=== PATIENT | male | born 1945 | race Caucasian/White ===

== ENCOUNTER 2018-12-17 15:23 | Inpatient (IN) | payer MEDICARE, BC ==
[~2018-12-17] VITALS: Ht 175.3 cm; Wt 74.9 kg
[2018-12-17] VITALS (14 sets, daily range): BP systolic 61–117; BP diastolic 35–72
--- NOTE | 2018-12-17 08:00 | NUR ---
NURSE NOTES: admit fr er pt orally intubated -lethargic with bp 75/60 dr sandoval was notify with made dopamine drip stared at 10mcg/kg /miin and vent ac 24 [id number] fio2 70 0/0 p5
--- NOTE | 2018-12-17 15:30 | NUR ---
ED Nurse Note: brought by RA [facility] from [facility] due to low sat for last 45 mins (84% in RA). pt on 15L via NR and maintained >94%. patient is unresposive to questions however is awake, patient came into ED tilted towards the left side of the bed. after being hooked up to the monitor, patient's current o2 sat is 82%, MD aware
[2018-12-17] MEDS ORDERED: ELIQUIS5 MG PO (15:37)
[2018-12-17] MEDS ORDERED: ATORVASTATIN CA20 MG ORAL (15:37)
[2018-12-17] MEDS ORDERED: CARVEDILOL3.125 MG ORAL (15:37)
[2018-12-17] MEDS ORDERED: SENNA8.6 M2 PO (15:37)
[2018-12-17] MEDS ORDERED: POLYETHYLENE GL17 GM ORAL (15:37)
[2018-12-17] MEDS ORDERED: VASOTEC10 MG ORAL (15:37)
[2018-12-17] MEDS ORDERED: FOLIC ACID1 MG ORAL (15:37)
[2018-12-17] MEDS ORDERED: DEXAMETHASONE4 M1 PO (15:37)
[2018-12-17] MEDS ORDERED: BISACODYL5 MG ORAL (15:37)
[2018-12-17] MEDS ORDERED: DOCUSATE SODIU100 MG ORAL (15:37)
[2018-12-17] MEDS ORDERED: Cefepime HCl 2 GM in NS 110 ML IV SCH (15:45)
[2018-12-17] MEDS ORDERED: Ipratropium 0.02% Inh Soln 2.5ml UD HHN ONE (15:45)
[2018-12-17] MEDS ORDERED: Vancomycin 1 GM in NS 275 ML IV ONE (15:45)
[2018-12-17] MEDS ORDERED: Cefepime 2gm ONE (15:51)
[2018-12-17] MEDS ORDERED: Acetaminophen 650 MG SUPP RECTAL ONE (16:00)
[2018-12-17] MEDS: Albuterol ud Inhalation HHN SCH ×3 (16:00→17:33)
--- NOTE | 2018-12-17 16:00 | Emergency Room Report ---
History of Present Illness General Chief Complaint: Dyspnea/Respdistress Source: Family Member, EMS Present Illness HPI Patient with recent hospitalization at [facility]. He has a history of lung cancer. He's had a alf facility. Apparently oxygen saturations were low and the patient was weak with dyspnea. According to the ambulance report his initial oxygen saturation was 86%. An EKG was done which showed a heart rate of 137 without any acute changes. He was improved on oxygen. The head kiln operator report also states he has a history of hypertension and prior stroke. The only medication listed is OxyContin. The patient has a POLST which says DO NOT RESUSCITATE but is not been signed by the physician. The patient is unable to give history. There are no old records the patient. 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 Hx Cerebrovascular Accident: Yes Review of Systems All Other Systems: limited Physical Exam Vital Signs Date Time Temp Pulse Resp B/P (MAP) Pulse Ox O2 Delivery O2 Flow Rate FiO2 12/17/18 15:25 103.6 137 33 114/91 94 Non-Rebreather 15.0 Sp02 EP Interpretation: reviewed, abnormal - As interpreted by me General Appearance: severe distress Eyes: bilateral eye normal inspection, bilateral eye PERRL ENT: moist mucus membranes Neck: supple Respiratory: decreased breath sounds, accessory muscle use, crackles, rales, wheezing, expiration Cardiovascular #1: tachycardia Cardiovascular #2: 2+ radial (L) Gastrointestinal: soft, decreased bowel sounds Genitourinary: no CVA tenderness Musculoskeletal: no calf tenderness, other - Atrophy bilaterally Neurologic: other - Lethargic and decreased responsiveness with weakness in all 4 extremities Psychiatric: other - In respiratory distress with increased mentation Skin: cyanosis, other - Hot Procedures Critical Care Time Critical Care Time Total Critical Care Time: 90 min bedside evaluation and treatment excludes procedures (EKG, intubation). Reason for critical care: sepsis, respiratory failure, NSTEMI Possible complications: hypotension, hypertension, PA, shock, arrhythmias, metabolic acidosis, end organ damage, respiratory failure. Interventions: sepsis resuscitation, antibiotics, BIPAP, intubation Course: Patient with fever and resp distress. Initially treatment with BIPAP. Failed. Discussed with as DNR. Requested intubation. Improved with this. Fluid responsive to sepsis with antibiotics begun. NSTEMI and aspirin given. Discussed with critical care MD. Multiple evaluations with dramatic improvement. Adjustment of vent based on ABG. Consultations: nursing staff, EMS, family, critical care MD, RT Performed by: Dr. Ram Tolerated well condition = Critical Intubation Intubation : Consent: Emergent Time of Intubation: 16:20 Intubation Method: orotracheal Tube Size (cm): 7.5 Medications: Other - none Breath Sounds after Intubation: equal Intubation Complications: no complications Post Intubation Xray: Yes Attempts: One Patient Tolerated: Well Complications: None Medical Decision Making Diagnostic Impression: Primary Impression: Severe sepsis Additional Impressions: Respiratory failure Qualified Codes: J96.01 - Acute respiratory failure with hypoxia; J96.02 - Acute respiratory failure with hypercapnia NSTEMI (non-ST elevated myocardial infarction) ER Course Patient presents with dyspnea fever tachycardia and tachypnea with hypoxia. The patient appears septic at this time. Due to DO NOT RESUSCITATE he is quite ill and aggressive treatment will be instituted with IV fluid hydration and BiPAP. Because of the advanced directives the patient most likely should not be intubated at this time however this will be confirmed by talking with the patient's physician and/or family member. Initial EKG with rate of [address] depressions. The machine reads STEMI however this is believed to be strain and rate related. Chest x-ray with right upper lobe mass and bilateral lower lobe infiltrates. On BiPAP the patient's respiration is better. However he is slightly less responsive. Attempting the end CO2 monitor on the patient. Fluids and antibiotics are started also Tylenol given. The patient appears gravely ill and may not survive. Lab called with positive troponin. Aspirin administered. White count is low. There is renal insufficiency. Urinalysis essentially normal. Discussed with who requests intubation. Intubated and O2 sat better and color. Blood gas with respiratory acidosis. Ventilator is adjusted. BP OK, still mottled, but pinking up, HR better, temp coming down. More alert. Sedation begun. Second NS bolus started. Before transfer repeat EKG without ischemic changes and improved. No longer mottled. BP 98 systolic and warmer and improved mentation. Discussed with and critical care MD. Admit ICU Dr. Enamorado. Laboratory Tests Test 12/17/18 15:40 12/17/18 16:31 12/17/18 17:02 12/17/18 17:30 White Blood Count 3.5 K/UL (4.8-10.8) L Red Blood Count 5.18 M/UL (4.70-6.10) Hemoglobin 16.5 G/DL (14.2-18.0) Hematocrit 49.7 % (42.0-52.0) Mean Corpuscular Volume 96 FL (80-99) Mean Corpuscular Hemoglobin 31.8 PG (27.0-31.0) H Mean Corpuscular Hemoglobin Concent 33.2 G/DL (32.0-36.0) Red Cell Distribution Width 11.6 % (11.6-14.8) Platelet Count 305 K/UL (150-450) Mean Platelet Volume 7.7 FL (6.5-10.1) Neutrophils (%) (Auto) % (45.0-75.0) Lymphocytes (%) (Auto) % (20.0-45.0) Monocytes (%) (Auto) % (1.0-10.0) Eosinophils (%) (Auto) % (0.0-3.0) Basophils (%) (Auto) % (0.0-2.0) Differential Total Cells Counted 100 Neutrophils % (Manual) 59 % (45-75) Lymphocytes % (Manual) 9 % (20-45) L Monocytes % (Manual) 3 % (1-10) Eosinophils % (Manual) 0 % (0-3) Basophils % (Manual) 1 % (0-2) Band Neutrophils 28 % (0-8) H Platelet Estimate Adequate Platelet Morphology Normal Anisocytosis 1+ Prothrombin Time 14.0 SEC (9.30-11.50) H Prothrombin Time INR 1.3 (0.9-1.1) H PTT 36 SEC (23-33) H Sodium Level 144 MMOL/L (136-145) Potassium Level 4.7 MMOL/L (3.5-5.1) Chloride Level 105 MMOL/L (98-107) Carbon Dioxide Level 25 MMOL/L (21-32) Anion Gap 14 mmol/L (5-15) Blood Urea Nitrogen 90 mg/dL (7-18) H Creatinine 2.1 MG/DL (0.55-1.30) H Estimate Glomerular Filtration Rate mL/min (>60) Glucose Level 125 MG/DL (74-106) H Lactic Acid Level 4.50 mmol/L (0.4-2.0) H 2.60 mmol/L (0.66-2.22) H Calcium Level 10.1 MG/DL (8.5-10.1) Total Bilirubin 1.0 MG/DL (0.2-1.0) Aspartate Amino Transferase (AST) 27 U/L (15-37) Alanine Aminotransferase (ALT) 31 U/L (12-78) Alkaline Phosphatase 111 U/L (46-116) Total Creatine Kinase 48 U/L (26-308) Troponin I 0.142 ng/mL (0.000-0.056) Pro-B-Type Natriuretic Peptide 99193 pg/mL (0-125) H Total Protein 8.4 G/DL (6.4-8.2) H Albumin 2.3 G/DL (3.4-5.0) L Globulin 6.1 g/dL Albumin/Globulin Ratio 0.4 (1.0-2.7) L Arterial Blood pH 7.280 (7.350-7.450) Arterial Blood Partial Pressure CO2 43.3 mmHg (35.0-45.0) Arterial Blood Partial Pressure O2 49.9 mmHg (75.0-100.0) Arterial Blood HCO3 20.0 mmol/L (22.0-26.0) L Arterial Blood Oxygen Saturation 78.6 % (95-100) *L Arterial Blood Base Excess -6.4 (-2-2) L Damion Test Positive Urine Color Yellow Urine Appearance Slightly cloudy Urine pH 5 (4.5-8.0) Urine Specific [place] 1.020 (1.005-1.035) Urine Protein 3+ (NEGATIVE) H Urine Glucose (UA) Negative (NEGATIVE) Urine Ketones 1+ (NEGATIVE) H Urine Blood 2+ (NEGATIVE) H Urine Nitrite Negative (NEGATIVE) Urine Bilirubin Negative (NEGATIVE) Urine Urobilinogen 1 MG/DL (0.0-1.0) H Urine Leukocyte Esterase 1+ (NEGATIVE) H Urine RBC 5-10 /HPF (0 - 0) H Urine WBC 2-4 /HPF (0 - 0) Urine Squamous Epithelial Cells None /LPF (NONE/OCC) Urine Amorphous Sediment Few /LPF (NONE) H Urine Bacteria Moderate /HPF (NONE) H Test 12/17/18 18:40 12/17/18 19:15 12/17/18 21:45 Arterial Blood pH 7.289 (7.350-7.450) 7.295 (7.350-7.450) Arterial Blood Partial Pressure CO2 36.5 mmHg (35.0-45.0) 39.0 mmHg (35.0-45.0) Arterial Blood Partial Pressure O2 99.3 mmHg (75.0-100.0) 71.0 mmHg (75.0-100.0) L Arterial Blood HCO3 17.1 mmol/L (22.0-26.0) *L 18.5 mmol/L (22.0-26.0) L Arterial Blood Oxygen Saturation 96.1 % (95-100) 91.4 % (95-100) L Arterial Blood Base Excess -8.7 (-2-2) L -7.4 (-2-2) L Damion Test Positive Positive Lactic Acid Level 2.40 mmol/L (0.4-2.0) H Troponin I 0.141 ng/mL (0.000-0.056) Thyroid Stimulating Hormone (TSH) Pending Cortisol Pending Microbiology Date/Time Source Procedure Growth Status 12/17/18 17:30 Nasal Nares Influenza Types A,B Antigen (JAYCOB) - Final Complete EKG Diagnostic Results Rate: tachycardiac ST Segments: no acute changes - NSSTTW changes Rhythm Strip Diag. Results EP Interpretation: yes Rhythm: other - Sinus tachycardia, PVC ST elevation but not full STEMI Chest X-Ray Diagnostic Results Chest X-Ray Diagnostic Results #1: Chest X-Ray Ordered: Yes # of Views/Limited/Complete: 1 View Indication: Other EP Interpretation: Yes Interpretation: no effusion, no pneumothorax, other - bilat infiltrates and CA RUL Impression: Other Electronically Signed by: Electronically signed by Real Ram MD Chest X-Ray Diagnostic Results #2: Chest X-Ray Ordered: Yes # of Views/Limited/Complete: 1 View Indication: Other EP Interpretation: Yes Interpretation: no effusion, no pneumothorax, other - ET OK, bilat infiltrates, RUL mass Impression: Other Electronically Signed by: Electronically signed by Real Ram MD Last Vital Signs Date Time Temp Pulse Resp B/P (MAP) Pulse Ox O2 Delivery O2 Flow Rate FiO2 12/18/18 04:02 100 12/18/18 04:00 Mechanical Ventilator 12/18/18 04:00 70 12/18/18 02:54 33 12/17/18 22:45 99/41 (60) 100 12/17/18 20:00 98.8 12/17/18 15:38 15.0 Status: improved Disposition: ADMITTED INPATIENT Condition: Critical Real Ram MD Dec 17, 2018 16:00
[2018-12-17 16:08] LABS: HEMATOCRIT 49.7 % (42.0-52.0); HEMOGLOBIN 16.5 G/DL (14.2-18.0); MEAN CORPUSCULAR VOLUME 96 FL (80-99); PLATELET COUNT 305 K/UL (150-450); RED BLOOD COUNT 5.18 M/UL (4.70-6.10); RED CELL DISTRIBUTION WIDTH 11.6 % (11.6-14.8); WHITE BLOOD COUNT 3.5 K/UL (4.8-10.8)
[2018-12-17 16:09] LABS: INR 1.3 (0.9-1.1)
--- NOTE | 2018-12-17 16:11 | Diagnostic Imaging Report ---
Indication: Cough Comparison: None A single view chest radiograph was obtained. Findings: There is a sharply circumscribed rounded fairly large opacity projected over the right upper lobe. This could be fissural fluid, a pleural-based mass or parenchymal mass. The heart is enlarged. There is ill-defined consolidation involving both lower lobes suspicious for pneumonia. Please correlate clinically. Sternotomy is noted. Bones are osteopenic. IMPRESSION: Suspected basilar pneumonia. Large rounded opacity in the right upper lobe possibly a pleural-based mass or fissural pseudotumor. Comparison with previous studies are recommended if available. Follow-up PA lateral chest x-ray recommended as initial evaluation.
[2018-12-17 16:15] LABS: ANION GAP 14 mmol/L (5-15); BLOOD UREA NITROGEN 90 mg/dL (7-18); CALCIUM 10.1 MG/DL (8.5-10.1); CARBON DIOXIDE 25 MMOL/L (21-32); CHLORIDE 105 MMOL/L (98-107); CREATININE 2.1 MG/DL (0.55-1.30); POTASSIUM 4.7 MMOL/L (3.5-5.1); SODIUM 144 MMOL/L (136-145)
--- NOTE | 2018-12-17 16:20 | NUR ---
ED Nurse Note: intubation time at 1620
[2018-12-17 16:26] LABS: ALANINE AMINOTRANSFERASE 31 U/L (12-78); ALBUMIN 2.3 G/DL (3.4-5.0); ALBUMIN/GLOBULIN RATIO 0.4 (1.0-2.7); ALKALINE PHOSPHATASE 111 U/L (46-116); ASPARTATE AMINO TRANSFERASE 27 U/L (15-37); CREATINE KINASE 48 U/L (26-308)
--- NOTE | 2018-12-17 16:30 | NUR ---
pt was brought into ER with complaint of resperatory distress, pt was placed on non-rebreather 100%, then as placed on bipap 15/5 100%, pt is dnr but agreed to intubate pt, pt intubated by DR Ram with 7.5 endotrachial tube 21 @ lip line vent settings of ac 16 450 70% +5 alarms are on x audible, vent plugged in red outlet. will continue to monitor the pt
[2018-12-17] MEDS ORDERED: Midazolam 2mg/2ml Inj IV ONE (16:45)
[2018-12-17] MEDS ORDERED: Midazolam for drip 50 MG in NS 90 ML IV ONE (16:45)
--- NOTE | 2018-12-17 17:12 | NUR ---
ED Nurse Note: patient started on Versed at 2 ml/hr
--- NOTE | 2018-12-17 17:27 | NUR ---
Note mitul in EDM - 12/17/18 at 1749 by GOYO ED Nurse Note: patient remains agitated, titrated to 3mg/h
--- NOTE | 2018-12-17 17:27 | NUR ---
ED Nurse Note: patient remains agitated, titrated versed to 2mg/h
[2018-12-17 17:28] LABS: APPEARANCE,URINE SLIGHTLY CLOUDY; BILIRUBIN, URINE NEGATIVE (NEGATIVE); GLUCOSE, URINE (UA) NEGATIVE (NEGATIVE); KETONES,URINE 1+ (NEGATIVE); LEUKOCYTE ESTERASE ,URINE 1+ (NEGATIVE); NITRITE,URINE NEGATIVE (NEGATIVE); PH,URINE 5 (4.5-8.0); PROTEIN,URINE 3+ (NEGATIVE); UROBILINOGEN,URINE 1 MG/DL (0.0-1.0)
[2018-12-17 17:40] LABS: COLOR,URINE YELLOW
--- NOTE | 2018-12-17 17:43 | NUR ---
ED Nurse Note: patient still remains agitated, RASS score of +2, titrated to 3mg/h
--- NOTE | 2018-12-17 18:50 | Consultation ---
Consult Note Assessment/Plan [facility] DICT # [id number] Solomon Quan MD Dec 17, 2018 18:50
--- NOTE | 2018-12-17 19:08 | NUR ---
ED Nurse Note: Patient transferred to ICU, Patient tolerated transfer well. report given to Charge Nurse by WESLEY Espinoza
--- NOTE | 2018-12-17 19:09 | Infectious Diseases Prog Note ---
Assessment/Plan Problems: (1) Acute aspiration pneumonia Assessment & Plan: will start vancomycin and zosyn empirically, send sputum culture , aspiration precaution (2) Sepsis Assessment & Plan: due to the above, will start wide spectrum antibiotics pending blood culture (3) CONSTANCE (acute kidney injury) Assessment & Plan: continue hydration with renally dosed antibiotics , continue pressure support (4) Acute respiratory failure Assessment & Plan: due to the above , intubated on mechanical ventilation, pulmonary is following (5) Lung cancer metastatic to brain Assessment & Plan: S/P radiation and chemo therapy at [place] , with poor prognosis Subjective Allergies: Coded Allergies: No Known Allergies (Unverified , 12/17/18) Objective Vital Signs Last 24 Hour Vital Signs Date Time Temp Pulse Resp B/P (MAP) Pulse Ox O2 Delivery O2 Flow Rate FiO2 12/17/18 19:00 25 Mechanical Ventilator 12/17/18 18:32 23 Mechanical Ventilator 12/17/18 18:18 23 Mechanical Ventilator 12/17/18 18:00 22 Mechanical Ventilator 12/17/18 17:56 104 26 89 Mechanical Ventilator 12/17/18 17:45 101.1 95 27 85/50 100 Mechanical Ventilator 12/17/18 17:44 28 Mechanical Ventilator 12/17/18 17:35 106 26 89 Mechanical Ventilator 70 12/17/18 17:27 21 Mechanical Ventilator 12/17/18 17:12 33 Mechanical Ventilator 12/17/18 16:47 112 26 70 12/17/18 16:06 103.6 112 33 112/67 98 Bi-pap 12/17/18 16:02 121 31 96 Full Face 100 12/17/18 16:02 121 31 Bi-pap 100 12/17/18 15:38 137 33 Non-Rebreather 15.0 12/17/18 15:25 103.6 137 33 114/91 94 Non-Rebreather 15.0 Height (Feet): 5 Height (Inches): 9.00 Weight (Pounds): 130 Microbiology Date/Time Source Procedure Growth Status 12/17/18 17:30 Nasal Nares Influenza Types A,B Antigen (JAYCOB) - Final Complete Laboratory Tests Test 12/17/18 15:40 12/17/18 16:31 12/17/18 17:02 12/17/18 17:30 White Blood Count 3.5 K/UL (4.8-10.8) L Red Blood Count 5.18 M/UL (4.70-6.10) Hemoglobin 16.5 G/DL (14.2-18.0) Hematocrit 49.7 % (42.0-52.0) Mean Corpuscular Volume 96 FL (80-99) Mean Corpuscular Hemoglobin 31.8 PG (27.0-31.0) H Mean Corpuscular Hemoglobin Concent 33.2 G/DL (32.0-36.0) Red Cell Distribution Width 11.6 % (11.6-14.8) Platelet Count 305 K/UL (150-450) Mean Platelet Volume 7.7 FL (6.5-10.1) Neutrophils (%) (Auto) % (45.0-75.0) Lymphocytes (%) (Auto) % (20.0-45.0) Monocytes (%) (Auto) % (1.0-10.0) Eosinophils (%) (Auto) % (0.0-3.0) Basophils (%) (Auto) % (0.0-2.0) Differential Total Cells Counted 100 Neutrophils % (Manual) 59 % (45-75) Lymphocytes % (Manual) 9 % (20-45) L Monocytes % (Manual) 3 % (1-10) Eosinophils % (Manual) 0 % (0-3) Basophils % (Manual) 1 % (0-2) Band Neutrophils 28 % (0-8) H Platelet Estimate Adequate Platelet Morphology Normal Anisocytosis 1+ Prothrombin Time 14.0 SEC (9.30-11.50) H Prothromb Time International Ratio 1.3 (0.9-1.1) H Activated Partial Thromboplast Time 36 SEC (23-33) H Sodium Level 144 MMOL/L (136-145) Potassium Level 4.7 MMOL/L (3.5-5.1) Chloride Level 105 MMOL/L (98-107) Carbon Dioxide Level 25 MMOL/L (21-32) Anion Gap 14 mmol/L (5-15) Blood Urea Nitrogen 90 mg/dL (7-18) H Creatinine 2.1 MG/DL (0.55-1.30) H Estimat Glomerular Filtration Rate mL/min (>60) Glucose Level 125 MG/DL (74-106) H Lactic Acid Level 4.50 mmol/L (0.4-2.0) H 2.60 mmol/L (0.66-2.22) H Calcium Level 10.1 MG/DL (8.5-10.1) Total Bilirubin 1.0 MG/DL (0.2-1.0) Aspartate Amino Transf (AST/SGOT) 27 U/L (15-37) Alanine Aminotransferase (ALT/SGPT) 31 U/L (12-78) Alkaline Phosphatase 111 U/L (46-116) Total Creatine Kinase 48 U/L (26-308) Troponin I 0.142 ng/mL (0.000-0.056) Pro-B-Type Natriuretic Peptide 05187 pg/mL (0-125) H Total Protein 8.4 G/DL (6.4-8.2) H Albumin 2.3 G/DL (3.4-5.0) L Globulin 6.1 g/dL Albumin/Globulin Ratio 0.4 (1.0-2.7) L Arterial Blood pH 7.280 (7.350-7.450) Arterial Blood Partial Pressure CO2 43.3 mmHg (35.0-45.0) Arterial Blood Partial Pressure O2 49.9 mmHg (75.0-100.0) Arterial Blood HCO3 20.0 mmol/L (22.0-26.0) L Arterial Blood Oxygen Saturation 78.6 % (95-100) *L Arterial Blood Base Excess -6.4 (-2-2) L Damion Test Positive Urine Color Yellow Urine Appearance Slightly cloudy Urine pH 5 (4.5-8.0) Urine Specific [place] 1.020 (1.005-1.035) Urine Protein 3+ (NEGATIVE) H Urine Glucose (UA) Negative (NEGATIVE) Urine Ketones 1+ (NEGATIVE) H Urine Blood 2+ (NEGATIVE) H Urine Nitrite Negative (NEGATIVE) Urine Bilirubin Negative (NEGATIVE) Urine Urobilinogen 1 MG/DL (0.0-1.0) H Urine Leukocyte Esterase 1+ (NEGATIVE) H Urine RBC 5-10 /HPF (0 - 0) H Urine WBC 2-4 /HPF (0 - 0) Urine Squamous Epithelial Cells None /LPF (NONE/OCC) Urine Amorphous Sediment Few /LPF (NONE) H Urine Bacteria Moderate /HPF (NONE) H Current Medications Medications (Trade) Dose Ordered Sig/Earlene Route PRN Reason Start Time Stop Time Status Last Admin Dose Admin Apixaban (Eliquis) 5 mg BID ORAL 12/18/18 09:00 01/17/19 08:59 UNV Cefepime HCl 2 gm/ Sodium Chloride 110 ml @ 220 mls/hr Q8H IV 12/17/18 15:45 12/18/18 15:44 12/17/18 15:53 Dexamethasone Sodium Phosphate (Decadron 4mg/ml vial) 4 mg BID IVP 12/18/18 09:00 01/17/19 08:59 UNV Dextrose/Sodium Chloride 1,000 ml @ 75 mls/hr [id number] IV 12/17/18 18:45 01/16/19 18:44 UNV Norepinephrine Bitartrate 4 mg/ Dextrose 250 ml @ 0 mls/hr Q24H IV 12/17/18 18:45 01/16/19 18:44 UNV Piperacillin Sod/ Tazobactam Sod 3.375 gm/Dextrose 110 ml @ 27.5 mls/hr EVERY 8 HOURS IVPB 12/17/18 22:00 12/22/18 21:59 UNV Sodium Chloride 1,000 ml @ 300 mls/hr Q3H20M IV 12/17/18 15:45 01/16/19 15:44 12/17/18 17:29 Vancomycin HCl (Vanco rx to dose) 1 ea DAILY PRN MISC Per rx protocol 12/17/18 18:15 01/16/19 18:14 Tammy Rob M.D. Dec 17, 2018 19:09
--- NOTE | 2018-12-17 19:43 | Cardiology Progress Note ---
Assessment/Plan Assessment/Plan The patient is seen and examined, full consult note will be dictated shortly. Objective Last 24 Hour Vital Signs Date Time Temp Pulse Resp B/P (MAP) Pulse Ox O2 Delivery O2 Flow Rate FiO2 12/17/18 19:00 25 Mechanical Ventilator 12/17/18 18:32 23 Mechanical Ventilator 12/17/18 18:18 23 Mechanical Ventilator 12/17/18 18:00 22 Mechanical Ventilator 12/17/18 17:56 104 26 89 Mechanical Ventilator 12/17/18 17:45 101.1 95 27 85/50 100 Mechanical Ventilator 12/17/18 17:44 28 Mechanical Ventilator 12/17/18 17:35 106 26 89 Mechanical Ventilator 70 12/17/18 17:27 21 Mechanical Ventilator 12/17/18 17:12 33 Mechanical Ventilator 12/17/18 16:47 112 26 70 12/17/18 16:06 103.6 112 33 112/67 98 Bi-pap 12/17/18 16:02 121 31 96 Full Face 100 12/17/18 16:02 121 31 Bi-pap 100 12/17/18 15:38 137 33 Non-Rebreather 15.0 12/17/18 15:25 103.6 137 33 114/91 94 Non-Rebreather 15.0 Laboratory Tests Test 12/17/18 15:40 12/17/18 16:31 12/17/18 17:02 12/17/18 17:30 White Blood Count 3.5 K/UL (4.8-10.8) L Red Blood Count 5.18 M/UL (4.70-6.10) Hemoglobin 16.5 G/DL (14.2-18.0) Hematocrit 49.7 % (42.0-52.0) Mean Corpuscular Volume 96 FL (80-99) Mean Corpuscular Hemoglobin 31.8 PG (27.0-31.0) H Mean Corpuscular Hemoglobin Concent 33.2 G/DL (32.0-36.0) Red Cell Distribution Width 11.6 % (11.6-14.8) Platelet Count 305 K/UL (150-450) Mean Platelet Volume 7.7 FL (6.5-10.1) Neutrophils (%) (Auto) % (45.0-75.0) Lymphocytes (%) (Auto) % (20.0-45.0) Monocytes (%) (Auto) % (1.0-10.0) Eosinophils (%) (Auto) % (0.0-3.0) Basophils (%) (Auto) % (0.0-2.0) Differential Total Cells Counted 100 Neutrophils % (Manual) 59 % (45-75) Lymphocytes % (Manual) 9 % (20-45) L Monocytes % (Manual) 3 % (1-10) Eosinophils % (Manual) 0 % (0-3) Basophils % (Manual) 1 % (0-2) Band Neutrophils 28 % (0-8) H Platelet Estimate Adequate Platelet Morphology Normal Anisocytosis 1+ Prothrombin Time 14.0 SEC (9.30-11.50) H Prothromb Time International Ratio 1.3 (0.9-1.1) H Activated Partial Thromboplast Time 36 SEC (23-33) H Sodium Level 144 MMOL/L (136-145) Potassium Level 4.7 MMOL/L (3.5-5.1) Chloride Level 105 MMOL/L (98-107) Carbon Dioxide Level 25 MMOL/L (21-32) Anion Gap 14 mmol/L (5-15) Blood Urea Nitrogen 90 mg/dL (7-18) H Creatinine 2.1 MG/DL (0.55-1.30) H Estimat Glomerular Filtration Rate mL/min (>60) Glucose Level 125 MG/DL (74-106) H Lactic Acid Level 4.50 mmol/L (0.4-2.0) H 2.60 mmol/L (0.66-2.22) H Calcium Level 10.1 MG/DL (8.5-10.1) Total Bilirubin 1.0 MG/DL (0.2-1.0) Aspartate Amino Transf (AST/SGOT) 27 U/L (15-37) Alanine Aminotransferase (ALT/SGPT) 31 U/L (12-78) Alkaline Phosphatase 111 U/L (46-116) Total Creatine Kinase 48 U/L (26-308) Troponin I 0.142 ng/mL (0.000-0.056) Pro-B-Type Natriuretic Peptide 06634 pg/mL (0-125) H Total Protein 8.4 G/DL (6.4-8.2) H Albumin 2.3 G/DL (3.4-5.0) L Globulin 6.1 g/dL Albumin/Globulin Ratio 0.4 (1.0-2.7) L Arterial Blood pH 7.280 (7.350-7.450) Arterial Blood Partial Pressure CO2 43.3 mmHg (35.0-45.0) Arterial Blood Partial Pressure O2 49.9 mmHg (75.0-100.0) Arterial Blood HCO3 20.0 mmol/L (22.0-26.0) L Arterial Blood Oxygen Saturation 78.6 % (95-100) *L Arterial Blood Base Excess -6.4 (-2-2) L Damion Test Positive Urine Color Yellow Urine Appearance Slightly cloudy Urine pH 5 (4.5-8.0) Urine Specific [place] 1.020 (1.005-1.035) Urine Protein 3+ (NEGATIVE) H Urine Glucose (UA) Negative (NEGATIVE) Urine Ketones 1+ (NEGATIVE) H Urine Blood 2+ (NEGATIVE) H Urine Nitrite Negative (NEGATIVE) Urine Bilirubin Negative (NEGATIVE) Urine Urobilinogen 1 MG/DL (0.0-1.0) H Urine Leukocyte Esterase 1+ (NEGATIVE) H Urine RBC 5-10 /HPF (0 - 0) H Urine WBC 2-4 /HPF (0 - 0) Urine Squamous Epithelial Cells None /LPF (NONE/OCC) Urine Amorphous Sediment Few /LPF (NONE) H Urine Bacteria Moderate /HPF (NONE) H Test 12/17/18 18:40 Arterial Blood pH Pending Arterial Blood Partial Pressure CO2 Pending Arterial Blood Partial Pressure O2 Pending Arterial Blood HCO3 Pending Arterial Blood Oxygen Saturation Pending Arterial Blood Base Excess Pending Damion Test Pending Microbiology Date/Time Source Procedure Growth Status 12/17/18 17:30 Nasal Nares Influenza Types A,B Antigen (JAYCOB) - Final Complete Fred Holman MD Dec 17, 2018 19:43
--- NOTE | 2018-12-17 20:30 | Consultation ---
DATE OF CONSULTATION: 12/17/2018 INFECTIOUS DISEASE CONSULTATION CONSULTING PHYSICIAN: Tammy Rob M.D. REFERRING PHYSICIAN: Bruno Enamorado M.D. REASON FOR CONSULTATION: Aspiration pneumonia with sepsis in an immunocompromised patient. Recommendation for antibiotics treatment. 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 The patient was found to be coughing for almost a week and became lethargic, as per his . He was recently hospitalized at [facility] after [place]. The patient has been receiving radiation therapy to his metastatic lesion in the brain with no significant improvement. At the rehab, he was coughing and became short of breath. Oxygen saturation was low and also his blood pressure, so he was brought into [place] for evaluation. The patient was saturating 94% on non-rebreathable mask with blood pressure of 114/91, pulse of 137, and fever of 103.6. He received IV antibiotics in the emergency room and shortly after that he got intubated and started on mechanical ventilation for progressive respiratory failure. The patient's blood pressure was found to be low, received boluses with no significant improvement. So, he will be transferred to the intensive care unit for pressors and resuscitation with blood pressure support, so Infectious Disease consultation was requested for antibiotics treatment and further management. As of note, the patient is intubated on mechanical ventilation and cannot provide any history. History was mainly obtained from his at the bedside. REVIEW OF SYSTEMS: Unable to obtain. The patient is intubated on mechanical ventilation and cannot provide any history. 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 SOCIAL HISTORY: The patient had remote history of smoking, but no recent drugs, tobacco, or alcohol. FAMILY HISTORY: Unable to obtain. PAST SURGICAL HISTORY: Not on record. ALLERGIES: He has no known drug allergies. MEDICATIONS: He received cefepime, vancomycin, and levofloxacin in the emergency room. For rest of his medications, please refer to [facility]. LABORATORY AND DIAGNOSTIC DATA: Labs showed white count of 3.5, hemoglobin 16.5, and platelet count 305,000. BUN 90, creatinine 2.1. Microbiology - influenza A and B both negative. Radiology - chest x-ray showed suspected basilar pneumonia, large rounded opacity in the right upper lobe, possibly pleural based mass or fissural pseudotumor. PHYSICAL EXAMINATION: VITAL SIGNS: Temperature 101.1, pulse 95, respirations 27, and blood pressure 85/50. Pulse oximetry 100% on mechanical ventilation. GENERAL: An elderly male cachectic, ill looking, intubated on mechanical ventilation, not in acute distress. HEENT: Normocephalic and atraumatic. Pupils are not reactive to light. Unable to assess oral mucosa well. No lips ulceration or lesion. NECK: Supple. No lymphadenopathy. Trachea midline. CARDIOVASCULAR: Regular rate and rhythm. No murmur or gallop. LUNGS: Diminished breathing sounds at the bases with crackles. Poor air entry. ABDOMEN: Soft, nontender, and nondistended. Normal bowel sounds. No hepatosplenomegaly or ascites. EXTREMITIES: No edema or cyanosis. ASSESSMENT AND RECOMMENDATION: 1. Acute aspiration pneumonia suspect due to alteration in his mental status. We will start the patient on vancomycin renally dosed as per pharmacy and Zosyn empiric coverage and send sputum culture, with aspiration precaution. Keep head of bed more than 30-degree all the time. Monitor chest x-ray. Aggressive suctioning. 2. Sepsis with hypotension due to the above. We will start wide-spectrum antibiotics pending blood culture. Continue IV fluid for blood pressure support. Recommend pressor if needed. The patient also should be on steroid since he has been on it for his brain metastases to prevent adrenal insufficiency or adrenal crisis. 3. Acute renal failure. Continue hydration with renally dosed antibiotics. Continue pressure support to maintain systolic blood pressure more than 100. Renal evaluation if needed. 4. Acute respiratory failure due to the above. The patient is intubated on mechanical ventilation. Pulmonary team is following. Monitor ABG and chest x-ray. 5. Lung cancer, metastasized to the brain and spine, status post radiation and chemo at [facility]. The patient has poor prognosis at this point. Code status to be discussed with the by the Primary in the morning. Thank you for the consult. ID will continue to follow. Please feel free to call with any question. Tammy Rob M.D. DR: SAJAN JOB#: [id number] CC: STEF
[2018-12-17] MEDS ORDERED: DOPamine 400mg/250ml 250 ML IV ONE (20:51)
[2018-12-17] MEDS: DOPamine 400mg/250ml 250 ML IV SCH (20:55)
--- NOTE | 2018-12-17 21:45 | Consultation ---
DATE OF CONSULTATION: 12/17/2018 PULMONARY AND CRITICAL CARE CONSULTATION CONSULTING PHYSICIAN: Solomon Quan M.D. REFERRING PHYSICIAN: Bruno Enamorado M.D. REASON FOR CONSULTATION: Ventilator-dependent respiratory failure, sepsis, and shock. I was asked emergently by Dr. Enamorado to see the patient. He was evaluated by me in the [place] [facility] prior to transfer to the critical care unit. HISTORY OF PRESENT ILLNESS: The patient is a very unfortunate 73-year-old male, extensive former smoker with a history of lung cancer with metastases to the brain and spine, CAD, CABG, systolic heart failure, hypertension, and hyperlipidemia, discharged from [facility] on 12/08/2018 to the rehabilitation center of [place] where he has been undergoing radiation therapy under the care of Dr. Annamaria Wilson. The patient was noted for the past few days to be less responsive, coughing, congestion, and having respiratory distress. Today at the rehabilitation facility, his respiratory rate was in the 30s. He is saturating to the 80s on the room air. He got a nebulized treatment without any improvement in his expiratory wheezing and thus was sent to [place] for further evaluation and management. Upon arrival to the ER, the patient's temperature was 103.6. He previously had a DNR order in state, but his upon discussion with the emergency room physician opted for intubation. Subsequently, the patient was endotracheally intubated. In addition to the large right upper lobe mass, he has bilateral pulmonary infiltrates. He had a white count of 3.5. His ABG post-intubation was 7.28/43/49/20/78. Lactic acid of 4.5, creatinine of 2.1. Of note, his last creatinine at [facility] was 0.6 on 12/08/2018. The patient also has elevated BNP and evidence of a urinary tract infection. Rapid flu done in the ER was negative. Chest x-ray shows bilateral infiltrates as I stated. At the time of my evaluation, he is sedated on a ventilator, in no distress. He received cefepime, Zosyn, and vancomycin in the emergency department as well as Versed prior to intubation. His MAP is 85 at this time. No history is obtainable from the patient. The last CT chest, abdomen, and pelvis on 10/31/2018 showed increase in the size of his right upper lobe mass, small paratracheal nodes, which were stable and on 11/17/2019, he had an MRI of brain showing marked increase in multiple metastases. His last echocardiogram on 03/23/2018 showed severely depressed LV systolic function with an EF of 24% and wall motion abnormalities. He does not have a formal diagnosis of COPD, but has seen many times. PAST MEDICAL HISTORY: 1. Lung adenocarcinoma with brain metastases. 2. Likely COPD. 3. CAD, status post CABG. 4. Hypertension. 5. Hyperlipidemia. 6. Prior CVA. ALLERGIES: No known drug allergies. MEDICATIONS: Prior to admission, medications reviewed. Current medications, reviewed. SOCIAL HISTORY: Former smoker. No alcohol or drug use. He is and has supportive . Currently, at the [facility]. FAMILY HISTORY: Noncontributory. REVIEW OF SYSTEMS: Unobtainable. PHYSICAL EXAMINATION: VITAL SIGNS: Temperature 103.6, pulse 104, blood pressure 85/50, respiratory 26, saturating 70% on the ventilator. GENERAL: He is obtunded and intubated. HEENT: Normocephalic and atraumatic. ET tube is noted. NECK: Supple without lymphadenopathy. CHEST: Coarse bibasilar sounds. HEART: Regular rate and rhythm. ABDOMEN: Soft, nontender, and nondistended. EXTREMITIES: No cyanosis, clubbing, or edema. ANCILLARY DATA: White count 3.5, hemoglobin 16.5, and platelet count 305,000. ABG 7.28/43/49/20/78. Sodium 144, potassium 4.7, chloride 105, bicarbonate 25, gap 14, BUN 90, creatinine 2.1, glucose 125, lactic acid 4.6, and calcium 10.1. Total bilirubin 1, AST 27, and ALT 31. Troponin 0.142. ProBNP 27103. Total protein 8.4, albumin 2.3, and globulin 6.1. Urinalysis, moderate bacteria, 2+ blood, 1+ ketone, and 1+ leukocyte esterase. Rapid influenza negative. Chest x-ray, right upper lobe mass and bibasilar infiltrates. Review of data from [facility] on 03/23/2018. Echocardiogram, severely depressed LV systolic function, EF of 24%; moderate diastolic dysfunction, wall motion score 2.358; kinesis of the apical anterior to lateral septal wall; mildly depressed RV systolic function; and mild to moderate MR. On 11/17/2018, PET/CT, marked increase in size of bilateral brain metastases. On 10/31/2018, CT chest of abdomen, and pelvis, increase in large right upper lobe mass with avid uptake and solitary right paratracheal node. Last creatinine was 0.6. ASSESSMENT: The patient is a very unfortunate 73-year-old male, former smoker with a history of lower lung adenocarcinoma with known brain metastases, currently getting radiation therapy, presenting with respiratory failure in the setting of pneumonia, CONSTANCE, and troponinemia. Despite DNR status, he was intubated per his 's wishes and is currently on the ventilator. I have discussed the case with his and she is okay with him getting a central line and pressors if needed, but would not want cardiopulmonary resuscitation in the event of an arrest. Despite his severe systolic and diastolic dysfunction, clinically he is dry as well as evidence of multisystem organ failure. I believe he requires IV fluids at this time. PROBLEM LIST: 1. Ventilator-dependent respiratory failure. 2. Healthcare-associated pneumonia with bilateral infiltrates. 3. Non-small cell lung cancer/adenocarcinoma: Right upper lobe mass with brain and cervical spine metastases, currently getting radiation therapy. 4. Acute kidney injury. 5. Lactic acidosis. 6. Shock, likely septic. 7. Congestive heart failure with systolic and diastolic dysfunction without evidence of decompensation. 8. CAD, status post CABG. 9. Hypertension. 10. Hyperlipidemia. 11. CVA. 12. DNAR. TREATMENT PLAN: 1. Continue ventilatory support, settings reviewed with Dr. Ram, ER physician. I agree with increase of tidal volume to 600 and rate to 24. 2. Titrate down FiO2 and PEEP as able. 3. Lktjn-hau-yhadn and p.r.n. bronchodilators. 4. Start Zosyn and vancomycin. 5. Follow up cultures. 6. Monitor volumes and renal function. 7. Cautious IV fluid hydration, we will start D5 half NS at 75 mL an hour. 8. Trend lactic acid. 9. Trend troponins. 10. Follow up echocardiogram. 11. I have asked the ER attending to place a central line and possibly start pressors if needed. 12. Continue Decadron 4 mg b.i.d. that the patient was on. 13. DVT prophylaxis. Continue home Eliquis via NG tube. 14. DNAR. CRITICAL CARE TIME: 60 minutes critical care time spent in the care of this patient. Solomon Quan M.D. DR: SOFIYA JOB#: [id number] CC:
--- NOTE | 2018-12-17 21:45 | Consultation ---
DATE OF CONSULTATION: 12/17/2018 CARDIOLOGY CONSULTATION: CONSULTING PHYSICIAN: Fred Holman M.D. REFERRING PHYSICIAN: Bruno Enamorado M.D. REASON FOR CONSULTATION: Management of shortness of breath and tachycardia in a patient with respiratory failure. HISTORY OF PRESENT ILLNESS: The patient is a very unfortunate 73-year-old gentleman with past medical history significant for right lung cancer with metastases to brain and spine, history of congestive heart failure, history of coronary artery disease, status post coronary artery bypass graft surgery, history of hypertension, history of cerebrovascular accident, a resident of a long term facility, DNR who was brought in to this facility after the patient was found to be weak and having dyspnea with associated documented low oxygen saturation. Apparently, the DNR status was over rolled by the patient's and the patient got intubated and transferred to the intensive care unit for acute respiratory failure due to underlying COPD as well as lung cancer. At the time of arrival to the hospital, blood pressure was 114/91 mmHg and heart rate was 137. A 12-lead electrocardiogram was significant for sinus tachycardia. Single PVC, but no acute ST and T-wave abnormalities. The patient was febrile and temperature 103.6 degrees Fahrenheit. Unfortunately, the patient cannot provide any history as he is intubated. PAST MEDICAL HISTORY: 1. Congestive heart failure. 2. Coronary artery disease, status post coronary artery bypass graft surgery. Number of grafts not known. 3. History of hypertension. 4. Metastatic lung cancer with presence of a right lung mass metastasis to brain and spine. 5. History of CVA. 6. History of recent hospitalization to [facility]. REVIEW OF SYSTEMS: Twelve system review could not be done as the patient is intubated. ALLERGIES: No known drug allergies. PAST SURGICAL HISTORY: None. SOCIAL HISTORY: History of tobacco use. Currently, there is no history of tobacco, alcohol, or illicit drug use. MEDICATIONS: List of medications in the nursing facility includes apixaban 5 mg p.o. twice daily, atorvastatin 20 mg p.o. at bedtime, Dulcolax 10 mg p.o. daily, carvedilol 3.125 mg q.12 hours, dexamethasone 4 mg twice daily, Colace 100 mg twice daily, Vasotec 10 mg p.o. daily, folic acid 1 mg p.o. daily, MiraLAX 17 g at bedtime p.r.n. constipation, and senna 8.6 mg at bedtime. PHYSICAL EXAMINATION: VITAL SIGNS: Blood pressure was 114/91, pulse of 137, respirations 33, and O2 saturation 94% on non-rebreather mask at the time of arrival to the ER, now is intubated. Temperature was 103.6 degrees Fahrenheit at the time of arrival to the hospital. GENERAL: The patient is a very cachectic 73-year-old gentleman, who is intubated. HEENT: Atraumatic and normocephalic. Anicteric. Pupils are equal, round, and reactive to light and accommodation. Conjunctival pallor. NECK: JVP cannot be assessed due to positive inspiratory pressure of the ventilator. No carotid bruit. Carotid upstroke is 2+ bilaterally. CARDIOVASCULAR: Normal S1, S2. Regular rate and rhythm. I do not hear murmurs, gallops, or rubs. LUNGS: Diminished breath sounds in both lungs. ABDOMEN: Soft, nontender, and nondistended. No hepatosplenomegaly. Positive bowel sounds. EXTREMITIES: No evidence of edema, clubbing, or cyanosis. There is onychomycosis. LABORATORY FINDINGS: WBC 3.5, hemoglobin 16.5, hematocrit 49.7, and platelet count is 305 with 28% bandemia. ABG showed pH of 7.28, pCO2 of 42.3, pO2 of 49.9, HCO2 of 20, and O2 saturation 78.6 prior to intubation with considerable improvement of the ABG following intubation as follows pH of 7.28, pCO2 of 36.5, pO2 of 99.3 HCO2 of 17.1, and O2 saturation 96.1%. Chemistry shows sodium of 144, potassium is 4.7, chloride is 105, bicarbonate 25, BUN of 90, creatinine 2.1, and glucose is 125. Troponin I was 0.142. ProBNP was 95074. Albumin is 2.3. INR is 1.3. Chest x-ray shows suspected basilar pneumonia, large rounded opacity in the right upper lobe, probably pleural-based mass or fissural pseudotumor. ASSESSMENT AND PLAN: The patient is a very unfortunate 73-year-old gentleman, seen in Cardiology consultation in the intensive care unit of [facility]. 1. Sinus tachycardia, most likely secondary to hypoxemia. The patient showed hypoxic hypercarbic respiratory failure due to possible acute exacerbation of COPD. Currently intubated. Heart rate has diminished to 85 beats per minute. The treatment of sinus tachycardia is the treatment of the underlying disorder. ABG has improved in oxygenation. Pulmonary consultation in place. Then. 2. History of coronary artery disease, status post coronary artery bypass graft surgery. A 12-lead electrocardiogram does not show any ischemic changes despite the fact that the first troponin I level was elevated. The patient is not a candidate for ischemic workup given metastatic lung cancer conservative management. I do not believe that the patient would benefit from anticoagulation therapy, which may put the patient in increased risk of bleeding. 3. 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 4. History of CVA. 5. History of COPD. Total amount of time spent in evaluation of this patient in the intensive care unit of [facility] including review of the old records from [facility] discussing the plan of care with the nursing staff and primary care physician was over 50 minutes. I would like to thank, Dr. Enamorado, for the courtesy of this consultation. Fred Holman M.D. DR: CATHERINE JOB#: [id number] CC:
--- NOTE | 2018-12-17 22:00 | NUR ---
NURSE NOTES: NGT INSERTED ORALLY AND VERIFIED WITH DENZEL GREENFIELD RNREPOSItion
[2018-12-17] MEDS: Piperacillin/Tazobactam 3.375 GM in D5W 110 ML IVPB SCH (22:37)
[2018-12-17] MEDS: D5 1/2NS 1,000 ML IV SCH (22:42)
[2018-12-18] VITALS (33 sets, daily range): BP systolic 90–152; BP diastolic 50–83
--- NOTE | 2018-12-18 | NUR ---
NURSE NOTES: REPOSITION AND SUCTION ACUTE DISTRESS NOTED
--- NOTE | 2018-12-18 02:00 | NUR ---
NURSE NOTES: REPOSITION AND SUCTION AM CARE DONE ORAL CARE DONE
--- NOTE | 2018-12-18 04:00 | NUR ---
NURSE NOTES: PT OBTUNDED ON DOPAMINE DRIP AT 5MCG/KG /MIN BP121/55
[2018-12-18 05:09] LABS: HEMATOCRIT 37.6 % (42.0-52.0); HEMOGLOBIN 12.1 G/DL (14.2-18.0); MEAN CORPUSCULAR VOLUME 100 FL (80-99); PLATELET COUNT 190 K/UL (150-450); RED BLOOD COUNT 3.78 M/UL (4.70-6.10); RED CELL DISTRIBUTION WIDTH 12.4 % (11.6-14.8); WHITE BLOOD COUNT 4.1 K/UL (4.8-10.8)
[2018-12-18 05:49] LABS: ANION GAP 12 mmol/L (5-15); BLOOD UREA NITROGEN 67 mg/dL (7-18); CALCIUM 8.2 MG/DL (8.5-10.1); CARBON DIOXIDE 22 MMOL/L (21-32); CHLORIDE 112 MMOL/L (98-107); CREATININE 1.5 MG/DL (0.55-1.30); POTASSIUM 4.1 MMOL/L (3.5-5.1); SODIUM 146 MMOL/L (136-145)
[2018-12-18] MEDS: Piperacillin/Tazobactam 3.375 GM in D5W 110 ML IVPB SCH ×3 (06:06→21:33)
--- NOTE | 2018-12-18 06:49 | NUR ---
RESPIRATORY NOTE: Patient received mechanically ventilated on PB 840 with current ordered vent settings. Patient is orally intubated with ETT size 7.5 at 21cm at the lip line secured with an anchor fast. Patient presents with bilateral coarse breath sounds. Thick white secretions suctioned without incident. There is an ambu bag available the bedside and the vent is connected to a red outlet. Vent alarms are functional and audible. Will continue to monitor.
--- NOTE | 2018-12-18 07:30 | NUR ---
HAND-OFF: Report given to falguni tovar.
[2018-12-18] MEDS: Ipratropium 0.02% Inh Soln 2.5ml UD HHN SCH (07:34)
--- NOTE | 2018-12-18 08:00 | NUR ---
NURSE NOTES: Received patient obtunded, reacts to deep pain on fingernails. Patient playground monitor showing SR. ETT 7.5/21 cm selam. AC 18, VT 600 FiO2 70% and Peep of 5. Lung sounds diminished bilaterally. Patient is NPO at this time. OGT intact. No bowel movement. Soft, non-tender, round abdomen. Hypoactive bowel sounds on all 4 quadrants. Skin intact, toe fungus. L ac 20 R forearm 20. D5 1/2 NS at 75 cc/hr. Dopamine at 5 mcg/kg/min. Bilateral restraints on, active range of motion present, unable to take off restraints patient reaches to remove devices. Turned and repositioned. Bed on lowest position, bed alarm on for safety, hob elevated, will continue plan of care.
[2018-12-18] MEDS ORDERED: Lidocaine 1% Plain 30 ml INJ PRN (08:30)
[2018-12-18] MEDS ORDERED: Heparin 2000 units/Ns 1000ml INJ PRN (08:30)
[2018-12-18] MEDS ORDERED: Eliquis 2.5mg tablet ORAL SCH (09:00)
[2018-12-18] MEDS: D5 1/2NS 1,000 ML IV SCH (09:20)
--- NOTE | 2018-12-18 10:00 | NUR ---
NURSE NOTES: patient turned and repositioned. No new orders at this time. VSS. no distress noted.
[2018-12-18] MEDS: Dexamethasone 4mg/ml vial IVP SCH ×2 (10:19→18:22)
--- NOTE | 2018-12-18 12:00 | NUR ---
NURSE NOTES: Patient turned and repositioned. L upper arm PICC line double lumen inserted, placement confirmed. IV dopamine and fluids moved to PICC line.
--- NOTE | 2018-12-18 12:15 | Diagnostic Imaging Report ---
Indication: Postintubation Comparison: 12/17/2018 one hour earlier A single view chest radiograph was obtained. Findings: Endotracheal tube is in good position several centimeters above the maru. Patchy mixed interstitial alveolar densities noted throughout the lungs unchanged. Large mass projected over the right upper lobe. Cardiac silhouette is stable. IMPRESSION: Endotracheal tube in good position
--- NOTE | 2018-12-18 12:23 | Diagnostic Imaging Report ---
Indication: terminal operator venous access Findings: After the indications, procedure, risks, complications, and alternatives of the procedure were explained, written informed consent was obtained. The left upper extremity was prepped with alcohol. All elements of maximal sterile barrier technique were followed including usage of a cap, mask, sterile gown, sterile gloves, hand hygiene and a large sterile sheet. Sonographic evaluation of the upper extremity was performed demonstrating a patent and compressible basilic vein. Access was obtained under real-time ultrasound guidance (with utilization of sterile gel and sterile probe cover) and digital image was saved and archived. An .018 wire was introduced. Needle exchanged for a 5 Kisw[place]ili peel-away sheath. Measurements were obtained. A 5 K[place]ili dual-lumen Power PICC line catheter was cut to 35 cm and introduced over the wire. Peel-away sheath and wire were removed.Catheter was secured to the skin using 2-0 Prolene suture. Both ports aspirate and flush easily. Post procedure chest x-ray demonstrates good position of the PICC line catheter within the left innominate vein/SVC junction. Impression: Successful placement of an upper extremity PICC line catheter
--- NOTE | 2018-12-18 14:00 | NUR ---
NURSE NOTES: Patient turned and repositioned. No new orders at this time. Switched from dopamine to levophed VIA L upper arm PICC line / MD order. Will continue plan of care.
[2018-12-18] MEDS ORDERED: Ipratropium 0.02% Inh Soln 2.5ml UD HHN PRN (14:15)
--- NOTE | 2018-12-18 14:15 | Pulmonolgy Critical Care Note ---
Critical Care - Asmt/Plan Problems: (1) Gram positive sepsis (2) Severe sepsis (3) Acute respiratory failure (4) NSTEMI (non-ST elevated myocardial infarction) (5) CONSTANCE (acute kidney injury) (6) Acute aspiration pneumonia (7) Lung cancer metastatic to brain Respiratory: monitor respiratory rate, adjust FIO2 - titrate down to keep SaO2 > 92, continue PEEP 5, CXR, ABG, other Cardiac: continue pressors - switch DA to NE, titrate to keep MAP > 60, continue to monitor HR/BP, other - F/u TTE, F/U repeat trop Renal: keep IV fluid, check electrolytes, other - repeat lactic acid Infectious Disease: check cultures, continue antibiotics - Vanco/Zosyn per ID Gastrointestinal: other - Would start enteral feeds Endocrine: other - check TFT's, F/U cortisol Hematologic: monitor H/H, other - continue Eliquis via NGT - F/U CT brain Neurologic: other - Fent gtt RASS -2 + PRN Versed, F/U CT brain Prophylaxis: Protonix, other - Eliquis Disposition: keep in ICU Time Spent (Minutes): 50 Notes 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, 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, ID Discussed with: nurses, consultants, other - DNAR Critical Care - Objective Last 24 Hour Vital Signs Date Time Temp Pulse Resp B/P (MAP) Pulse Ox O2 Delivery O2 Flow Rate FiO2 12/18/18 13:00 98.8 114 25 102/62 (75) 100 12/18/18 12:56 119 31 70 12/18/18 12:00 70 12/18/18 12:00 120 22 114/68 (83) 100 12/18/18 12:00 70 12/18/18 12:00 102 12/18/18 12:00 Mechanical Ventilator 12/18/18 11:04 115 29 70 12/18/18 11:00 115 28 110/50 (70) 98 12/18/18 10:30 114 28 112/51 (71) 98 12/18/18 10:00 115 28 106/57 (73) 95 12/18/18 09:00 116 32 115/63 (80) 99 12/18/18 08:43 120 32 70 12/18/18 08:30 119 32 106/65 (79) 98 12/18/18 08:00 Mechanical Ventilator 12/18/18 08:00 98.9 124 30 94/81 (85) 100 12/18/18 08:00 70 12/18/18 08:00 102 12/18/18 07:30 129 33 95/64 (74) 96 12/18/18 06:45 122 34 70 12/18/18 05:25 128 32 70 12/18/18 04:02 100 12/18/18 04:00 Mechanical Ventilator 12/18/18 04:00 70 12/18/18 02:54 111 33 70 12/18/18 01:16 116 35 70 12/18/18 00:00 Mechanical Ventilator 12/17/18 23:19 Mechanical Ventilator 12/17/18 23:16 111 34 70 12/17/18 22:45 114 33 99/41 (60) 100 12/17/18 22:30 123 34 103/58 (73) 100 12/17/18 22:15 131 30 117/43 (67) 98 12/17/18 22:00 131 30 72/54 (60) 98 12/17/18 21:45 128 26 98/64 (75) 94 12/17/18 21:30 129 25 107/60 (76) 94 12/17/18 21:15 126 25 90/72 (78) 94 12/17/18 21:00 99 29 82/50 (61) 94 12/17/18 20:58 96 28 70 12/17/18 20:55 75/40 12/17/18 20:45 94 27 90/63 (72) 94 12/17/18 20:30 93 26 61/46 (51) 93 12/17/18 20:30 118/60 12/17/18 20:15 93 25 68/35 (46) 94 12/17/18 20:00 100 12/17/18 20:00 Mechanical Ventilator 12/17/18 20:00 95 12/17/18 20:00 98.8 94 25 75/44 (54) 97 12/17/18 19:48 96 28 70 12/17/18 19:08 99.8 99 23 95/54 100 Mechanical Ventilator 12/17/18 19:00 25 Mechanical Ventilator 12/17/18 18:32 23 Mechanical Ventilator 12/17/18 18:18 23 Mechanical Ventilator 12/17/18 18:00 22 Mechanical Ventilator 12/17/18 17:56 104 26 89 Mechanical Ventilator 12/17/18 17:45 101.1 95 27 85/50 100 Mechanical Ventilator 12/17/18 17:44 28 Mechanical Ventilator 12/17/18 17:35 106 26 89 Mechanical Ventilator 70 12/17/18 17:27 21 Mechanical Ventilator 12/17/18 17:12 33 Mechanical Ventilator 12/17/18 16:47 112 26 70 12/17/18 16:24 101.2 12/17/18 16:06 103.6 112 33 112/67 98 Bi-pap 12/17/18 16:02 121 31 96 Full Face 100 12/17/18 16:02 121 31 Bi-pap 100 12/17/18 15:38 137 33 Non-Rebreather 15.0 12/17/18 15:25 103.6 137 33 114/91 94 Non-Rebreather 15.0 Status: obtunded Condition: critical HEENT: atraumatic, normocephalic Lungs: rhonchi Heart: HR/BP unstable Abdomen: soft, non-tender, active bowel sounds Extremities: edema Micro: Microbiology Date/Time Source Procedure Growth Status 12/17/18 15:40 Blood Blood Culture - Preliminary Resulted 12/17/18 15:25 Blood Blood Culture - Preliminary Resulted 12/17/18 17:30 Nasal Nares Influenza Types A,B Antigen (JAYCOB) - Final Complete 12/17/18 17:02 Urine,Clean Catch Urine Culture - Preliminary NO GROWTH Resulted Blood Sugars: BS controlled Critical Care - Subjective ROS Limited/Unobtainable: Yes ICU Day: 2 Intubation Day: 2 Interval Events: DA 4 mcg, S/P PICC Obtunded, no sig secretions G+C in blood Condition: critical IV Access: PICC EKG Rhythm: Sinus Rhythm FI02: 70 Vent Support Breath Rate: 24 Vent Support Mode: AC Vent Tidal Volume: 600 Sputum Amount: Small PEEP: 5.0 PIP: 24 Secretions: small Fluids: D51/2NS@75 Drips: DA 4 I&O: Intake and Output 12/17/18 12/18/18 19:00 07:00 Intake Total 0 ml 945.118 ml Output Total 1490 ml Balance 0 ml -544.882 ml Intake Oral 0 ml 0 ml IV Total 945.118 ml Output Urine Total 1490 ml Subjective: HAWA CXR: ETT, b infil ET-Tube: 7.5 ET Position: 21 Labs: Laboratory Tests Test 12/17/18 15:40 12/17/18 16:31 12/17/18 17:02 12/17/18 17:30 White Blood Count 3.5 K/UL (4.8-10.8) L Red Blood Count 5.18 M/UL (4.70-6.10) Hemoglobin 16.5 G/DL (14.2-18.0) Hematocrit 49.7 % (42.0-52.0) Mean Corpuscular Volume 96 FL (80-99) Mean Corpuscular Hemoglobin 31.8 PG (27.0-31.0) H Mean Corpuscular Hemoglobin Concent 33.2 G/DL (32.0-36.0) Red Cell Distribution Width 11.6 % (11.6-14.8) Platelet Count 305 K/UL (150-450) Mean Platelet Volume 7.7 FL (6.5-10.1) Neutrophils (%) (Auto) % (45.0-75.0) Lymphocytes (%) (Auto) % (20.0-45.0) Monocytes (%) (Auto) % (1.0-10.0) Eosinophils (%) (Auto) % (0.0-3.0) Basophils (%) (Auto) % (0.0-2.0) Differential Total Cells Counted 100 Neutrophils % (Manual) 59 % (45-75) Lymphocytes % (Manual) 9 % (20-45) L Monocytes % (Manual) 3 % (1-10) Eosinophils % (Manual) 0 % (0-3) Basophils % (Manual) 1 % (0-2) Band Neutrophils 28 % (0-8) H Platelet Estimate Adequate Platelet Morphology Normal Anisocytosis 1+ Prothrombin Time 14.0 SEC (9.30-11.50) H Prothromb Time International Ratio 1.3 (0.9-1.1) H Activated Partial Thromboplast Time 36 SEC (23-33) H Sodium Level 144 MMOL/L (136-145) Potassium Level 4.7 MMOL/L (3.5-5.1) Chloride Level 105 MMOL/L (98-107) Carbon Dioxide Level 25 MMOL/L (21-32) Anion Gap 14 mmol/L (5-15) Blood Urea Nitrogen 90 mg/dL (7-18) H Creatinine 2.1 MG/DL (0.55-1.30) H Estimat Glomerular Filtration Rate mL/min (>60) Glucose Level 125 MG/DL (74-106) H Lactic Acid Level 4.50 mmol/L (0.4-2.0) H 2.60 mmol/L (0.66-2.22) H Calcium Level 10.1 MG/DL (8.5-10.1) Total Bilirubin 1.0 MG/DL (0.2-1.0) Aspartate Amino Transf (AST/SGOT) 27 U/L (15-37) Alanine Aminotransferase (ALT/SGPT) 31 U/L (12-78) Alkaline Phosphatase 111 U/L (46-116) Total Creatine Kinase 48 U/L (26-308) Troponin I 0.142 ng/mL (0.000-0.056) Pro-B-Type Natriuretic Peptide 31356 pg/mL (0-125) H Total Protein 8.4 G/DL (6.4-8.2) H Albumin 2.3 G/DL (3.4-5.0) L Globulin 6.1 g/dL Albumin/Globulin Ratio 0.4 (1.0-2.7) L Arterial Blood pH 7.280 (7.350-7.450) Arterial Blood Partial Pressure CO2 43.3 mmHg (35.0-45.0) Arterial Blood Partial Pressure O2 49.9 mmHg (75.0-100.0) Arterial Blood HCO3 20.0 mmol/L (22.0-26.0) L Arterial Blood Oxygen Saturation 78.6 % (95-100) *L Arterial Blood Base Excess -6.4 (-2-2) L Damion Test Positive Urine Color Yellow Urine Appearance Slightly cloudy Urine pH 5 (4.5-8.0) Urine Specific [place] 1.020 (1.005-1.035) Urine Protein 3+ (NEGATIVE) H Urine Glucose (UA) Negative (NEGATIVE) Urine Ketones 1+ (NEGATIVE) H Urine Blood 2+ (NEGATIVE) H Urine Nitrite Negative (NEGATIVE) Urine Bilirubin Negative (NEGATIVE) Urine Urobilinogen 1 MG/DL (0.0-1.0) H Urine Leukocyte Esterase 1+ (NEGATIVE) H Urine RBC 5-10 /HPF (0 - 0) H Urine WBC 2-4 /HPF (0 - 0) Urine Squamous Epithelial Cells None /LPF (NONE/OCC) Urine Amorphous Sediment Few /LPF (NONE) H Urine Bacteria Moderate /HPF (NONE) H Test 12/17/18 18:40 12/17/18 19:15 12/17/18 21:45 12/18/18 03:40 Arterial Blood pH 7.289 (7.350-7.450) 7.295 (7.350-7.450) Arterial Blood Partial Pressure CO2 36.5 mmHg (35.0-45.0) 39.0 mmHg (35.0-45.0) Arterial Blood Partial Pressure O2 99.3 mmHg (75.0-100.0) 71.0 mmHg (75.0-100.0) L Arterial Blood HCO3 17.1 mmol/L (22.0-26.0) *L 18.5 mmol/L (22.0-26.0) L Arterial Blood Oxygen Saturation 96.1 % (95-100) 91.4 % (95-100) L Arterial Blood Base Excess -8.7 (-2-2) L -7.4 (-2-2) L Damion Test Positive Positive Lactic Acid Level 2.40 mmol/L (0.4-2.0) H Troponin I 0.141 ng/mL (0.000-0.056) Thyroid Stimulating Hormone (TSH) 0.047 uiU/mL (0.358-3.740) Cortisol Pending White Blood Count 4.1 K/UL (4.8-10.8) L Red Blood Count 3.78 M/UL (4.70-6.10) L Hemoglobin 12.1 G/DL (14.2-18.0) L Hematocrit 37.6 % (42.0-52.0) L Mean Corpuscular Volume 100 FL (80-99) H Mean Corpuscular Hemoglobin 32.0 PG (27.0-31.0) H Mean Corpuscular Hemoglobin Concent 32.1 G/DL (32.0-36.0) Red Cell Distribution Width 12.4 % (11.6-14.8) Platelet Count 190 K/UL (150-450) Mean Platelet Volume 8.3 FL (6.5-10.1) Neutrophils (%) (Auto) % (45.0-75.0) Lymphocytes (%) (Auto) % (20.0-45.0) Monocytes (%) (Auto) % (1.0-10.0) Eosinophils (%) (Auto) % (0.0-3.0) Basophils (%) (Auto) % (0.0-2.0) Differential Total Cells Counted 100 Neutrophils % (Manual) 49 % (45-75) Lymphocytes % (Manual) 6 % (20-45) L Monocytes % (Manual) 3 % (1-10) Eosinophils % (Manual) 0 % (0-3) Basophils % (Manual) 0 % (0-2) Metamyelocytes % 1 % (0-0) H Band Neutrophils 41 % (0-8) H Toxic Granulation 1+ Platelet Estimate Adequate Platelet Morphology Normal Red Blood Cell Morphology Normal Sodium Level 146 MMOL/L (136-145) H Potassium Level 4.1 MMOL/L (3.5-5.1) Chloride Level 112 MMOL/L (98-107) H Carbon Dioxide Level 22 MMOL/L (21-32) Anion Gap 12 mmol/L (5-15) Blood Urea Nitrogen 67 mg/dL (7-18) H Creatinine 1.5 MG/DL (0.55-1.30) H Estimat Glomerular Filtration Rate mL/min (>60) Glucose Level 172 MG/DL (74-106) H Calcium Level 8.2 MG/DL (8.5-10.1) Solomon Monsivais MD Dec 18, 2018 14:14
--- NOTE | 2018-12-18 14:46 | NUR ---
CASE MANAGEMENT: REVIEW 73/M BIBA FROM [facility] CC: DYSPNEA . RESP DISTRESS SI: RESP FAILURE T 103.6 HR 137 RR 33 BP 114/91 SAT 89% MECH VENT FIO2 70 WBC 3.5 TROPONIN I 0.141 IS: NS BOLUS X1 LEVOFLOXACIN IV X1 VANCO IV X1 CEFEPIME IV X1 ATROVENT HHN X1 ALBUTEROL HHN X1 INTERQUAL CRITERIA MET: PATIENT ADMITTED TO ICU 12/17/2018 DCP: PATIENT IS FROM [facility]
--- NOTE | 2018-12-18 14:52 | Infectious Diseases Prog Note ---
Assessment/Plan Problems: (1) Acute aspiration pneumonia Assessment & Plan: continue vancomycin and zosyn empirically, pending sputum culture , aspiration precaution, keep HOB > 30 degree (2) Sepsis Assessment & Plan: with shock , due to the above, with gram positive cocci , continue wide spectrum antibiotics pending blood culture , continue pressor and steroids as need for septic shock (3) CONSTANCE (acute kidney injury) Assessment & Plan: due to the above , continue hydration with renally dosed antibiotics , continue pressure support (4) Acute respiratory failure Assessment & Plan: due to the above , intubated on mechanical ventilation, pulmonary is following , monitor ABG, and CXR (5) Lung cancer metastatic to brain Assessment & Plan: S/P radiation and chemo therapy at [facility] , now with poor prognosis, recommend palliative care . Subjective ROS Limited/Unobtainable: Yes Allergies: Coded Allergies: No Known Allergies (Unverified , 12/17/18) Subjective he was intubated on mechanical ventilation in ICU, not sedated, un responsive to verbal commands, still on pressor , afebrile Objective Vital Signs Last 24 Hour Vital Signs Date Time Temp Pulse Resp B/P (MAP) Pulse Ox O2 Delivery O2 Flow Rate FiO2 12/18/18 14:35 93/58 12/18/18 14:00 118 22 105/66 (79) 100 12/18/18 13:00 98.8 114 25 102/62 (75) 100 12/18/18 12:56 119 31 70 12/18/18 12:00 70 12/18/18 12:00 120 22 114/68 (83) 100 12/18/18 12:00 70 12/18/18 12:00 102 12/18/18 12:00 Mechanical Ventilator 12/18/18 11:04 115 29 70 12/18/18 11:00 115 28 110/50 (70) 98 12/18/18 10:30 114 28 112/51 (71) 98 12/18/18 10:00 115 28 106/57 (73) 95 12/18/18 09:00 116 32 115/63 (80) 99 12/18/18 08:43 120 32 70 12/18/18 08:30 119 32 106/65 (79) 98 12/18/18 08:00 Mechanical Ventilator 12/18/18 08:00 98.9 124 30 94/81 (85) 100 1/17/19 08:00 70 12/18/18 08:00 102 12/18/18 07:30 129 33 95/64 (74) 96 12/18/18 06:45 122 34 70 12/18/18 05:25 128 32 70 12/18/18 04:02 100 12/18/18 04:00 Mechanical Ventilator 12/18/18 04:00 70 12/18/18 02:54 111 33 70 12/18/18 01:16 116 35 70 12/18/18 00:00 Mechanical Ventilator 12/17/18 23:19 Mechanical Ventilator 12/17/18 23:16 111 34 70 12/17/18 22:45 114 33 99/41 (60) 100 12/17/18 22:30 123 34 103/58 (73) 100 12/17/18 22:15 131 30 117/43 (67) 98 12/17/18 22:00 131 30 72/54 (60) 98 12/17/18 21:45 128 26 98/64 (75) 94 12/17/18 21:30 129 25 107/60 (76) 94 12/17/18 21:15 126 25 90/72 (78) 94 12/17/18 21:00 99 29 82/50 (61) 94 12/17/18 20:58 96 28 70 12/17/18 20:55 75/40 12/17/18 20:45 94 27 90/63 (72) 94 12/17/18 20:30 93 26 61/46 (51) 93 12/17/18 20:30 118/60 12/17/18 20:15 93 25 68/35 (46) 94 12/17/18 20:00 100 12/17/18 20:00 Mechanical Ventilator 12/17/18 20:00 95 12/17/18 20:00 98.8 94 25 75/44 (54) 97 12/17/18 19:48 96 28 70 12/17/18 19:08 99.8 99 23 95/54 100 Mechanical Ventilator 12/17/18 19:00 25 Mechanical Ventilator 12/17/18 18:32 23 Mechanical Ventilator 12/17/18 18:18 23 Mechanical Ventilator 12/17/18 18:00 22 Mechanical Ventilator 12/17/18 17:56 104 26 89 Mechanical Ventilator 12/17/18 17:45 101.1 95 27 85/50 100 Mechanical Ventilator 12/17/18 17:44 28 Mechanical Ventilator 12/17/18 17:35 106 26 89 Mechanical Ventilator 70 12/17/18 17:27 21 Mechanical Ventilator 12/17/18 17:12 33 Mechanical Ventilator 12/17/18 16:47 112 26 70 12/17/18 16:24 101.2 12/17/18 16:06 103.6 112 33 112/67 98 Bi-pap 12/17/18 16:02 121 31 96 Full Face 100 12/17/18 16:02 121 31 Bi-pap 100 12/17/18 15:38 137 33 Non-Rebreather 15.0 12/17/18 15:25 103.6 137 33 114/91 94 Non-Rebreather 15.0 Height (Feet): 5 Height (Inches): 9.00 Weight (Pounds): 121 General Appearance: no acute distress, cachetic, other - intubated on mecahnical ventilation HEENT: normocephalic, atraumatic, anicteric, mucous membranes moist Respiratory/Chest: chest wall non-tender, lungs clear, normal breath sounds, no respiratory distress, no accessory muscle use Cardiovascular: normal peripheral pulses, normal rate, regular rhythm, no gallop/murmur, no JVD Abdomen: normal bowel sounds, soft, non tender, no organomegaly, non distended , no mass, no scars Extremities: no cyanosis, no clubbing, other - onychomycosis Skin: no rash, no lesions, no ulcers Neurologic/Psychiatric: unresponsiveness Lymphatic: no neck adenopathy, no groin adenopathy Musculoskeletal: no effusion, atrophy Microbiology Date/Time Source Procedure Growth Status 12/17/18 15:40 Blood Blood Culture - Preliminary Resulted 12/17/18 15:25 Blood Blood Culture - Preliminary Resulted 12/17/18 17:30 Nasal Nares Influenza Types A,B Antigen (JAYCOB) - Final Complete 12/17/18 17:02 Urine,Clean Catch Urine Culture - Preliminary NO GROWTH Resulted Laboratory Tests Test 12/17/18 15:40 12/17/18 16:31 12/17/18 17:02 12/17/18 17:30 White Blood Count 3.5 K/UL (4.8-10.8) L Red Blood Count 5.18 M/UL (4.70-6.10) Hemoglobin 16.5 G/DL (14.2-18.0) Hematocrit 49.7 % (42.0-52.0) Mean Corpuscular Volume 96 FL (80-99) Mean Corpuscular Hemoglobin 31.8 PG (27.0-31.0) H Mean Corpuscular Hemoglobin Concent 33.2 G/DL (32.0-36.0) Red Cell Distribution Width 11.6 % (11.6-14.8) Platelet Count 305 K/UL (150-450) Mean Platelet Volume 7.7 FL (6.5-10.1) Neutrophils (%) (Auto) % (45.0-75.0) Lymphocytes (%) (Auto) % (20.0-45.0) Monocytes (%) (Auto) % (1.0-10.0) Eosinophils (%) (Auto) % (0.0-3.0) Basophils (%) (Auto) % (0.0-2.0) Differential Total Cells Counted 100 Neutrophils % (Manual) 59 % (45-75) Lymphocytes % (Manual) 9 % (20-45) L Monocytes % (Manual) 3 % (1-10) Eosinophils % (Manual) 0 % (0-3) Basophils % (Manual) 1 % (0-2) Band Neutrophils 28 % (0-8) H Platelet Estimate Adequate Platelet Morphology Normal Anisocytosis 1+ Prothrombin Time 14.0 SEC (9.30-11.50) H Prothromb Time International Ratio 1.3 (0.9-1.1) H Activated Partial Thromboplast Time 36 SEC (23-33) H Sodium Level 144 MMOL/L (136-145) Potassium Level 4.7 MMOL/L (3.5-5.1) Chloride Level 105 MMOL/L (98-107) Carbon Dioxide Level 25 MMOL/L (21-32) Anion Gap 14 mmol/L (5-15) Blood Urea Nitrogen 90 mg/dL (7-18) H Creatinine 2.1 MG/DL (0.55-1.30) H Estimat Glomerular Filtration Rate mL/min (>60) Glucose Level 125 MG/DL (74-106) H Lactic Acid Level 4.50 mmol/L (0.4-2.0) H 2.60 mmol/L (0.66-2.22) H Calcium Level 10.1 MG/DL (8.5-10.1) Total Bilirubin 1.0 MG/DL (0.2-1.0) Aspartate Amino Transf (AST/SGOT) 27 U/L (15-37) Alanine Aminotransferase (ALT/SGPT) 31 U/L (12-78) Alkaline Phosphatase 111 U/L (46-116) Total Creatine Kinase 48 U/L (26-308) Troponin I 0.142 ng/mL (0.000-0.056) Pro-B-Type Natriuretic Peptide 02376 pg/mL (0-125) H Total Protein 8.4 G/DL (6.4-8.2) H Albumin 2.3 G/DL (3.4-5.0) L Globulin 6.1 g/dL Albumin/Globulin Ratio 0.4 (1.0-2.7) L Arterial Blood pH 7.280 (7.350-7.450) Arterial Blood Partial Pressure CO2 43.3 mmHg (35.0-45.0) Arterial Blood Partial Pressure O2 49.9 mmHg (75.0-100.0) Arterial Blood HCO3 20.0 mmol/L (22.0-26.0) L Arterial Blood Oxygen Saturation 78.6 % (95-100) *L Arterial Blood Base Excess -6.4 (-2-2) L Damion Test Positive Urine Color Yellow Urine Appearance Slightly cloudy Urine pH 5 (4.5-8.0) Urine Specific [place] 1.020 (1.005-1.035) Urine Protein 3+ (NEGATIVE) H Urine Glucose (UA) Negative (NEGATIVE) Urine Ketones 1+ (NEGATIVE) H Urine Blood 2+ (NEGATIVE) H Urine Nitrite Negative (NEGATIVE) Urine Bilirubin Negative (NEGATIVE) Urine Urobilinogen 1 MG/DL (0.0-1.0) H Urine Leukocyte Esterase 1+ (NEGATIVE) H Urine RBC 5-10 /HPF (0 - 0) H Urine WBC 2-4 /HPF (0 - 0) Urine Squamous Epithelial Cells None /LPF (NONE/OCC) Urine Amorphous Sediment Few /LPF (NONE) H Urine Bacteria Moderate /HPF (NONE) H Test 12/17/18 18:40 12/17/18 19:15 12/17/18 21:45 12/18/18 03:40 Arterial Blood pH 7.289 (7.350-7.450) 7.295 (7.350-7.450) Arterial Blood Partial Pressure CO2 36.5 mmHg (35.0-45.0) 39.0 mmHg (35.0-45.0) Arterial Blood Partial Pressure O2 99.3 mmHg (75.0-100.0) 71.0 mmHg (75.0-100.0) L Arterial Blood HCO3 17.1 mmol/L (22.0-26.0) *L 18.5 mmol/L (22.0-26.0) L Arterial Blood Oxygen Saturation 96.1 % (95-100) 91.4 % (95-100) L Arterial Blood Base Excess -8.7 (-2-2) L -7.4 (-2-2) L Damion Test Positive Positive Lactic Acid Level 2.40 mmol/L (0.4-2.0) H Troponin I 0.141 ng/mL (0.000-0.056) Thyroid Stimulating Hormone (TSH) 0.047 uiU/mL (0.358-3.740) Cortisol Pending White Blood Count 4.1 K/UL (4.8-10.8) L Red Blood Count 3.78 M/UL (4.70-6.10) L Hemoglobin 12.1 G/DL (14.2-18.0) L Hematocrit 37.6 % (42.0-52.0) L Mean Corpuscular Volume 100 FL (80-99) H Mean Corpuscular Hemoglobin 32.0 PG (27.0-31.0) H Mean Corpuscular Hemoglobin Concent 32.1 G/DL (32.0-36.0) Red Cell Distribution Width 12.4 % (11.6-14.8) Platelet Count 190 K/UL (150-450) Mean Platelet Volume 8.3 FL (6.5-10.1) Neutrophils (%) (Auto) % (45.0-75.0) Lymphocytes (%) (Auto) % (20.0-45.0) Monocytes (%) (Auto) % (1.0-10.0) Eosinophils (%) (Auto) % (0.0-3.0) Basophils (%) (Auto) % (0.0-2.0) Differential Total Cells Counted 100 Neutrophils % (Manual) 49 % (45-75) Lymphocytes % (Manual) 6 % (20-45) L Monocytes % (Manual) 3 % (1-10) Eosinophils % (Manual) 0 % (0-3) Basophils % (Manual) 0 % (0-2) Metamyelocytes % 1 % (0-0) H Band Neutrophils 41 % (0-8) H Toxic Granulation 1+ Platelet Estimate Adequate Platelet Morphology Normal Red Blood Cell Morphology Normal Sodium Level 146 MMOL/L (136-145) H Potassium Level 4.1 MMOL/L (3.5-5.1) Chloride Level 112 MMOL/L (98-107) H Carbon Dioxide Level 22 MMOL/L (21-32) Anion Gap 12 mmol/L (5-15) Blood Urea Nitrogen 67 mg/dL (7-18) H Creatinine 1.5 MG/DL (0.55-1.30) H Estimat Glomerular Filtration Rate mL/min (>60) Glucose Level 172 MG/DL (74-106) H Calcium Level 8.2 MG/DL (8.5-10.1) L Current Medications Medications (Trade) Dose Ordered Sig/Earlene Route PRN Reason Start Time Stop Time Status Last Admin Dose Admin Apixaban (Eliquis) 5 mg BID ORAL 12/18/18 09:00 01/17/19 08:59 12/18/18 10:19 Chlorhexidine Gluconate (Windy-Hex 2%) 1 applic DAILY@2000 TOPIC 12/18/18 20:00 01/17/19 19:59 Dexamethasone Sodium Phosphate (Decadron 4mg/ml vial) 4 mg BID IVP 12/18/18 09:00 01/17/19 08:59 12/18/18 10:19 Dextrose/Sodium Chloride 1,000 ml @ 75 mls/hr [id number] IV 12/17/18 20:00 01/16/19 19:59 12/18/18 09:20 Dopamine HCl/ Dextrose 250 ml @ 0 mls/hr Q24H IV 12/17/18 20:55 01/16/19 20:54 12/17/18 20:55 Heparin Sodium/ Sodium Chloride (Heparin 2000 units/Ns 1000ml premix) 2,000 unit ONCE PRN INJ PICC Line Placement 12/18/18 08:30 12/18/18 23:59 Ipratropium [place] (Atrovent) 500 mcg Q4H PRN HHN Shortness of Breath 12/18/18 14:15 12/23/18 14:14 Ipratropium [place] (Atrovent) 500 mcg Q6HRT HHN 12/18/18 19:00 12/23/18 18:59 Lidocaine HCl (Xylocaine 1% 30ml) 30 ml ONCE PRN INJ PICC Line Placement 12/18/18 08:30 12/18/18 23:59 Norepinephrine Bitartrate 4 mg/ Dextrose 250 ml @ 0 mls/hr Q24H IV 12/17/18 20:30 12/18/18 14:59 Norepinephrine Bitartrate 4 mg/ Dextrose 250 ml @ 0 mls/hr Q24H IV 12/18/18 15:00 01/17/19 14:59 12/18/18 14:35 Pantoprazole (Protonix) 40 mg EVERY 12 HOURS IVP 12/18/18 21:00 01/17/19 20:59 Piperacillin Sod/ Tazobactam Sod 3.375 gm/Dextrose 110 ml @ 27.5 mls/hr EVERY 8 HOURS IVPB 12/17/18 22:00 12/22/18 21:59 12/18/18 14:00 Vancomycin HCl (Vanco rx to dose) 1 ea DAILY PRN MISC Per rx protocol 12/17/18 18:15 01/16/19 18:14 Vancomycin/Sodium Chloride 250 ml @ 166.667 mls/hr Q24H IVPB 12/18/18 18:00 12/23/18 17:59 Tammy Rob M.D. Dec 18, 2018 14:52
--- NOTE | 2018-12-18 15:01 | History & Physical ---
History and Physical History & Physicial seen and examined. Full Dictation is completed Bruno Enamorado MD Dec 18, 2018 15:01
--- NOTE | 2018-12-18 15:05 | General Progress Note ---
Assessment/Plan Assessment/Plan S, O: limited eval. Patient Intubated. Vent setting reviewed. Stoddard inserted. Peripheral line in place x 2. PHYSICAL EXAMINATION: HEAD AND NECK: Positive for intubation, limited source of evaluation. Vent settings were reviewed. Atraumatic and normocephalic. CHEST: Diffuse bronchial breathing sounds. Positive for diffuse crackles.HEART: S1 and S2. Tachyarrhythmia. ABDOMEN: Soft. No organomegaly.MUSCULOSKELETAL: Atrophied musculature, limited evaluation. The patient is not following compounds, sedated. Imaging: CT of the Head reviewed, non diagnostic ASSESSMENT AND PLAN: 1. Vent-dependent respiratory failure. 2. Sepsis: Gr + 3. Healthcare-associated pneumonia. 3. Non-ST myocardial infarction. Abnormal Trop 4. Metastatic lung CA. 5. GI and DVT prophylaxes. PLAN OF CARE: Discussed the care with current empirical antibiotic DC ATC Subjective Allergies: Coded Allergies: No Known Allergies (Unverified , 12/17/18) Objective Last 24 Hour Vital Signs Date Time Temp Pulse Resp B/P (MAP) Pulse Ox O2 Delivery O2 Flow Rate FiO2 12/18/18 14:35 93/58 12/18/18 14:00 118 22 105/66 (79) 100 12/18/18 13:00 98.8 114 25 102/62 (75) 100 12/18/18 12:56 119 31 70 12/18/18 12:00 70 12/18/18 12:00 120 22 114/68 (83) 100 12/18/18 12:00 70 12/18/18 12:00 102 12/18/18 12:00 Mechanical Ventilator 12/18/18 11:04 115 29 70 12/18/18 11:00 115 28 110/50 (70) 98 12/18/18 10:30 114 28 112/51 (71) 98 12/18/18 10:00 115 28 106/57 (73) 95 12/18/18 09:00 116 32 115/63 (80) 99 12/18/18 08:43 120 32 70 12/18/18 08:30 119 32 106/65 (79) 98 12/18/18 08:00 Mechanical Ventilator 12/18/18 08:00 98.9 124 30 94/81 (85) 100 12/18/18 08:00 70 12/18/18 08:00 102 12/18/18 07:30 129 33 95/64 (74) 96 12/18/18 06:45 122 34 70 12/18/18 05:25 128 32 70 12/18/18 04:02 100 12/18/18 04:00 Mechanical Ventilator 12/18/18 04:00 70 12/18/18 02:54 111 33 70 12/18/18 01:16 116 35 70 12/18/18 00:00 Mechanical Ventilator 12/17/18 23:19 Mechanical Ventilator 12/17/18 23:16 111 34 70 12/17/18 22:45 114 33 99/41 (60) 100 12/17/18 22:30 123 34 103/58 (73) 100 12/17/18 22:15 131 30 117/43 (67) 98 12/17/18 22:00 131 30 72/54 (60) 98 12/17/18 21:45 128 26 98/64 (75) 94 12/17/18 21:30 129 25 107/60 (76) 94 12/17/18 21:15 126 25 90/72 (78) 94 12/17/18 21:00 99 29 82/50 (61) 94 12/17/18 20:58 96 28 70 12/17/18 20:55 75/40 12/17/18 20:45 94 27 90/63 (72) 94 12/17/18 20:30 93 26 61/46 (51) 93 12/17/18 20:30 118/60 12/17/18 20:15 93 25 68/35 (46) 94 12/17/18 20:00 100 12/17/18 20:00 Mechanical Ventilator 12/17/18 20:00 95 12/17/18 20:00 98.8 94 25 75/44 (54) 97 12/17/18 19:48 96 28 70 12/17/18 19:08 99.8 99 23 95/54 100 Mechanical Ventilator 12/17/18 19:00 25 Mechanical Ventilator 12/17/18 18:32 23 Mechanical Ventilator 12/17/18 18:18 23 Mechanical Ventilator 12/17/18 18:00 22 Mechanical Ventilator 12/17/18 17:56 104 26 89 Mechanical Ventilator 12/17/18 17:45 101.1 95 27 85/50 100 Mechanical Ventilator 12/17/18 17:44 28 Mechanical Ventilator 12/17/18 17:35 106 26 89 Mechanical Ventilator 70 12/17/18 17:27 21 Mechanical Ventilator 12/17/18 17:12 33 Mechanical Ventilator 12/17/18 16:47 112 26 70 12/17/18 16:24 101.2 12/17/18 16:06 103.6 112 33 112/67 98 Bi-pap 12/17/18 16:02 121 31 96 Full Face 100 12/17/18 16:02 121 31 Bi-pap 100 12/17/18 15:38 137 33 Non-Rebreather 15.0 12/17/18 15:25 103.6 137 33 114/91 94 Non-Rebreather 15.0 Intake and Output 12/17/18 12/18/18 19:00 07:00 Intake Total 0 ml 945.118 ml Output Total 1490 ml Balance 0 ml -544.882 ml Intake Oral 0 ml 0 ml IV Total 945.118 ml Output Urine Total 1490 ml Laboratory Tests 12/17/18 15:40: White Blood Count 3.5L, Red Blood Count 5.18, Hemoglobin 16.5, Hematocrit 49.7, Mean Corpuscular Volume 96, Mean Corpuscular Hemoglobin 31.8H, Mean Corpuscular Hemoglobin Concent 33.2, Red Cell Distribution Width 11.6, Platelet Count 305, Mean Platelet Volume 7.7, Neutrophils (%) (Auto) , Lymphocytes (%) (Auto) , Monocytes (%) (Auto) , Eosinophils (%) (Auto) , Basophils (%) (Auto) , Differential Total Cells Counted 100, Neutrophils % (Manual) 59, Lymphocytes % ( Manual) 9L, Monocytes % (Manual) 3, Eosinophils % (Manual) 0, Basophils % ( Manual) 1, Band Neutrophils 28H, Platelet Estimate Adequate, Platelet Morphology Normal, Anisocytosis 1+, Prothrombin Time 14.0H, Prothromb Time International Ratio 1.3H, Activated Partial Thromboplast Time 36H, Sodium Level 144, Potassium Level 4.7, Chloride Level 105, Carbon Dioxide Level 25, Anion Gap 14, Blood Urea Nitrogen 90H, Creatinine 2.1H, Estimat Glomerular Filtration Rate , Glucose Level 125H, Lactic Acid Level 4.50H, Calcium Level 10.1, Total Bilirubin 1.0, Aspartate Amino Transf (AST/SGOT) 27, Alanine Aminotransferase ( ALT/SGPT) 31, Alkaline Phosphatase 111, Total Creatine Kinase 48, Troponin I 0.142H, Pro-B-Type Natriuretic Peptide 04820D, Total Protein 8.4H, Albumin 2.3L , Globulin 6.1, Albumin/Globulin Ratio 0.4L 12/17/18 16:31: Arterial Blood pH 7.280L, Arterial Blood Partial Pressure CO2 43.3, Arterial Blood Partial Pressure O2 49.9*L, Arterial Blood HCO3 20.0L, Arterial Blood Oxygen Saturation 78.6*L, Arterial Blood Base Excess -6.4L, Damion Test Positive 12/17/18 17:02: Urine Color Yellow, Urine Appearance Slightly cloudy, Urine pH 5, Urine Specific [place] 1.020, Urine Protein 3+H, Urine Glucose (UA) Negative, Urine Ketones 1+H, Urine Blood 2+H, Urine Nitrite Negative, Urine Bilirubin Negative, Urine Urobilinogen 1H, Urine Leukocyte Esterase 1+H, Urine RBC 5-10H, Urine WBC 2-4, Urine Squamous Epithelial Cells None, Urine Amorphous Sediment FewH, Urine Bacteria ModerateH 12/17/18 17:30: Lactic Acid Level 2.60H 12/17/18 18:40: Arterial Blood pH 7.289L, Arterial Blood Partial Pressure CO2 36.5, Arterial Blood Partial Pressure O2 99.3, Arterial Blood HCO3 17.1*L, Arterial Blood Oxygen Saturation 96.1, Arterial Blood Base Excess -8.7L, Damion Test Positive 12/17/18 19:15: Lactic Acid Level 2.40H, Troponin I 0.141H, Thyroid Stimulating Hormone (TSH) 0.047L, Cortisol [Pending] 12/17/18 21:45: Arterial Blood pH 7.295L, Arterial Blood Partial Pressure CO2 39.0, Arterial Blood Partial Pressure O2 71.0L, Arterial Blood HCO3 18.5L, Arterial Blood Oxygen Saturation 91.4L, Arterial Blood Base Excess -7.4L, Damion Test Positive 12/18/18 03:40: White Blood Count 4.1L, Red Blood Count 3.78L, Hemoglobin 12.1L, Hematocrit 37.6L, Mean Corpuscular Volume 100H, Mean Corpuscular Hemoglobin 32.0H, Mean Corpuscular Hemoglobin Concent 32.1, Red Cell Distribution Width 12.4, Platelet Count 190, Mean Platelet Volume 8.3, Neutrophils (%) (Auto) , Lymphocytes (%) ( Auto) , Monocytes (%) (Auto) , Eosinophils (%) (Auto) , Basophils (%) (Auto) , Differential Total Cells Counted 100, Neutrophils % (Manual) 49, Lymphocytes % ( Manual) 6L, Monocytes % (Manual) 3, Eosinophils % (Manual) 0, Basophils % ( Manual) 0, Metamyelocytes % 1H, Band Neutrophils 41H, Toxic Granulation 1+, Platelet Estimate Adequate, Platelet Morphology Normal, Red Blood Cell Morphology Normal, Sodium Level 146H, Potassium Level 4.1, Chloride Level 112H, Carbon Dioxide Level 22, Anion Gap 12, Blood Urea Nitrogen 67H, Creatinine 1.5H , Estimat Glomerular Filtration Rate , Glucose Level 172H, Calcium Level 8.2L Height (Feet): 5 Height (Inches): 9.00 Weight (Pounds): 121 Bruno Enamorado MD Dec 18, 2018 15:05
--- NOTE | 2018-12-18 16:00 | NUR ---
NURSE NOTES: Patient turned and repositioned. No new orders at this time. Will continue plan of care.
--- NOTE | 2018-12-18 18:00 | NUR ---
NURSE NOTES: VSS. No new orders. Turned and repositioned. at bedside brought in POA paperwork. Will continue plan of care.
[2018-12-18] MEDS: Vancomycin 750mg/NS 250ml IVPB SCH (18:22)
--- NOTE | 2018-12-18 19:01 | NUR ---
HAND-OFF: Report given to Frandy RN using SBAR. VSS. No distress noted.
--- NOTE | 2018-12-18 20:00 | NUR ---
NURSE NOTES: pt orally intubated -vent with o2 sat 96-100 o/o non verbal on sander soft wrist restraints nan complaints reposition and suction
[2018-12-18] MEDS: Dyna-Hex 2% Top Sol 2oz TOPIC SCH (20:03)
[2018-12-18] MEDS: DOPamine 400mg/250ml 250 ML IV SCH (20:55)
[2018-12-18] MEDS: Pantoprazole Inj IVP SCH (21:01)
--- NOTE | 2018-12-18 22:00 | NUR ---
NURSE NOTES: vs stable on levo drip at 12mcg/min with bp 96/50-100/60 urinary output good
--- NOTE | 2018-12-18 23:45 | History and Physical Report ---
DATE OF ADMISSION: 12/17/2018 SOURCE OF INFORMATION: EMR HISTORY OF PRESENT ILLNESS: The patient is a 73-year-old male with history of metastatic cancer. At the time of evaluation, the patient has been intubated. Source of information is based on the ER evaluation. The patient had been recently hospitalized in [facility] with history of metastatic lung cancer. He is a resident of senior living facility. He had been transferred secondary to worsening of the shortness of breath and desaturation. ALLERGIES: NKDA. PAST MEDICAL HISTORY: Metastatic lung cancer with metastasis to the brain and spine, history of CVA, history of heart failure, and CABG. REVIEW OF SYSTEMS: Unobtainable. SOCIAL HISTORY: The patient is . is the source of the information (next of kin). MEDICATIONS: Current hospital medications including, but not limited to the following, Eliquis 5 mg p.o. b.i.d., dopamine drip, Zosyn, and vancomycin. PHYSICAL EXAMINATION: VITAL SIGNS: Blood pressure 110/90, temperature 103, and pulse rate 137. HEAD AND NECK: Positive for intubation, limited source of evaluation. Vent settings were reviewed. Atraumatic and normocephalic. CHEST: Diffuse bronchial breathing sounds. Positive for diffuse crackles. HEART: S1 and S2. Tachyarrhythmia. ABDOMEN: Soft. No organomegaly. MUSCULOSKELETAL: Atrophied musculature, limited evaluation. The patient is not following compounds, sedated. LABORATORY DATA: Labs dated 12/17/2018, WBC 3.5, hemoglobin 16.5, platelets 305. Sodium 146, potassium 4.1, BUN 67, creatinine 2.1, Glucose 125. Albumin 2.3. Troponin 0.14. INR 1.3. ASSESSMENT AND PLAN: 1. Vent-dependent respiratory failure. 2. Healthcare-associated pneumonia. 3. Non-ST myocardial infarction. 4. Metastatic lung CA. 5. GI and DVT prophylaxes. PLAN OF CARE: 1. Will stop anticoagulation. 2. We will continue with the current empiric antibiotic regimen. 3. Grave prognosis. 4. Infectious Disease, Pulmonary, and Cardiology are consulted. Bruno Enamorado M.D. DR: Lois JOB#: [id number] CC: STEF
--- NOTE | 2018-12-18 23:53 | Cardiology Progress Note ---
Assessment/Plan Assessment/Plan 1. Sinus tachycardia, most likely secondary to hypoxemia/lung CA. The patient showed hypoxic hypercarbic respiratory failure due to possible acute exacerbation of COPD. 2. History of coronary artery disease, status post coronary artery bypass graft surgery. 12-lead electrocardiogram does not show any ischemic changes despite the fact that the first troponin I level was elevated. The patient is not a candidate for ischemic workup given metastatic lung cancer conservative management. I do not believe that the patient would benefit from anticoagulation therapy, which may put the patient in increased risk of bleeding. 3. 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 4. History of CVA. 5. History of COPD. Subjective Subjective Sinus rhythm at rate of 86. Intubated, on FiO2 of 70%. Objective Last 24 Hour Vital Signs Date Time Temp Pulse Resp B/P (MAP) Pulse Ox O2 Delivery O2 Flow Rate FiO2 12/18/18 23:39 86 28 70 12/18/18 23:15 96 28 123/62 (82) 99 12/18/18 23:00 96 28 123/62 (82) 99 12/18/18 22:45 96 28 123/62 (82) 99 12/18/18 22:30 97 30 110/55 (73) 12/18/18 22:15 97 30 110/55 (73) 12/18/18 22:00 97 30 110/55 (73) 12/18/18 21:45 102 33 124/60 (81) 99 12/18/18 21:35 106 35 109/81 (90) 98 12/18/18 21:34 95/60 12/18/18 21:30 106 33 152/66 (94) 99 12/18/18 21:25 105 33 70 12/18/18 21:15 107 31 115/83 (94) 99 12/18/18 21:00 107 31 114/64 (81) 99 12/18/18 20:55 92/52 12/18/18 20:45 109 30 92/52 (65) 99 12/18/18 20:30 111 32 115/60 (78) 100 12/18/18 20:15 111 32 115/60 (78) 100 12/18/18 20:00 70 12/18/18 20:00 99.0 111 31 119/53 (75) 99 12/18/18 20:00 111 12/18/18 20:00 Mechanical Ventilator 12/18/18 19:45 113 31 112/65 (81) 100 12/18/18 19:30 113 30 102/74 (83) 100 12/18/18 19:15 113 32 118/57 (77) 99 12/18/18 19:06 111 33 70 12/18/18 19:00 99.0 112 22 105/60 (75) 98 12/18/18 18:00 115 20 96/58 (71) 98 12/18/18 17:00 110 20 98/58 (71) 100 12/18/18 16:36 116 33 70 12/18/18 16:00 112 22 90/54 (66) 100 12/18/18 16:00 Mechanical Ventilator 12/18/18 16:00 110 12/18/18 16:00 70 12/18/18 15:00 110 22 108/68 (81) 100 12/18/18 14:35 93/58 12/18/18 14:32 107 36 70 12/18/18 14:00 118 22 105/66 (79) 100 12/18/18 13:00 98.8 114 25 102/62 (75) 100 12/18/18 12:56 119 31 70 12/18/18 12:00 70 12/18/18 12:00 120 22 114/68 (83) 100 12/18/18 12:00 70 12/18/18 12:00 102 12/18/18 12:00 Mechanical Ventilator 12/18/18 11:04 115 29 70 12/18/18 11:00 115 28 110/50 (70) 98 12/18/18 10:30 114 28 112/51 (71) 98 12/18/18 10:00 115 28 106/57 (73) 95 12/18/18 09:00 116 32 115/63 (80) 99 12/18/18 08:43 120 32 70 12/18/18 08:30 119 32 106/65 (79) 98 12/18/18 08:00 Mechanical Ventilator 12/18/18 08:00 98.9 124 30 94/81 (85) 100 12/18/18 08:00 70 12/18/18 08:00 102 12/18/18 07:30 129 33 95/64 (74) 96 12/18/18 06:45 122 34 70 1/17/19 05:25 128 32 70 12/18/18 04:02 100 12/18/18 04:00 Mechanical Ventilator 12/18/18 04:00 70 12/18/18 02:54 111 33 70 12/18/18 01:16 116 35 70 12/18/18 00:00 Mechanical Ventilator Intake and Output 12/17/18 12/18/18 19:00 07:00 Intake Total 0 ml 945.118 ml Output Total 1490 ml Balance 0 ml -544.882 ml Intake Oral 0 ml 0 ml IV Total 945.118 ml Output Urine Total 1490 ml 2D Echo: Global LV HK with LVEF 25%, Mild LAE, RVSP 14 mmHg, Grade I LVDD. Laboratory Tests Test 12/18/18 03:40 12/18/18 14:48 12/18/18 15:20 12/18/18 18:50 White Blood Count 4.1 K/UL (4.8-10.8) L Red Blood Count 3.78 M/UL (4.70-6.10) L Hemoglobin 12.1 G/DL (14.2-18.0) L Hematocrit 37.6 % (42.0-52.0) L Mean Corpuscular Volume 100 FL (80-99) H Mean Corpuscular Hemoglobin 32.0 PG (27.0-31.0) H Mean Corpuscular Hemoglobin Concent 32.1 G/DL (32.0-36.0) Red Cell Distribution Width 12.4 % (11.6-14.8) Platelet Count 190 K/UL (150-450) Mean Platelet Volume 8.3 FL (6.5-10.1) Neutrophils (%) (Auto) % (45.0-75.0) Lymphocytes (%) (Auto) % (20.0-45.0) Monocytes (%) (Auto) % (1.0-10.0) Eosinophils (%) (Auto) % (0.0-3.0) Basophils (%) (Auto) % (0.0-2.0) Differential Total Cells Counted 100 Neutrophils % (Manual) 49 % (45-75) Lymphocytes % (Manual) 6 % (20-45) L Monocytes % (Manual) 3 % (1-10) Eosinophils % (Manual) 0 % (0-3) Basophils % (Manual) 0 % (0-2) Metamyelocytes % 1 % (0-0) H Band Neutrophils 41 % (0-8) H Toxic Granulation 1+ Platelet Estimate Adequate Platelet Morphology Normal Red Blood Cell Morphology Normal Sodium Level 146 MMOL/L (136-145) H Potassium Level 4.1 MMOL/L (3.5-5.1) Chloride Level 112 MMOL/L (98-107) H Carbon Dioxide Level 22 MMOL/L (21-32) Anion Gap 12 mmol/L (5-15) Blood Urea Nitrogen 67 mg/dL (7-18) H Creatinine 1.5 MG/DL (0.55-1.30) H Estimat Glomerular Filtration Rate mL/min (>60) Glucose Level 172 MG/DL (74-106) H Calcium Level 8.2 MG/DL (8.5-10.1) L Arterial Blood pH 7.280 (7.350-7.450) Arterial Blood Partial Pressure CO2 46.7 mmHg (35.0-45.0) H Arterial Blood Partial Pressure O2 95.4 mmHg (75.0-100.0) Arterial Blood HCO3 21.5 mmol/L (22.0-26.0) L Arterial Blood Oxygen Saturation 95.6 % (95-100) Arterial Blood Base Excess -5.3 (-2-2) L Damion Test Positive Lactic Acid Level 2.70 mmol/L (0.4-2.0) H 3.30 mmol/L (0.66-2.22) H Troponin I 0.087 ng/mL (0.000-0.056) Free Thyroxine 0.93 NG/DL (0.76-1.46) Triiodothyonine (T3) Pending Free Triiodothyronine < 0.5 pg/mL (2.3-4.2) L Triiodothyronine (T3) Uptake Pending Microbiology Date/Time Source Procedure Growth Status 12/17/18 15:40 Blood Blood Culture - Preliminary Resulted 12/17/18 15:25 Blood Blood Culture - Preliminary Resulted 12/17/18 17:30 Nasal Nares Influenza Types A,B Antigen (JAYCOB) - Final Complete 12/17/18 17:02 Urine,Clean Catch Urine Culture - Preliminary NO GROWTH Resulted Objective HEENT: Atraumatic and normocephalic. Anicteric. Pupils are equal, round, and reactive to light and accommodation. Conjunctival pallor. NECK: JVP cannot be assessed due to positive inspiratory pressure of the ventilator. No carotid bruit. Carotid upstroke is 2+ bilaterally. CARDIOVASCULAR: Normal S1, S2. Regular rate and rhythm. I do not hear murmurs, gallops, or rubs. LUNGS: Diminished breath sounds in both lungs. ABDOMEN: Soft, nontender, and nondistended. No hepatosplenomegaly. Positive bowel sounds. EXTREMITIES: No evidence of edema, clubbing, or cyanosis. There is onychomycosis. Fred Holman MD Dec 18, 2018 23:53
[2018-12-19] VITALS (57 sets, daily range): BP systolic 78–159; BP diastolic 40–91
--- NOTE | 2018-12-19 | NUR ---
NURSE NOTES: reposition and suction no acute distress noted
[2018-12-19] MEDS: D5 1/2NS 1,000 ML IV SCH ×3 (02:28→21:44)
--- NOTE | 2018-12-19 04:00 | NUR ---
NURSE NOTES: am care and back care done
[2018-12-19] MEDS: Piperacillin/Tazobactam 3.375 GM in D5W 110 ML IVPB SCH ×3 (05:54→21:43)
--- NOTE | 2018-12-19 06:00 | NUR ---
NURSE NOTES: levo drip titrate to 4 mcg/min pt tolerated well
--- NOTE | 2018-12-19 07:15 | NUR ---
NURSE NOTES: Received patient obtunded, reacts to deep pain on fingernails. Patient gambling monitor showing SR. ETT 7.5/21 cm selam. AC 24, VT 600 FiO2 70% and Peep of 5. Lung sounds diminished bilaterally. Patient is NPO at this time. OGT intact. No bowel movement. Soft, non-tender, round abdomen. Hypoactive bowel sounds on all 4 quadrants. Skin intact, toe fungus. L ac 20 R forearm 20 and L upper arm PICC line. D5 1/2 NS at 75 cc/hr. Levophed at 4 mcg/min. Bilateral restraints on, active range of motion present, unable to take off restraints patient reaches to remove devices. Turned and repositioned. Bed on lowest position, bed alarm on for safety, hob elevated, will continue plan of care.
--- NOTE | 2018-12-19 07:20 | NUR ---
HAND-OFF: Report given to anirn using sbar .
[2018-12-19] MEDS: Ipratropium 0.02% Inh Soln 2.5ml UD HHN SCH ×4 (07:33→19:09)
[2018-12-19 07:34] LABS: HEMOGLOBIN 11.6 G/DL (14.2-18.0); MEAN CORPUSCULAR VOLUME 98 FL (80-99); PLATELET COUNT 172 K/UL (150-450); RED BLOOD COUNT 3.68 M/UL (4.70-6.10)
--- NOTE | 2018-12-19 07:34 | NUR ---
RESPIRATORY NOTE: Received pt on current vent settings. Endotracheal tube is patent and secured via anchor fast. Suctioned pt prn. Vent alarms are on and audible. Vent is plugged into red outlet. Will monitor pt progress.
[2018-12-19 07:47] LABS: ANION GAP 13 mmol/L (5-15); BLOOD UREA NITROGEN 52 mg/dL (7-18); CALCIUM 8.5 MG/DL (8.5-10.1); CARBON DIOXIDE 21 MMOL/L (21-32); CHLORIDE 111 MMOL/L (98-107); CREATININE 1.5 MG/DL (0.55-1.30); POTASSIUM 3.9 MMOL/L (3.5-5.1); SODIUM 144 MMOL/L (136-145)
--- NOTE | 2018-12-19 09:03 | Pulmonolgy Critical Care Note ---
Critical Care - Asmt/Plan Problems: (1) Gram positive sepsis Assessment & Plan: S aureus (2) Severe sepsis (3) Acute respiratory failure (4) NSTEMI (non-ST elevated myocardial infarction) (5) CONSTANCE (acute kidney injury) (6) Acute aspiration pneumonia (7) Lung cancer metastatic to brain (8) CHF (congestive heart failure) Respiratory: adjust tidal volume - as needed, monitor respiratory rate, adjust FIO2 - Titrate down to keep SaO2 > 92%, continue PEEP 5, ABG, weaning trial - once O2 needs down and off hemodynamically stable Cardiac: continue pressors - titrate NE for MAP > 60 , continue to monitor HR/ BP Renal: keep IV fluid, check electrolytes Infectious Disease: check cultures, continue antibiotics - per ID Gastrointestinal: start feedings Endocrine: monitor blood sugar Hematologic: monitor H/H Neurologic: keep patient comfortable Prophylaxis: Protonix, other - Eliquis Disposition: keep in ICU Time Spent (Minutes): 40 Notes Reviewed: dobie man, cardio, ID Discussed with: nurses, consultants, other - DNAR Critical Care - Objective Last 24 Hour Vital Signs Date Time Temp Pulse Resp B/P (MAP) Pulse Ox O2 Delivery O2 Flow Rate FiO2 12/19/18 08:30 98.5 81 20 127/73 (91) 100 12/19/18 08:00 80 12/19/18 08:00 70 12/19/18 08:00 80 20 110/60 (77) 100 12/19/18 08:00 Mechanical Ventilator 12/19/18 07:34 88 26 70 12/19/18 07:30 84 22 116/62 (80) 100 12/19/18 07:00 80 24 105/55 (72) 100 12/19/18 06:30 82 24 103/57 (72) 100 12/19/18 06:15 84 25 96/47 (63) 100 12/19/18 06:00 84 25 113/64 (80) 100 12/19/18 05:45 87 24 105/72 (83) 100 12/19/18 05:30 91 24 134/69 (90) 12/19/18 05:15 88 26 139/69 (92) 100 12/19/18 05:01 84 24 70 12/19/18 05:00 89 28 136/90 (105) 100 12/19/18 04:45 84 24 120/62 (81) 100 12/19/18 04:30 84 24 120/62 (81) 100 12/19/18 04:15 81 25 107/58 (74) 100 12/19/18 04:00 Mechanical Ventilator 12/19/18 04:00 85 12/19/18 04:00 98.4 83 24 119/61 (80) 100 12/19/18 04:00 70 12/19/18 03:45 82 24 112/59 (76) 100 12/19/18 03:41 84 25 70 12/19/18 03:30 90 28 97/65 (76) 99 12/19/18 03:15 93 28 121/65 (83) 99 12/19/18 03:00 101 34 147/79 (101) 100 12/19/18 02:45 97 28 110/59 (76) 100 12/19/18 02:30 92 26 159/65 (96) 100 12/19/18 02:30 92 26 159/65 (96) 100 12/19/18 02:15 83 26 118/66 (83) 100 12/19/18 02:15 83 26 118/66 (83) 100 12/19/18 02:00 89 27 126/55 (78) 99 12/19/18 02:00 89 27 126/55 (78) 99 12/19/18 02:00 89 27 126/55 (78) 99 12/19/18 01:45 95 26 146/73 (97) 100 12/19/18 01:45 95 26 146/73 (97) 100 12/19/18 01:30 93 27 138/75 (96) 100 12/19/18 01:30 93 27 138/75 (96) 100 12/19/18 01:16 91 28 70 12/19/18 01:15 90 27 127/68 (87) 100 12/19/18 01:15 90 27 127/68 (87) 100 12/19/18 01:00 85 26 126/61 (82) 100 12/19/18 01:00 85 26 126/61 (82) 100 12/19/18 00:45 87 27 130/62 (84) 100 12/19/18 00:45 87 27 130/62 (84) 100 12/19/18 00:30 86 25 111/69 (83) 100 12/19/18 00:30 86 25 111/69 (83) 100 12/19/18 00:15 92 27 131/77 (95) 100 12/19/18 00:15 92 27 131/77 (95) 100 12/19/18 00:08 Mechanical Ventilator 12/19/18 00:00 70 12/19/18 00:00 96 12/19/18 00:00 94 29 133/66 (88) 100 12/19/18 00:00 94 29 133/66 (88) 100 12/19/18 00:00 96 28 123/62 (82) 99 12/18/18 23:39 86 28 70 12/18/18 23:15 96 28 123/62 (82) 99 12/18/18 23:00 96 28 123/62 (82) 99 12/18/18 22:45 96 28 123/62 (82) 99 12/18/18 22:30 97 30 110/55 (73) 12/18/18 22:15 97 30 110/55 (73) 12/18/18 22:00 97 30 110/55 (73) 12/18/18 21:45 102 33 124/60 (81) 99 12/18/18 21:35 106 35 109/81 (90) 98 12/18/18 21:34 95/60 12/18/18 21:30 106 33 152/66 (94) 99 12/18/18 21:25 105 33 70 12/18/18 21:15 107 31 115/83 (94) 99 12/18/18 21:00 107 31 114/64 (81) 99 12/18/18 20:55 92/52 12/18/18 20:45 109 30 92/52 (65) 99 12/18/18 20:30 111 32 115/60 (78) 100 12/18/18 20:15 111 32 115/60 (78) 100 12/18/18 20:00 70 12/18/18 20:00 99.0 111 31 119/53 (75) 99 12/18/18 20:00 111 12/18/18 20:00 Mechanical Ventilator 12/18/18 19:45 113 31 112/65 (81) 100 12/18/18 19:30 113 30 102/74 (83) 100 12/18/18 19:15 113 32 118/57 (77) 99 12/18/18 19:06 111 33 70 12/18/18 19:00 99.0 112 22 105/60 (75) 98 12/18/18 18:00 115 20 96/58 (71) 98 12/18/18 17:00 110 20 98/58 (71) 100 12/18/18 16:36 116 33 70 12/18/18 16:00 112 22 90/54 (66) 100 12/18/18 16:00 Mechanical Ventilator 12/18/18 16:00 110 12/18/18 16:00 70 12/18/18 15:00 110 22 108/68 (81) 100 12/18/18 14:35 93/58 12/18/18 14:32 107 36 70 12/18/18 14:00 118 22 105/66 (79) 100 12/18/18 13:00 98.8 114 25 102/62 (75) 100 12/18/18 12:56 119 31 70 12/18/18 12:00 70 12/18/18 12:00 120 22 114/68 (83) 100 12/18/18 12:00 70 12/18/18 12:00 102 12/18/18 12:00 Mechanical Ventilator 12/18/18 11:04 115 29 70 12/18/18 11:00 115 28 110/50 (70) 98 12/18/18 10:30 114 28 112/51 (71) 98 12/18/18 10:00 115 28 106/57 (73) 95 Status: sedated Condition: critical HEENT: other - intubted, OGT Lungs: clear Heart: HR/BP unstable Abdomen: soft, non-tender, active bowel sounds Extremities: no C/C/E Micro: Microbiology Date/Time Source Procedure Growth Status 12/17/18 15:40 Blood Blood Culture - Preliminary Staphylococcus Aureus Resulted 12/17/18 15:25 Blood Blood Culture - Preliminary Staphylococcus Aureus Resulted 12/17/18 17:30 Nasal Nares Influenza Types A,B Antigen (JAYCOB) - Final Complete 12/17/18 17:02 Urine,Clean Catch Urine Culture - Preliminary NO GROWTH AFTER 24 HOURS Resulted Blood Sugars: BS controlled Critical Care - Subjective ROS Limited/Unobtainable: Yes ICU Day: 3 Intubation Day: 3 Interval Events: NE 2 Sedated WCt better S/P PICC Condition: stable IV Access: PICC EKG Rhythm: Sinus Rhythm FI02: 70 Vent Support Breath Rate: 24 Vent Support Mode: AC Vent Tidal Volume: 600 Sputum Amount: Small PEEP: 5.0 PIP: 23 Fluids: D51/2NS@75 Drips: NE2 I&O: Intake and Output 12/18/18 12/19/18 19:00 07:00 Intake Total 1027.625 ml 988.033 ml Output Total 830 ml 570 ml Balance 197.625 ml 418.033 ml Intake Oral 0 ml 0 ml IV Total 1027.625 ml 988.033 ml Output Urine Total 830 ml 570 ml Subjective: HAWA ET-Tube: 7.5 ET Position: 21 Labs: Laboratory Tests Test 12/18/18 14:48 12/18/18 15:20 12/18/18 18:50 12/19/18 05:55 Arterial Blood pH 7.280 (7.350-7.450) Arterial Blood Partial Pressure CO2 46.7 mmHg (35.0-45.0) H Arterial Blood Partial Pressure O2 95.4 mmHg (75.0-100.0) Arterial Blood HCO3 21.5 mmol/L (22.0-26.0) L Arterial Blood Oxygen Saturation 95.6 % (95-100) Arterial Blood Base Excess -5.3 (-2-2) L Damion Test Positive Lactic Acid Level 2.70 mmol/L (0.4-2.0) H 3.30 mmol/L (0.66-2.22) H Troponin I 0.087 ng/mL (0.000-0.056) Free Thyroxine 0.93 NG/DL (0.76-1.46) Triiodothyonine (T3) 47 ng/dL (71-180) L Free Triiodothyronine < 0.5 pg/mL (2.3-4.2) L Triiodothyronine (T3) Uptake 35 % (24-39) White Blood Count 10.0 K/UL (4.8-10.8) # Red Blood Count 3.68 M/UL (4.70-6.10) L Hemoglobin 11.6 G/DL (14.2-18.0) L Hematocrit 36.0 % (42.0-52.0) L Mean Corpuscular Volume 98 FL (80-99) Mean Corpuscular Hemoglobin 31.5 PG (27.0-31.0) H Mean Corpuscular Hemoglobin Concent 32.3 G/DL (32.0-36.0) Red Cell Distribution Width 12.0 % (11.6-14.8) Platelet Count 172 K/UL (150-450) Mean Platelet Volume 8.6 FL (6.5-10.1) Neutrophils (%) (Auto) % (45.0-75.0) Lymphocytes (%) (Auto) % (20.0-45.0) Monocytes (%) (Auto) % (1.0-10.0) Eosinophils (%) (Auto) % (0.0-3.0) Basophils (%) (Auto) % (0.0-2.0) Neutrophils % (Manual) Pending Lymphocytes % (Manual) Pending Platelet Estimate Pending Platelet Morphology Pending Sodium Level 144 MMOL/L (136-145) Potassium Level 3.9 MMOL/L (3.5-5.1) Chloride Level 111 MMOL/L (98-107) H Carbon Dioxide Level 21 MMOL/L (21-32) Anion Gap 13 mmol/L (5-15) Blood Urea Nitrogen 52 mg/dL (7-18) H Creatinine 1.5 MG/DL (0.55-1.30) H Estimat Glomerular Filtration Rate mL/min (>60) Glucose Level 150 MG/DL (74-106) H Calcium Level 8.5 MG/DL (8.5-10.1) Solomon Quan MD Dec 19, 2018 09:03
--- NOTE | 2018-12-19 09:04 | NUR ---
RD ASSESSMENT & RECOMMENDATIONS SEE CARE ACTIVITY FOR COMPLETE ASSESSMENT DAILY ESTIMATED NEEDS: Needs based on Cancer, underweight, critical care 56.8kg 25-30 kcals/kg 8700-0978 total kcals 1.2-2 g protein/kg 68-114 g total protein 25-30 mL/kg 2694-8339 total fluid mLs NUTRITION DIAGNOSIS: Swallowing difficulty r/t respiratory status as evidenced by pt orally intubated, w/ OGT, NPO. ENTERAL NUTRITION RECOMMENDATIONS: Vital AF 1.2 @55ml /hr x24 hrs to provide 1320ml, 1584 kcal, 99g prot, 1071ml free H2O - Rec to start Vital AF 1.2 @25ml /hr for 6 hrs, advance as tolerated 10ml every 4-6 hrs to goal - Flush per MD/ HOB over 30 degrees ADDITIONAL RECOMMENDATIONS: 1) Monitor lytes daily on TF/ replete as needed 2) SSI as needed for glycemic control 3) Weekly weights on calibrated bed scale 4) Feed w/ hemodynamic stability; otherwise trophic feeds for gut integrity
[2018-12-19] MEDS: Dexamethasone 4mg/ml vial IVP SCH ×2 (09:41→18:08)
[2018-12-19] MEDS: Pantoprazole Inj IVP SCH ×2 (09:41→20:43)
--- NOTE | 2018-12-19 10:00 | NUR ---
NURSE NOTES: Patient turned and repositioned. Tooken down to CT. Stable. Tolerated well. No new orders. ABG results sent to dr. ricardo. No new orders. will continue plan of care.
--- NOTE | 2018-12-19 10:53 | Diagnostic Imaging Report ---
Indication: 73-year-old male with history of metastatic cancer. Altered mental status Technique: Contiguous 5 mm thick transaxial imaging of the head obtained in a Siemens Sensation [address] scanner. Soft tissue and bone windows generated. Automatic Exposure Control was utilized. Total Dose length Product (DLP): 4754.[address] Dose Index Volume (CTDIvol): 70.38,70.38,70.38 mGy Comparison: none Findings: Study is nondiagnostic due to motion which is considerable. There are patchy areas of low attenuation within portions of both parietal lobes, right occipital lobe and the left cerebellum. The nature of the areas of low attenuation is not elucidated adequately on this study. Edema or mass not excludable although findings could be due to encephalomalacia from prior infarcts. Generalized atrophy is also noted. IMPRESSION: Nondiagnostic exam The CT scanner at [facility] is accredited by the [employer] and the scans are performed using dose optimization techniques as appropriate to a performed exam including Automatic Exposure control.
--- NOTE | 2018-12-19 11:50 | NUR ---
Social Work This Sw met with patient, currently in the ICU who is intubated. Spouse currently requesting DNR/DNI (POLST completed and on front of chart). This Sw left a message with spouse, Grisel La ([phone]); awaiting call back at this time. Patient is from [facility].
--- NOTE | 2018-12-19 12:00 | NUR ---
NURSE NOTES: Patient turned and repositioned. No new orders at this time. Levophed completely titrated off. Patient tolerating well, MAP >60. Will continue plan of care.
--- NOTE | 2018-12-19 14:00 | NUR ---
NURSE NOTES: VSS, no distress noted, turned and repositioned. Will continue plan of care.
--- NOTE | 2018-12-19 14:21 | NUR ---
CASE MANAGEMENT: REVIEW SI: ACUTE RESP FAILURE . SEPSIS . LUNG CA METASTATIC TO BRAIN T 98.6 HR 85 RR 30 BP 110/64 SAT 98% MECH VENT FIO2 50 H/H 11.6/36.0 BUN 52 CR 1.5 IS: PROTONIX IV Q12HR VANCO IV Q24HR LEVOPHED IV Q24HR DECADRON IV BID ZOSYN IV Q8HR DOPAMINE IV Q24HR D5 1/2 NS IVF @75ML/HR ICU STATUS DCP: [facility]
--- NOTE | 2018-12-19 16:00 | NUR ---
NURSE NOTES: Patient turned and repositioned. No new orders at this time. Will continue plan of care.
--- NOTE | 2018-12-19 16:07 | Infectious Diseases Prog Note ---
Assessment/Plan Problems: (1) Acute aspiration pneumonia Assessment & Plan: continue vancomycin and zosyn empirically, pending sputum culture , aspiration precaution, keep HOB > 30 degree (2) Sepsis Assessment & Plan: with shock , due to the above, with staph aureus , continue vancomycin pending final blood culture, will order trans thoracic echo to rule out valve vegetations , and repeat blood culture to confirm clearance , continue pressor and taper steroids as need for septic shock (3) CONSTANCE (acute kidney injury) Assessment & Plan: due to the above , continue hydration with renally dosed antibiotics , continue pressure support, renal follow up (4) Acute respiratory failure Assessment & Plan: due to the above , intubated on mechanical ventilation, pulmonary is following , monitor ABG, and CXR (5) Lung cancer metastatic to brain Assessment & Plan: S/P radiation and chemo therapy at [facility] , now with poor prognosis, recommend palliative care . Subjective ROS Limited/Unobtainable: Yes Allergies: Coded Allergies: No Known Allergies (Unverified , 12/17/18) Subjective he was intubated on mechanical ventilation in ICU, not sedated, responsive to verbal commands, not on pressor , afebrile Objective Vital Signs Last 24 Hour Vital Signs Date Time Temp Pulse Resp B/P (MAP) Pulse Ox O2 Delivery O2 Flow Rate FiO2 12/19/18 15:19 86 25 70 12/19/18 15:00 84 28 115/65 (82) 100 12/19/18 14:00 80 28 112/63 (79) 100 12/19/18 13:17 95 28 98 Mechanical Ventilator 40 12/19/18 13:09 87 26 70 12/19/18 13:09 93 30 98 Mechanical Ventilator 40 12/19/18 13:00 82 30 110/65 (80) 100 12/19/18 12:00 Mechanical Ventilator 12/19/18 12:00 100 12/19/18 12:00 98.6 80 24 115/70 (85) 100 12/19/18 12:00 50 12/19/18 11:00 85 30 110/64 (79) 100 12/19/18 10:44 85 24 70 12/19/18 10:30 88 28 115/66 (82) 100 12/19/18 10:00 82 30 118/65 (82) 100 12/19/18 09:32 88 24 70 12/19/18 09:30 79 20 116/62 (80) 100 12/19/18 09:00 82 20 115/64 (81) 100 12/19/18 08:30 98.5 81 20 127/73 (91) 100 12/19/18 08:00 80 12/19/18 08:00 70 12/19/18 08:00 80 20 110/60 (77) 100 12/19/18 08:00 Mechanical Ventilator 12/19/18 07:41 99 26 98 Mechanical Ventilator 12/19/18 07:34 98 26 98 Mechanical Ventilator 70 12/19/18 07:34 88 26 70 12/19/18 07:30 84 22 116/62 (80) 100 12/19/18 07:00 80 24 105/55 (72) 100 12/19/18 06:30 82 24 103/57 (72) 100 12/19/18 06:15 84 25 96/47 (63) 100 12/19/18 06:00 84 25 113/64 (80) 100 12/19/18 05:45 87 24 105/72 (83) 100 12/19/18 05:30 91 24 134/69 (90) 12/19/18 05:15 88 26 139/69 (92) 100 12/19/18 05:01 84 24 70 12/19/18 05:00 89 28 136/90 (105) 100 12/19/18 04:45 84 24 120/62 (81) 100 12/19/18 04:30 84 24 120/62 (81) 100 12/19/18 04:15 81 25 107/58 (74) 100 12/19/18 04:00 Mechanical Ventilator 12/19/18 04:00 85 12/19/18 04:00 98.4 83 24 119/61 (80) 100 12/19/18 04:00 70 12/19/18 03:45 82 24 112/59 (76) 100 12/19/18 03:41 84 25 70 12/19/18 03:30 90 28 97/65 (76) 99 12/19/18 03:15 93 28 121/65 (83) 99 12/19/18 03:00 101 34 147/79 (101) 100 12/19/18 02:45 97 28 110/59 (76) 100 12/19/18 02:30 92 26 159/65 (96) 100 12/19/18 02:30 92 26 159/65 (96) 100 12/19/18 02:15 83 26 118/66 (83) 100 12/19/18 02:15 83 26 118/66 (83) 100 12/19/18 02:00 89 27 126/55 (78) 99 12/19/18 02:00 89 27 126/55 (78) 99 12/19/18 02:00 89 27 126/55 (78) 99 12/19/18 01:45 95 26 146/73 (97) 100 12/19/18 01:45 95 26 146/73 (97) 100 12/19/18 01:30 93 27 138/75 (96) 100 12/19/18 01:30 93 27 138/75 (96) 100 12/19/18 01:16 91 28 70 12/19/18 01:15 90 27 127/68 (87) 100 12/19/18 01:15 90 27 127/68 (87) 100 12/19/18 01:00 85 26 126/61 (82) 100 12/19/18 01:00 85 26 126/61 (82) 100 12/19/18 00:45 87 27 130/62 (84) 100 12/19/18 00:45 87 27 130/62 (84) 100 12/19/18 00:30 86 25 111/69 (83) 100 12/19/18 00:30 86 25 111/69 (83) 100 12/19/18 00:15 92 27 131/77 (95) 100 12/19/18 00:15 92 27 131/77 (95) 100 12/19/18 00:08 Mechanical Ventilator 12/19/18 00:00 70 12/19/18 00:00 96 12/19/18 00:00 94 29 133/66 (88) 100 12/19/18 00:00 94 29 133/66 (88) 100 12/19/18 00:00 96 28 123/62 (82) 99 12/18/18 23:39 86 28 70 12/18/18 23:15 96 28 123/62 (82) 99 12/18/18 23:00 96 28 123/62 (82) 99 12/18/18 22:45 96 28 123/62 (82) 99 12/18/18 22:30 97 30 110/55 (73) 12/18/18 22:15 97 30 110/55 (73) 12/18/18 22:00 97 30 110/55 (73) 12/18/18 21:45 102 33 124/60 (81) 99 12/18/18 21:35 106 35 109/81 (90) 98 12/18/18 21:34 95/60 12/18/18 21:30 106 33 152/66 (94) 99 12/18/18 21:25 105 33 70 12/18/18 21:15 107 31 115/83 (94) 99 12/18/18 21:00 107 31 114/64 (81) 99 12/18/18 20:55 92/52 12/18/18 20:45 109 30 92/52 (65) 99 12/18/18 20:30 111 32 115/60 (78) 100 12/18/18 20:15 111 32 115/60 (78) 100 12/18/18 20:00 70 12/18/18 20:00 99.0 111 31 119/53 (75) 99 12/18/18 20:00 111 12/18/18 20:00 Mechanical Ventilator 12/18/18 19:45 113 31 112/65 (81) 100 12/18/18 19:30 113 30 102/74 (83) 100 12/18/18 19:15 113 32 118/57 (77) 99 12/18/18 19:06 111 33 70 12/18/18 19:00 99.0 112 22 105/60 (75) 98 12/18/18 18:00 115 20 96/58 (71) 98 12/18/18 17:00 110 20 98/58 (71) 100 12/18/18 16:36 116 33 70 Height (Feet): 5 Height (Inches): 9.00 Weight (Pounds): 125 General Appearance: no acute distress, cachetic HEENT: normocephalic, atraumatic, anicteric, mucous membranes moist, PERRL, supple, no JVD, other - intubated Respiratory/Chest: no respiratory distress, no accessory muscle use, decreased breath sounds, crackles/rales Cardiovascular: normal peripheral pulses, normal rate, regular rhythm, no gallop/murmur, no JVD Abdomen: normal bowel sounds, soft, non tender, no organomegaly, non distended , no mass, no scars Extremities: no cyanosis, no clubbing Skin: no rash, no lesions Neurologic/Psychiatric: alert, responsive Lymphatic: no neck adenopathy, no groin adenopathy Musculoskeletal: no effusion, atrophy Microbiology Date/Time Source Procedure Growth Status 12/17/18 15:40 Blood Blood Culture - Preliminary Staphylococcus Aureus Resulted 12/17/18 15:25 Blood Blood Culture - Preliminary Staphylococcus Aureus Resulted 12/17/18 17:30 Nasal Nares Influenza Types A,B Antigen (JAYCOB) - Final Complete 12/17/18 17:02 Urine,Clean Catch Urine Culture - Preliminary NO GROWTH AFTER 24 HOURS Resulted Laboratory Tests Test 12/18/18 18:50 12/19/18 05:55 12/19/18 09:32 Lactic Acid Level 3.30 mmol/L (0.66-2.22) H White Blood Count 10.0 K/UL (4.8-10.8) # Red Blood Count 3.68 M/UL (4.70-6.10) L Hemoglobin 11.6 G/DL (14.2-18.0) L Hematocrit 36.0 % (42.0-52.0) L Mean Corpuscular Volume 98 FL (80-99) Mean Corpuscular Hemoglobin 31.5 PG (27.0-31.0) H Mean Corpuscular Hemoglobin Concent 32.3 G/DL (32.0-36.0) Red Cell Distribution Width 12.0 % (11.6-14.8) Platelet Count 172 K/UL (150-450) Mean Platelet Volume 8.6 FL (6.5-10.1) Neutrophils (%) (Auto) % (45.0-75.0) Lymphocytes (%) (Auto) % (20.0-45.0) Monocytes (%) (Auto) % (1.0-10.0) Eosinophils (%) (Auto) % (0.0-3.0) Basophils (%) (Auto) % (0.0-2.0) Differential Total Cells Counted 100 Neutrophils % (Manual) 96 % (45-75) H Lymphocytes % (Manual) 2 % (20-45) L Monocytes % (Manual) 2 % (1-10) Eosinophils % (Manual) 0 % (0-3) Basophils % (Manual) 0 % (0-2) Band Neutrophils 0 % (0-8) Platelet Estimate Adequate Platelet Morphology Normal Red Blood Cell Morphology Normal Sodium Level 144 MMOL/L (136-145) Potassium Level 3.9 MMOL/L (3.5-5.1) Chloride Level 111 MMOL/L (98-107) H Carbon Dioxide Level 21 MMOL/L (21-32) Anion Gap 13 mmol/L (5-15) Blood Urea Nitrogen 52 mg/dL (7-18) H Creatinine 1.5 MG/DL (0.55-1.30) H Estimat Glomerular Filtration Rate mL/min (>60) Glucose Level 150 MG/DL (74-106) H Calcium Level 8.5 MG/DL (8.5-10.1) Arterial Blood pH 7.392 (7.350-7.450) Arterial Blood Partial Pressure CO2 36.4 mmHg (35.0-45.0) Arterial Blood Partial Pressure O2 70.1 mmHg (75.0-100.0) L Arterial Blood HCO3 21.6 mmol/L (22.0-26.0) L Arterial Blood Oxygen Saturation 93.6 % (95-100) L Arterial Blood Base Excess -2.8 (-2-2) L Damion Test Positive Current Medications Medications (Trade) Dose Ordered Sig/Earlene Route PRN Reason Start Time Stop Time Status Last Admin Dose Admin Chlorhexidine Gluconate (Windy-Hex 2%) 1 applic DAILY@2000 TOPIC 12/18/18 20:00 01/17/19 19:59 12/18/18 20:03 Dexamethasone Sodium Phosphate (Decadron 4mg/ml vial) 4 mg BID IVP 12/18/18 09:00 01/17/19 08:59 12/19/18 09:41 Dextrose/Sodium Chloride 1,000 ml @ 75 mls/hr [id number] IV 12/17/18 20:00 01/16/19 19:59 12/19/18 02:28 Dopamine HCl/ Dextrose 250 ml @ 0 mls/hr Q24H IV 12/17/18 20:55 01/16/19 20:54 12/17/18 20:55 Ipratropium [place] (Atrovent) 500 mcg Q4H PRN HHN Shortness of Breath 12/18/18 14:15 12/23/18 14:14 Ipratropium [place] (Atrovent) 500 mcg Q6HRT HHN 12/18/18 19:00 12/23/18 18:59 12/19/18 13:09 Norepinephrine Bitartrate 4 mg/ Dextrose 250 ml @ 0 mls/hr Q24H IV 12/18/18 15:00 01/17/19 14:59 12/18/18 21:34 Pantoprazole (Protonix) 40 mg EVERY 12 HOURS IVP 12/18/18 21:00 01/17/19 20:59 12/19/18 09:41 Piperacillin Sod/ Tazobactam Sod 3.375 gm/Dextrose 110 ml @ 27.5 mls/hr EVERY 8 HOURS IVPB 12/17/18 22:00 12/22/18 21:59 12/19/18 14:13 Vancomycin HCl (Vanco rx to dose) 1 ea DAILY PRN MISC Per rx protocol 12/17/18 18:15 01/16/19 18:14 Vancomycin/Sodium Chloride 250 ml @ 166.667 mls/hr Q24H IVPB 12/18/18 18:00 12/23/18 17:59 12/18/18 18:22 Tammy Rob M.D. Dec 19, 2018 16:07
--- NOTE | 2018-12-19 17:05 | General Progress Note ---
Assessment/Plan Assessment/Plan S, O: limited eval. Patient Intubated. Vent setting reviewed. Stoddard inserted. Peripheral line in place x 2. PHYSICAL EXAMINATION: HEAD AND NECK: Positive for intubation, limited source of evaluation. Vent settings were reviewed. Atraumatic and normocephalic. CHEST: Diffuse bronchial breathing sounds. Positive for diffuse crackles.HEART: S1 and S2. Tachyarrhythmia. ABDOMEN: Soft. No organomegaly.MUSCULOSKELETAL: Atrophied musculature, limited evaluation. The patient is not following compounds, sedated. Imaging: CT of the Head reviewed, non diagnostic ASSESSMENT AND PLAN: 1. Vent-dependent respiratory failure. 2. Sepsis: Gr + 3. Healthcare-associated pneumonia. 3. Non-ST myocardial infarction. Abnormal Trop 4. Metastatic lung CA. 5. GI and DVT prophylaxes. PLAN OF CARE: 1. We will continue with the current empiric antibiotic regimen. 3. Grave prognosis. 4. Infectious Disease, Pulmonary, and Cardiology NOtes are reviwed Discussed the care with yesterday Vent management per Pulmonary service Subjective Allergies: Coded Allergies: No Known Allergies (Unverified , 12/17/18) Objective Last 24 Hour Vital Signs Date Time Temp Pulse Resp B/P (MAP) Pulse Ox O2 Delivery O2 Flow Rate FiO2 12/19/18 16:56 97 29 70 12/19/18 15:19 86 25 70 12/19/18 15:00 84 28 115/65 (82) 100 12/19/18 14:00 80 28 112/63 (79) 100 12/19/18 13:17 95 28 98 Mechanical Ventilator 40 12/19/18 13:09 87 26 70 12/19/18 13:09 93 30 98 Mechanical Ventilator 40 12/19/18 13:00 82 30 110/65 (80) 100 12/19/18 12:00 Mechanical Ventilator 12/19/18 12:00 100 12/19/18 12:00 98.6 80 24 115/70 (85) 100 12/19/18 12:00 50 12/19/18 11:00 85 30 110/64 (79) 100 12/19/18 10:44 85 24 70 12/19/18 10:30 88 28 115/66 (82) 100 12/19/18 10:00 82 30 118/65 (82) 100 12/19/18 09:32 88 24 70 12/19/18 09:30 79 20 116/62 (80) 100 12/19/18 09:00 82 20 115/64 (81) 100 12/19/18 08:30 98.5 81 20 127/73 (91) 100 12/19/18 08:00 80 12/19/18 08:00 70 12/19/18 08:00 80 20 110/60 (77) 100 12/19/18 08:00 Mechanical Ventilator 12/19/18 07:41 99 26 98 Mechanical Ventilator 12/19/18 07:34 98 26 98 Mechanical Ventilator 70 12/19/18 07:34 88 26 70 12/19/18 07:30 84 22 116/62 (80) 100 12/19/18 07:00 80 24 105/55 (72) 100 12/19/18 06:30 82 24 103/57 (72) 100 12/19/18 06:15 84 25 96/47 (63) 100 12/19/18 06:00 84 25 113/64 (80) 100 12/19/18 05:45 87 24 105/72 (83) 100 12/19/18 05:30 91 24 134/69 (90) 12/19/18 05:15 88 26 139/69 (92) 100 12/19/18 05:01 84 24 70 12/19/18 05:00 89 28 136/90 (105) 100 12/19/18 04:45 84 24 120/62 (81) 100 12/19/18 04:30 84 24 120/62 (81) 100 12/19/18 04:15 81 25 107/58 (74) 100 12/19/18 04:00 Mechanical Ventilator 12/19/18 04:00 85 12/19/18 04:00 98.4 83 24 119/61 (80) 100 12/19/18 04:00 70 12/19/18 03:45 82 24 112/59 (76) 100 12/19/18 03:41 84 25 70 12/19/18 03:30 90 28 97/65 (76) 99 12/19/18 03:15 93 28 121/65 (83) 99 12/19/18 03:00 101 34 147/79 (101) 100 12/19/18 02:45 97 28 110/59 (76) 100 12/19/18 02:30 92 26 159/65 (96) 100 12/19/18 02:30 92 26 159/65 (96) 100 12/19/18 02:15 83 26 118/66 (83) 100 12/19/18 02:15 83 26 118/66 (83) 100 12/19/18 02:00 89 27 126/55 (78) 99 12/19/18 02:00 89 27 126/55 (78) 99 12/19/18 02:00 89 27 126/55 (78) 99 12/19/18 01:45 95 26 146/73 (97) 100 12/19/18 01:45 95 26 146/73 (97) 100 12/19/18 01:30 93 27 138/75 (96) 100 12/19/18 01:30 93 27 138/75 (96) 100 12/19/18 01:16 91 28 70 12/19/18 01:15 90 27 127/68 (87) 100 12/19/18 01:15 90 27 127/68 (87) 100 12/19/18 01:00 85 26 126/61 (82) 100 12/19/18 01:00 85 26 126/61 (82) 100 12/19/18 00:45 87 27 130/62 (84) 100 12/19/18 00:45 87 27 130/62 (84) 100 12/19/18 00:30 86 25 111/69 (83) 100 12/19/18 00:30 86 25 111/69 (83) 100 12/19/18 00:15 92 27 131/77 (95) 100 12/19/18 00:15 92 27 131/77 (95) 100 12/19/18 00:08 Mechanical Ventilator 12/19/18 00:00 70 12/19/18 00:00 96 12/19/18 00:00 94 29 133/66 (88) 100 12/19/18 00:00 94 29 133/66 (88) 100 12/19/18 00:00 96 28 123/62 (82) 99 12/18/18 23:39 86 28 70 12/18/18 23:15 96 28 123/62 (82) 99 12/18/18 23:00 96 28 123/62 (82) 99 12/18/18 22:45 96 28 123/62 (82) 99 12/18/18 22:30 97 30 110/55 (73) 12/18/18 22:15 97 30 110/55 (73) 12/18/18 22:00 97 30 110/55 (73) 12/18/18 21:45 102 33 124/60 (81) 99 12/18/18 21:35 106 35 109/81 (90) 98 12/18/18 21:34 95/60 12/18/18 21:30 106 33 152/66 (94) 99 12/18/18 21:25 105 33 70 12/18/18 21:15 107 31 115/83 (94) 99 12/18/18 21:00 107 31 114/64 (81) 99 12/18/18 20:55 92/52 12/18/18 20:45 109 30 92/52 (65) 99 12/18/18 20:30 111 32 115/60 (78) 100 12/18/18 20:15 111 32 115/60 (78) 100 12/18/18 20:00 70 12/18/18 20:00 99.0 111 31 119/53 (75) 99 12/18/18 20:00 111 12/18/18 20:00 Mechanical Ventilator 12/18/18 19:45 113 31 112/65 (81) 100 12/18/18 19:30 113 30 102/74 (83) 100 12/18/18 19:15 113 32 118/57 (77) 99 12/18/18 19:06 111 33 70 12/18/18 19:00 99.0 112 22 105/60 (75) 98 12/18/18 18:00 115 20 96/58 (71) 98 Intake and Output 12/18/18 12/19/18 18:59 06:59 Intake Total 854.458 ml 1274.700 ml Output Total 900 ml 550 ml Balance -45.542 ml 724.700 ml Intake Oral 0 ml 0 ml IV Total 854.458 ml 1274.700 ml Output Urine Total 900 ml 550 ml Laboratory Tests 12/18/18 18:50: Lactic Acid Level 3.30H 12/19/18 05:55: White Blood Count 10.0#, Red Blood Count 3.68L, Hemoglobin 11.6L, Hematocrit 36.0L, Mean Corpuscular Volume 98, Mean Corpuscular Hemoglobin 31.5H, Mean Corpuscular Hemoglobin Concent 32.3, Red Cell Distribution Width 12.0, Platelet Count 172, Mean Platelet Volume 8.6, Neutrophils (%) (Auto) , Lymphocytes (%) ( Auto) , Monocytes (%) (Auto) , Eosinophils (%) (Auto) , Basophils (%) (Auto) , Differential Total Cells Counted 100, Neutrophils % (Manual) 96H, Lymphocytes % (Manual) 2L, Monocytes % (Manual) 2, Eosinophils % (Manual) 0, Basophils % ( Manual) 0, Band Neutrophils 0, Platelet Estimate Adequate, Platelet Morphology Normal, Red Blood Cell Morphology Normal, Sodium Level 144, Potassium Level 3.9 , Chloride Level 111H, Carbon Dioxide Level 21, Anion Gap 13, Blood Urea Nitrogen 52H, Creatinine 1.5H, Estimat Glomerular Filtration Rate , Glucose Level 150H, Calcium Level 8.5 12/19/18 09:32: Arterial Blood pH 7.392, Arterial Blood Partial Pressure CO2 36.4, Arterial Blood Partial Pressure O2 70.1L, Arterial Blood HCO3 21.6L, Arterial Blood Oxygen Saturation 93.6L, Arterial Blood Base Excess -2.8L, Damion Test Positive Height (Feet): 5 Height (Inches): 9.00 Weight (Pounds): 125 Bruno Enamorado MD Dec 19, 2018 17:05
--- NOTE | 2018-12-19 18:00 | NUR ---
NURSE NOTES: Patient turned and repositioned. No new orders at this time. Will continue plan of care.
[2018-12-19] MEDS: Vancomycin 750mg/NS 250ml IVPB SCH (18:08)
--- NOTE | 2018-12-19 19:04 | NUR ---
HAND-OFF: Report given to Hero Whitley RN, using SBAR VSS No distress noted.
--- NOTE | 2018-12-19 19:10 | NUR ---
RESPIRATORY NOTE: Received pt on AC 24, 600VT, 50%, PEEP +5. Pt intubated w/ ETT 7.5 @ 21cm lipline, secured by anchorfast. Pt restless, responds to stimuli. Both hands on soft restraints to prevent pt from self-extubation. B/S sander. rhonchi, sxn small to moderate amounts of thick, pale-yellow secretions. Vent plugged into red outlet, ambubag at bedside. Pt in no apparent distress at this time. Will continue to monitor pt.
[2018-12-19] MEDS: Dyna-Hex 2% Top Sol 2oz TOPIC SCH (19:41)
--- NOTE | 2018-12-19 19:45 | NUR ---
NURSE NOTES: PATIENT RESPONSE TO SHAKING, TRIED TO OPEN EYES, ON ETT AC 24/TV 600/FIO2 50%/PEEP 5, O2 SATURATION 98% NOTED, OGT INTACT AND PATENT, NPO STATUS, ABDOMEN SOFT, FLAT, HYPOACTIVE BOWEL SOUND TO 4 QUADRANTS, F/C INTACT AND PATENT, YELLOW URINE OUTED, PICC LINE TO LEFT UPPER ARM, INTACT AND PATENT, ONGOING D5W 0.45% NS AT 75ML/HR, PERIPHERAL LINE TO RIGHT FORE ARM AND LEFT AC, INTACT AND PATENT STATUS, 2 POINT SOFT RESTRAINTS FOR SAFETY, MADE LOWER BED POSITION, WILL CONTINUE TO MONITOR.
--- NOTE | 2018-12-19 19:54 | NUR ---
NURSE NOTES: STARTED FENTANYL DRIP 10MCG/HR VIA PICC ORDERED, RASS -1 STATUS, WILL CONTINUE TO MONITOR.
[2018-12-19] MEDS: DOPamine 400mg/250ml 250 ML IV SCH (20:55)
--- NOTE | 2018-12-19 21:33 | NUR ---
NURSE NOTES: PATIENT SLIGHT SEDATED, RASS SCORE -2 STATUS, ONGOING FENTANYL 40MCG/HR VIA PICC LINE, WILL CONTINUE TO MONITOR.
--- NOTE | 2018-12-19 23:20 | NUR ---
NURSE NOTES: NO ACUTE DISTRESS NOTED AT THIS TIME.
--- NOTE | 2018-12-19 23:54 | Cardiology Progress Note ---
Assessment/Plan Assessment/Plan 1. Sinus tachycardia, most likely secondary to hypoxemia/lung CA. The patient showed hypoxic hypercarbic respiratory failure due to possible acute exacerbation of COPD. 2. History of coronary artery disease, status post coronary artery bypass graft surgery. 12-lead electrocardiogram does not show any ischemic changes despite the fact that the first troponin I level was elevated. The patient is not a candidate for ischemic workup given metastatic lung cancer conservative management. I do not believe that the patient would benefit from anticoagulation therapy, which may put the patient in increased risk of bleeding. 3. Acute respiratory failure 4. Non-sustained ventricular tachycardia, magnesium sulfate given, check Mg level and keep >2.5, keep K >4.0 5. 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 6. History of CVA. 7. History of COPD. Subjective Subjective Sinus rhythm at rate of 79. Intubated on FiO2 of 50%. Objective Last 24 Hour Vital Signs Date Time Temp Pulse Resp B/P (MAP) Pulse Ox O2 Delivery O2 Flow Rate FiO2 12/19/18 23:10 79 26 50 12/19/18 22:00 83 21 96/40 (58) 98 12/19/18 22:00 21 Mechanical Ventilator 50 12/19/18 21:30 88 24 120/67 (84) 99 12/19/18 21:05 91 25 50 12/19/18 21:00 28 Mechanical Ventilator 50 12/19/18 21:00 89 25 96/45 (62) 98 12/19/18 20:55 96/45 12/19/18 20:30 87 26 97/60 (72) 98 12/19/18 20:30 28 Mechanical Ventilator 50 12/19/18 20:15 90 28 100/59 (73) 98 12/19/18 20:15 28 Mechanical Ventilator 50 12/19/18 20:00 98.6 92 28 107/53 (71) 98 12/19/18 20:00 50 12/19/18 20:00 27 Mechanical Ventilator 50 12/19/18 20:00 Mechanical Ventilator 12/19/18 19:56 97 12/19/18 19:54 24 Mechanical Ventilator 50 12/19/18 19:19 86 27 98 Mechanical Ventilator 50 12/19/18 19:09 93 31 97 Mechanical Ventilator 50 12/19/18 19:08 93 31 50 12/19/18 19:00 93 27 102/62 (75) 97 12/19/18 18:00 90 25 120/77 (91) 100 12/19/18 17:00 98 26 122/81 (95) 100 12/19/18 16:56 97 29 70 12/19/18 16:00 98 12/19/18 16:00 98.0 86 25 132/91 (105) 96 12/19/18 16:00 Mechanical Ventilator 12/19/18 16:00 50 12/19/18 15:19 86 25 70 12/19/18 15:00 84 28 115/65 (82) 100 12/19/18 14:00 80 28 112/63 (79) 100 12/19/18 13:17 95 28 98 Mechanical Ventilator 40 12/19/18 13:09 87 26 70 12/19/18 13:09 93 30 98 Mechanical Ventilator 40 12/19/18 13:00 82 30 110/65 (80) 100 12/19/18 12:00 Mechanical Ventilator 12/19/18 12:00 100 12/19/18 12:00 98.6 80 24 115/70 (85) 100 12/19/18 12:00 50 12/19/18 11:00 85 30 110/64 (79) 100 12/19/18 10:44 85 24 70 12/19/18 10:30 88 28 115/66 (82) 100 12/19/18 10:00 82 30 118/65 (82) 100 12/19/18 09:32 88 24 70 12/19/18 09:30 79 20 116/62 (80) 100 12/19/18 09:00 82 20 115/64 (81) 100 12/19/18 08:30 98.5 81 20 127/73 (91) 100 12/19/18 08:00 80 12/19/18 08:00 70 12/19/18 08:00 80 20 110/60 (77) 100 12/19/18 08:00 Mechanical Ventilator 12/19/18 07:41 99 26 98 Mechanical Ventilator 12/19/18 07:34 98 26 98 Mechanical Ventilator 70 12/19/18 07:34 88 26 70 12/19/18 07:30 84 22 116/62 (80) 100 12/19/18 07:00 80 24 105/55 (72) 100 12/19/18 06:30 82 24 103/57 (72) 100 12/19/18 06:15 84 25 96/47 (63) 100 12/19/18 06:00 84 25 113/64 (80) 100 12/19/18 05:45 87 24 105/72 (83) 100 12/19/18 05:30 91 24 134/69 (90) 12/19/18 05:15 88 26 139/69 (92) 100 12/19/18 05:01 84 24 70 12/19/18 05:00 89 28 136/90 (105) 100 12/19/18 04:45 84 24 120/62 (81) 100 12/19/18 04:30 84 24 120/62 (81) 100 12/19/18 04:15 81 25 107/58 (74) 100 12/19/18 04:00 Mechanical Ventilator 12/19/18 04:00 85 12/19/18 04:00 98.4 83 24 119/61 (80) 100 12/19/18 04:00 70 12/19/18 03:45 82 24 112/59 (76) 100 12/19/18 03:41 84 25 70 12/19/18 03:30 90 28 97/65 (76) 99 12/19/18 03:15 93 28 121/65 (83) 99 12/19/18 03:00 101 34 147/79 (101) 100 12/19/18 02:45 97 28 110/59 (76) 100 12/19/18 02:30 92 26 159/65 (96) 100 12/19/18 02:30 92 26 159/65 (96) 100 12/19/18 02:15 83 26 118/66 (83) 100 12/19/18 02:15 83 26 118/66 (83) 100 12/19/18 02:00 89 27 126/55 (78) 99 12/19/18 02:00 89 27 126/55 (78) 99 12/19/18 02:00 89 27 126/55 (78) 99 12/19/18 01:45 95 26 146/73 (97) 100 12/19/18 01:45 95 26 146/73 (97) 100 12/19/18 01:30 93 27 138/75 (96) 100 12/19/18 01:30 93 27 138/75 (96) 100 1/18/19 01:16 91 28 70 12/19/18 01:15 90 27 127/68 (87) 100 12/19/18 01:15 90 27 127/68 (87) 100 12/19/18 01:00 85 26 126/61 (82) 100 12/19/18 01:00 85 26 126/61 (82) 100 12/19/18 00:45 87 27 130/62 (84) 100 12/19/18 00:45 87 27 130/62 (84) 100 12/19/18 00:30 86 25 111/69 (83) 100 12/19/18 00:30 86 25 111/69 (83) 100 12/19/18 00:15 92 27 131/77 (95) 100 12/19/18 00:15 92 27 131/77 (95) 100 12/19/18 00:08 Mechanical Ventilator 12/19/18 00:00 70 12/19/18 00:00 96 12/19/18 00:00 94 29 133/66 (88) 100 12/19/18 00:00 94 29 133/66 (88) 100 12/19/18 00:00 96 28 123/62 (82) 99 Intake and Output 12/18/18 12/19/18 19:00 07:00 Intake Total 1027.625 ml 1030.533 ml Output Total 830 ml 570 ml Balance 197.625 ml 460.533 ml Intake Oral 0 ml 0 ml IV Total 1027.625 ml 1030.533 ml Output Urine Total 830 ml 570 ml 2D Echo: Global LV HK with LVEF 25%, Mild LAE, RVSP 14 mmHg, Grade I LVDD. Laboratory Tests Test 12/19/18 05:55 12/19/18 09:32 White Blood Count 10.0 K/UL (4.8-10.8) # Red Blood Count 3.68 M/UL (4.70-6.10) L Hemoglobin 11.6 G/DL (14.2-18.0) L Hematocrit 36.0 % (42.0-52.0) L Mean Corpuscular Volume 98 FL (80-99) Mean Corpuscular Hemoglobin 31.5 PG (27.0-31.0) H Mean Corpuscular Hemoglobin Concent 32.3 G/DL (32.0-36.0) Red Cell Distribution Width 12.0 % (11.6-14.8) Platelet Count 172 K/UL (150-450) Mean Platelet Volume 8.6 FL (6.5-10.1) Neutrophils (%) (Auto) % (45.0-75.0) Lymphocytes (%) (Auto) % (20.0-45.0) Monocytes (%) (Auto) % (1.0-10.0) Eosinophils (%) (Auto) % (0.0-3.0) Basophils (%) (Auto) % (0.0-2.0) Differential Total Cells Counted 100 Neutrophils % (Manual) 96 % (45-75) H Lymphocytes % (Manual) 2 % (20-45) L Monocytes % (Manual) 2 % (1-10) Eosinophils % (Manual) 0 % (0-3) Basophils % (Manual) 0 % (0-2) Band Neutrophils 0 % (0-8) Platelet Estimate Adequate Platelet Morphology Normal Red Blood Cell Morphology Normal Sodium Level 144 MMOL/L (136-145) Potassium Level 3.9 MMOL/L (3.5-5.1) Chloride Level 111 MMOL/L (98-107) H Carbon Dioxide Level 21 MMOL/L (21-32) Anion Gap 13 mmol/L (5-15) Blood Urea Nitrogen 52 mg/dL (7-18) H Creatinine 1.5 MG/DL (0.55-1.30) H Estimat Glomerular Filtration Rate mL/min (>60) Glucose Level 150 MG/DL (74-106) H Calcium Level 8.5 MG/DL (8.5-10.1) Arterial Blood pH 7.392 (7.350-7.450) Arterial Blood Partial Pressure CO2 36.4 mmHg (35.0-45.0) Arterial Blood Partial Pressure O2 70.1 mmHg (75.0-100.0) L Arterial Blood HCO3 21.6 mmol/L (22.0-26.0) L Arterial Blood Oxygen Saturation 93.6 % (95-100) L Arterial Blood Base Excess -2.8 (-2-2) L Damion Test Positive Microbiology Date/Time Source Procedure Growth Status 12/17/18 15:40 Blood Blood Culture - Preliminary Staphylococcus Aureus Resulted 12/17/18 15:25 Blood Blood Culture - Preliminary Staphylococcus Aureus Resulted 12/17/18 17:30 Nasal Nares Influenza Types A,B Antigen (JAYCOB) - Final Complete 12/17/18 17:02 Urine,Clean Catch Urine Culture - Preliminary NO GROWTH AFTER 24 HOURS Resulted Objective HEENT: Atraumatic and normocephalic. Anicteric. Pupils are equal, round, and reactive to light and accommodation. Conjunctival pallor. NECK: JVP cannot be assessed due to positive inspiratory pressure of the ventilator. No carotid bruit. Carotid upstroke is 2+ bilaterally. CARDIOVASCULAR: Normal S1, S2. Regular rate and rhythm. I do not hear murmurs, gallops, or rubs. LUNGS: Diminished breath sounds in both lungs. ABDOMEN: Soft, nontender, and nondistended. No hepatosplenomegaly. Positive bowel sounds. EXTREMITIES: No evidence of edema, clubbing, or cyanosis. There is onychomycosis. Fred Holman MD Dec 19, 2018 23:54
[2018-12-20] VITALS (47 sets, daily range): BP systolic 77–153; BP diastolic 41–89
[2018-12-20] MEDS: Ipratropium 0.02% Inh Soln 2.5ml UD HHN SCH ×4 (01:19→19:03)
--- NOTE | 2018-12-20 02:00 | NUR ---
NURSE NOTES: REPOSITIONED, ORAL CARE WAS DONE.
--- NOTE | 2018-12-20 04:00 | NUR ---
NURSE NOTES: MORNING CARE WAS DONE, NO PAIN NOTED, WILL CONTINUE PLAN OF CARE.
[2018-12-20] MEDS: Piperacillin/Tazobactam 3.375 GM in D5W 110 ML IVPB SCH ×3 (06:00→21:36)
--- NOTE | 2018-12-20 06:13 | NUR ---
NURSE NOTES: ONGOING FENTANYL 30MCG/HR AND LEVOPHED 4MCG/MIN VIA PICC LINE, NO ACUTE DISTRESS NOTED AT THIS SHIFT.
[2018-12-20 07:16] LABS: HEMATOCRIT 35.2 % (42.0-52.0); HEMOGLOBIN 11.8 G/DL (14.2-18.0); MEAN CORPUSCULAR VOLUME 96 FL (80-99); PLATELET COUNT 163 K/UL (150-450); RED BLOOD COUNT 3.67 M/UL (4.70-6.10); RED CELL DISTRIBUTION WIDTH 11.9 % (11.6-14.8); WHITE BLOOD COUNT 15.5 K/UL (4.8-10.8)
--- NOTE | 2018-12-20 07:20 | NUR ---
HAND-OFF: Report given to RADHA/WESLEY.
--- NOTE | 2018-12-20 07:30 | NUR ---
RESPIRATORY NOTE: Received pt on current vent settings. Endotracheal tube is patent and secured via anchor fast. Suctioned pt prn. No resp distress noted. Vent alarms are on and audible. Vent is plugged into red outlet. Will monitor pt progress.
[2018-12-20 07:40] LABS: ANION GAP 8 mmol/L (5-15); BLOOD UREA NITROGEN 44 mg/dL (7-18); CALCIUM 8.7 MG/DL (8.5-10.1); CARBON DIOXIDE 25 MMOL/L (21-32); CHLORIDE 110 MMOL/L (98-107); POTASSIUM 3.5 MMOL/L (3.5-5.1); SODIUM 143 MMOL/L (136-145)
--- NOTE | 2018-12-20 07:40 | NUR ---
NURSE NOTES: RECEIVED REPORT FROM ANISA. PATIENT RESPONSE TO SHAKING, OPEN EYES. DROWSY AND SEDATED. PT 21CM AT LIP. ETT AC 24,TV 600,FIO2 50%,PEEP 5, O2 SATURATION 100%. NPO W/ OGT CLAMPED. ABDOMEN SOFT. HYPOACTIVE BOWEL SOUNDS. F/C DRAINING YELLOW URINE. PICC LINE MARLIN, INTACT AND PATENT. D51/2% NS AT 75ML/HR, RT FA AND LT AC 20G. BILATERAL SOFT RESTRAINTS ON. CONTRACT PRECAUTIONS IN PLACE. BED IN LOWEST POSITION. WILL CONTINUE TO MONITOR.
[2018-12-20 07:52] LABS: CREATININE 1.2 MG/DL (0.55-1.30)
--- NOTE | 2018-12-20 09:00 | NUR ---
NURSE NOTES: called md wilson for hr 150-200 sustained. awaiting call back
--- NOTE | 2018-12-20 09:11 | NUR ---
RN NOTES: called md farley regarding spike in hr 140-200 sustained, awaiting call back
[2018-12-20] MEDS: Dexamethasone 4mg/ml vial IVP SCH ×2 (09:34→18:17)
[2018-12-20] MEDS: Pantoprazole Inj IVP SCH ×2 (09:36→20:34)
--- NOTE | 2018-12-20 11:46 | NUR ---
NURSE NOTES: MD SALGUERO HERE TO EE PT. HR S.R. WAS INFORMED OF TACHYCARDIA EPISODE, FENTAYL 100 MCG, LEVOPHED 8MCG AND D5.45%NCL @ 75ML/HR. RECEIVED ORDER TO INPUT NS 500ML PRN TO KEEP MAP >60. Addendum: 12/20/18 at 1158 by Peace Bennett RN MD WAGNER
--- NOTE | 2018-12-20 11:58 | NUR ---
NURSE NOTES: SPOKE WITH MD LICONA ON PHONE, REGARDING TACHYCARDIA EPISODES. RECOMMENDATION TO TAPER OFF LEVOPHED. NO MORE CALLS
--- NOTE | 2018-12-20 12:15 | General Progress Note ---
Assessment/Plan Assessment/Plan S, O: limited eval. Patient Intubated. Vent setting reviewed. Stoddard inserted. Peripheral line in place PHYSICAL EXAMINATION: HEAD AND NECK: Positive for intubation, limited source of evaluation. Vent settings were reviewed. Atraumatic and normocephalic. CHEST: Diffuse bronchial breathing sounds. Positive for diffuse crackles.HEART: S1 and S2. Tachyarrhythmia. ABDOMEN: Soft. No organomegaly.MUSCULOSKELETAL: Atrophied musculature, limited evaluation. The patient is not following compounds, sedated. Imaging: CT of the Head reviewed, non diagnostic ASSESSMENT AND PLAN: 1. Vent-dependent respiratory failure. 2. Septic shock: Gr + 3. Healthcare-associated pneumonia. 3. Non-ST myocardial infarction. Abnormal Trop 4. Metastatic lung CA. 5. GI and DVT prophylaxes. PLAN OF CARE: 1. worsening leukocyosis 3. Grave prognosis. 4. Infectious Disease, Pulmonary, and Cardiology NOtes are reviwed 5. On pressor and NS Bolus as PRN Vent management per Pulmonary service will check Troponin today Subjective Allergies: Coded Allergies: No Known Allergies (Unverified , 12/17/18) Objective Last 24 Hour Vital Signs Date Time Temp Pulse Resp B/P (MAP) Pulse Ox O2 Delivery O2 Flow Rate FiO2 12/20/18 11:40 Endotracheal Tube 12/20/18 10:42 71 26 50 12/20/18 09:09 109 30 50 12/20/18 08:00 50 12/20/18 08:00 Mechanical Ventilator 12/20/18 07:39 84 26 100 Mechanical Ventilator 50 12/20/18 07:30 94 27 50 12/20/18 07:30 91 24 99 Mechanical Ventilator 50 12/20/18 07:00 76 24 107/77 (87) 98 12/20/18 07:00 23 Mechanical Ventilator 98.0 12/20/18 07:00 99/50 12/20/18 06:45 76 22 115/53 (73) 98 12/20/18 06:30 76 23 92/55 (67) 98 12/20/18 06:15 71 22 114/53 (73) 98 12/20/18 06:00 73 23 109/58 (75) 98 12/20/18 06:00 23 Mechanical Ventilator 98.0 12/20/18 06:00 114/53 12/20/18 05:45 73 22 105/67 (80) 98 12/20/18 05:30 76 22 114/43 (66) 98 12/20/18 05:25 78 27 50 12/20/18 05:15 68 23 103/54 (70) 99 12/20/18 05:00 23 Mechanical Ventilator 98.0 12/20/18 05:00 105/67 12/20/18 05:00 74 22 105/58 (74) 99 12/20/18 04:15 77 23 99/49 (66) 99 12/20/18 04:00 98.6 77 23 99/49 (66) 99 12/20/18 04:00 24 Mechanical Ventilator 50 12/20/18 04:00 92/50 12/20/18 04:00 73 12/20/18 04:00 50 12/20/18 04:00 Mechanical Ventilator 12/20/18 03:45 77 23 100/49 (66) 99 12/20/18 03:45 77 23 90/50 (63) 99 12/20/18 03:30 77 23 86/50 (62) 99 12/20/18 03:15 73 24 50 12/20/18 03:15 77 23 99/49 (66) 99 12/20/18 03:00 71 23 119/48 (71) 97 12/20/18 03:00 24 Mechanical Ventilator 50 12/20/18 03:00 84/40 12/20/18 03:00 71 23 119/48 (71) 97 12/20/18 03:00 71 23 119/48 (71) 97 12/20/18 02:48 70 20 95/50 (65) 99 12/20/18 02:45 74 21 99 12/20/18 02:30 73 22 82/49 (60) 99 12/20/18 02:30 73 22 82/49 (60) 99 12/20/18 02:15 74 21 108/78 (88) 99 12/20/18 02:15 74 21 108/78 (88) 99 12/20/18 02:00 22 Mechanical Ventilator 99.0 12/20/18 02:00 73 21 93/61 (72) 99 12/20/18 02:00 73 21 93/61 (72) 99 12/20/18 01:45 74 22 104/55 (71) 99 12/20/18 01:45 74 22 104/55 (71) 99 12/20/18 01:30 74 22 87/66 (73) 100 12/20/18 01:30 74 22 87/66 (73) 100 12/20/18 01:29 80 27 100 Mechanical Ventilator 50 12/20/18 01:19 71 30 50 12/20/18 01:19 71 30 99 Mechanical Ventilator 50 12/20/18 01:15 78 18 82/53 (63) 99 12/20/18 01:15 78 18 82/53 (63) 99 12/20/18 01:00 78 19 78/55 (63) 99 12/20/18 01:00 20 Mechanical Ventilator 99.0 12/20/18 01:00 78 19 78/55 (63) 99 12/20/18 00:45 79 20 93/62 (72) 99 12/20/18 00:45 79 20 93/62 (72) 99 12/20/18 00:30 79 19 91/59 (70) 98 12/20/18 00:30 79 19 91/59 (70) 98 12/20/18 00:15 83 19 80/62 (68) 98 12/20/18 00:15 83 19 80/62 (68) 98 12/20/18 00:00 Mechanical Ventilator 12/20/18 00:00 90 12/20/18 00:00 82 21 87/61 (70) 99 12/20/18 00:00 97 12/20/18 00:00 20 Mechanical Ventilator 98.0 12/20/18 00:00 82 21 87/61 (70) 99 12/20/18 00:00 50 12/19/18 23:45 85 24 133/51 (78) 98 12/19/18 23:30 83 24 116/74 (88) 99 12/19/18 23:15 82 22 90/53 (65) 99 12/19/18 23:10 79 26 50 12/19/18 23:00 88 36 121/77 (92) 98 12/19/18 22:49 90 23 103/72 (82) 98 12/19/18 22:45 83 21 78/51 (60) 98 12/19/18 22:30 81 22 85/58 (67) 98 12/19/18 22:00 83 21 96/40 (58) 98 12/19/18 22:00 21 Mechanical Ventilator 50 12/19/18 21:30 88 24 120/67 (84) 99 12/19/18 21:05 91 25 50 12/19/18 21:00 28 Mechanical Ventilator 50 12/19/18 21:00 89 25 96/45 (62) 98 1819 20:55 96/45 12/19/18 20:30 87 26 97/60 (72) 98 12/19/18 20:30 28 Mechanical Ventilator 50 12/19/18 20:15 90 28 100/59 (73) 98 12/19/18 20:15 28 Mechanical Ventilator 50 12/19/18 20:00 98.6 92 28 107/53 (71) 98 12/19/18 20:00 50 12/19/18 20:00 27 Mechanical Ventilator 50 12/19/18 20:00 Mechanical Ventilator 12/19/18 19:56 97 12/19/18 19:54 24 Mechanical Ventilator 50 12/19/18 19:19 86 27 98 Mechanical Ventilator 50 12/19/18 19:09 93 31 97 Mechanical Ventilator 50 12/19/18 19:08 93 31 50 12/19/18 19:00 93 27 102/62 (75) 97 12/19/18 18:00 90 25 120/77 (91) 100 12/19/18 17:00 98 26 122/81 (95) 100 12/19/18 16:56 97 29 70 12/19/18 16:00 98 12/19/18 16:00 98.0 86 25 132/91 (105) 96 12/19/18 16:00 Mechanical Ventilator 12/19/18 16:00 50 12/19/18 15:19 86 25 70 12/19/18 15:00 84 28 115/65 (82) 100 12/19/18 14:00 80 28 112/63 (79) 100 12/19/18 13:17 95 28 98 Mechanical Ventilator 40 12/19/18 13:09 87 26 70 12/19/18 13:09 93 30 98 Mechanical Ventilator 40 12/19/18 13:00 82 30 110/65 (80) 100 Intake and Output 12/19/18 12/20/18 19:00 07:00 Intake Total 202.5 ml 1651.5 ml Output Total 305 ml 575 ml Balance -102.5 ml 1076.5 ml Intake Oral 0 ml 0 ml IV Total 202.5 ml 1651.5 ml Output Urine Total 305 ml 575 ml Laboratory Tests 12/20/18 05:53: White Blood Count 15.5#H, Red Blood Count 3.67L, Hemoglobin 11.8L, Hematocrit 35.2L, Mean Corpuscular Volume 96, Mean Corpuscular Hemoglobin 32.2H, Mean Corpuscular Hemoglobin Concent 33.6, Red Cell Distribution Width 11.9, Platelet Count 163, Mean Platelet Volume 9.5, Neutrophils (%) (Auto) , Lymphocytes (%) ( Auto) , Monocytes (%) (Auto) , Eosinophils (%) (Auto) , Basophils (%) (Auto) , Neutrophils % (Manual) [Pending], Lymphocytes % (Manual) [Pending], Platelet Estimate [Pending], Platelet Morphology [Pending], Sodium Level 143, Potassium Level 3.5, Chloride Level 110H, Carbon Dioxide Level 25, Anion Gap 8, Blood Urea Nitrogen 44H, Creatinine 1.2, Estimat Glomerular Filtration Rate , Glucose Level 149H, Calcium Level 8.7 Height (Feet): 5 Height (Inches): 9.00 Weight (Pounds): 123 Bruno nEamorado MD Dec 20, 2018 12:15
--- NOTE | 2018-12-20 12:30 | NUR ---
NURSE NOTES: PT OFF LEVOPHED, 500ML NS BOLUS GIVEN
[2018-12-20] MEDS: D5 1/2NS 1,000 ML IV SCH (13:51)
--- NOTE | 2018-12-20 15:00 | NUR ---
NURSE NOTES: pt increased agitation and response, HR increase and biting on vent tubing fentanyl 80mcg/min increased for pt comfort. called R.T to adjust mouth guard position.
--- NOTE | 2018-12-20 15:24 | Infectious Diseases Prog Note ---
Assessment/Plan Problems: (1) Acute aspiration pneumonia Assessment & Plan: continue zosyn empirically, pending sputum culture , aspiration precaution, keep HOB > 30 degree (2) Sepsis Assessment & Plan: with shock , due to methicillin sensitive staph aureus , will switch vancomycin to oxacillin and treat him for minimum of four weeks . await trans thoracic echo to rule out valve vegetations , repeated blood culture is still positive , will repeat another set today to confirm . (3) CONSTANCE (acute kidney injury) Assessment & Plan: due to the above , continue hydration with renally dosed antibiotics , continue pressure support, renal follow up (4) Acute respiratory failure Assessment & Plan: due to the above , intubated on mechanical ventilation, pulmonary is following , monitor ABG, and CXR (5) Lung cancer metastatic to brain Assessment & Plan: S/P radiation and chemo therapy at [facility] , now with poor prognosis, recommend palliative care . (6) Leukocytosis Assessment & Plan: suspect due to steroids , recommend to taper, will repeat blood culture Subjective ROS Limited/Unobtainable: Yes Allergies: Coded Allergies: No Known Allergies (Unverified , 12/17/18) Subjective he was still intubated on mechanical ventilation in ICU, sedated, unresponsive to verbal commands, not on pressor , afebrile , no secretions Objective Vital Signs Last 24 Hour Vital Signs Date Time Temp Pulse Resp B/P (MAP) Pulse Ox O2 Delivery O2 Flow Rate FiO2 12/20/18 14:00 54 23 105/52 (69) 12/20/18 13:02 82 24 100 Mechanical Ventilator 40 12/20/18 13:00 66 24 100 12/20/18 12:53 62 26 100 Mechanical Ventilator 40 12/20/18 12:53 62 24 40 12/20/18 12:00 68 12/20/18 12:00 50 12/20/18 12:00 98.9 70 21 99/60 (73) 99 12/20/18 12:00 Mechanical Ventilator 12/20/18 11:40 Endotracheal Tube 12/20/18 11:00 73 22 96/54 (68) 98 12/20/18 10:42 71 26 50 12/20/18 10:00 100 19 97/44 (61) 96 12/20/18 09:09 109 30 50 12/20/18 09:00 161 27 153/89 (110) 97 12/20/18 08:00 50 12/20/18 08:00 Mechanical Ventilator 12/20/18 08:00 98.8 92 24 150/65 (93) 98 12/20/18 08:00 82 12/20/18 07:39 84 26 100 Mechanical Ventilator 50 12/20/18 07:30 94 27 50 12/20/18 07:30 91 24 99 Mechanical Ventilator 50 12/20/18 07:00 76 24 107/77 (87) 98 12/20/18 07:00 23 Mechanical Ventilator 98.0 12/20/18 07:00 99/50 12/20/18 06:45 76 22 115/53 (73) 98 12/20/18 06:30 76 23 92/55 (67) 98 12/20/18 06:15 71 22 114/53 (73) 98 12/20/18 06:00 73 23 109/58 (75) 98 12/20/18 06:00 23 Mechanical Ventilator 98.0 12/20/18 06:00 114/53 12/20/18 05:45 73 22 105/67 (80) 98 12/20/18 05:30 76 22 114/43 (66) 98 12/20/18 05:25 78 27 50 12/20/18 05:15 68 23 103/54 (70) 99 12/20/18 05:00 23 Mechanical Ventilator 98.0 12/20/18 05:00 105/67 12/20/18 05:00 74 22 105/58 (74) 99 12/20/18 04:15 77 23 99/49 (66) 99 12/20/18 04:00 98.6 77 23 99/49 (66) 99 12/20/18 04:00 24 Mechanical Ventilator 50 12/20/18 04:00 92/50 12/20/18 04:00 73 12/20/18 04:00 50 12/20/18 04:00 Mechanical Ventilator 12/20/18 03:45 77 23 100/49 (66) 99 12/20/18 03:45 77 23 90/50 (63) 99 12/20/18 03:30 77 23 86/50 (62) 99 12/20/18 03:15 73 24 50 12/20/18 03:15 77 23 99/49 (66) 99 12/20/18 03:00 71 23 119/48 (71) 97 12/20/18 03:00 24 Mechanical Ventilator 50 12/20/18 03:00 84/40 12/20/18 03:00 71 23 119/48 (71) 97 12/20/18 03:00 71 23 119/48 (71) 97 12/20/18 02:48 70 20 95/50 (65) 99 12/20/18 02:45 74 21 99 12/20/18 02:30 73 22 82/49 (60) 99 12/20/18 02:30 73 22 82/49 (60) 99 12/20/18 02:15 74 21 108/78 (88) 99 12/20/18 02:15 74 21 108/78 (88) 99 12/20/18 02:00 22 Mechanical Ventilator 99.0 12/20/18 02:00 73 21 93/61 (72) 99 12/20/18 02:00 73 21 93/61 (72) 99 12/20/18 01:45 74 22 104/55 (71) 99 12/20/18 01:45 74 22 104/55 (71) 99 12/20/18 01:30 74 22 87/66 (73) 100 12/20/18 01:30 74 22 87/66 (73) 100 12/20/18 01:29 80 27 100 Mechanical Ventilator 50 12/20/18 01:19 71 30 50 12/20/18 01:19 71 30 99 Mechanical Ventilator 50 12/20/18 01:15 78 18 82/53 (63) 99 12/20/18 01:15 78 18 82/53 (63) 99 12/20/18 01:00 78 19 78/55 (63) 99 12/20/18 01:00 20 Mechanical Ventilator 99.0 12/20/18 01:00 78 19 78/55 (63) 99 12/20/18 00:45 79 20 93/62 (72) 99 12/20/18 00:45 79 20 93/62 (72) 99 12/20/18 00:30 79 19 91/59 (70) 98 12/20/18 00:30 79 19 91/59 (70) 98 12/20/18 00:15 83 19 80/62 (68) 98 12/20/18 00:15 83 19 80/62 (68) 98 12/20/18 00:00 Mechanical Ventilator 12/20/18 00:00 90 12/20/18 00:00 82 21 87/61 (70) 99 12/20/18 00:00 97 12/20/18 00:00 20 Mechanical Ventilator 98.0 12/20/18 00:00 82 21 87/61 (70) 99 12/20/18 00:00 50 12/19/18 23:45 85 24 133/51 (78) 98 12/19/18 23:30 83 24 116/74 (88) 99 12/19/18 23:15 82 22 90/53 (65) 99 12/19/18 23:10 79 26 50 12/19/18 23:00 88 36 121/77 (92) 98 12/19/18 22:49 90 23 103/72 (82) 98 12/19/18 22:45 83 21 78/51 (60) 98 12/19/18 22:30 81 22 85/58 (67) 98 12/19/18 22:00 83 21 96/40 (58) 98 12/19/18 22:00 21 Mechanical Ventilator 50 12/19/18 21:30 88 24 120/67 (84) 99 12/19/18 21:05 91 25 50 12/19/18 21:00 28 Mechanical Ventilator 50 12/19/18 21:00 89 25 96/45 (62) 98 12/19/18 20:55 96/45 12/19/18 20:30 87 26 97/60 (72) 98 12/19/18 20:30 28 Mechanical Ventilator 50 12/19/18 20:15 90 28 100/59 (73) 98 12/19/18 20:15 28 Mechanical Ventilator 50 12/19/18 20:00 98.6 92 28 107/53 (71) 98 12/19/19 20:00 50 12/19/18 20:00 27 Mechanical Ventilator 50 12/19/18 20:00 Mechanical Ventilator 12/19/18 19:56 97 12/19/18 19:54 24 Mechanical Ventilator 50 12/19/18 19:19 86 27 98 Mechanical Ventilator 50 12/19/18 19:09 93 31 97 Mechanical Ventilator 50 12/19/18 19:08 93 31 50 12/19/18 19:00 93 27 102/62 (75) 97 12/19/18 18:00 90 25 120/77 (91) 100 12/19/18 17:00 98 26 122/81 (95) 100 12/19/18 16:56 97 29 70 12/19/18 16:00 98 12/19/18 16:00 98.0 86 25 132/91 (105) 96 12/19/18 16:00 Mechanical Ventilator 12/19/18 16:00 50 Height (Feet): 5 Height (Inches): 9.00 Weight (Pounds): 123 General Appearance: no acute distress, cachetic, other - intubated , on mechanical ventilation HEENT: normocephalic, atraumatic, anicteric, mucous membranes moist, PERRL Respiratory/Chest: no respiratory distress, no accessory muscle use, decreased breath sounds, crackles/rales Cardiovascular: normal peripheral pulses, normal rate, regular rhythm, no gallop/murmur, no JVD Abdomen: normal bowel sounds, soft, non tender, no organomegaly, non distended , no mass, no scars Extremities: no cyanosis, no clubbing Skin: no rash, no lesions, no ulcers Neurologic/Psychiatric: unresponsiveness Lymphatic: no neck adenopathy, no groin adenopathy Musculoskeletal: normal muscle bulk, no effusion Microbiology Date/Time Source Procedure Growth Status 12/19/18 14:10 Blood Blood Culture - Preliminary Resulted 12/17/18 15:40 Blood Blood Culture - Final Staphylococcus Aureus Complete 12/17/18 15:25 Blood Blood Culture - Final Staphylococcus Aureus Complete 12/17/18 18:00 Nasal Nares MRSA Culture - Final Staphylococcus Aureus - Mrsa Complete 12/17/18 17:30 Nasal Nares Influenza Types A,B Antigen (JAYCOB) - Final Complete 12/17/18 17:02 Urine,Clean Catch Urine Culture - Final NO GROWTH AFTER 48 HOURS Complete 12/17/18 18:00 Rectum VRE Culture - Final NO VANCOMYCIN RESISTANT ENTEROCOCCUS ... Complete 12/17/18 18:00 Rectum - Final NO CARBAPENEM-RESISTANT ENTEROBACTERI... Complete Laboratory Tests Test 12/20/18 05:53 White Blood Count 15.5 K/UL (4.8-10.8) #H Red Blood Count 3.67 M/UL (4.70-6.10) L Hemoglobin 11.8 G/DL (14.2-18.0) L Hematocrit 35.2 % (42.0-52.0) L Mean Corpuscular Volume 96 FL (80-99) Mean Corpuscular Hemoglobin 32.2 PG (27.0-31.0) H Mean Corpuscular Hemoglobin Concent 33.6 G/DL (32.0-36.0) Red Cell Distribution Width 11.9 % (11.6-14.8) Platelet Count 163 K/UL (150-450) Mean Platelet Volume 9.5 FL (6.5-10.1) Neutrophils (%) (Auto) % (45.0-75.0) Lymphocytes (%) (Auto) % (20.0-45.0) Monocytes (%) (Auto) % (1.0-10.0) Eosinophils (%) (Auto) % (0.0-3.0) Basophils (%) (Auto) % (0.0-2.0) Differential Total Cells Counted 100 Neutrophils % (Manual) 77 % (45-75) H Lymphocytes % (Manual) 5 % (20-45) L Monocytes % (Manual) 1 % (1-10) Eosinophils % (Manual) 0 % (0-3) Basophils % (Manual) 0 % (0-2) Band Neutrophils 17 % (0-8) H Platelet Estimate Adequate Platelet Morphology Normal Red Blood Cell Morphology Normal Sodium Level 143 MMOL/L (136-145) Potassium Level 3.5 MMOL/L (3.5-5.1) Chloride Level 110 MMOL/L (98-107) H Carbon Dioxide Level 25 MMOL/L (21-32) Anion Gap 8 mmol/L (5-15) Blood Urea Nitrogen 44 mg/dL (7-18) H Creatinine 1.2 MG/DL (0.55-1.30) Estimat Glomerular Filtration Rate mL/min (>60) Glucose Level 149 MG/DL (74-106) H Calcium Level 8.7 MG/DL (8.5-10.1) Troponin I 0.045 ng/mL (0.000-0.056) Current Medications Medications (Trade) Dose Ordered Sig/Earlene Route PRN Reason Start Time Stop Time Status Last Admin Dose Admin Chlorhexidine Gluconate (Windy-Hex 2%) 1 applic DAILY@1999 TOPIC 12/18/18 20:00 01/17/19 19:59 12/19/18 19:41 Dexamethasone Sodium Phosphate (Decadron 4mg/ml vial) 4 mg BID IVP 12/18/18 09:00 01/17/19 08:59 12/20/18 09:34 Dextrose/Sodium Chloride 1,000 ml @ 75 mls/hr [id number] IV 12/17/18 20:00 01/16/19 19:59 12/20/18 13:51 Dopamine HCl/ Dextrose 250 ml @ 0 mls/hr Q24H IV 12/17/18 20:55 01/16/19 20:54 12/17/18 20:55 Fentanyl Citrate 1000 mcg/Sodium Chloride 100 ml @ 0 mls/hr Q24H IV 12/19/18 20:00 12/26/18 19:59 12/20/18 11:40 Ipratropium Nunda (Atrovent) 500 mcg Q4H PRN HHN Shortness of Breath 12/18/18 14:15 12/23/18 14:14 Ipratropium Nunda (Atrovent) 500 mcg Q6HRT HHN 12/18/18 19:00 12/23/18 18:59 12/20/18 12:53 Norepinephrine Bitartrate 4 mg/ Dextrose 250 ml @ 0 mls/hr Q24H IV 12/18/18 15:00 01/17/19 14:59 12/18/18 21:34 Oxacillin Sodium 2 gm/Sodium Chloride 110 ml @ 220 mls/hr EVERY 6 HOURS IVPB 12/20/18 15:15 12/27/18 15:14 UNV Pantoprazole (Protonix) 40 mg EVERY 12 HOURS IVP 12/18/18 21:00 01/17/19 20:59 12/20/18 09:36 Piperacillin Sod/ Tazobactam Sod 3.375 gm/Dextrose 110 ml @ 27.5 mls/hr EVERY 8 HOURS IVPB 12/17/18 22:00 12/22/18 21:59 12/20/18 13:53 Sodium Chloride 500 ml @ 999 mls/hr Q31M PRN IV For hypotension 12/20/18 11:45 01/19/19 11:44 12/20/18 13:48 Tammy Rob M.D. Dec 20, 2018 15:24
--- NOTE | 2018-12-20 17:19 | Cardiology Progress Note ---
Assessment/Plan Assessment/Plan 1. Sinus tachycardia, most likely secondary to hypoxemia/lung CA. The patient showed hypoxic hypercarbic respiratory failure due to possible acute exacerbation of COPD. 2. History of coronary artery disease, status post coronary artery bypass graft surgery. 12-lead electrocardiogram does not show any ischemic changes despite the fact that the troponin I levels are elevated. The patient is not a candidate for ischemic workup given metastatic lung cancer conservative management. I do not believe that the patient would benefit from anticoagulation therapy, which may put the patient in increased risk of bleeding. 3. Acute respiratory failure 4. Non-sustained ventricular tachycardia, magnesium sulfate given, check Mg level and keep >2.5, keep K >4.0 5. 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 6. History of CVA. 7. History of COPD. Subjective Subjective Sinus rhythm at rate of 61. Intubated with FiO2 of 50%. Objective Last 24 Hour Vital Signs Date Time Temp Pulse Resp B/P (MAP) Pulse Ox O2 Delivery O2 Flow Rate FiO2 12/20/18 16:00 50 12/20/18 16:00 Mechanical Ventilator 12/20/18 16:00 98.0 61 24 91/53 (66) 12/20/18 15:13 66 25 40 12/20/18 15:00 61 23 92/50 (64) 12/20/18 14:00 54 23 105/52 (69) 12/20/18 13:02 82 24 100 Mechanical Ventilator 40 12/20/18 13:00 66 24 100 12/20/18 12:53 62 26 100 Mechanical Ventilator 40 12/20/18 12:53 62 24 40 12/20/18 12:00 68 12/20/18 12:00 50 12/20/18 12:00 98.9 70 21 99/60 (73) 99 12/20/18 12:00 Mechanical Ventilator 12/20/18 11:40 Endotracheal Tube 12/20/18 11:00 73 22 96/54 (68) 98 12/20/18 10:42 71 26 50 12/20/18 10:00 100 19 97/44 (61) 96 12/20/18 09:09 109 30 50 12/20/18 09:00 161 27 153/89 (110) 97 12/20/18 08:00 50 12/20/18 08:00 Mechanical Ventilator 12/20/18 08:00 98.8 92 24 150/65 (93) 98 12/20/18 08:00 82 12/20/18 07:39 84 26 100 Mechanical Ventilator 50 12/20/18 07:30 94 27 50 12/20/18 07:30 91 24 99 Mechanical Ventilator 50 12/20/18 07:00 76 24 107/77 (87) 98 12/20/18 07:00 23 Mechanical Ventilator 98.0 12/20/18 07:00 99/50 12/20/18 06:45 76 22 115/53 (73) 98 12/20/18 06:30 76 23 92/55 (67) 98 12/20/18 06:15 71 22 114/53 (73) 98 12/20/18 06:00 73 23 109/58 (75) 98 12/20/18 06:00 23 Mechanical Ventilator 98.0 12/20/18 06:00 114/53 12/20/18 05:45 73 22 105/67 (80) 98 12/20/18 05:30 76 22 114/43 (66) 98 12/20/18 05:25 78 27 50 12/20/18 05:15 68 23 103/54 (70) 99 12/20/18 05:00 23 Mechanical Ventilator 98.0 12/20/18 05:00 105/67 12/20/18 05:00 74 22 105/58 (74) 99 12/20/18 04:15 77 23 99/49 (66) 99 12/20/18 04:00 98.6 77 23 99/49 (66) 99 12/20/18 04:00 24 Mechanical Ventilator 50 12/20/18 04:00 92/50 12/20/18 04:00 73 12/20/18 04:00 50 12/20/18 04:00 Mechanical Ventilator 12/20/18 03:45 77 23 100/49 (66) 99 12/20/18 03:45 77 23 90/50 (63) 99 12/20/18 03:30 77 23 86/50 (62) 99 12/20/18 03:15 73 24 50 12/20/18 03:15 77 23 99/49 (66) 99 12/20/18 03:00 71 23 119/48 (71) 97 12/20/18 03:00 24 Mechanical Ventilator 50 12/20/18 03:00 84/40 12/20/18 03:00 71 23 119/48 (71) 97 12/20/18 03:00 71 23 119/48 (71) 97 12/20/18 02:48 70 20 95/50 (65) 99 12/20/18 02:45 74 21 99 12/20/18 02:30 73 22 82/49 (60) 99 12/20/18 02:30 73 22 82/49 (60) 99 12/20/18 02:15 74 21 108/78 (88) 99 12/20/18 02:15 74 21 108/78 (88) 99 12/20/18 02:00 22 Mechanical Ventilator 99.0 12/20/18 02:00 73 21 93/61 (72) 99 12/20/18 02:00 73 21 93/61 (72) 99 12/20/18 01:45 74 22 104/55 (71) 99 12/20/18 01:45 74 22 104/55 (71) 99 12/20/18 01:30 74 22 87/66 (73) 100 12/20/18 01:30 74 22 87/66 (73) 100 12/20/18 01:29 80 27 100 Mechanical Ventilator 50 12/20/18 01:19 71 30 50 12/20/18 01:19 71 30 99 Mechanical Ventilator 50 12/20/18 01:15 78 18 82/53 (63) 99 12/20/18 01:15 78 18 82/53 (63) 99 12/20/18 01:00 78 19 78/55 (63) 99 12/20/18 01:00 20 Mechanical Ventilator 99.0 12/20/18 01:00 78 19 78/55 (63) 99 12/20/18 00:45 79 20 93/62 (72) 99 12/20/18 00:45 79 20 93/62 (72) 99 12/20/18 00:30 79 19 91/59 (70) 98 12/20/18 00:30 79 19 91/59 (70) 98 12/20/18 00:15 83 19 80/62 (68) 98 12/20/18 00:15 83 19 80/62 (68) 98 12/20/18 00:00 Mechanical Ventilator 12/20/18 00:00 90 12/20/18 00:00 82 21 87/61 (70) 99 12/20/18 00:00 97 12/20/18 00:00 20 Mechanical Ventilator 98.0 12/20/18 00:00 82 21 87/61 (70) 99 12/20/18 00:00 50 12/19/18 23:45 85 24 133/51 (78) 98 12/19/18 23:30 83 24 116/74 (88) 99 12/19/18 23:15 82 22 90/53 (65) 99 12/19/18 23:10 79 26 50 12/19/18 23:00 88 36 121/77 (92) 98 12/19/18 22:49 90 23 103/72 (82) 98 12/19/18 22:45 83 21 78/51 (60) 98 12/19/18 22:30 81 22 85/58 (67) 98 12/19/18 22:00 83 21 96/40 (58) 98 12/19/18 22:00 21 Mechanical Ventilator 50 12/19/18 21:30 88 24 120/67 (84) 99 12/19/18 21:05 91 25 50 12/19/18 21:00 28 Mechanical Ventilator 50 12/19/18 21:00 89 25 96/45 (62) 98 12/19/18 20:55 96/45 12/19/18 20:30 87 26 97/60 (72) 98 12/19/18 20:30 28 Mechanical Ventilator 50 12/19/18 20:15 90 28 100/59 (73) 98 12/19/18 20:15 28 Mechanical Ventilator 50 12/19/18 20:00 98.6 92 28 107/53 (71) 98 12/19/18 20:00 50 12/19/18 20:00 27 Mechanical Ventilator 50 12/19/18 20:00 Mechanical Ventilator 12/19/18 19:56 97 12/19/18 19:54 24 Mechanical Ventilator 50 12/19/18 19:19 86 27 98 Mechanical Ventilator 50 12/19/18 19:09 93 31 97 Mechanical Ventilator 50 12/19/18 19:08 93 31 50 12/19/18 19:00 93 27 102/62 (75) 97 12/19/18 18:00 90 25 120/77 (91) 100 Intake and Output 12/19/18 12/20/18 18:59 06:59 Intake Total 245.0 ml 1531.0 ml Output Total 335 ml 535 ml Balance -90.0 ml 996.0 ml Intake Oral 0 ml 0 ml IV Total 245.0 ml 1531.0 ml Output Urine Total 335 ml 535 ml 2D Echo: Global LV HK with LVEF 25%, Mild LAE, RVSP 14 mmHg, Grade I LVDD Laboratory Tests Test 12/20/18 05:53 White Blood Count 15.5 K/UL (4.8-10.8) #H Red Blood Count 3.67 M/UL (4.70-6.10) L Hemoglobin 11.8 G/DL (14.2-18.0) L Hematocrit 35.2 % (42.0-52.0) L Mean Corpuscular Volume 96 FL (80-99) Mean Corpuscular Hemoglobin 32.2 PG (27.0-31.0) H Mean Corpuscular Hemoglobin Concent 33.6 G/DL (32.0-36.0) Red Cell Distribution Width 11.9 % (11.6-14.8) Platelet Count 163 K/UL (150-450) Mean Platelet Volume 9.5 FL (6.5-10.1) Neutrophils (%) (Auto) % (45.0-75.0) Lymphocytes (%) (Auto) % (20.0-45.0) Monocytes (%) (Auto) % (1.0-10.0) Eosinophils (%) (Auto) % (0.0-3.0) Basophils (%) (Auto) % (0.0-2.0) Differential Total Cells Counted 100 Neutrophils % (Manual) 77 % (45-75) H Lymphocytes % (Manual) 5 % (20-45) L Monocytes % (Manual) 1 % (1-10) Eosinophils % (Manual) 0 % (0-3) Basophils % (Manual) 0 % (0-2) Band Neutrophils 17 % (0-8) H Platelet Estimate Adequate Platelet Morphology Normal Red Blood Cell Morphology Normal Sodium Level 143 MMOL/L (136-145) Potassium Level 3.5 MMOL/L (3.5-5.1) Chloride Level 110 MMOL/L (98-107) H Carbon Dioxide Level 25 MMOL/L (21-32) Anion Gap 8 mmol/L (5-15) Blood Urea Nitrogen 44 mg/dL (7-18) H Creatinine 1.2 MG/DL (0.55-1.30) Estimat Glomerular Filtration Rate mL/min (>60) Glucose Level 149 MG/DL (74-106) H Calcium Level 8.7 MG/DL (8.5-10.1) Troponin I 0.045 ng/mL (0.000-0.056) Microbiology Date/Time Source Procedure Growth Status 12/19/18 14:10 Blood Blood Culture - Preliminary Resulted 12/17/18 18:00 Nasal Nares MRSA Culture - Final Staphylococcus Aureus - Mrsa Complete 12/17/18 17:30 Nasal Nares Influenza Types A,B Antigen (JAYCOB) - Final Complete 12/17/18 18:00 Rectum VRE Culture - Final NO VANCOMYCIN RESISTANT ENTEROCOCCUS ... Complete 12/17/18 18:00 Rectum - Final NO CARBAPENEM-RESISTANT ENTEROBACTERI... Complete Objective HEENT: Atraumatic and normocephalic. Anicteric. Pupils are equal, round, and reactive to light and accommodation. Conjunctival pallor. NECK: JVP cannot be assessed due to positive inspiratory pressure of the ventilator. No carotid bruit. Carotid upstroke is 2+ bilaterally. CARDIOVASCULAR: Normal S1, S2. Regular rate and rhythm. I do not hear murmurs, gallops, or rubs. LUNGS: Diminished breath sounds in both lungs. ABDOMEN: Soft, nontender, and nondistended. No hepatosplenomegaly. Positive bowel sounds. EXTREMITIES: No evidence of edema, clubbing, or cyanosis. There is onychomycosis. Fred Holman MD Dec 20, 2018 17:19
--- NOTE | 2018-12-20 17:51 | Pulmonolgy Critical Care Note ---
Critical Care - Asmt/Plan Assessment/Plan: Pulmonary Progress Note Critical Care - Asmt/Plan Problems: (1) Gram positive sepsis Assessment & Plan: S aureus (2) Severe sepsis (3) Acute respiratory failure (4) NSTEMI (non-ST elevated myocardial infarction) (5) CONSTANCE (acute kidney injury) (6) Acute aspiration pneumonia (7) Lung cancer metastatic to brain (8) CHF (congestive heart failure) Respiratory: adjust tidal volume - as needed, monitor respiratory rate, adjust FIO2 - Titrate down to keep SaO2 > 92%, continue PEEP 5, ABG, weaning trial - once O2 needs down and off hemodynamically stable Cardiac: continue pressors - titrate NE for MAP > 60 , continue to monitor HR/ BP Renal: keep IV fluid, check electrolytes Infectious Disease: check cultures, continue antibiotics - per ID Gastrointestinal: start feedings Endocrine: monitor blood sugar Hematologic: monitor H/H Neurologic: keep patient comfortable Prophylaxis: Protonix, other - Eliquis Disposition: keep in ICU Time Spent (Minutes): 40 Notes Reviewed: cnc technician, cardio, ID Discussed with: nurses, consultants, other - DNAR Critical Care - Objective Vital Signs Noted Status: sedated Condition: critical HEENT: other - intubted, OGT Lungs: clear Heart: HR/BP unstable Abdomen: soft, non-tender, active bowel sounds Extremities: no C/C/E Micro: Microbiology Date/Time Source Procedure Growth Status 12/17/18 15:40 Blood Blood Culture - Preliminary Staphylococcus Aureus Resulted 12/17/18 15:25 Blood Blood Culture - Preliminary Staphylococcus Aureus Resulted 12/17/18 17:30 Nasal Nares Influenza Types A,B Antigen (JAYCOB) - Final Complete 12/17/18 17:02 Urine,Clean Catch Urine Culture - Preliminary NO GROWTH AFTER 24 HOURS Resulted Blood Sugars: BS controlled Critical Care - Subjective ROS Limited/Unobtainable: Yes ICU Day: 3 Intubation Day: 3 Interval Events: NE 2 Sedated WCt better S/P PICC Condition: stable IV Access: PICC EKG Rhythm: Sinus Rhythm FI02: 70 Vent Support Breath Rate: 24 Vent Support Mode: AC Vent Tidal Volume: 600 Sputum Amount: Small PEEP: 5.0 PIP: 23 Fluids: D51/2NS@75 Drips: NE2 I&O: Subjective: HAWA ET-Tube: 7.5 ET Position: 21 Labs: Laboratory Tests Test 12/18/18 14:48 12/18/18 15:20 12/18/18 18:50 12/19/18 05:55 Arterial Blood pH 7.280 (7.350-7.450) Arterial Blood Partial Pressure CO2 46.7 mmHg (35.0-45.0) H Arterial Blood Partial Pressure O2 95.4 mmHg (75.0-100.0) Arterial Blood HCO3 21.5 mmol/L (22.0-26.0) L Arterial Blood Oxygen Saturation 95.6 % (95-100) Arterial Blood Base Excess -5.3 (-2-2) L Damion Test Positive Lactic Acid Level 2.70 mmol/L (0.4-2.0) H 3.30 mmol/L (0.66-2.22) H Troponin I 0.087 ng/mL (0.000-0.056) Free Thyroxine 0.93 NG/DL (0.76-1.46) Triiodothyonine (T3) 47 ng/dL (71-180) L Free Triiodothyronine < 0.5 pg/mL (2.3-4.2) L Triiodothyronine (T3) Uptake 35 % (24-39) White Blood Count 10.0 K/UL (4.8-10.8) # Red Blood Count 3.68 M/UL (4.70-6.10) L Hemoglobin 11.6 G/DL (14.2-18.0) L Hematocrit 36.0 % (42.0-52.0) L Mean Corpuscular Volume 98 FL (80-99) Mean Corpuscular Hemoglobin 31.5 PG (27.0-31.0) H Mean Corpuscular Hemoglobin Concent 32.3 G/DL (32.0-36.0) Red Cell Distribution Width 12.0 % (11.6-14.8) Platelet Count 172 K/UL (150-450) Mean Platelet Volume 8.6 FL (6.5-10.1) Neutrophils (%) (Auto) % (45.0-75.0) Lymphocytes (%) (Auto) % (20.0-45.0) Monocytes (%) (Auto) % (1.0-10.0) Eosinophils (%) (Auto) % (0.0-3.0) Basophils (%) (Auto) % (0.0-2.0) Neutrophils % (Manual) Pending Lymphocytes % (Manual) Pending Platelet Estimate Pending Platelet Morphology Pending Sodium Level 144 MMOL/L (136-145) Potassium Level 3.9 MMOL/L (3.5-5.1) Chloride Level 111 MMOL/L (98-107) H Carbon Dioxide Level 21 MMOL/L (21-32) Anion Gap 13 mmol/L (5-15) Blood Urea Nitrogen 52 mg/dL (7-18) H Creatinine 1.5 MG/DL (0.55-1.30) H Estimat Glomerular Filtration Rate mL/min (>60) Glucose Level 150 MG/DL (74-106) H Calcium Level 8.5 MG/DL (8.5-10.1) Critical Care - Objective Last 24 Hour Vital Signs Date Time Temp Pulse Resp B/P (MAP) Pulse Ox O2 Delivery O2 Flow Rate FiO2 12/20/18 17:12 64 28 40 12/20/18 16:00 50 12/20/18 16:00 Mechanical Ventilator 12/20/18 16:00 98.0 61 24 91/53 (66) 12/20/18 15:13 66 25 40 12/20/18 15:00 61 23 92/50 (64) 12/20/18 14:00 54 23 105/52 (69) 12/20/18 13:02 82 24 100 Mechanical Ventilator 40 12/20/18 13:00 66 24 100 12/20/18 12:53 62 26 100 Mechanical Ventilator 40 12/20/18 12:53 62 24 40 12/20/18 12:00 68 12/20/18 12:00 50 12/20/18 12:00 98.9 70 21 99/60 (73) 99 12/20/18 12:00 Mechanical Ventilator 12/20/18 11:40 Endotracheal Tube 12/20/18 11:00 73 22 96/54 (68) 98 12/20/18 10:42 71 26 50 12/20/18 10:00 100 19 97/44 (61) 96 12/20/18 09:09 109 30 50 12/20/18 09:00 161 27 153/89 (110) 97 12/20/18 08:00 50 12/20/18 08:00 Mechanical Ventilator 12/20/18 08:00 98.8 92 24 150/65 (93) 98 12/20/18 08:00 82 12/20/18 07:39 84 26 100 Mechanical Ventilator 50 12/20/18 07:30 94 27 50 12/20/18 07:30 91 24 99 Mechanical Ventilator 50 12/20/18 07:00 76 24 107/77 (87) 98 12/20/18 07:00 23 Mechanical Ventilator 98.0 12/20/18 07:00 99/50 12/20/18 06:45 76 22 115/53 (73) 98 12/20/18 06:30 76 23 92/55 (67) 98 12/20/18 06:15 71 22 114/53 (73) 98 12/20/18 06:00 73 23 109/58 (75) 98 12/20/18 06:00 23 Mechanical Ventilator 98.0 12/20/18 06:00 114/53 12/20/18 05:45 73 22 105/67 (80) 98 12/20/18 05:30 76 22 114/43 (66) 98 12/20/18 05:25 78 27 50 12/20/18 05:15 68 23 103/54 (70) 99 12/20/18 05:00 23 Mechanical Ventilator 98.0 12/20/18 05:00 105/67 12/20/18 05:00 74 22 105/58 (74) 99 12/20/18 04:15 77 23 99/49 (66) 99 12/20/18 04:00 98.6 77 23 99/49 (66) 99 12/20/18 04:00 24 Mechanical Ventilator 50 12/20/18 04:00 92/50 12/20/18 04:00 73 12/20/18 04:00 50 12/20/18 04:00 Mechanical Ventilator 12/20/18 03:45 77 23 100/49 (66) 99 12/20/18 03:45 77 23 90/50 (63) 99 12/20/18 03:30 77 23 86/50 (62) 99 12/20/18 03:15 73 24 50 12/20/18 03:15 77 23 99/49 (66) 99 12/20/18 03:00 71 23 119/48 (71) 97 12/20/18 03:00 24 Mechanical Ventilator 50 12/20/18 03:00 84/40 12/20/18 03:00 71 23 119/48 (71) 97 12/20/18 03:00 71 23 119/48 (71) 97 12/20/18 02:48 70 20 95/50 (65) 99 12/20/18 02:45 74 21 99 12/20/18 02:30 73 22 82/49 (60) 99 12/20/18 02:30 73 22 82/49 (60) 99 12/20/18 02:15 74 21 108/78 (88) 99 12/20/18 02:15 74 21 108/78 (88) 99 12/20/18 02:00 22 Mechanical Ventilator 99.0 12/20/18 02:00 73 21 93/61 (72) 99 12/20/18 02:00 73 21 93/61 (72) 99 12/20/18 01:45 74 22 104/55 (71) 99 12/20/18 01:45 74 22 104/55 (71) 99 12/20/18 01:30 74 22 87/66 (73) 100 12/20/18 01:30 74 22 87/66 (73) 100 12/20/18 01:29 80 27 100 Mechanical Ventilator 50 12/20/18 01:19 71 30 50 12/20/18 01:19 71 30 99 Mechanical Ventilator 50 12/20/18 01:15 78 18 82/53 (63) 99 12/20/18 01:15 78 18 82/53 (63) 99 12/20/18 01:00 78 19 78/55 (63) 99 12/20/18 01:00 20 Mechanical Ventilator 99.0 12/20/18 01:00 78 19 78/55 (63) 99 12/20/18 00:45 79 20 93/62 (72) 99 12/20/18 00:45 79 20 93/62 (72) 99 12/20/18 00:30 79 19 91/59 (70) 98 12/20/18 00:30 79 19 91/59 (70) 98 12/20/18 00:15 83 19 80/62 (68) 98 12/20/18 00:15 83 19 80/62 (68) 98 12/20/18 00:00 Mechanical Ventilator 12/20/18 00:00 90 12/20/18 00:00 82 21 87/61 (70) 99 12/20/18 00:00 97 12/20/18 00:00 20 Mechanical Ventilator 98.0 12/20/18 00:00 82 21 87/61 (70) 99 12/20/18 00:00 50 12/19/18 23:45 85 24 133/51 (78) 98 12/19/18 23:30 83 24 116/74 (88) 99 12/19/18 23:15 82 22 90/53 (65) 99 12/19/18 23:10 79 26 50 12/19/18 23:00 88 36 121/77 (92) 98 12/19/18 22:49 90 23 103/72 (82) 98 12/19/18 22:45 83 21 78/51 (60) 98 12/19/18 22:30 81 22 85/58 (67) 98 12/19/18 22:00 83 21 96/40 (58) 98 12/19/18 22:00 21 Mechanical Ventilator 50 12/19/18 21:30 88 24 120/67 (84) 99 12/19/18 21:05 91 25 50 12/19/18 21:00 28 Mechanical Ventilator 50 12/19/18 21:00 89 25 96/45 (62) 98 12/19/18 20:55 96/45 12/19/18 20:30 87 26 97/60 (72) 98 12/19/18 20:30 28 Mechanical Ventilator 50 12/19/18 20:15 90 28 100/59 (73) 98 12/19/18 20:15 28 Mechanical Ventilator 50 12/19/18 20:00 98.6 92 28 107/53 (71) 98 12/19/18 20:00 50 12/19/18 20:00 27 Mechanical Ventilator 50 12/19/18 20:00 Mechanical Ventilator 12/19/18 19:56 97 12/19/18 19:54 24 Mechanical Ventilator 50 12/19/18 19:19 86 27 98 Mechanical Ventilator 50 12/19/18 19:09 93 31 97 Mechanical Ventilator 50 12/19/18 19:08 93 31 50 12/19/18 19:00 93 27 102/62 (75) 97 12/19/18 18:00 90 25 120/77 (91) 100 Micro: Microbiology Date/Time Source Procedure Growth Status 12/19/18 14:10 Blood Blood Culture - Preliminary Resulted 12/17/18 18:00 Nasal Nares MRSA Culture - Final Staphylococcus Aureus - Mrsa Complete 12/17/18 18:00 Rectum VRE Culture - Final NO VANCOMYCIN RESISTANT ENTEROCOCCUS ... Complete 12/17/18 18:00 Rectum - Final NO CARBAPENEM-RESISTANT ENTEROBACTERI... Complete Critical Care - Subjective ROS Limited/Unobtainable: Yes Condition: stable FI02: 40 Vent Support Breath Rate: 24 Vent Support Mode: AC Vent Tidal Volume: 600 Sputum Amount: Small PEEP: 5.0 PIP: 32 I&O: Intake and Output 12/19/18 12/20/18 18:59 06:59 Intake Total 245.0 ml 1531.0 ml Output Total 335 ml 535 ml Balance -90.0 ml 996.0 ml Intake Oral 0 ml 0 ml IV Total 245.0 ml 1531.0 ml Output Urine Total 335 ml 535 ml ET-Tube: 7.5 ET Position: 21 Real Landa MD Dec 20, 2018 17:51
[2018-12-20] MEDS: Oxacillin 2 GM in NS 110 ML IVPB SCH ×2 (18:17→23:42)
--- NOTE | 2018-12-20 18:50 | NUR ---
NURSE NOTES: called contact number to MD Rob to update on blood culture + cocci in clusters. Will endorse f/u to pm RN
--- NOTE | 2018-12-20 19:13 | NUR ---
HAND-OFF: Report given to Hero Frey pt in no acute distress. endorsed f/u report blood culture results
--- NOTE | 2018-12-20 19:45 | NUR ---
NURSE NOTES: PATIENT RESPONSE TO SHAKING, TRIED TO OPEN EYES, ON ETT AC 24/TV 600/FIO2 40%/PEEP 5, O2 SATURATION 100% NOTED, OGT INTACT AND PATENT, NPO STATUS, ABDOMEN SOFT, FLAT, HYPOACTIVE BOWEL SOUND TO 4 QUADRANTS, F/C INTACT AND PATENT, YELLOW URINE OUTED, PICC LINE TO LEFT UPPER ARM, INTACT AND PATENT, ONGOING D5W 0.45% NS AT 75ML/HR, FENTANYL DRIP 80MCG/HR VIA PICC LINE, PERIPHERAL LINE TO RIGHT FORE ARM AND LEFT AC, INTACT AND PATENT STATUS, 2 POINT SOFT RESTRAINTS FOR SAFETY, MADE LOWER BED POSITION, WILL CONTINUE TO MONITOR.
[2018-12-20] MEDS ORDERED: D5 1/2NS 1000ml IV ONE (19:50)
[2018-12-20] MEDS ORDERED: Tubing IV Secondary IV ONE (19:50)
[2018-12-20] MEDS ORDERED: NS 275ml ONE (19:50)
[2018-12-20] MEDS: Dyna-Hex 2% Top Sol 2oz TOPIC SCH (20:02)
[2018-12-20] MEDS: DOPamine 400mg/250ml 250 ML IV SCH (20:55)
--- NOTE | 2018-12-20 22:00 | NUR ---
NURSE NOTES: REPOSITIONED, ORAL CARE WAS DONE.
[2018-12-21] VITALS (37 sets, daily range): BP systolic 72–136; BP diastolic 35–89
--- NOTE | 2018-12-21 | NUR ---
NURSE NOTES: PATIENT OPEN EYES TO VOICE, LIGHT SEDATED, RASS SCORE -1 AT THIS TIME, WILL CONTINUE TO MONITOR.
[2018-12-21] MEDS: Ipratropium 0.02% Inh Soln 2.5ml UD HHN SCH ×4 (01:31→19:03)
--- NOTE | 2018-12-21 02:00 | NUR ---
NURSE NOTES: PATIENT ASLEEP STATUS, NO DISTRESS NOTED.
--- NOTE | 2018-12-21 04:00 | NUR ---
NURSE NOTES: MORNING CARE WAS DONE, NO BOWEL MOVEMENT.
[2018-12-21] MEDS: D5 1/2NS 1,000 ML IV SCH ×2 (04:03→18:34)
[2018-12-21] MEDS: Piperacillin/Tazobactam 3.375 GM in D5W 110 ML IVPB SCH ×3 (05:33→21:32)
[2018-12-21] MEDS: Oxacillin 2 GM in NS 110 ML IVPB SCH ×4 (05:33→20:39)
--- NOTE | 2018-12-21 06:32 | NUR ---
NURSE NOTES: SEEN THE PATIENT BY DR. CLAUDIO, NO NEW ORDER STATUS.
--- NOTE | 2018-12-21 07:05 | NUR ---
HAND-OFF: Report given to RADHA/WESLEY.
--- NOTE | 2018-12-21 07:30 | NUR ---
NURSE NOTES: RECEIVED REPORT FROM ANISA. PATIENT RESPONSE TO SHAKING, OPEN EYES TO SHAKING. SEDATED. PT 21CM AT LIP. ETT AC 24,TV 600,FIO2 50%,PEEP 5, O2 SATURATION 100%. NPO W/ OGT CLAMPED. ABDOMEN SOFT. HYPOACTIVE BOWEL SOUNDS. F/C DRAINING YELLOW URINE. PICC LINE MARLIN, INTACT AND PATENT. D51/2% NS AT 75ML/HR, RT FA AND LT AC 20G. BILATERAL SOFT RESTRAINTS ON. CONTRACT PRECAUTIONS IN PLACE. BED IN LOWEST POSITION. WILL CONTINUE TO MONITOR.
--- NOTE | 2018-12-21 07:40 | NUR ---
NURSE NOTES: communicated with MD Landa regarding air leak with ETTube, despite R.T intervention. Recommendation for CXR. Received order to place CXR and contact ER MD to check tube.
--- NOTE | 2018-12-21 08:00 | NUR ---
NURSE NOTES: here to do CXR
[2018-12-21] MEDS: Dexamethasone 4mg/ml vial IVP SCH ×2 (09:20→18:34)
[2018-12-21] MEDS: Pantoprazole Inj IVP SCH ×2 (09:26→20:39)
--- NOTE | 2018-12-21 10:00 | NUR ---
NURSE NOTES: called Radiology department, left message requesting upload of CXR done this AM. Awaiting call back.
--- NOTE | 2018-12-21 11:33 | NUR ---
NURSE NOTES: received call from radiologist MD Jang, reporting CXR results from this am. Small left apical pneumothorax, OGT advance 12cm and ETT advance 6cm. Will inform MD Landa with results.
--- NOTE | 2018-12-21 11:34 | Diagnostic Imaging Report ---
EXAM: XR Chest, 1 View CLINICAL HISTORY: TACHYP TECHNIQUE: Frontal view of the chest. COMPARISON: Chest x-ray, 12/17/18 2421 FINDINGS: Lungs: Stable round opacity in the right upper lung. Similar appearance of bilateral interstitial and airspace opacities. Pleural space: Small left apical pneumothorax. May be tiny bilateral pleural effusions. Heart: Unremarkable. No cardiomegaly. Mediastinum: Unremarkable. Bones/joints: Unremarkable. Tubes, lines and devices: NG tube tip is in the proximal stomach, proximal side-port is in the distal esophagus, may be advanced 12 cm. Endotracheal tube tip at the thoracic inlet and may be advanced 6 cm. Interval placement of left PICC line at the innominate SVC junction. IMPRESSION: 1. NG tube tip is in the proximal stomach, proximal side-port is in the distal esophagus, may be advanced 12 cm. 2. Endotracheal tube tip at the thoracic inlet and may be advanced 6 cm. 3. Interval placement of left PICC line at the innominate SVC junction. 4. Small left apical pneumothorax. 5. Stable round opacity in the right upper lung. 6. Similar appearance of bilateral interstitial and airspace opacities. 7. May be tiny bilateral pleural effusions. [employer] 12/21/18 11:31 Call Nurse Called WESLEY Calderon on 12/21 11:31 (-08:00)
--- NOTE | 2018-12-21 11:38 | NUR ---
NURSE NOTES: CONTACT MD CLAUDIO, REGARDING FINDINGS FOR CXR THIS AM. RECEIVED ORDER TO ADVANCE ETT AND REPEAT CXR AT 1300. THEN INFORM MD KIMBALL OF POSSIBLE CHEST TUBE PLACEMENT.
--- NOTE | 2018-12-21 12:13 | NUR ---
NURSE NOTES: MD HONEYCUTT, HERE TO SEE PT. WAS UPDATED ON STATUS. RECEIVED ORDER TO PLACE CBC, BMP FOR TODAY.
--- NOTE | 2018-12-21 12:54 | General Progress Note ---
Assessment/Plan Assessment/Plan S, O: limited eval. Patient Intubated. Vent setting reviewed. Stoddard inserted. Peripheral line in place PHYSICAL EXAMINATION: HEAD AND NECK: Positive for intubation, limited source of evaluation. Vent settings were reviewed. Atraumatic and normocephalic. CHEST: Diffuse bronchial breathing sounds. Positive for diffuse crackles.HEART: S1 and S2. Tachyarrhythmia. ABDOMEN: Soft. No organomegaly.MUSCULOSKELETAL: Atrophied musculature, limited evaluation. The patient is not following compounds, sedated. Imaging: CT of the Head reviewed, non diagnostic ASSESSMENT AND PLAN: 1. Vent-dependent respiratory failure. 2. Septic shock: Gr + 3. Healthcare-associated pneumonia. 3. Non-ST myocardial infarction. Abnormal Trop 4. Metastatic lung CA. 5. Left sided small PNTX 5. GI and DVT prophylaxes. PLAN OF CARE: 1. worsening leukocyosis 3. Grave prognosis. 4. Infectious Disease, Pulmonary, and Cardiology NOtes are reviwed 5. On pressor and NS Bolus as PRN 6. Left sided small PNTX Vent management per Pulmonary service Recheck CXR Subjective Allergies: Coded Allergies: No Known Allergies (Unverified , 12/17/18) Objective Last 24 Hour Vital Signs Date Time Temp Pulse Resp B/P (MAP) Pulse Ox O2 Delivery O2 Flow Rate FiO2 12/21/18 11:22 23 Mechanical Ventilator 12/21/18 10:42 96 25 40 12/21/18 10:00 85 13 92/58 (69) 94 12/21/18 09:00 98 30 126/56 (79) 95 12/21/18 08:51 93 29 40 12/21/18 08:00 40 12/21/18 08:00 Mechanical Ventilator 12/21/18 08:00 97.8 99 21 119/58 (78) 93 12/21/18 08:00 100 12/21/18 07:19 95 25 100 Mechanical Ventilator 40 12/21/18 07:10 99 26 100 Mechanical Ventilator 40 12/21/18 07:10 97 26 40 12/21/18 07:00 98 23 103/59 (74) 100 12/21/18 07:00 26 Mechanical Ventilator 40 12/21/18 06:30 73 18 91/61 (71) 97 12/21/18 06:00 18 Mechanical Ventilator 40 12/21/18 06:00 76 18 99/82 (88) 97 12/21/18 05:30 74 22 98/64 (75) 99 12/21/18 05:00 78 17 117/61 (79) 99 12/21/18 05:00 18 Mechanical Ventilator 40 12/21/18 04:56 76 29 40 12/21/18 04:30 77 17 116/66 (83) 98 12/21/18 04:00 40 12/21/18 04:00 97.6 76 12 132/84 (100) 99 12/21/18 04:00 20 Mechanical Ventilator 40 12/21/18 04:00 Mechanical Ventilator 12/21/18 03:30 91 22 114/72 (86) 96 12/21/18 03:17 73 12/21/18 03:07 68 27 40 12/21/18 03:00 72 22 84/45 (58) 99 12/21/18 03:00 22 Mechanical Ventilator 40 12/21/18 02:30 71 21 84/57 (66) 99 12/21/18 02:00 22 Mechanical Ventilator 40 12/21/18 02:00 71 22 78/35 (49) 98 12/21/18 01:40 82 27 100 Mechanical Ventilator 40 12/21/18 01:34 20 Mechanical Ventilator 40 12/21/18 01:31 77 27 99 Mechanical Ventilator 40 12/21/18 01:30 74 21 97/59 (72) 97 12/21/18 01:28 81 28 40 12/21/18 01:00 76 22 81/55 (64) 95 12/21/18 00:30 82 23 114/89 (97) 95 12/21/18 00:00 97.6 89 22 136/79 (98) 100 12/21/18 00:00 40 12/21/18 00:00 Mechanical Ventilator 12/21/18 00:00 89 12/20/18 23:30 74 22 122/48 (72) 100 12/20/18 23:07 91 27 40 12/20/18 23:00 67 21 92/58 (69) 100 12/20/18 22:30 67 21 105/41 (62) 100 12/20/18 22:00 67 16 103/55 (71) 100 12/20/18 21:30 67 16 89/58 (68) 100 12/20/18 21:00 67 16 86/53 (64) 99 12/20/18 20:59 69 28 40 12/20/18 20:55 103/55 12/20/18 20:30 74 12 77/54 (62) 97 12/20/18 20:00 97.5 77 11 89/56 (67) 97 12/20/18 20:00 40 12/20/18 20:00 Mechanical Ventilator 12/20/18 19:49 81 12/20/18 19:30 76 14 84/52 (63) 97 12/20/18 19:10 79 26 99 Mechanical Ventilator 40 12/20/18 19:03 80 28 99 Mechanical Ventilator 40 12/20/18 19:00 82 21 91/65 (74) 100 12/20/18 18:59 84 29 40 12/20/18 18:00 95 22 129/65 (86) 97 12/20/18 18:00 22 Mechanical Ventilator 12/20/18 17:12 64 28 40 12/20/18 17:00 21 Mechanical Ventilator 12/20/18 17:00 101 26 142/74 (96) 93 12/20/18 16:00 50 12/20/18 16:00 61 12/20/18 16:00 Mechanical Ventilator 12/20/18 16:00 23 Mechanical Ventilator 12/20/18 16:00 98.0 61 24 91/53 (66) 12/20/18 15:13 66 25 40 12/20/18 15:00 24 Mechanical Ventilator 12/20/18 15:00 61 23 92/50 (64) 12/20/18 14:00 54 23 105/52 (69) 12/20/18 14:00 24 Mechanical Ventilator 12/20/18 13:09 24 Mechanical Ventilator 12/20/18 13:02 82 24 100 Mechanical Ventilator 40 12/20/18 13:00 66 24 100 12/20/18 12:53 62 26 100 Mechanical Ventilator 40 12/20/18 12:53 62 24 40 Intake and Output 12/20/18 12/21/18 19:00 07:00 Intake Total 2834.5 ml 2284.0 ml Output Total 670 ml 635 ml Balance 2164.5 ml 1649.0 ml Intake Oral 0 ml 0 ml IV Total 2834.5 ml 2284.0 ml Output Urine Total 670 ml 635 ml Laboratory Tests 12/20/18 17:20: Lactic Acid Level 1.70 Height (Feet): 5 Height (Inches): 9.00 Weight (Pounds): 120 Bruno Enamorado MD Dec 21, 2018 12:54
--- NOTE | 2018-12-21 13:11 | Consultation ---
History of Present Illness General Date patient seen: Dec 21, 2018 Chief Complaint: Dyspnea/Respdistress Reason for Consultation: left ptx Present Illness HPI 73 year old male currently admitted to ICU for respiratory distress intubated and sedated on vent support. CXR this AM demonstrated left pneumothorax. surgery called to evaluate and assist with care/ management. patient seen, chart reviewed, patient examined. Allergies: Coded Allergies: No Known Allergies (Unverified , 12/17/18) Medication History Scheduled Apixaban (Eliquis), 5 MG PO BID, (Reported) Atorvastatin Calcium* (Atorvastatin Calcium*), 20 MG ORAL BEDTIME, (Reported) Bisacodyl* (Dulcolax*), 10 MG ORAL DAILY, (Reported) Carvedilol* (Carvedilol*), 3.125 MG ORAL EVERY 12 HOURS, (Reported) Dexamethasone (Dexamethasone), 4 MG PO BID, (Reported) Docusate Sodium* (Docusate Sodium*), 100 MG ORAL TWICE A DAY, (Reported) Enalapril Maleate* (Vasotec*), 10 MG ORAL DAILY, (Reported) Folic Acid* (Folic Acid*), 1 MG ORAL DAILY, (Reported) Sennosides (Senna), 8.6 MG PO HS, (Reported) Scheduled PRN Polyethylene Glycol 3350* (Polyethylene Glycol 3350*), 17 GM ORAL BEDTIME PRN for Constipation, (Reported) Patient History Limited by: medical condition History Provided By: Medical Record, PMD Healthcare decision maker balaji paulson Resuscitation status Do Not Resuscitate Advanced Directive on File No Past Medical/Surgical History Past Medical/Surgical History: (1) Severe sepsis (2) NSTEMI (non-ST elevated myocardial infarction) (3) Respiratory failure (4) Acute respiratory failure (5) Sepsis (6) CONSTANCE (acute kidney injury) (7) Acute aspiration pneumonia (8) Lung cancer metastatic to brain (9) Gram positive sepsis (10) CHF (congestive heart failure) (11) Leukocytosis Review of Systems ROS Narrative cannot obtain Physical Exam General Appearance: mild distress Lines, tubes and drains: other HEENT: atraumatic, mucous membranes moist Neck: normal inspection Respiratory/Chest: on vent Cardiovascular/Chest: normal rate Abdomen: soft, no organomegaly, no mass Extremities: normal inspection Skin Exam: warm/dry Neurologic: unresponsiveness Last 24 Hour Vital Signs Date Time Temp Pulse Resp B/P (MAP) Pulse Ox O2 Delivery O2 Flow Rate FiO2 12/21/18 13:04 92 24 100 Mechanical Ventilator 40 12/21/18 12:56 92 24 40 12/21/18 12:56 92 24 100 Mechanical Ventilator 40 12/21/18 11:22 23 Mechanical Ventilator 12/21/18 10:42 96 25 40 12/21/18 10:00 85 13 92/58 (69) 94 12/21/18 09:00 98 30 126/56 (79) 95 12/21/18 08:51 93 29 40 12/21/18 08:00 40 12/21/18 08:00 Mechanical Ventilator 12/21/18 08:00 97.8 99 21 119/58 (78) 93 12/21/18 08:00 100 12/21/18 07:19 95 25 100 Mechanical Ventilator 40 12/21/18 07:10 99 26 100 Mechanical Ventilator 40 12/21/18 07:10 97 26 40 12/21/18 07:00 98 23 103/59 (74) 100 12/21/18 07:00 26 Mechanical Ventilator 40 12/21/18 06:30 73 18 91/61 (71) 97 12/21/18 06:00 18 Mechanical Ventilator 40 12/21/18 06:00 76 18 99/82 (88) 97 12/21/18 05:30 74 22 98/64 (75) 99 12/21/18 05:00 78 17 117/61 (79) 99 12/21/18 05:00 18 Mechanical Ventilator 40 12/21/18 04:56 76 29 40 12/21/18 04:30 77 17 116/66 (83) 98 12/21/18 04:00 40 12/21/18 04:00 97.6 76 12 132/84 (100) 99 12/21/18 04:00 20 Mechanical Ventilator 40 12/21/18 04:00 Mechanical Ventilator 12/21/18 03:30 91 22 114/72 (86) 96 12/21/18 03:17 73 12/21/18 03:07 68 27 40 12/21/18 03:00 72 22 84/45 (58) 99 12/21/18 03:00 22 Mechanical Ventilator 40 12/21/18 02:30 71 21 84/57 (66) 99 12/21/18 02:00 22 Mechanical Ventilator 40 12/21/18 02:00 71 22 78/35 (49) 98 12/21/18 01:40 82 27 100 Mechanical Ventilator 40 12/21/18 01:34 20 Mechanical Ventilator 40 12/21/18 01:31 77 27 99 Mechanical Ventilator 40 12/21/18 01:30 74 21 97/59 (72) 97 12/21/18 01:28 81 28 40 12/21/18 01:00 76 22 81/55 (64) 95 12/21/18 00:30 82 23 114/89 (97) 95 12/21/18 00:00 97.6 89 22 136/79 (98) 100 12/21/18 00:00 40 12/21/18 00:00 Mechanical Ventilator 12/21/18 00:00 89 12/20/18 23:30 74 22 122/48 (72) 100 12/20/18 23:07 91 27 40 12/20/18 23:00 67 21 92/58 (69) 100 12/20/18 22:30 67 21 105/41 (62) 100 12/20/18 22:00 67 16 103/55 (71) 100 12/20/18 21:30 67 16 89/58 (68) 100 12/20/18 21:00 67 16 86/53 (64) 99 12/20/18 20:59 69 28 40 12/20/18 20:55 103/55 12/20/18 20:30 74 12 77/54 (62) 97 12/20/18 20:00 97.5 77 11 89/56 (67) 97 12/20/18 20:00 40 12/20/18 20:00 Mechanical Ventilator 12/20/18 19:49 81 12/20/18 19:30 76 14 84/52 (63) 97 12/20/18 19:10 79 26 99 Mechanical Ventilator 40 12/20/18 19:03 80 28 99 Mechanical Ventilator 40 12/20/18 19:00 82 21 91/65 (74) 100 12/20/18 18:59 84 29 40 12/20/18 18:00 95 22 129/65 (86) 97 12/20/18 18:00 22 Mechanical Ventilator 12/20/18 17:12 64 28 40 12/20/18 17:00 21 Mechanical Ventilator 12/20/18 17:00 101 26 142/74 (96) 93 12/20/18 16:00 50 12/20/18 16:00 61 12/20/18 16:00 Mechanical Ventilator 12/20/18 16:00 23 Mechanical Ventilator 12/20/18 16:00 98.0 61 24 91/53 (66) 12/20/18 15:13 66 25 40 12/20/18 15:00 24 Mechanical Ventilator 12/20/18 15:00 61 23 92/50 (64) 12/20/18 14:00 54 23 105/52 (69) 12/20/18 14:00 24 Mechanical Ventilator 12/20/18 13:09 24 Mechanical Ventilator Intake and Output 12/20/18 12/21/18 19:00 07:00 Intake Total 2834.5 ml 2284.0 ml Output Total 670 ml 635 ml Balance 2164.5 ml 1649.0 ml Intake Oral 0 ml 0 ml IV Total 2834.5 ml 2284.0 ml Output Urine Total 670 ml 635 ml Laboratory Tests Test 12/20/18 17:20 Lactic Acid Level 1.70 mmol/L (0.4-2.0) Height (Feet): 5 Height (Inches): 9.00 Weight (Pounds): 120 Medications Current Medications Medications (Trade) Dose Ordered Sig/Earlene Route PRN Reason Start Time Stop Time Status Last Admin Dose Admin Chlorhexidine Gluconate (Windy-Hex 2%) 1 applic DAILY@2000 TOPIC 12/18/18 20:00 01/17/19 19:59 12/20/18 20:02 Dexamethasone Sodium Phosphate (Decadron 4mg/ml vial) 4 mg BID IVP 12/18/18 09:00 01/17/19 08:59 12/21/18 09:20 Dextrose/Sodium Chloride 1,000 ml @ 75 mls/hr [id number] IV 12/17/18 20:00 01/16/19 19:59 12/21/18 04:03 Dopamine HCl/ Dextrose 250 ml @ 0 mls/hr Q24H IV 12/17/18 20:55 01/16/19 20:54 12/17/18 20:55 Fentanyl Citrate 1000 mcg/Sodium Chloride 100 ml @ 0 mls/hr Q24H IV 12/19/18 20:00 12/26/18 19:59 12/21/18 11:22 Ipratropium [place] (Atrovent) 500 mcg Q4H PRN HHN Shortness of Breath 12/18/18 14:15 12/23/18 14:14 Ipratropium [place] (Atrovent) 500 mcg Q6HRT HHN 12/18/18 19:00 12/23/18 18:59 12/21/18 12:56 Norepinephrine Bitartrate 4 mg/ Dextrose 250 ml @ 0 mls/hr Q24H IV 12/18/18 15:00 01/17/19 14:59 12/18/18 21:34 Oxacillin Sodium 2 gm/Sodium Chloride 110 ml @ 220 mls/hr EVERY 6 HOURS IVPB 12/20/18 16:30 12/27/18 16:29 12/21/18 11:20 Pantoprazole (Protonix) 40 mg EVERY 12 HOURS IVP 12/18/18 21:00 01/17/19 20:59 12/21/18 09:26 Piperacillin Sod/ Tazobactam Sod 3.375 gm/Dextrose 110 ml @ 27.5 mls/hr EVERY 8 HOURS IVPB 12/17/18 22:00 12/22/18 21:59 12/21/18 05:33 Sodium Chloride 500 ml @ 999 mls/hr Q31M PRN IV For hypotension 12/20/18 11:45 01/19/19 11:44 12/21/18 01:36 Assessment/Plan Problem List: (1) Pneumothorax, left Assessment & Plan: left small pneumothorax seen on CXR today patient on vent support with positive pressure currently saturating well and stable repeat CXR this afternoon or in AM in stable if worsening will need left chest tube placement STAT CXR and call me if desaturates thank you will follow with recs. ICD Codes: J93.9 - Pneumothorax, unspecified SNOMED: 221401352 (2) Severe sepsis ICD Codes: A41.9 - Sepsis, unspecified organism; R65.20 - Severe sepsis without septic shock SNOMED: [id number] Chris Messer Dec 21, 2018 13:11
--- NOTE | 2018-12-21 13:28 | NUR ---
CASE MANAGEMENT: REVIEW 12/21/2018 SI: ACUTE RESP FAILURE . SEPSIS . LUNG CA METASTATIC TO BRAIN T 97.8 HR 99 RR 21 B/P 119/58 SATS 93% ON MECH VENT FiO2 40 NO LABS TODAY IS: PROTONIX IV Q12HR VANCO IV Q24HR LEVOPHED IV Q24HR DECADRON IV BID ZOSYN IV Q8HR DOPAMINE IV Q24HR D5 1/2 NS IVF @75ML/HR ICU STATUS DCP: PATIENT IS FROM [facility]
--- NOTE | 2018-12-21 14:00 | NUR ---
NURSE NOTES: Discussed with MD Messer regarding apical pneumothorax, and possible need for Chest tube. Pt stable at this time. Monitor and consult 02sat <90% or if CXR shows increase in size.
[2018-12-21 14:40] LABS: HEMATOCRIT 37.1 % (42.0-52.0); HEMOGLOBIN 12.3 G/DL (14.2-18.0); MEAN CORPUSCULAR VOLUME 96 FL (80-99); PLATELET COUNT 134 K/UL (150-450); RED BLOOD COUNT 3.85 M/UL (4.70-6.10); WHITE BLOOD COUNT 14.5 K/UL (4.8-10.8)
[2018-12-21 14:53] LABS: ANION GAP 12 mmol/L (5-15); BLOOD UREA NITROGEN 42 mg/dL (7-18); CALCIUM 7.9 MG/DL (8.5-10.1); CARBON DIOXIDE 21 MMOL/L (21-32); CHLORIDE 112 MMOL/L (98-107); CREATININE 1.1 MG/DL (0.55-1.30); POTASSIUM 3.6 MMOL/L (3.5-5.1); SODIUM 145 MMOL/L (136-145)
--- NOTE | 2018-12-21 15:33 | Infectious Diseases Prog Note ---
Assessment/Plan Problems: (1) Acute aspiration pneumonia Assessment & Plan: continue zosyn empirically, pending sputum culture , aspiration precaution, keep HOB > 30 degree. monitor CXR (2) Sepsis Assessment & Plan: with shock , due to methicillin sensitive staph aureus , continue oxacillin IV and treat him for minimum of four weeks . trans thoracic echo done on admission ruled out valve vegetations , repeated blood culture is still positive, most likely due to being on steroids and immunocompromised with metastatic lung cancer . will repeat another set today to confirm. (3) CONSTANCE (acute kidney injury) Assessment & Plan: due to the above , continue hydration with renally dosed antibiotics , continue pressure support, renal follow up (4) Acute respiratory failure Assessment & Plan: due to the above , intubated on mechanical ventilation, pulmonary is following , monitor ABG, and CXR (5) Lung cancer metastatic to brain Assessment & Plan: S/P radiation and chemo therapy at [facility] , now with poor prognosis, recommend palliative care . (6) Leukocytosis Assessment & Plan: suspect due to steroids , recommend to taper, will repeat blood culture (7) Pneumothorax, left Assessment & Plan: monitor CXR , surgery was consulted Subjective ROS Limited/Unobtainable: Yes Allergies: Coded Allergies: No Known Allergies (Unverified , 12/17/18) Subjective he was still intubated on mechanical ventilation in ICU, sedated, responsive to verbal commands, not on pressor , afebrile , no secretions Objective Vital Signs Last 24 Hour Vital Signs Date Time Temp Pulse Resp B/P (MAP) Pulse Ox O2 Delivery O2 Flow Rate FiO2 12/21/18 14:42 85 24 40 12/21/18 14:00 83 24 114/59 (77) 97 12/21/18 13:04 92 24 100 Mechanical Ventilator 40 12/21/18 13:00 83 24 98/56 (70) 97 12/21/18 12:56 92 24 40 12/21/18 12:56 92 24 100 Mechanical Ventilator 40 12/21/18 12:00 91 12/21/18 12:00 91 21 98/67 (77) 96 12/21/18 11:22 23 Mechanical Ventilator 12/21/18 11:00 94 32 116/68 (84) 94 12/21/18 10:42 96 25 40 12/21/18 10:00 85 13 92/58 (69) 94 12/21/18 09:00 98 30 126/56 (79) 95 12/21/18 08:51 93 29 40 12/21/18 08:00 40 12/21/18 08:00 Mechanical Ventilator 12/21/18 08:00 97.8 99 21 119/58 (78) 93 12/21/18 08:00 100 12/21/18 07:19 95 25 100 Mechanical Ventilator 40 12/21/18 07:10 99 26 100 Mechanical Ventilator 40 12/21/18 07:10 97 26 40 12/21/18 07:00 98 23 103/59 (74) 100 12/21/18 07:00 26 Mechanical Ventilator 40 12/21/18 06:30 73 18 91/61 (71) 97 12/21/18 06:00 18 Mechanical Ventilator 40 12/21/18 06:00 76 18 99/82 (88) 97 12/21/18 05:30 74 22 98/64 (75) 99 12/21/18 05:00 78 17 117/61 (79) 99 12/21/18 05:00 18 Mechanical Ventilator 40 12/21/18 04:56 76 29 40 12/21/18 04:30 77 17 116/66 (83) 98 12/21/18 04:00 40 12/21/18 04:00 97.6 76 12 132/84 (100) 99 12/21/18 04:00 20 Mechanical Ventilator 40 12/21/18 04:00 Mechanical Ventilator 12/21/18 03:30 91 22 114/72 (86) 96 12/21/18 03:17 73 12/21/18 03:07 68 27 40 12/21/18 03:00 72 22 84/45 (58) 99 12/21/18 03:00 22 Mechanical Ventilator 40 12/21/18 02:30 71 21 84/57 (66) 99 12/21/18 02:00 22 Mechanical Ventilator 40 12/21/18 02:00 71 22 78/35 (49) 98 12/21/18 01:40 82 27 100 Mechanical Ventilator 40 12/21/18 01:34 20 Mechanical Ventilator 40 12/21/18 01:31 77 27 99 Mechanical Ventilator 40 12/21/18 01:30 74 21 97/59 (72) 97 12/21/18 01:28 81 28 40 12/21/18 01:00 76 22 81/55 (64) 95 12/21/18 00:30 82 23 114/89 (97) 95 12/21/18 00:00 97.6 89 22 136/79 (98) 100 12/21/18 00:00 40 12/21/18 00:00 Mechanical Ventilator 12/21/18 00:00 89 12/20/18 23:30 74 22 122/48 (72) 100 12/20/18 23:07 91 27 40 12/20/18 23:00 67 21 92/58 (69) 100 12/20/18 22:30 67 21 105/41 (62) 100 12/20/18 22:00 67 16 103/55 (71) 100 12/20/18 21:30 67 16 89/58 (68) 100 12/20/18 21:00 67 16 86/53 (64) 99 12/20/18 20:59 69 28 40 12/20/18 20:55 103/55 12/20/18 20:30 74 12 77/54 (62) 97 12/20/18 20:00 97.5 77 11 89/56 (67) 97 12/20/18 20:00 40 12/20/18 20:00 Mechanical Ventilator 12/20/18 19:49 81 12/20/18 19:30 76 14 84/52 (63) 97 12/20/18 19:10 79 26 99 Mechanical Ventilator 40 12/20/18 19:03 80 28 99 Mechanical Ventilator 40 12/20/18 19:00 82 21 91/65 (74) 100 12/20/18 18:59 84 29 40 12/20/18 18:00 95 22 129/65 (86) 97 12/20/18 18:00 22 Mechanical Ventilator 12/20/18 17:12 64 28 40 12/20/18 17:00 21 Mechanical Ventilator 12/20/18 17:00 101 26 142/74 (96) 93 12/20/18 16:00 50 12/20/18 16:00 61 12/20/18 16:00 Mechanical Ventilator 12/20/18 16:00 23 Mechanical Ventilator 12/20/18 16:00 98.0 61 24 91/53 (66) Height (Feet): 5 Height (Inches): 9.00 Weight (Pounds): 120 General Appearance: no acute distress, cachetic HEENT: normocephalic, atraumatic, anicteric, mucous membranes moist, supple, no JVD Respiratory/Chest: chest wall non-tender, normal breath sounds, no respiratory distress, no accessory muscle use, decreased breath sounds Cardiovascular: normal peripheral pulses, normal rate, regular rhythm, no gallop/murmur, no JVD Abdomen: normal bowel sounds, soft, non tender, no organomegaly, non distended , no mass, no scars Extremities: no cyanosis, no clubbing Skin: no rash, no lesions, no ulcers Neurologic/Psychiatric: alert, oriented x 3, responsive Lymphatic: no neck adenopathy, no groin adenopathy Musculoskeletal: normal muscle bulk, no effusion Microbiology Date/Time Source Procedure Growth Status 12/20/18 17:30 Blood Blood Culture - Preliminary Resulted 12/20/18 17:15 Blood Blood Culture - Preliminary Resulted 12/19/18 14:10 Blood Blood Culture - Preliminary Staphylococcus Aureus Resulted 12/19/18 14:00 Blood Blood Culture - Preliminary Staphylococcus Aureus Resulted Laboratory Tests Test 12/20/18 17:20 12/21/18 14:10 Lactic Acid Level 1.70 mmol/L (0.4-2.0) White Blood Count 14.5 K/UL (4.8-10.8) H Red Blood Count 3.85 M/UL (4.70-6.10) L Hemoglobin 12.3 G/DL (14.2-18.0) L Hematocrit 37.1 % (42.0-52.0) L Mean Corpuscular Volume 96 FL (80-99) Mean Corpuscular Hemoglobin 31.9 PG (27.0-31.0) H Mean Corpuscular Hemoglobin Concent 33.1 G/DL (32.0-36.0) Red Cell Distribution Width 12.0 % (11.6-14.8) Platelet Count 134 K/UL (150-450) L Mean Platelet Volume 11.0 FL (6.5-10.1) H Neutrophils (%) (Auto) % (45.0-75.0) Lymphocytes (%) (Auto) % (20.0-45.0) Monocytes (%) (Auto) % (1.0-10.0) Eosinophils (%) (Auto) % (0.0-3.0) Basophils (%) (Auto) % (0.0-2.0) Neutrophils % (Manual) Pending Lymphocytes % (Manual) Pending Platelet Estimate Pending Platelet Morphology Pending Sodium Level 145 MMOL/L (136-145) Potassium Level 3.6 MMOL/L (3.5-5.1) Chloride Level 112 MMOL/L (98-107) H Carbon Dioxide Level 21 MMOL/L (21-32) Anion Gap 12 mmol/L (5-15) Blood Urea Nitrogen 42 mg/dL (7-18) H Creatinine 1.1 MG/DL (0.55-1.30) Estimat Glomerular Filtration Rate mL/min (>60) Glucose Level 140 MG/DL (74-106) H Calcium Level 7.9 MG/DL (8.5-10.1) L Current Medications Medications (Trade) Dose Ordered Sig/Earlene Route PRN Reason Start Time Stop Time Status Last Admin Dose Admin Chlorhexidine Gluconate (Windy-Hex 2%) 1 applic DAILY@2000 TOPIC 12/18/18 20:00 01/17/19 19:59 12/20/18 20:02 Dexamethasone Sodium Phosphate (Decadron 4mg/ml vial) 4 mg BID IVP 12/18/18 09:00 01/17/19 08:59 12/21/18 09:20 Dextrose/Sodium Chloride 1,000 ml @ 75 mls/hr [id number] IV 12/17/18 20:00 01/16/19 19:59 12/21/18 04:03 Dopamine HCl/ Dextrose 250 ml @ 0 mls/hr Q24H IV 12/17/18 20:55 01/16/19 20:54 12/17/18 20:55 Fentanyl Citrate 1000 mcg/Sodium Chloride 100 ml @ 0 mls/hr Q24H IV 12/19/18 20:00 12/26/18 19:59 12/21/18 11:22 Ipratropium [place] (Atrovent) 500 mcg Q4H PRN HHN Shortness of Breath 12/18/18 14:15 12/23/18 14:14 Ipratropium [place] (Atrovent) 500 mcg Q6HRT HHN 12/18/18 19:00 12/23/18 18:59 12/21/18 12:56 Norepinephrine Bitartrate 4 mg/ Dextrose 250 ml @ 0 mls/hr Q24H IV 12/18/18 15:00 01/17/19 14:59 12/18/18 21:34 Oxacillin Sodium 2 gm/Sodium Chloride 110 ml @ 220 mls/hr EVERY 6 HOURS IVPB 12/20/18 16:30 12/27/18 16:29 12/21/18 11:20 Pantoprazole (Protonix) 40 mg EVERY 12 HOURS IVP 12/18/18 21:00 01/17/19 20:59 12/21/18 09:26 Piperacillin Sod/ Tazobactam Sod 3.375 gm/Dextrose 110 ml @ 27.5 mls/hr EVERY 8 HOURS IVPB 12/17/18 22:00 12/28/18 21:59 12/21/18 14:18 Sodium Chloride 500 ml @ 999 mls/hr Q31M PRN IV For hypotension 12/20/18 11:45 01/19/19 11:44 12/21/18 01:36 Tammy Rob M.D. Dec 21, 2018 15:33
--- NOTE | 2018-12-21 16:46 | Pulmonolgy Critical Care Note ---
Critical Care - Asmt/Plan Assessment/Plan: Pulmonary Progress Note Critical Care - Asmt/Plan Problems: (1) Gram positive sepsis Assessment & Plan: S aureus (2) Severe sepsis (3) Acute respiratory failure - advance ETT (4) NSTEMI (non-ST elevated myocardial infarction) (5) CONSTANCE (acute kidney injury) (6) Acute aspiration pneumonia (7) Lung cancer metastatic to brain (8) CHF (congestive heart failure) (9) Consult surgery for Left Apical Pneumothorax Respiratory: adjust tidal volume - as needed, monitor respiratory rate, adjust FIO2 - Titrate down to keep SaO2 > 92%, continue PEEP 5, ABG, weaning trial - once O2 needs down and off hemodynamically stable Cardiac: continue pressors - titrate NE for MAP > 60 , continue to monitor HR/ BP Renal: keep IV fluid, check electrolytes Infectious Disease: check cultures, continue antibiotics - per ID Gastrointestinal: start feedings Endocrine: monitor blood sugar Hematologic: monitor H/H Neurologic: keep patient comfortable Prophylaxis: Protonix, other - Eliquis Disposition: keep in ICU Time Spent (Minutes): 40 Notes Reviewed: manager sterile, cardio, ID Discussed with: nurses, consultants, other - DNAR Critical Care - Objective Vital Signs Noted Status: sedated Condition: critical HEENT: other - intubted, OGT Lungs: clear Heart: HR/BP unstable Abdomen: soft, non-tender, active bowel sounds Extremities: no C/C/E Micro: Microbiology Date/Time Source Procedure Growth Status 12/17/18 15:40 Blood Blood Culture - Preliminary Staphylococcus Aureus Resulted 12/17/18 15:25 Blood Blood Culture - Preliminary Staphylococcus Aureus Resulted 12/17/18 17:30 Nasal Nares Influenza Types A,B Antigen (JAYCOB) - Final Complete 12/17/18 17:02 Urine,Clean Catch Urine Culture - Preliminary NO GROWTH AFTER 24 HOURS Resulted Blood Sugars: BS controlled Critical Care - Subjective ROS Limited/Unobtainable: Yes ICU Day: 3 Intubation Day: 3 Interval Events: NE 2 Sedated WCt better S/P PICC Condition: stable IV Access: PICC EKG Rhythm: Sinus Rhythm FI02: 70 Vent Support Breath Rate: 24 Vent Support Mode: AC Vent Tidal Volume: 600 Sputum Amount: Small PEEP: 5.0 PIP: 23 Fluids: D51/2NS@75 Drips: NE2 I&O: Subjective: HAWA ET-Tube: 7.5 ET Position: 21 Labs: Laboratory Tests Test 12/18/18 14:48 12/18/18 15:20 12/18/18 18:50 12/19/18 05:55 Arterial Blood pH 7.280 (7.350-7.450) Arterial Blood Partial Pressure CO2 46.7 mmHg (35.0-45.0) H Arterial Blood Partial Pressure O2 95.4 mmHg (75.0-100.0) Arterial Blood HCO3 21.5 mmol/L (22.0-26.0) L Arterial Blood Oxygen Saturation 95.6 % (95-100) Arterial Blood Base Excess -5.3 (-2-2) L Damion Test Positive Lactic Acid Level 2.70 mmol/L (0.4-2.0) H 3.30 mmol/L (0.66-2.22) H Troponin I 0.087 ng/mL (0.000-0.056) Free Thyroxine 0.93 NG/DL (0.76-1.46) Triiodothyonine (T3) 47 ng/dL (71-180) L Free Triiodothyronine < 0.5 pg/mL (2.3-4.2) L Triiodothyronine (T3) Uptake 35 % (24-39) White Blood Count 10.0 K/UL (4.8-10.8) # Red Blood Count 3.68 M/UL (4.70-6.10) L Hemoglobin 11.6 G/DL (14.2-18.0) L Hematocrit 36.0 % (42.0-52.0) L Mean Corpuscular Volume 98 FL (80-99) Mean Corpuscular Hemoglobin 31.5 PG (27.0-31.0) H Mean Corpuscular Hemoglobin Concent 32.3 G/DL (32.0-36.0) Red Cell Distribution Width 12.0 % (11.6-14.8) Platelet Count 172 K/UL (150-450) Mean Platelet Volume 8.6 FL (6.5-10.1) Neutrophils (%) (Auto) % (45.0-75.0) Lymphocytes (%) (Auto) % (20.0-45.0) Monocytes (%) (Auto) % (1.0-10.0) Eosinophils (%) (Auto) % (0.0-3.0) Basophils (%) (Auto) % (0.0-2.0) Neutrophils % (Manual) Pending Lymphocytes % (Manual) Pending Platelet Estimate Pending Platelet Morphology Pending Sodium Level 144 MMOL/L (136-145) Potassium Level 3.9 MMOL/L (3.5-5.1) Chloride Level 111 MMOL/L (98-107) H Carbon Dioxide Level 21 MMOL/L (21-32) Anion Gap 13 mmol/L (5-15) Blood Urea Nitrogen 52 mg/dL (7-18) H Creatinine 1.5 MG/DL (0.55-1.30) H Estimat Glomerular Filtration Rate mL/min (>60) Glucose Level 150 MG/DL (74-106) H Calcium Level 8.5 MG/DL (8.5-10.1) Critical Care - Objective Last 24 Hour Vital Signs Date Time Temp Pulse Resp B/P (MAP) Pulse Ox O2 Delivery O2 Flow Rate FiO2 12/21/18 16:30 74 24 95/74 (81) 98 12/21/18 16:00 Mechanical Ventilator 12/21/18 16:00 40 12/21/18 16:00 98.2 75 24 96/55 (69) 97 12/21/18 15:00 79 23 77/49 (58) 97 12/21/18 14:42 85 24 40 12/21/18 14:00 83 24 114/59 (77) 97 12/21/18 13:04 92 24 100 Mechanical Ventilator 40 12/21/18 13:00 83 24 98/56 (70) 97 12/21/18 12:56 92 24 40 12/21/18 12:56 92 24 100 Mechanical Ventilator 40 12/21/18 12:00 40 12/21/18 12:00 91 12/21/18 12:00 Mechanical Ventilator 12/21/18 12:00 97.9 12/21/18 12:00 91 21 98/67 (77) 96 12/21/18 11:22 23 Mechanical Ventilator 12/21/18 11:00 94 32 116/68 (84) 94 12/21/18 10:42 96 25 40 12/21/18 10:00 85 13 92/58 (69) 94 12/21/18 09:00 98 30 126/56 (79) 95 12/21/18 08:51 93 29 40 12/21/18 08:00 40 12/21/18 08:00 Mechanical Ventilator 12/21/18 08:00 97.8 99 21 119/58 (78) 93 12/21/18 08:00 100 12/21/18 07:19 95 25 100 Mechanical Ventilator 40 12/21/18 07:10 99 26 100 Mechanical Ventilator 40 12/21/18 07:10 97 26 40 12/21/18 07:00 98 23 103/59 (74) 100 12/21/18 07:00 26 Mechanical Ventilator 40 12/21/18 06:30 73 18 91/61 (71) 97 12/21/18 06:00 18 Mechanical Ventilator 40 12/21/18 06:00 76 18 99/82 (88) 97 12/21/18 05:30 74 22 98/64 (75) 99 12/21/18 05:00 78 17 117/61 (79) 99 12/21/18 05:00 18 Mechanical Ventilator 40 12/21/18 04:56 76 29 40 12/21/18 04:30 77 17 116/66 (83) 98 12/21/18 04:00 40 12/21/18 04:00 97.6 76 12 132/84 (100) 99 12/21/18 04:00 20 Mechanical Ventilator 40 12/21/18 04:00 Mechanical Ventilator 12/21/18 03:30 91 22 114/72 (86) 96 12/21/18 03:17 73 12/21/18 03:07 68 27 40 12/21/18 03:00 72 22 84/45 (58) 99 12/21/18 03:00 22 Mechanical Ventilator 40 12/21/18 02:30 71 21 84/57 (66) 99 12/21/18 02:00 22 Mechanical Ventilator 40 12/21/18 02:00 71 22 78/35 (49) 98 12/21/18 01:40 82 27 100 Mechanical Ventilator 40 12/21/18 01:34 20 Mechanical Ventilator 40 12/21/18 01:31 77 27 99 Mechanical Ventilator 40 12/21/18 01:30 74 21 97/59 (72) 97 12/21/18 01:28 81 28 40 12/21/18 01:00 76 22 81/55 (64) 95 12/21/18 00:30 82 23 114/89 (97) 95 12/21/18 00:00 97.6 89 22 136/79 (98) 100 12/21/18 00:00 40 12/21/18 00:00 Mechanical Ventilator 12/21/18 00:00 89 12/20/18 23:30 74 22 122/48 (72) 100 12/20/18 23:07 91 27 40 12/20/18 23:00 67 21 92/58 (69) 100 12/20/18 22:30 67 21 105/41 (62) 100 12/20/18 22:00 67 16 103/55 (71) 100 12/20/18 21:30 67 16 89/58 (68) 100 12/20/18 21:00 67 16 86/53 (64) 99 12/20/18 20:59 69 28 40 12/20/18 20:55 103/55 12/20/18 20:30 74 12 77/54 (62) 97 12/20/18 20:00 97.5 77 11 89/56 (67) 97 12/20/18 20:00 40 12/20/18 20:00 Mechanical Ventilator 12/20/18 19:49 81 12/20/18 19:30 76 14 84/52 (63) 97 12/20/18 19:10 79 26 99 Mechanical Ventilator 40 12/20/18 19:03 80 28 99 Mechanical Ventilator 40 12/20/18 19:00 82 21 91/65 (74) 100 12/20/18 18:59 84 29 40 12/20/18 18:00 95 22 129/65 (86) 97 12/20/18 18:00 22 Mechanical Ventilator 12/20/18 17:12 64 28 40 12/20/18 17:00 21 Mechanical Ventilator 12/20/18 17:00 101 26 142/74 (96) 93 Micro: Microbiology Date/Time Source Procedure Growth Status 12/20/18 17:30 Blood Blood Culture - Preliminary Resulted 12/20/18 17:15 Blood Blood Culture - Preliminary Resulted 12/19/18 14:10 Blood Blood Culture - Preliminary Staphylococcus Aureus Resulted 12/19/18 14:00 Blood Blood Culture - Preliminary Staphylococcus Aureus Resulted Critical Care - Subjective ROS Limited/Unobtainable: Yes Condition: stable FI02: 40 Vent Support Breath Rate: 24 Vent Support Mode: AC Vent Tidal Volume: 600 Sputum Amount: Small PEEP: 5.0 PIP: 29 I&O: Intake and Output 12/20/18 12/21/18 19:00 07:00 Intake Total 2834.5 ml 2284.0 ml Output Total 670 ml 635 ml Balance 2164.5 ml 1649.0 ml Intake Oral 0 ml 0 ml IV Total 2834.5 ml 2284.0 ml Output Urine Total 670 ml 635 ml ET-Tube: 7.5 ET Position: 21 Real Landa MD Dec 21, 2018 16:46
--- NOTE | 2018-12-21 16:57 | NUR ---
NURSE NOTES: pt at bedside. was updated on pt status.
--- NOTE | 2018-12-21 18:00 | NUR ---
NURSE NOTES: pt increased agitation and response, HR increase and biting on vent tubing fentanyl 90mcg/min increased for pt comfort.
--- NOTE | 2018-12-21 19:05 | NUR ---
RESPIRATORY NOTE: Received pt on AC 24, 600VT, 40%, PEEP +5. Pt intubated w/ ETT 7.5 @ 24cm lipline, secured by anchorfast. Pt asleep, once in a while agitated. B/S sander. rhonchi, sxn small amounts of thick, brown/yellow ecretion with occasional red specks/blood. Both hands on soft restraints to prevent pt from self-extubation. Vent plugged into red outlet, ambuag at bedside. Pt in no apparent distress at this time. Will continue to monitor pt.
--- NOTE | 2018-12-21 19:26 | NUR ---
HAND-OFF: Report given to Hero.pt in no acute distress.
--- NOTE | 2018-12-21 19:45 | NUR ---
NURSE NOTES: PATIENT RESPONSE TO VOICE, LIGHT SEDATED, RASS -2, ON ETT AC 24/TV 600/FIO2 40%/PEEP 5, O2 SATURATION 98% NOTED, OGT INTACT AND PATENT, NPO STATUS, ABDOMEN SOFT, FLAT, HYPOACTIVE BOWEL SOUND TO 4 QUADRANTS, F/C INTACT AND PATENT, YELLOW URINE OUTED, PICC LINE TO LEFT UPPER ARM, INTACT AND PATENT, ONGOING D5W 0.45% NS AT 75ML/HR, FENTANYL DRIP 90MCG/HR VIA PICC LINE, PERIPHERAL LINE TO RIGHT FORE ARM AND LEFT AC, OCCLUDED STATUS, 2 POINT SOFT RESTRAINTS FOR SAFETY, MADE LOWER BED POSITION, WILL CONTINUE TO MONITOR.
[2018-12-21] MEDS: Dyna-Hex 2% Top Sol 2oz TOPIC SCH (19:59)
--- NOTE | 2018-12-21 20:08 | Cardiology Progress Note ---
Assessment/Plan Assessment/Plan 1. Sinus tachycardia, resolved, most likely secondary to hypoxemia/lung CA. 2. History of coronary artery disease, status post coronary artery bypass graft surgery. 12-lead electrocardiogram does not show any ischemic changes despite the fact that the troponin I levels are elevated. The patient is not a candidate for ischemic workup given metastatic lung cancer conservative management. I do not believe that the patient would benefit from anticoagulation therapy, which may put the patient in increased risk of bleeding. 3. Acute respiratory failure, hypoxic hypercarbic respiratory failure due to possible acute exacerbation of COPD. 4. Non-sustained ventricular tachycardia, magnesium sulfate given, check Mg level and keep >2.5, keep K >4.0 5. 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 6. History of CVA. 7. History of COPD. Subjective Subjective Sinus rhythm at rate of 89. Intubated with FiO2 of 40%. Objective Last 24 Hour Vital Signs Date Time Temp Pulse Resp B/P (MAP) Pulse Ox O2 Delivery O2 Flow Rate FiO2 12/21/18 19:13 89 24 100 Mechanical Ventilator 40 12/21/18 19:03 88 24 97 Mechanical Ventilator 40 12/21/18 19:02 88 24 40 12/21/18 18:30 89 22 121/78 (92) 96 12/21/18 18:00 90 20 72/51 (58) 96 12/21/18 18:00 Mechanical Ventilator 12/21/18 17:00 114 24 95/74 (81) 98 12/21/18 16:44 88 24 40 12/21/18 16:30 74 24 95/74 (81) 98 12/21/18 16:00 Mechanical Ventilator 12/21/18 16:00 40 12/21/18 16:00 98.2 75 24 96/55 (69) 97 12/21/18 16:00 Mechanical Ventilator 12/21/18 16:00 104 12/21/18 15:00 Mechanical Ventilator 12/21/18 15:00 79 23 77/49 (58) 97 12/21/18 14:42 85 24 40 12/21/18 14:18 Mechanical Ventilator 12/21/18 14:00 83 24 114/59 (77) 97 12/21/18 13:04 92 24 100 Mechanical Ventilator 40 12/21/18 13:00 Mechanical Ventilator 12/21/18 13:00 83 24 98/56 (70) 97 12/21/18 12:56 92 24 40 12/21/18 12:56 92 24 100 Mechanical Ventilator 40 12/21/18 12:00 40 12/21/18 12:00 91 12/21/18 12:00 Mechanical Ventilator 12/21/18 12:00 97.9 12/21/18 12:00 Mechanical Ventilator 12/21/18 12:00 91 21 98/67 (77) 96 12/21/18 11:22 23 Mechanical Ventilator 12/21/18 11:20 Mechanical Ventilator 12/21/18 11:00 94 32 116/68 (84) 94 12/21/18 11:00 Mechanical Ventilator 12/21/18 10:42 96 25 40 12/21/18 10:00 Mechanical Ventilator 12/21/18 10:00 85 13 92/58 (69) 94 12/21/18 09:00 98 30 126/56 (79) 95 12/21/18 09:00 Mechanical Ventilator 12/21/18 08:51 93 29 40 12/21/18 08:00 40 12/21/18 08:00 Mechanical Ventilator 12/21/18 08:00 Mechanical Ventilator 12/21/18 08:00 97.8 99 21 119/58 (78) 93 12/21/18 08:00 100 12/21/18 07:19 95 25 100 Mechanical Ventilator 40 12/21/18 07:10 99 26 100 Mechanical Ventilator 40 12/21/18 07:10 97 26 40 12/21/18 07:00 98 23 103/59 (74) 100 12/21/18 07:00 26 Mechanical Ventilator 40 12/21/18 06:30 73 18 91/61 (71) 97 12/21/18 06:00 18 Mechanical Ventilator 40 12/21/18 06:00 76 18 99/82 (88) 97 12/21/18 05:30 74 22 98/64 (75) 99 12/21/18 05:00 78 17 117/61 (79) 99 12/21/18 05:00 18 Mechanical Ventilator 40 12/21/18 04:56 76 29 40 12/21/18 04:30 77 17 116/66 (83) 98 12/21/18 04:00 40 12/21/18 04:00 97.6 76 12 132/84 (100) 99 12/21/18 04:00 20 Mechanical Ventilator 40 12/21/18 04:00 Mechanical Ventilator 12/21/18 03:30 91 22 114/72 (86) 96 12/21/18 03:17 73 12/21/18 03:07 68 27 40 12/21/18 03:00 72 22 84/45 (58) 99 12/21/18 03:00 22 Mechanical Ventilator 40 12/21/18 02:30 71 21 84/57 (66) 99 12/21/18 02:00 22 Mechanical Ventilator 40 12/21/18 02:00 71 22 78/35 (49) 98 12/21/18 01:40 82 27 100 Mechanical Ventilator 40 12/21/18 01:34 20 Mechanical Ventilator 40 12/21/18 01:31 77 27 99 Mechanical Ventilator 40 12/21/18 01:30 74 21 97/59 (72) 97 12/21/18 01:28 81 28 40 12/21/18 01:00 76 22 81/55 (64) 95 12/21/18 00:30 82 23 114/89 (97) 95 12/21/18 00:00 97.6 89 22 136/79 (98) 100 12/21/18 00:00 40 12/21/18 00:00 Mechanical Ventilator 12/21/18 00:00 89 12/20/18 23:30 74 22 122/48 (72) 100 12/20/18 23:07 91 27 40 12/20/18 23:00 67 21 92/58 (69) 100 12/20/18 22:30 67 21 105/41 (62) 100 12/20/18 22:00 67 16 103/55 (71) 100 12/20/18 21:30 67 16 89/58 (68) 100 12/20/18 21:00 67 16 86/53 (64) 99 12/20/18 20:59 69 28 40 12/20/18 20:55 103/55 12/20/18 20:30 74 12 77/54 (62) 97 Intake and Output 12/20/18 12/21/18 18:59 06:59 Intake Total 2655.0 ml 2473.5 ml Output Total 635 ml 685 ml Balance 2020.0 ml 1788.5 ml Intake Oral 0 ml 0 ml IV Total 2655.0 ml 2473.5 ml Output Urine Total 635 ml 685 ml 2D Echo: Global LV HK with LVEF 25%, Mild LAE, RVSP 14 mmHg, Grade I LVDD Laboratory Tests Test 12/21/18 14:10 White Blood Count 14.5 K/UL (4.8-10.8) H Red Blood Count 3.85 M/UL (4.70-6.10) L Hemoglobin 12.3 G/DL (14.2-18.0) L Hematocrit 37.1 % (42.0-52.0) L Mean Corpuscular Volume 96 FL (80-99) Mean Corpuscular Hemoglobin 31.9 PG (27.0-31.0) H Mean Corpuscular Hemoglobin Concent 33.1 G/DL (32.0-36.0) Red Cell Distribution Width 12.0 % (11.6-14.8) Platelet Count 134 K/UL (150-450) L Mean Platelet Volume 11.0 FL (6.5-10.1) H Neutrophils (%) (Auto) % (45.0-75.0) Lymphocytes (%) (Auto) % (20.0-45.0) Monocytes (%) (Auto) % (1.0-10.0) Eosinophils (%) (Auto) % (0.0-3.0) Basophils (%) (Auto) % (0.0-2.0) Differential Total Cells Counted 100 Neutrophils % (Manual) 89 % (45-75) H Lymphocytes % (Manual) 3 % (20-45) L Monocytes % (Manual) 0 % (1-10) L Eosinophils % (Manual) 0 % (0-3) Basophils % (Manual) 0 % (0-2) Band Neutrophils 8 % (0-8) Platelet Estimate Decreased L Platelet Morphology Normal Polychromasia 1+ Macrocytosis 1+ Sodium Level 145 MMOL/L (136-145) Potassium Level 3.6 MMOL/L (3.5-5.1) Chloride Level 112 MMOL/L (98-107) H Carbon Dioxide Level 21 MMOL/L (21-32) Anion Gap 12 mmol/L (5-15) Blood Urea Nitrogen 42 mg/dL (7-18) H Creatinine 1.1 MG/DL (0.55-1.30) Estimat Glomerular Filtration Rate mL/min (>60) Glucose Level 140 MG/DL (74-106) H Calcium Level 7.9 MG/DL (8.5-10.1) L Microbiology Date/Time Source Procedure Growth Status 12/20/18 17:30 Blood Blood Culture - Preliminary Resulted 12/20/18 17:15 Blood Blood Culture - Preliminary Resulted 12/19/18 14:10 Blood Blood Culture - Preliminary Staphylococcus Aureus Resulted 12/19/18 14:00 Blood Blood Culture - Preliminary Staphylococcus Aureus Resulted Objective HEENT: Atraumatic and normocephalic. Anicteric. Pupils are equal, round, and reactive to light and accommodation. Conjunctival pallor. NECK: JVP cannot be assessed due to positive inspiratory pressure of the ventilator. No carotid bruit. Carotid upstroke is 2+ bilaterally. CARDIOVASCULAR: Normal S1, S2. Regular rate and rhythm. I do not hear murmurs, gallops, or rubs. LUNGS: Diminished breath sounds in both lungs. ABDOMEN: Soft, nontender, and nondistended. No hepatosplenomegaly. Positive bowel sounds. EXTREMITIES: No evidence of edema, clubbing, or cyanosis. There is onychomycosis. Fred Holman MD Dec 21, 2018 20:08
[2018-12-21] MEDS: DOPamine 400mg/250ml 250 ML IV SCH (20:55)
--- NOTE | 2018-12-21 22:00 | NUR ---
NURSE NOTES: RELEASED RESTRAINTS AND REAPPLIED FOR SAFETY, WILL CONTINUE TO MONITOR.
--- NOTE | 2018-12-21 23:19 | Cardiology Progress Note ---
Assessment/Plan Assessment/Plan 1. Sinus tachycardia, resolved, most likely secondary to hypoxemia/lung CA. 2. History of coronary artery disease, status post coronary artery bypass graft surgery. 12-lead electrocardiogram does not show any ischemic changes despite the fact that the troponin I levels are elevated. The patient is not a candidate for ischemic workup given metastatic lung cancer conservative management. I do not believe that the patient would benefit from anticoagulation therapy, which may put the patient in increased risk of bleeding. 3. Acute respiratory failure, hypoxic hypercarbic respiratory failure due to possible acute exacerbation of COPD. 4. Non-sustained ventricular tachycardia, magnesium sulfate given, check Mg level and keep >2.5, keep K >4.0 5. 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 6. History of CVA. 7. History of COPD. Subjective Subjective Sinus rhythm at rate of 89. Intubated with FiO2 of 40%. Objective Last 24 Hour Vital Signs Date Time Temp Pulse Resp B/P (MAP) Pulse Ox O2 Delivery O2 Flow Rate FiO2 12/21/18 23:04 94 26 40 12/21/18 22:30 96 18 119/77 (91) 96 12/21/18 22:00 97 22 101/57 (72) 96 12/21/18 22:00 22 Mechanical Ventilator 40 12/21/18 21:30 91 22 129/89 (102) 96 12/21/18 21:28 22 Mechanical Ventilator 40 12/21/18 21:08 91 28 40 12/21/18 21:00 22 Mechanical Ventilator 40 12/21/18 21:00 92 22 101/59 (73) 98 12/21/18 20:30 89 22 119/75 (90) 98 12/21/18 20:00 98.0 88 22 121/78 (92) 97 12/21/18 20:00 22 Mechanical Ventilator 40 12/21/18 19:30 88 23 116/45 (68) 98 12/21/18 19:13 89 24 100 Mechanical Ventilator 40 12/21/18 19:03 88 24 97 Mechanical Ventilator 40 12/21/18 19:02 88 24 40 12/21/18 19:00 22 Mechanical Ventilator 40 12/21/18 19:00 88 22 99/35 (56) 96 12/21/18 18:30 89 22 121/78 (92) 96 12/21/18 18:00 90 20 72/51 (58) 96 12/21/18 18:00 Mechanical Ventilator 12/21/18 17:00 114 24 95/74 (81) 98 12/21/18 16:44 88 24 40 12/21/18 16:30 74 24 95/74 (81) 98 12/21/18 16:00 Mechanical Ventilator 12/21/18 16:00 40 12/21/18 16:00 98.2 75 24 96/55 (69) 97 12/21/18 16:00 Mechanical Ventilator 12/21/18 16:00 104 12/21/18 15:00 Mechanical Ventilator 12/21/18 15:00 79 23 77/49 (58) 97 12/21/18 14:42 85 24 40 12/21/18 14:18 Mechanical Ventilator 12/21/18 14:00 83 24 114/59 (77) 97 12/21/18 13:04 92 24 100 Mechanical Ventilator 40 12/21/18 13:00 Mechanical Ventilator 12/21/18 13:00 83 24 98/56 (70) 97 12/21/18 12:56 92 24 40 12/21/18 12:56 92 24 100 Mechanical Ventilator 40 12/21/18 12:00 40 12/21/18 12:00 91 12/21/18 12:00 Mechanical Ventilator 12/21/18 12:00 97.9 12/21/18 12:00 Mechanical Ventilator 12/21/18 12:00 91 21 98/67 (77) 96 12/21/18 11:22 23 Mechanical Ventilator 12/21/18 11:20 Mechanical Ventilator 12/21/18 11:00 94 32 116/68 (84) 94 12/21/18 11:00 Mechanical Ventilator 12/21/18 10:42 96 25 40 12/21/18 10:00 Mechanical Ventilator 12/21/18 10:00 85 13 92/58 (69) 94 12/21/18 09:00 98 30 126/56 (79) 95 12/21/18 09:00 Mechanical Ventilator 12/21/18 08:51 93 29 40 12/21/18 08:00 40 12/21/18 08:00 Mechanical Ventilator 12/21/18 08:00 Mechanical Ventilator 12/21/18 08:00 97.8 99 21 119/58 (78) 93 12/21/18 08:00 100 12/21/18 07:19 95 25 100 Mechanical Ventilator 40 12/21/18 07:10 99 26 100 Mechanical Ventilator 40 12/21/18 07:10 97 26 40 12/21/18 07:00 98 23 103/59 (74) 100 12/21/18 07:00 26 Mechanical Ventilator 40 12/21/18 06:30 73 18 91/61 (71) 97 12/21/18 06:00 18 Mechanical Ventilator 40 12/21/18 06:00 76 18 99/82 (88) 97 12/21/18 05:30 74 22 98/64 (75) 99 12/21/18 05:00 78 17 117/61 (79) 99 12/21/18 05:00 18 Mechanical Ventilator 40 12/21/18 04:56 76 29 40 12/21/18 04:30 77 17 116/66 (83) 98 12/21/18 04:00 40 12/21/18 04:00 97.6 76 12 132/84 (100) 99 12/21/18 04:00 20 Mechanical Ventilator 40 12/21/18 04:00 Mechanical Ventilator 12/21/18 03:30 91 22 114/72 (86) 96 12/21/18 03:17 73 12/21/18 03:07 68 27 40 12/21/18 03:00 72 22 84/45 (58) 99 12/21/18 03:00 22 Mechanical Ventilator 40 12/21/18 02:30 71 21 84/57 (66) 99 12/21/18 02:00 22 Mechanical Ventilator 40 12/21/18 02:00 71 22 78/35 (49) 98 12/21/18 01:40 82 27 100 Mechanical Ventilator 40 12/21/18 01:34 20 Mechanical Ventilator 40 12/21/18 01:31 77 27 99 Mechanical Ventilator 40 12/21/18 01:30 74 21 97/59 (72) 97 12/21/18 01:28 81 28 40 12/21/18 01:00 76 22 81/55 (64) 95 12/21/18 00:30 82 23 114/89 (97) 95 12/21/18 00:00 97.6 89 22 136/79 (98) 100 12/21/18 00:00 40 12/21/18 00:00 Mechanical Ventilator 12/21/18 00:00 89 12/20/18 23:30 74 22 122/48 (72) 100 Intake and Output 12/20/18 12/21/18 18:59 06:59 Intake Total 2655.0 ml 2473.5 ml Output Total 635 ml 685 ml Balance 2020.0 ml 1788.5 ml Intake Oral 0 ml 0 ml IV Total 2655.0 ml 2473.5 ml Output Urine Total 635 ml 685 ml Laboratory Tests Test 12/21/18 14:10 White Blood Count 14.5 K/UL (4.8-10.8) H Red Blood Count 3.85 M/UL (4.70-6.10) L Hemoglobin 12.3 G/DL (14.2-18.0) L Hematocrit 37.1 % (42.0-52.0) L Mean Corpuscular Volume 96 FL (80-99) Mean Corpuscular Hemoglobin 31.9 PG (27.0-31.0) H Mean Corpuscular Hemoglobin Concent 33.1 G/DL (32.0-36.0) Red Cell Distribution Width 12.0 % (11.6-14.8) Platelet Count 134 K/UL (150-450) L Mean Platelet Volume 11.0 FL (6.5-10.1) H Neutrophils (%) (Auto) % (45.0-75.0) Lymphocytes (%) (Auto) % (20.0-45.0) Monocytes (%) (Auto) % (1.0-10.0) Eosinophils (%) (Auto) % (0.0-3.0) Basophils (%) (Auto) % (0.0-2.0) Differential Total Cells Counted 100 Neutrophils % (Manual) 89 % (45-75) H Lymphocytes % (Manual) 3 % (20-45) L Monocytes % (Manual) 0 % (1-10) L Eosinophils % (Manual) 0 % (0-3) Basophils % (Manual) 0 % (0-2) Band Neutrophils 8 % (0-8) Platelet Estimate Decreased L Platelet Morphology Normal Polychromasia 1+ Macrocytosis 1+ Sodium Level 145 MMOL/L (136-145) Potassium Level 3.6 MMOL/L (3.5-5.1) Chloride Level 112 MMOL/L (98-107) H Carbon Dioxide Level 21 MMOL/L (21-32) Anion Gap 12 mmol/L (5-15) Blood Urea Nitrogen 42 mg/dL (7-18) H Creatinine 1.1 MG/DL (0.55-1.30) Estimat Glomerular Filtration Rate mL/min (>60) Glucose Level 140 MG/DL (74-106) H Calcium Level 7.9 MG/DL (8.5-10.1) L Microbiology Date/Time Source Procedure Growth Status 12/20/18 17:30 Blood Blood Culture - Preliminary Resulted 12/20/18 17:15 Blood Blood Culture - Preliminary Resulted 12/19/18 14:10 Blood Blood Culture - Preliminary Staphylococcus Aureus Resulted 12/19/18 14:00 Blood Blood Culture - Preliminary Staphylococcus Aureus Resulted Objective HEENT: Atraumatic and normocephalic. Anicteric. Pupils are equal, round, and reactive to light and accommodation. Conjunctival pallor. NECK: JVP cannot be assessed due to positive inspiratory pressure of the ventilator. No carotid bruit. Carotid upstroke is 2+ bilaterally. CARDIOVASCULAR: Normal S1, S2. Regular rate and rhythm. I do not hear murmurs, gallops, or rubs. LUNGS: Diminished breath sounds in both lungs. ABDOMEN: Soft, nontender, and nondistended. No hepatosplenomegaly. Positive bowel sounds. EXTREMITIES: No evidence of edema, clubbing, or cyanosis. There is onychomycosis. Fred Holman MD Dec 21, 2018 23:19
[2018-12-22] VITALS (35 sets, daily range): BP systolic 80–140; BP diastolic 44–111
--- NOTE | 2018-12-22 | NUR ---
NURSE NOTES: NO PAIN OR DISTRESS NOTED, RASS SCORE -2 STATUS, WILL CONTINUE PLAN OF CARE.
[2018-12-22] MEDS: Oxacillin 2 GM in NS 110 ML IVPB SCH ×6 (00:49→21:05)
[2018-12-22] MEDS: Ipratropium 0.02% Inh Soln 2.5ml UD HHN SCH ×4 (01:10→19:16)
--- NOTE | 2018-12-22 02:00 | NUR ---
NURSE NOTES: ORAL CARE AND REPOSITIONED.
--- NOTE | 2018-12-22 04:40 | NUR ---
NURSE NOTES: REMOVED PICC LINE ORDERED. MORNING CARE WAS DONE.
[2018-12-22] MEDS: Piperacillin/Tazobactam 3.375 GM in D5W 110 ML IVPB SCH ×3 (05:30→23:42)
[2018-12-22] MEDS: D5 1/2NS 1,000 ML IV SCH ×2 (05:31→19:16)
--- NOTE | 2018-12-22 06:21 | NUR ---
NURSE NOTES: NO ACUTE DISTRESS NOTED AT THIS SHIFT.
--- NOTE | 2018-12-22 07:06 | NUR ---
HAND-OFF: Report given to ILIANA/WESLEY.
--- NOTE | 2018-12-22 07:15 | NUR ---
NURSE NOTES: Report received from Hero RN. Pt awake, opens eyes, nonverbal and does not follow commands. Pt connected to awake overnight monitor, ST 100s. Pt orally intubated ETT 7.5, 24 cm lip line, AC 24, TV 600, fiO2 40%, PEEP 5. Pt OG tube noted, clamped. Stoddard noted draining clear, yellow urine to gravity. 20G L and R with Fentanyl drip and maintenance IVF running. Bilateral wrist restraints noted and intact. Safety measures in place with bed locked and in lowest position, side rails x3 up and bed alarm on. Will continue to monitor and continue plan of care.
--- NOTE | 2018-12-22 07:16 | NUR ---
RESPIRATORY NOTE: Patient received mechanically ventilated on PB 840 with current ordered vent settings. Patient is orally intubated with size 7.5 ETT tube with 24cm at the lip and it is secured with an anchor fast. There are bilateral coarse breath sounds present upon auscultation and small, thick, yellow/white secretions were suctioned without incident. There is an ambu bag available at the bedside and the vent is connected to a red outlet. Vent alarms are functional and audible. Will continue to monitor patient.
[2018-12-22] MEDS: Dexamethasone 4mg/ml vial IVP SCH ×2 (08:33→17:23)
[2018-12-22] MEDS: Pantoprazole Inj IVP SCH ×2 (08:33→21:04)
--- NOTE | 2018-12-22 10:25 | NUR ---
NURSE NOTES: Turned and repositioned pt. Oral care done. Will continue to monitor.
--- NOTE | 2018-12-22 10:35 | NUR ---
RD ASSESSMENT & RECOMMENDATIONS SEE CARE ACTIVITY FOR COMPLETE ASSESSMENT DAILY ESTIMATED NEEDS: Needs based on Cancer, underweight, critical care 56.8kg 25-30 kcals/kg 2169-4515 total kcals 1.2-2 g protein/kg 68-114 g total protein 25-30 mL/kg 8280-3489 total fluid mLs NUTRITION DIAGNOSIS: Swallowing difficulty r/t respiratory status as evidenced by pt orally intubated, w/ OGT, NPO. CURRENT TF:NPO ENTERAL NUTRITION RECOMMENDATIONS: Vital AF 1.2 @55ml /hr x24 hrs to provide 1320ml, 1584 kcal, 99g prot, 1071ml free H2O - Rec to start Vital AF 1.2 @25ml /hr for 6 hrs, advance as tolerated 10ml every 4-6 hrs to goal - Flush per MD/ HOB over 30 degrees ADDITIONAL RECOMMENDATIONS: 1) Monitor lytes daily on TF/ replete as needed 2) SSI as needed for glycemic control 3) Weekly weights on calibrated bed scale 4) Feed w/ hemodynamic stability; otherwise trophic feeds for gut integrity
--- NOTE | 2018-12-22 11:38 | General Progress Note ---
Assessment/Plan Assessment/Plan S, O: limited eval. Patient Intubated. Vent setting reviewed. Stoddard inserted. Peripheral line removed PHYSICAL EXAMINATION: HEAD AND NECK: Positive for intubation, limited source of evaluation. Vent settings were reviewed. Atraumatic and normocephalic. CHEST: Diffuse bronchial breathing sounds. Positive for diffuse crackles.HEART: S1 and S2. Tachyarrhythmia. ABDOMEN: Soft. No organomegaly.MUSCULOSKELETAL: Atrophied musculature, limited evaluation. The patient is not following compounds, sedated. Imaging: CT of the Head reviewed, non diagnostic ASSESSMENT AND PLAN: 1. Vent-dependent respiratory failure. 2. Septic shock: Gr + 3. Healthcare-associated pneumonia. 3. Non-ST myocardial infarction. Abnormal Trop 4. Metastatic lung CA. 5. Left sided small PNTX 5. GI and DVT prophylaxes. PLAN OF CARE: 1. stable leukocyosis 3. Grave prognosis. 4. Infectious Disease, Pulmonary, and Cardiology Notes are reviewed 5. On pressor and NS Bolus as PRN 6. Left sided small PNTX , will monitor , if worsen will proceed with Chest-T Vent management per Pulmonary service Recheck CXR Subjective Allergies: Coded Allergies: No Known Allergies (Unverified , 12/17/18) Objective Last 24 Hour Vital Signs Date Time Temp Pulse Resp B/P (MAP) Pulse Ox O2 Delivery O2 Flow Rate FiO2 12/22/18 11:20 26 Mechanical Ventilator 12/22/18 11:00 105 25 113/76 (88) 97 12/22/18 10:00 103 17 100/56 (71) 94 12/22/18 09:00 108 24 84/60 (68) 94 12/22/18 08:46 112 31 40 12/22/18 08:30 116 28 140/104 (116) 94 12/22/18 08:00 Mechanical Ventilator 12/22/18 08:00 97.0 103 20 131/111 (118) 95 12/22/18 08:00 107 12/22/18 08:00 40 12/22/18 07:38 102 22 98 Mechanical Ventilator 40 12/22/18 07:28 104 25 95 Mechanical Ventilator 40 12/22/18 07:12 104 25 40 12/22/18 07:00 17 Mechanical Ventilator 40 12/22/18 07:00 104 17 98/77 (84) 95 12/22/18 06:00 19 Mechanical Ventilator 40 12/22/18 06:00 104 19 104/69 (81) 95 12/22/18 05:30 104 26 83/47 (59) 94 12/22/18 05:06 98 34 40 12/22/18 05:00 107 26 125/108 (114) 93 12/22/18 05:00 26 Mechanical Ventilator 40 12/22/18 04:30 109 20 135/76 (95) 95 12/22/18 04:00 107 12/22/18 04:00 40 12/22/18 04:00 Mechanical Ventilator 12/22/18 04:00 24 Mechanical Ventilator 40 12/22/18 04:00 97.6 107 24 118/83 (95) 96 12/22/18 03:30 107 22 113/58 (76) 96 12/22/18 03:02 104 30 40 12/22/18 03:00 97 22 99/50 (66) 96 12/22/18 03:00 22 Mechanical Ventilator 40 12/22/18 02:30 103 21 121/92 (102) 96 12/22/18 02:00 25 Mechanical Ventilator 40 12/22/18 02:00 97 25 122/78 (93) 96 12/22/18 01:30 91 21 107/64 (78) 99 12/22/18 01:20 99 24 98 Mechanical Ventilator 40 12/22/18 01:10 81 26 40 12/22/18 01:10 81 26 97 Mechanical Ventilator 40 12/22/18 01:00 84 22 80/63 (69) 96 12/22/18 01:00 22 40 12/22/18 00:30 83 23 86/47 (60) 96 12/22/18 00:00 40 12/22/18 00:00 98.2 82 24 98/80 (86) 98 12/22/18 00:00 Mechanical Ventilator 12/22/18 00:00 24 Mechanical Ventilator 40 12/21/18 23:04 94 26 40 12/21/18 23:00 23 Mechanical Ventilator 40 12/21/18 23:00 92 23 96/54 (68) 97 12/21/18 22:30 96 18 119/77 (91) 96 12/21/18 22:00 97 22 101/57 (72) 96 12/21/18 22:00 22 Mechanical Ventilator 40 12/21/18 21:30 91 22 129/89 (102) 96 12/21/18 21:28 22 Mechanical Ventilator 40 12/21/18 21:08 91 28 40 12/21/18 21:00 22 Mechanical Ventilator 40 12/21/18 21:00 92 22 101/59 (73) 98 12/21/18 20:55 101/59 12/21/18 20:30 89 22 119/75 (90) 98 12/21/18 20:00 40 12/21/18 20:00 98.0 88 22 121/78 (92) 97 12/21/18 20:00 22 Mechanical Ventilator 40 12/21/18 20:00 88 12/21/18 20:00 Mechanical Ventilator 12/21/18 19:30 88 23 116/45 (68) 98 12/21/18 19:13 89 24 100 Mechanical Ventilator 40 12/21/18 19:03 88 24 97 Mechanical Ventilator 40 12/21/18 19:02 88 24 40 12/21/18 19:00 22 Mechanical Ventilator 40 12/21/18 19:00 88 22 99/35 (56) 96 12/21/18 18:30 89 22 121/78 (92) 96 12/21/18 18:00 90 20 72/51 (58) 96 12/21/18 18:00 Mechanical Ventilator 12/21/18 17:00 114 24 95/74 (81) 98 12/21/18 16:44 88 24 40 12/21/18 16:30 74 24 95/74 (81) 98 12/21/18 16:00 Mechanical Ventilator 12/21/18 16:00 40 12/21/18 16:00 98.2 75 24 96/55 (69) 97 12/21/18 16:00 Mechanical Ventilator 12/21/18 16:00 104 12/21/18 15:00 Mechanical Ventilator 12/21/18 15:00 79 23 77/49 (58) 97 12/21/18 14:42 85 24 40 12/21/18 14:18 Mechanical Ventilator 12/21/18 14:00 83 24 114/59 (77) 97 12/21/18 13:04 92 24 100 Mechanical Ventilator 40 12/21/18 13:00 Mechanical Ventilator 12/21/18 13:00 83 24 98/56 (70) 97 12/21/18 12:56 92 24 40 12/21/18 12:56 92 24 100 Mechanical Ventilator 40 12/21/18 12:00 40 12/21/18 12:00 91 12/21/18 12:00 Mechanical Ventilator 12/21/18 12:00 97.9 12/21/18 12:00 Mechanical Ventilator 12/21/18 12:00 91 21 98/67 (77) 96 Intake and Output 12/21/18 12/22/18 19:00 07:00 Intake Total 1241.5 ml 1989.5 ml Output Total 485 ml 690 ml Balance 756.5 ml 1299.5 ml Intake Oral 120 ml 0 ml IV Total 1121.5 ml 1989.5 ml Output Urine Total 485 ml 690 ml Laboratory Tests 12/21/18 14:10: White Blood Count 14.5H, Red Blood Count 3.85L, Hemoglobin 12.3L, Hematocrit 37.1L, Mean Corpuscular Volume 96, Mean Corpuscular Hemoglobin 31.9H, Mean Corpuscular Hemoglobin Concent 33.1, Red Cell Distribution Width 12.0, Platelet Count 134L, Mean Platelet Volume 11.0H, Neutrophils (%) (Auto) , Lymphocytes (% ) (Auto) , Monocytes (%) (Auto) , Eosinophils (%) (Auto) , Basophils (%) (Auto) , Differential Total Cells Counted 100, Neutrophils % (Manual) 89H, Lymphocytes % (Manual) 3L, Monocytes % (Manual) 0L, Eosinophils % (Manual) 0, Basophils % ( Manual) 0, Band Neutrophils 8, Platelet Estimate DecreasedL, Platelet Morphology Normal, Polychromasia 1+, Macrocytosis 1+, Sodium Level 145, Potassium Level 3.6, Chloride Level 112H, Carbon Dioxide Level 21, Anion Gap 12 , Blood Urea Nitrogen 42H, Creatinine 1.1, Estimat Glomerular Filtration Rate , Glucose Level 140H, Calcium Level 7.9L Height (Feet): 5 Height (Inches): 9.00 Weight (Pounds): 120 Bruno Enamorado MD Dec 22, 2018 11:38
--- NOTE | 2018-12-22 12:01 | Diagnostic Imaging Report ---
Indication: Respiratory failure Technique: XRAY Chest 1v Comparison: Earlier the same day FINDINGS/IMPRESSION: * Endotracheal tube tip above the level of the clavicles. Again, advancement recommended (recommended advancement by approximately 6 cm). * NG tube tip in the proximal stomach, side-port in the region of the gastroesophageal junction. Advancement again recommended. * Left arm PICC line unchanged. * No change in masslike opacity in the right upper lung and mixed interstitial airspace opacities in the right mid and lower lungs. Unchanged retrocardiac opacities. Trace right pleural effusion again noted. No pneumothorax. Osseous structures stable.
--- NOTE | 2018-12-22 13:38 | NUR ---
NURSE NOTES: Suctioned pt. No acute distress. Will continue to monitor.
--- NOTE | 2018-12-22 13:56 | Diagnostic Imaging Report ---
Indication: Respiratory failure Technique: XRAY Chest 1v Comparison: 12/21/2018 FINDINGS: Endotracheal tube tip above the level of the clavicles similar to prior exams. Again, advancement recommended (recommended advancement by approximately 6 cm). NG tube tip in the proximal stomach, side-port in the region of the gastroesophageal junction. Advancement again recommended. Left arm PICC line unchanged. No change in masslike opacity in the right upper lung and mixed interstitial airspace opacities in the right mid and lower lungs. Unchanged retrocardiac opacities. Trace right pleural effusion again noted. No pneumothorax. Osseous structures stable. IMPRESSION: No significant interval change in the radiographic appearance of the chest. Endotracheal tube above the level the clavicles and enteric tube tip side-port in the region of the distal esophagus. Again advancement is recommended. This is discussed the patient's treating ICU nurse via telephone conversation 12/22/2018.
--- NOTE | 2018-12-22 14:35 | NUR ---
NURSE NOTES: Spoke with radiology regarding CXR. Advanced OGT 8-10 cm. RT advanced ETT 5 cm. Will continue to monitor.
--- NOTE | 2018-12-22 15:43 | Pulmonolgy Critical Care Note ---
Critical Care - Asmt/Plan Assessment/Plan: Pulmonary Progress Note Critical Care - Asmt/Plan Problems: (1) Gram positive sepsis Assessment & Plan: S aureus (2) Severe sepsis (3) Acute respiratory failure - advance ETT - still high (4) NSTEMI (non-ST elevated myocardial infarction) (5) CONSTANCE (acute kidney injury) (6) Acute aspiration pneumonia (7) Lung cancer metastatic to brain (8) CHF (congestive heart failure) (9) Consult surgery for Left Apical Pneumothorax Respiratory: adjust tidal volume - as needed, monitor respiratory rate, adjust FIO2 - Titrate down to keep SaO2 > 92%, continue PEEP 5, ABG, weaning trial - once O2 needs down and off hemodynamically stable Cardiac: continue pressors - titrate NE for MAP > 60 , continue to monitor HR/ BP Renal: keep IV fluid, check electrolytes Infectious Disease: check cultures, continue antibiotics - per ID Gastrointestinal: start feedings Endocrine: monitor blood sugar Hematologic: monitor H/H Neurologic: keep patient comfortable Prophylaxis: Protonix, other - Eliquis Disposition: keep in ICU Time Spent (Minutes): 40 Notes Reviewed: crate opener, cardio, ID Discussed with: nurses, consultants, other - DNAR Critical Care - Objective Vital Signs Noted Status: sedated Condition: critical HEENT: other - intubted, OGT Lungs: clear Heart: HR/BP unstable Abdomen: soft, non-tender, active bowel sounds Extremities: no C/C/E Micro: Microbiology Date/Time Source Procedure Growth Status 12/17/18 15:40 Blood Blood Culture - Preliminary Staphylococcus Aureus Resulted 12/17/18 15:25 Blood Blood Culture - Preliminary Staphylococcus Aureus Resulted 12/17/18 17:30 Nasal Nares Influenza Types A,B Antigen (JAYCOB) - Final Complete 12/17/18 17:02 Urine,Clean Catch Urine Culture - Preliminary NO GROWTH AFTER 24 HOURS Resulted Blood Sugars: BS controlled Critical Care - Subjective ROS Limited/Unobtainable: Yes ICU Day: 3 Intubation Day: 3 Interval Events: NE 2 Sedated WCt better S/P PICC Condition: stable IV Access: PICC EKG Rhythm: Sinus Rhythm FI02: 70 Vent Support Breath Rate: 24 Vent Support Mode: AC Vent Tidal Volume: 600 Sputum Amount: Small PEEP: 5.0 PIP: 23 Fluids: D51/2NS@75 Drips: NE2 I&O: Subjective: HAWA ET-Tube: 7.5 ET Position: 21 Labs: Laboratory Tests Test 12/18/18 14:48 12/18/18 15:20 12/18/18 18:50 12/19/18 05:55 Arterial Blood pH 7.280 (7.350-7.450) Arterial Blood Partial Pressure CO2 46.7 mmHg (35.0-45.0) H Arterial Blood Partial Pressure O2 95.4 mmHg (75.0-100.0) Arterial Blood HCO3 21.5 mmol/L (22.0-26.0) L Arterial Blood Oxygen Saturation 95.6 % (95-100) Arterial Blood Base Excess -5.3 (-2-2) L Damion Test Positive Lactic Acid Level 2.70 mmol/L (0.4-2.0) H 3.30 mmol/L (0.66-2.22) H Troponin I 0.087 ng/mL (0.000-0.056) Free Thyroxine 0.93 NG/DL (0.76-1.46) Triiodothyonine (T3) 47 ng/dL (71-180) L Free Triiodothyronine < 0.5 pg/mL (2.3-4.2) L Triiodothyronine (T3) Uptake 35 % (24-39) White Blood Count 10.0 K/UL (4.8-10.8) # Red Blood Count 3.68 M/UL (4.70-6.10) L Hemoglobin 11.6 G/DL (14.2-18.0) L Hematocrit 36.0 % (42.0-52.0) L Mean Corpuscular Volume 98 FL (80-99) Mean Corpuscular Hemoglobin 31.5 PG (27.0-31.0) H Mean Corpuscular Hemoglobin Concent 32.3 G/DL (32.0-36.0) Red Cell Distribution Width 12.0 % (11.6-14.8) Platelet Count 172 K/UL (150-450) Mean Platelet Volume 8.6 FL (6.5-10.1) Neutrophils (%) (Auto) % (45.0-75.0) Lymphocytes (%) (Auto) % (20.0-45.0) Monocytes (%) (Auto) % (1.0-10.0) Eosinophils (%) (Auto) % (0.0-3.0) Basophils (%) (Auto) % (0.0-2.0) Neutrophils % (Manual) Pending Lymphocytes % (Manual) Pending Platelet Estimate Pending Platelet Morphology Pending Sodium Level 144 MMOL/L (136-145) Potassium Level 3.9 MMOL/L (3.5-5.1) Chloride Level 111 MMOL/L (98-107) H Carbon Dioxide Level 21 MMOL/L (21-32) Anion Gap 13 mmol/L (5-15) Blood Urea Nitrogen 52 mg/dL (7-18) H Creatinine 1.5 MG/DL (0.55-1.30) H Estimat Glomerular Filtration Rate mL/min (>60) Glucose Level 150 MG/DL (74-106) H Calcium Level 8.5 MG/DL (8.5-10.1) Critical Care - Objective Last 24 Hour Vital Signs Date Time Temp Pulse Resp B/P (MAP) Pulse Ox O2 Delivery O2 Flow Rate FiO2 12/22/18 15:00 97 18 92/50 (64) 96 12/22/18 14:46 105 26 40 12/22/18 14:26 112/76 12/22/18 14:23 105 26 97 Mechanical Ventilator 40 12/22/18 14:13 106 25 96 Mechanical Ventilator 40 12/22/18 14:00 97 30 112/76 (88) 96 12/22/18 13:00 98 19 84/51 (62) 98 12/22/18 12:42 101 30 40 12/22/18 12:00 40 12/22/18 12:00 97.2 107 22 98/44 (62) 98 12/22/18 12:00 101 12/22/18 12:00 Mechanical Ventilator 12/22/18 11:20 26 Mechanical Ventilator 12/22/18 11:12 103 28 40 12/22/18 11:00 105 25 113/76 (88) 97 12/22/18 10:00 103 17 100/56 (71) 94 12/22/18 09:00 108 24 84/60 (68) 94 12/22/18 08:46 112 31 40 12/22/18 08:30 116 28 140/104 (116) 94 12/22/18 08:00 Mechanical Ventilator 12/22/18 08:00 97.0 103 20 131/111 (118) 95 12/22/18 08:00 107 12/22/18 08:00 40 12/22/18 07:38 102 22 98 Mechanical Ventilator 40 12/22/18 07:28 104 25 95 Mechanical Ventilator 40 12/22/18 07:12 104 25 40 12/22/18 07:00 17 Mechanical Ventilator 40 12/22/18 07:00 104 17 98/77 (84) 95 12/22/18 06:00 19 Mechanical Ventilator 40 12/22/18 06:00 104 19 104/69 (81) 95 12/22/18 05:30 104 26 83/47 (59) 94 12/22/18 05:06 98 34 40 12/22/18 05:00 107 26 125/108 (114) 93 12/22/18 05:00 26 Mechanical Ventilator 40 12/22/18 04:30 109 20 135/76 (95) 95 12/22/18 04:00 107 12/22/18 04:00 40 12/22/18 04:00 Mechanical Ventilator 12/22/18 04:00 24 Mechanical Ventilator 40 12/22/18 04:00 97.6 107 24 118/83 (95) 96 12/22/18 03:30 107 22 113/58 (76) 96 12/22/18 03:02 104 30 40 12/22/18 03:00 97 22 99/50 (66) 96 12/22/18 03:00 22 Mechanical Ventilator 40 12/22/18 02:30 103 21 121/92 (102) 96 12/22/18 02:00 25 Mechanical Ventilator 40 12/22/18 02:00 97 25 122/78 (93) 96 12/22/18 01:30 91 21 107/64 (78) 99 12/22/18 01:20 99 24 98 Mechanical Ventilator 40 12/22/18 01:10 81 26 40 12/22/18 01:10 81 26 97 Mechanical Ventilator 40 12/22/18 01:00 84 22 80/63 (69) 96 12/22/18 01:00 22 40 12/22/18 00:30 83 23 86/47 (60) 96 12/22/18 00:00 40 12/22/18 00:00 98.2 82 24 98/80 (86) 98 12/22/18 00:00 Mechanical Ventilator 12/22/18 00:00 24 Mechanical Ventilator 40 12/21/18 23:04 94 26 40 12/21/18 23:00 23 Mechanical Ventilator 40 12/21/18 23:00 92 23 96/54 (68) 97 12/21/18 22:30 96 18 119/77 (91) 96 12/21/18 22:00 97 22 101/57 (72) 96 12/21/18 22:00 22 Mechanical Ventilator 40 12/21/18 21:30 91 22 129/89 (102) 96 12/21/18 21:28 22 Mechanical Ventilator 40 12/21/18 21:08 91 28 40 12/21/18 21:00 22 Mechanical Ventilator 40 12/21/18 21:00 92 22 101/59 (73) 98 12/21/18 20:55 101/59 12/21/18 20:30 89 22 119/75 (90) 98 12/21/18 20:00 40 12/21/18 20:00 98.0 88 22 121/78 (92) 97 12/21/18 20:00 22 Mechanical Ventilator 40 12/21/18 20:00 88 12/21/18 20:00 Mechanical Ventilator 12/21/18 19:30 88 23 116/45 (68) 98 12/21/18 19:13 89 24 100 Mechanical Ventilator 40 12/21/18 19:03 88 24 97 Mechanical Ventilator 40 12/21/18 19:02 88 24 40 12/21/18 19:00 22 Mechanical Ventilator 40 12/21/18 19:00 88 22 99/35 (56) 96 12/21/18 18:30 89 22 121/78 (92) 96 12/21/18 18:00 90 20 72/51 (58) 96 12/21/18 18:00 Mechanical Ventilator 12/21/18 17:00 114 24 95/74 (81) 98 12/21/18 16:44 88 24 40 12/21/18 16:30 74 24 95/74 (81) 98 12/21/18 16:00 Mechanical Ventilator 12/21/18 16:00 40 12/21/18 16:00 98.2 75 24 96/55 (69) 97 12/21/18 16:00 Mechanical Ventilator 12/21/18 16:00 104 Micro: Microbiology Date/Time Source Procedure Growth Status 12/20/18 17:30 Blood Blood Culture - Preliminary Staphylococcus Aureus Resulted 12/20/18 17:15 Blood Blood Culture - Preliminary Staphylococcus Aureus Resulted Critical Care - Subjective ROS Limited/Unobtainable: No FI02: 40 Vent Support Breath Rate: 24 Vent Support Mode: AC Vent Tidal Volume: 600 Sputum Amount: Small PEEP: 5.0 PIP: 30 I&O: Intake and Output 12/21/18 12/22/18 19:00 07:00 Intake Total 1241.5 ml 1989.5 ml Output Total 485 ml 690 ml Balance 756.5 ml 1299.5 ml Intake Oral 120 ml 0 ml IV Total 1121.5 ml 1989.5 ml Output Urine Total 485 ml 690 ml ET-Tube: 7.5 ET Position: 24 Real Landa MD Dec 22, 2018 15:43
--- NOTE | 2018-12-22 16:13 | Surgery Progress Note ---
Surgery Progress Note Subjective Additional Comments no acute events. labs improving. CXR noted. no progression of ptx on positive pressure Objective Last 24 Hour Vital Signs Date Time Temp Pulse Resp B/P (MAP) Pulse Ox O2 Delivery O2 Flow Rate FiO2 12/22/18 16:00 40 12/22/18 16:00 Mechanical Ventilator 12/22/18 16:00 98.0 105 24 121/75 (90) 96 12/22/18 15:00 97 18 92/50 (64) 96 12/22/18 14:46 105 26 40 12/22/18 14:26 112/76 12/22/18 14:23 105 26 97 Mechanical Ventilator 40 12/22/18 14:13 106 25 96 Mechanical Ventilator 40 12/22/18 14:00 97 30 112/76 (88) 96 12/22/18 13:00 98 19 84/51 (62) 98 12/22/18 12:42 101 30 40 12/22/18 12:00 40 12/22/18 12:00 97.2 107 22 98/44 (62) 98 12/22/18 12:00 101 12/22/18 12:00 Mechanical Ventilator 12/22/18 11:20 26 Mechanical Ventilator 12/22/18 11:12 103 28 40 12/22/18 11:00 105 25 113/76 (88) 97 12/22/18 10:00 103 17 100/56 (71) 94 12/22/18 09:00 108 24 84/60 (68) 94 12/22/18 08:46 112 31 40 12/22/18 08:30 116 28 140/104 (116) 94 12/22/18 08:00 Mechanical Ventilator 12/22/18 08:00 97.0 103 20 131/111 (118) 95 12/22/18 08:00 107 12/22/18 08:00 40 12/22/18 07:38 102 22 98 Mechanical Ventilator 40 12/22/18 07:28 104 25 95 Mechanical Ventilator 40 12/22/18 07:12 104 25 40 12/22/18 07:00 17 Mechanical Ventilator 40 12/22/18 07:00 104 17 98/77 (84) 95 12/22/18 06:00 19 Mechanical Ventilator 40 12/22/18 06:00 104 19 104/69 (81) 95 12/22/18 05:30 104 26 83/47 (59) 94 12/22/18 05:06 98 34 40 12/22/18 05:00 107 26 125/108 (114) 93 12/22/18 05:00 26 Mechanical Ventilator 40 12/22/18 04:30 109 20 135/76 (95) 95 12/22/18 04:00 107 12/22/18 04:00 40 12/22/18 04:00 Mechanical Ventilator 12/22/18 04:00 24 Mechanical Ventilator 40 12/22/18 04:00 97.6 107 24 118/83 (95) 96 12/22/18 03:30 107 22 113/58 (76) 96 12/22/18 03:02 104 30 40 12/22/18 03:00 97 22 99/50 (66) 96 12/22/18 03:00 22 Mechanical Ventilator 40 12/22/18 02:30 103 21 121/92 (102) 96 12/22/18 02:00 25 Mechanical Ventilator 40 12/22/18 02:00 97 25 122/78 (93) 96 12/22/18 01:30 91 21 107/64 (78) 99 12/22/18 01:20 99 24 98 Mechanical Ventilator 40 12/22/18 01:10 81 26 40 12/22/18 01:10 81 26 97 Mechanical Ventilator 40 12/22/18 01:00 84 22 80/63 (69) 96 12/22/18 01:00 22 40 12/22/18 00:30 83 23 86/47 (60) 96 12/22/18 00:00 40 12/22/18 00:00 98.2 82 24 98/80 (86) 98 12/22/18 00:00 Mechanical Ventilator 12/22/18 00:00 24 Mechanical Ventilator 40 12/21/18 23:04 94 26 40 12/21/18 23:00 23 Mechanical Ventilator 40 12/21/18 23:00 92 23 96/54 (68) 97 12/21/18 22:30 96 18 119/77 (91) 96 12/21/18 22:00 97 22 101/57 (72) 96 12/21/18 22:00 22 Mechanical Ventilator 40 12/21/18 21:30 91 22 129/89 (102) 96 12/21/18 21:28 22 Mechanical Ventilator 40 12/21/18 21:08 91 28 40 1/20/19 21:00 22 Mechanical Ventilator 40 12/21/18 21:00 92 22 101/59 (73) 98 12/21/18 20:55 101/59 12/21/18 20:30 89 22 119/75 (90) 98 12/21/18 20:00 40 12/21/18 20:00 98.0 88 22 121/78 (92) 97 12/21/18 20:00 22 Mechanical Ventilator 40 12/21/18 20:00 88 12/21/18 20:00 Mechanical Ventilator 12/21/18 19:30 88 23 116/45 (68) 98 12/21/18 19:13 89 24 100 Mechanical Ventilator 40 12/21/18 19:03 88 24 97 Mechanical Ventilator 40 12/21/18 19:02 88 24 40 12/21/18 19:00 22 Mechanical Ventilator 40 12/21/18 19:00 88 22 99/35 (56) 96 12/21/18 18:30 89 22 121/78 (92) 96 12/21/18 18:00 90 20 72/51 (58) 96 12/21/18 18:00 Mechanical Ventilator 12/21/18 17:00 114 24 95/74 (81) 98 12/21/18 16:44 88 24 40 12/21/18 16:30 74 24 95/74 (81) 98 I&O Intake and Output 12/21/18 12/22/18 19:00 07:00 Intake Total 1241.5 ml 1989.5 ml Output Total 485 ml 690 ml Balance 756.5 ml 1299.5 ml Intake Oral 120 ml 0 ml IV Total 1121.5 ml 1989.5 ml Output Urine Total 485 ml 690 ml Dressing: other Wound: other Drains: other Cardiovascular: RSR Respiratory: decreased breath sounds Abdomen: soft, present bowel sounds, non-distended Extremities: other Plan Problems: (1) Pneumothorax, left Assessment & Plan: left small pneumothorax seen on CXR today patient on vent support with positive pressure currently saturating well and stable Repeat CXR stable will monitor for now if worsening will need left chest tube placement STAT CXR and call me if desaturates thank you will follow with recs. (2) Severe sepsis Chris Messer Dec 22, 2018 16:13
--- NOTE | 2018-12-22 16:15 | Diagnostic Imaging Report ---
Indication: Respiratory failure. Tube placement Technique: XRAY Chest 1v Comparison: Earlier the same day FINDINGS/IMPRESSION: Enteric tube appears to be advanced. Endotracheal tube tip remains above the level of the clavicles, approximately 12 cm above maru. Again, advancement is recommended. This is discussed with treating ICU nurse via telephone conversation 16:10 on 12/22/2018. Additional findings unchanged from the prior exam.
[2018-12-22] MEDS ORDERED: Tubing IV Secondary IV ONE (17:06)
[2018-12-22] MEDS ORDERED: D5 1/2NS 1000ml IV ONE (17:06)
[2018-12-22] MEDS ORDERED: NS 500ML ONE ×2 (17:06→17:20)
--- NOTE | 2018-12-22 17:12 | Diagnostic Imaging Report ---
. Indication: Endotracheal tube placement Technique: XRAY Chest 1v Comparison: Earlier the same day Findings/Impression: * Interval advancement of endotracheal tube. Tip now more appropriately positioned below level of clavicles approximately 3.7 cm above the maru. * Anterior tube tip in the proximal stomach, side-port in the region of the gastroesophageal junction. * Additional findings unchanged from exam earlier today.
--- NOTE | 2018-12-22 17:46 | NUR ---
NURSE NOTES: Dr Landa here to see pt. OGT and ETT advanced and secured. CXR ordered to check placement. Will continue to monitor.
--- NOTE | 2018-12-22 19:03 | Infectious Diseases Prog Note ---
Assessment/Plan Problems: (1) Acute aspiration pneumonia Assessment & Plan: continue zosyn empirically for 10 -14 days with aspiration precaution, keep HOB > 30 degree. monitor CXR (2) Sepsis Assessment & Plan: with shock , due to methicillin sensitive staph aureus , continue oxacillin IV and treat him for minimum of four weeks . trans thoracic echo done on admission ruled out valve vegetations , repeated blood culture is still positive, most likely due to the presence of PICC line which was placed while he was bacteremic and steroids with being immunocompromised with metastatic lung cancer, S/P PICC line removal . (3) CONSTANCE (acute kidney injury) Assessment & Plan: due to the above , continue hydration with renally dosed antibiotics , continue pressure support, renal follow up (4) Acute respiratory failure Assessment & Plan: due to the above , intubated on mechanical ventilation, pulmonary is following , monitor ABG, and CXR (5) Lung cancer metastatic to brain Assessment & Plan: S/P radiation and chemo therapy at [place] , now with poor prognosis, recommend palliative care . (6) Leukocytosis Assessment & Plan: suspect due to steroids , recommend to taper, will repeat blood culture (7) Pneumothorax, left Assessment & Plan: monitor CXR , surgery is following Subjective ROS Limited/Unobtainable: Yes Allergies: Coded Allergies: No Known Allergies (Unverified , 12/17/18) Subjective he was still intubated on mechanical ventilation in ICU, sedated, responsive to verbal commands, not on pressor , afebrile , no secretions Objective Vital Signs Last 24 Hour Vital Signs Date Time Temp Pulse Resp B/P (MAP) Pulse Ox O2 Delivery O2 Flow Rate FiO2 12/22/18 18:00 92 24 101/45 (63) 95 12/22/18 17:00 97 23 107/76 (86) 96 12/22/18 16:59 103 12/22/18 16:58 94 24 40 12/22/18 16:48 100 26 Mechanical Ventilator 40 12/22/18 16:00 40 12/22/18 16:00 Mechanical Ventilator 12/22/18 16:00 98.0 105 24 121/75 (90) 96 12/22/18 15:00 97 18 92/50 (64) 96 12/22/18 14:46 105 26 40 12/22/18 14:26 112/76 12/22/18 14:23 105 26 97 Mechanical Ventilator 40 12/22/18 14:13 106 25 96 Mechanical Ventilator 40 12/22/18 14:00 97 30 112/76 (88) 96 12/22/18 13:00 98 19 84/51 (62) 98 12/22/18 12:42 101 30 40 12/22/18 12:00 40 12/22/18 12:00 97.2 107 22 98/44 (62) 98 12/22/18 12:00 101 12/22/18 12:00 Mechanical Ventilator 12/22/18 11:20 26 Mechanical Ventilator 12/22/18 11:12 103 28 40 12/22/18 11:00 105 25 113/76 (88) 97 12/22/18 10:00 103 17 100/56 (71) 94 12/22/18 09:00 108 24 84/60 (68) 94 12/22/18 08:46 112 31 40 12/22/18 08:30 116 28 140/104 (116) 94 12/22/18 08:00 Mechanical Ventilator 12/22/18 08:00 97.0 103 20 131/111 (118) 95 12/22/18 08:00 107 12/22/18 08:00 40 12/22/18 07:38 102 22 98 Mechanical Ventilator 40 12/22/18 07:28 104 25 95 Mechanical Ventilator 40 12/22/18 07:12 104 25 40 12/22/18 07:00 17 Mechanical Ventilator 40 12/22/18 07:00 104 17 98/77 (84) 95 12/22/18 06:00 19 Mechanical Ventilator 40 12/22/18 06:00 104 19 104/69 (81) 95 12/22/18 05:30 104 26 83/47 (59) 94 12/22/18 05:06 98 34 40 12/22/18 05:00 107 26 125/108 (114) 93 12/22/18 05:00 26 Mechanical Ventilator 40 12/22/18 04:30 109 20 135/76 (95) 95 12/22/18 04:00 107 12/22/18 04:00 40 12/22/18 04:00 Mechanical Ventilator 12/22/18 04:00 24 Mechanical Ventilator 40 12/22/18 04:00 97.6 107 24 118/83 (95) 96 12/22/18 03:30 107 22 113/58 (76) 96 12/22/18 03:02 104 30 40 12/22/18 03:00 97 22 99/50 (66) 96 12/22/18 03:00 22 Mechanical Ventilator 40 12/22/18 02:30 103 21 121/92 (102) 96 12/22/18 02:00 25 Mechanical Ventilator 40 12/22/18 02:00 97 25 122/78 (93) 96 12/22/18 01:30 91 21 107/64 (78) 99 12/22/18 01:20 99 24 98 Mechanical Ventilator 40 12/22/18 01:10 81 26 40 12/22/18 01:10 81 26 97 Mechanical Ventilator 40 12/22/18 01:00 84 22 80/63 (69) 96 12/22/18 01:00 22 40 12/22/18 00:30 83 23 86/47 (60) 96 12/22/18 00:00 40 12/22/18 00:00 98.2 82 24 98/80 (86) 98 12/22/18 00:00 Mechanical Ventilator 12/22/18 00:00 24 Mechanical Ventilator 40 12/21/18 23:04 94 26 40 12/21/18 23:00 23 Mechanical Ventilator 40 12/21/18 23:00 92 23 96/54 (68) 97 12/21/18 22:30 96 18 119/77 (91) 96 12/21/18 22:00 97 22 101/57 (72) 96 12/21/18 22:00 22 Mechanical Ventilator 40 12/21/18 21:30 91 22 129/89 (102) 96 12/21/18 21:28 22 Mechanical Ventilator 40 12/21/18 21:08 91 28 40 12/21/18 21:00 22 Mechanical Ventilator 40 12/21/18 21:00 92 22 101/59 (73) 98 12/21/18 20:55 101/59 12/21/18 20:30 89 22 119/75 (90) 98 12/21/18 20:00 40 12/21/18 20:00 98.0 88 22 121/78 (92) 97 12/21/18 20:00 22 Mechanical Ventilator 40 12/21/18 20:00 88 12/21/18 20:00 Mechanical Ventilator 1/20/19 19:30 88 23 116/45 (68) 98 12/21/18 19:13 89 24 100 Mechanical Ventilator 40 12/21/18 19:03 88 24 97 Mechanical Ventilator 40 12/21/18 19:02 88 24 40 12/21/18 19:00 22 Mechanical Ventilator 40 12/21/18 19:00 88 22 99/35 (56) 96 Height (Feet): 5 Height (Inches): 9.00 Weight (Pounds): 120 General Appearance: no acute distress, cachetic HEENT: normocephalic, atraumatic, anicteric, mucous membranes moist, PERRL, supple, no JVD Respiratory/Chest: no respiratory distress, no accessory muscle use, decreased breath sounds, crackles/rales Cardiovascular: normal peripheral pulses, normal rate, regular rhythm, no gallop/murmur, no JVD Abdomen: normal bowel sounds, soft, non tender, no organomegaly, non distended , no mass, no scars Genitourinary: normal external genitalia Extremities: no cyanosis, no clubbing Skin: no rash, no lesions, no ulcers Neurologic/Psychiatric: unresponsiveness Lymphatic: no neck adenopathy, no groin adenopathy Musculoskeletal: normal muscle bulk, no effusion Microbiology Date/Time Source Procedure Growth Status 12/20/18 17:30 Blood Blood Culture - Preliminary Staphylococcus Aureus Resulted 12/20/18 17:15 Blood Blood Culture - Preliminary Staphylococcus Aureus Resulted Current Medications Medications (Trade) Dose Ordered Sig/Earlene Route PRN Reason Start Time Stop Time Status Last Admin Dose Admin Chlorhexidine Gluconate (Windy-Hex 2%) 1 applic DAILY@1999 TOPIC 12/18/18 20:00 01/17/19 19:59 12/21/18 19:59 Dexamethasone Sodium Phosphate (Decadron 4mg/ml vial) 4 mg BID IVP 12/18/18 09:00 01/17/19 08:59 12/22/18 17:23 Dextrose/Sodium Chloride 1,000 ml @ 75 mls/hr [id number] IV 12/17/18 20:00 01/16/19 19:59 12/22/18 05:31 Dopamine HCl/ Dextrose 250 ml @ 0 mls/hr Q24H IV 12/17/18 20:55 01/16/19 20:54 12/17/18 20:55 Fentanyl Citrate 1000 mcg/Sodium Chloride 100 ml @ 0 mls/hr Q24H IV 12/19/18 20:00 12/26/18 19:59 12/22/18 11:20 Ipratropium [place] (Atrovent) 500 mcg Q4H PRN HHN Shortness of Breath 12/18/18 14:15 12/23/18 14:14 Ipratropium [place] (Atrovent) 500 mcg Q6HRT HHN 12/18/18 19:00 12/23/18 18:59 12/22/18 14:12 Norepinephrine Bitartrate 4 mg/ Dextrose 250 ml @ 0 mls/hr Q24H IV 12/18/18 15:00 01/17/19 14:59 12/18/18 21:34 Oxacillin Sodium 2 gm/Sodium Chloride 110 ml @ 220 mls/hr Q4HR IVPB 12/21/18 17:00 12/28/18 16:59 12/22/18 17:22 Pantoprazole (Protonix) 40 mg EVERY 12 HOURS IVP 12/18/18 21:00 01/17/19 20:59 12/22/18 08:33 Piperacillin Sod/ Tazobactam Sod 3.375 gm/Dextrose 110 ml @ 27.5 mls/hr EVERY 8 HOURS IVPB 12/17/18 22:00 12/28/18 21:59 12/22/18 14:25 Sodium Chloride 500 ml @ 999 mls/hr Q31M PRN IV For hypotension 12/20/18 11:45 01/19/19 11:44 12/22/18 00:49 Tammy Rob M.D. Dec 22, 2018 19:03
--- NOTE | 2018-12-22 19:19 | NUR ---
HAND-OFF: Report given to Ange OLSON.
--- NOTE | 2018-12-22 19:30 | NUR ---
NURSE NOTES:Received pt awake, respond to tactile stimulation, only restless at times, bilateral soft wrist restraints on for safety to avoid self extubation. Both arms with 2-3+edema. Orally intubated on aC mode, suctioned beige tk secretions moderate in amt. 02 sat 98% HOB kept elevated, wach for any resp. distress. NPO at this time OGT clamped. Oral care done. Stoddard to gravity with moderate amt of sheryl yellow urine.Monitor I and O. Monitor lytes,. Will continue to monitor
[2018-12-22] MEDS: Dyna-Hex 2% Top Sol 2oz TOPIC SCH (20:24)
[2018-12-22] MEDS: DOPamine 400mg/250ml 250 ML IV SCH (20:55)
--- NOTE | 2018-12-22 21:30 | NUR ---
NURSE NOTES:Partial bath with partial bed changed done.
--- NOTE | 2018-12-22 22:49 | Cardiology Progress Note ---
Assessment/Plan Assessment/Plan 1. Sinus tachycardia, resolved, most likely secondary to hypoxemia/lung CA. 2. History of coronary artery disease, status post coronary artery bypass graft surgery. 12-lead electrocardiogram does not show any ischemic changes despite the fact that the troponin I levels are elevated. The patient is not a candidate for ischemic workup given metastatic lung cancer conservative management. I do not believe that the patient would benefit from anticoagulation therapy, which may put the patient in increased risk of bleeding. 3. Acute respiratory failure, hypoxic hypercarbic respiratory failure due to possible acute exacerbation of COPD. 4. Non-sustained ventricular tachycardia, keep Mg level and keep >2.5, keep K > 4.0 5. 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 6. History of CVA. 7. History of COPD. 8. CONSTANCE, resolved. Subjective Subjective Sinus tachycardia at 101. Intubated with FiO2 of 40%. Objective Last 24 Hour Vital Signs Date Time Temp Pulse Resp B/P (MAP) Pulse Ox O2 Delivery O2 Flow Rate FiO2 12/22/18 21:31 101 24 40 12/22/18 21:30 91 23 95/66 (76) 96 12/22/18 21:00 91 23 95/66 (76) 96 12/22/18 20:55 116/71 12/22/18 20:30 90 23 95/66 (76) 96 12/22/18 20:00 98.4 101 23 95/66 (76) 96 12/22/18 20:00 95 12/22/18 20:00 40 12/22/18 19:31 99 24 98 Mechanical Ventilator 40 12/22/18 19:22 106 24 98 Mechanical Ventilator 40 12/22/18 19:16 90 24 40 12/22/18 19:00 95 19 96/70 (79) 96 12/22/18 18:00 92 24 101/45 (63) 95 12/22/18 17:00 97 23 107/76 (86) 96 12/22/18 16:59 103 12/22/18 16:58 94 24 40 12/22/18 16:48 100 26 Mechanical Ventilator 40 12/22/18 16:00 40 12/22/18 16:00 Mechanical Ventilator 12/22/18 16:00 98.0 105 24 121/75 (90) 96 12/22/18 15:00 97 18 92/50 (64) 96 12/22/18 14:46 105 26 40 12/22/18 14:26 112/76 12/22/18 14:23 105 26 97 Mechanical Ventilator 40 12/22/18 14:13 106 25 96 Mechanical Ventilator 40 12/22/18 14:00 97 30 112/76 (88) 96 12/22/18 13:00 98 19 84/51 (62) 98 12/22/18 12:42 101 30 40 12/22/18 12:00 40 12/22/18 12:00 97.2 107 22 98/44 (62) 98 12/22/18 12:00 101 12/22/18 12:00 Mechanical Ventilator 12/22/18 11:20 26 Mechanical Ventilator 12/22/18 11:12 103 28 40 12/22/18 11:00 105 25 113/76 (88) 97 12/22/18 10:00 103 17 100/56 (71) 94 12/22/18 09:00 108 24 84/60 (68) 94 12/22/18 08:46 112 31 40 12/22/18 08:30 116 28 140/104 (116) 94 12/22/18 08:00 Mechanical Ventilator 12/22/18 08:00 97.0 103 20 131/111 (118) 95 12/22/18 08:00 107 12/22/18 08:00 40 12/22/18 07:38 102 22 98 Mechanical Ventilator 40 12/22/18 07:28 104 25 95 Mechanical Ventilator 40 12/22/18 07:12 104 25 40 12/22/18 07:00 17 Mechanical Ventilator 40 12/22/18 07:00 104 17 98/77 (84) 95 12/22/18 06:00 19 Mechanical Ventilator 40 12/22/18 06:00 104 19 104/69 (81) 95 12/22/18 05:30 104 26 83/47 (59) 94 12/22/18 05:06 98 34 40 12/22/18 05:00 107 26 125/108 (114) 93 12/22/18 05:00 26 Mechanical Ventilator 40 12/22/18 04:30 109 20 135/76 (95) 95 12/22/18 04:00 107 12/22/18 04:00 40 12/22/18 04:00 Mechanical Ventilator 12/22/18 04:00 24 Mechanical Ventilator 40 12/22/18 04:00 97.6 107 24 118/83 (95) 96 12/22/18 03:30 107 22 113/58 (76) 96 12/22/18 03:02 104 30 40 12/22/18 03:00 97 22 99/50 (66) 96 12/22/18 03:00 22 Mechanical Ventilator 40 12/22/18 02:30 103 21 121/92 (102) 96 12/22/18 02:00 25 Mechanical Ventilator 40 12/22/18 02:00 97 25 122/78 (93) 96 12/22/18 01:30 91 21 107/64 (78) 99 12/22/18 01:20 99 24 98 Mechanical Ventilator 40 12/22/18 01:10 81 26 40 12/22/18 01:10 81 26 97 Mechanical Ventilator 40 12/22/18 01:00 84 22 80/63 (69) 96 12/22/18 01:00 22 40 12/22/18 00:30 83 23 86/47 (60) 96 12/22/18 00:00 40 12/22/18 00:00 98.2 82 24 98/80 (86) 98 12/22/18 00:00 Mechanical Ventilator 12/22/18 00:00 24 Mechanical Ventilator 40 12/21/18 23:04 94 26 40 12/21/18 23:00 23 Mechanical Ventilator 40 12/21/18 23:00 92 23 96/54 (68) 97 Intake and Output 12/21/18 12/22/18 18:59 06:59 Intake Total 1268.0 ml 1962.0 ml Output Total 485 ml 695 ml Balance 783.0 ml 1267.0 ml Intake Oral 120 ml 0 ml IV Total 1148.0 ml 1962.0 ml Output Urine Total 485 ml 695 ml 2D Echo: Global LV HK with LVEF 25%, Mild LAE, RVSP 14 mmHg, Grade I LVDD Microbiology Date/Time Source Procedure Growth Status 12/20/18 17:30 Blood Blood Culture - Preliminary Staphylococcus Aureus Resulted 12/20/18 17:15 Blood Blood Culture - Preliminary Staphylococcus Aureus Resulted Objective HEENT: Atraumatic and normocephalic. Anicteric. Pupils are equal, round, and reactive to light and accommodation. Conjunctival pallor. NECK: JVP cannot be assessed due to positive inspiratory pressure of the ventilator. No carotid bruit. Carotid upstroke is 2+ bilaterally. CARDIOVASCULAR: Normal S1, S2. Regular rate and rhythm. I do not hear murmurs, gallops, or rubs. LUNGS: Diminished breath sounds in both lungs. ABDOMEN: Soft, nontender, and nondistended. No hepatosplenomegaly. Positive bowel sounds. EXTREMITIES: No evidence of edema, clubbing, or cyanosis. There is onychomycosis. Fred Holman MD Dec 22, 2018 22:49
--- NOTE | 2018-12-22 23:30 | NUR ---
NURSE NOTES:ST on the monitor low 100s. Bp 117/65. afebrile.
[2018-12-23] VITALS (41 sets, daily range): BP systolic 67–143; BP diastolic 41–98
[2018-12-23] MEDS: Oxacillin 2 GM in NS 110 ML IVPB SCH ×6 (00:37→21:05)
--- NOTE | 2018-12-23 01:00 | NUR ---
NURSE NOTES:Suctioned tk blood tinged secretions moderate in amt 02 sat >95%
[2018-12-23] MEDS: Ipratropium 0.02% Inh Soln 2.5ml UD HHN SCH ×3 (01:19→14:01)
--- NOTE | 2018-12-23 03:00 | NUR ---
NURSE NOTES:No resp distress noted . Bilateral soft wrist restraints maaintained for safety to avoid self extubation.
--- NOTE | 2018-12-23 05:00 | NUR ---
NURSE NOTES:Complete bath with bed changed done.
[2018-12-23] MEDS: Piperacillin/Tazobactam 3.375 GM in D5W 110 ML IVPB SCH ×2 (05:33→14:18)
--- NOTE | 2018-12-23 06:00 | NUR ---
NURSE NOTES:No resp. distress noted Neuro unchanged. VSS
--- NOTE | 2018-12-23 07:00 | NUR ---
Received patient on ACVC RR 24, VT 600, 40% FIO2, PEEP +5. Patient intubated with ETT 7.5 @ 30cm lipline, secured by tape. Patient is obtunded. B/S sander. rhonchi, sxn moderate amounts of thin/thick, white clear secretions. Vent plugged into red outlet, amubag at bedside. No SOB/distress noted at this time. Will continue to monitor patient throughout the day.
--- NOTE | 2018-12-23 07:22 | NUR ---
HAND-OFF: Report given to Julieta Estes using sbar.
--- NOTE | 2018-12-23 07:33 | NUR ---
NURSE NOTES: Report received from Ange OLSON. Pt awake, opens eyes, nonverbal and does not follow commands. Pt connected to nurse monitoring, ST 100s. Pt orally intubated ETT 7.5, 28 cm lip line, AC 24, TV 600, fiO2 40%, PEEP 5. Pt OG tube noted, clamped. Stoddard noted draining clear, yellow urine to gravity. 20G L and R with Fentanyl drip 100 mcg/hr and maintenance IVF d5 1/2NS@ 75 cc/hr running. Bilateral wrist restraints noted and intact. Safety measures in place with bed locked and in lowest position, side rails x3 up and bed alarm on. Will continue to monitor and continue plan of care.
[2018-12-23] MEDS: Dexamethasone 4mg/ml vial IVP SCH ×2 (08:12→17:20)
[2018-12-23] MEDS: Pantoprazole Inj IVP SCH ×2 (08:12→21:05)
[2018-12-23] MEDS: D5 1/2NS 1,000 ML IV SCH ×2 (08:13→18:26)
--- NOTE | 2018-12-23 09:30 | NUR ---
NURSE NOTES: Turned and repositioned pt. Oral care done. Will continue to monitor.
--- NOTE | 2018-12-23 12:00 | Surgery Progress Note ---
Surgery Progress Note Subjective Additional Comments cxr stable. unchanged. still in ICU ill appearing Objective Last 24 Hour Vital Signs Date Time Temp Pulse Resp B/P (MAP) Pulse Ox O2 Delivery O2 Flow Rate FiO2 12/23/18 11:19 94 25 40 12/23/18 11:00 88 22 80/48 (59) 100 12/23/18 10:30 84 22 67/49 (55) 100 12/23/18 10:00 85 23 81/43 (56) 99 12/23/18 09:00 86 22 89/50 (63) 100 12/23/18 08:49 93 25 40 12/23/18 08:00 40 12/23/18 08:00 Mechanical Ventilator Mechanical Ventilator 12/23/18 08:00 98.0 90 23 88/49 (62) 100 12/23/18 07:30 93 19 108/54 (72) 99 12/23/18 07:11 91 24 97 Mechanical Ventilator 40 12/23/18 07:05 107 32 40 12/23/18 07:05 99 27 98 Mechanical Ventilator 40 12/23/18 07:00 94 21 83/56 (65) 98 12/23/18 06:30 90 22 88/59 (69) 99 12/23/18 06:00 95 21 100/60 (73) 97 12/23/18 06:00 23 Mechanical Ventilator 40 12/23/18 05:30 94 22 110/64 (79) 97 12/23/18 05:03 91 24 40 12/23/18 05:00 23 Mechanical Ventilator 40 12/23/18 05:00 95 23 108/64 (79) 97 12/23/18 04:30 98 23 120/58 (78) 97 12/23/18 04:30 99 25 40 12/23/18 04:00 98 12/23/18 04:00 98.5 98 21 80/41 (54) 97 12/23/18 04:00 22 Mechanical Ventilator 40 12/23/18 04:00 40 12/23/18 04:00 Mechanical Ventilator Mechanical Ventilator 12/23/18 03:30 98 21 90/50 (63) 97 12/23/18 03:00 99 21 89/53 (65) 97 12/23/18 03:00 23 Mechanical Ventilator 40 12/23/18 02:41 27 40 12/23/18 02:30 98 21 100/60 (73) 97 12/23/18 02:00 96 21 102/61 (75) 97 12/23/18 02:00 18 Mechanical Ventilator 40 12/23/18 01:51 103 24 100 Mechanical Ventilator 40 12/23/18 01:42 107 24 98 Mechanical Ventilator 40 12/23/18 01:41 107 26 40 12/23/18 01:30 101 23 90/66 (74) 98 12/23/18 01:00 23 Mechanical Ventilator 40 12/23/18 01:00 101 23 87/66 (73) 98 12/23/18 00:30 100 24 94/58 (70) 98 12/23/18 00:00 40 12/23/18 00:00 40 12/23/18 00:00 Mechanical Ventilator Mechanical Ventilator 12/23/18 00:00 98.4 95 24 101/63 (76) 98 12/23/18 00:00 23 Mechanical Ventilator 40 12/23/18 00:00 101 12/22/18 23:30 102 24 94/58 (70) 98 12/22/18 23:24 100 25 40 12/22/18 23:00 23 Mechanical Ventilator 40 12/22/18 23:00 101 24 94/58 (70) 98 12/22/18 22:30 100 22 93/63 (73) 98 12/22/18 22:00 95 24 94/58 (70) 98 12/22/18 22:00 23 Mechanical Ventilator 40 12/22/18 21:31 101 24 40 12/22/18 21:30 91 23 95/66 (76) 96 12/22/18 21:05 23 Mechanical Ventilator 40 12/22/18 21:00 91 23 95/66 (76) 96 12/22/18 20:55 116/71 12/22/18 20:30 90 23 95/66 (76) 96 12/22/18 20:00 98.4 101 23 95/66 (76) 96 12/22/18 20:00 95 12/22/18 20:00 40 12/22/18 20:00 23 Mechanical Ventilator 40 12/22/18 20:00 Mechanical Ventilator Mechanical Ventilator 12/22/18 19:31 99 24 98 Mechanical Ventilator 40 12/22/18 19:22 106 24 98 Mechanical Ventilator 40 12/22/18 19:16 90 24 40 12/22/18 19:00 95 19 96/70 (79) 96 12/22/18 18:00 92 24 101/45 (63) 95 12/22/18 17:00 97 23 107/76 (86) 96 12/22/18 16:59 103 12/22/18 16:58 94 24 40 12/22/18 16:48 100 26 Mechanical Ventilator 40 12/22/18 16:00 40 12/22/18 16:00 Mechanical Ventilator 12/22/18 16:00 98.0 105 24 121/75 (90) 96 12/22/18 15:00 97 18 92/50 (64) 96 12/22/18 14:46 105 26 40 12/22/18 14:26 112/76 12/22/18 14:23 105 26 97 Mechanical Ventilator 40 12/22/18 14:13 106 25 96 Mechanical Ventilator 40 12/22/18 14:00 97 30 112/76 (88) 96 12/22/18 13:00 98 19 84/51 (62) 98 12/22/18 12:42 101 30 40 12/22/18 12:00 40 12/22/18 12:00 97.2 107 22 98/44 (62) 98 12/22/18 12:00 101 12/22/18 12:00 Mechanical Ventilator I&O Intake and Output 12/22/18 12/23/18 19:00 07:00 Intake Total 1397.0 ml 1225 ml Output Total 480 ml 580 ml Balance 917.0 ml 645 ml Intake Oral 0 ml 0 ml IV Total 1397.0 ml 1225 ml Output Urine Total 480 ml 580 ml Dressing: other Wound: other Drains: other Cardiovascular: RSR Respiratory: decreased breath sounds Abdomen: soft, present bowel sounds, non-distended Extremities: other Plan Problems: (1) Pneumothorax, left Assessment & Plan: left small pneumothorax seen on CXR today patient on vent support with positive pressure currently saturating well and stable Repeat CXR stable will monitor for now if worsening will need left chest tube placement STAT CXR and call me if desaturates thank you will follow with recs. (2) Severe sepsis Chris Messer Dec 23, 2018 12:00
--- NOTE | 2018-12-23 12:49 | NUR ---
NURSE NOTES: Dr Enamorado here to see pt. Discussed pt NPO status. Dr iniguez encapsulator consult. Will continue to monitor.
--- NOTE | 2018-12-23 13:50 | NUR ---
NURSE NOTES: Dr Rob here to see pt. Labs ordered. No acute distress. Will continue to monitor.
--- NOTE | 2018-12-23 14:58 | General Progress Note ---
Assessment/Plan Status: stable Assessment/Plan S, O: limited eval. Patient Intubated. Vent setting reviewed. Stoddard inserted. patient is awake. not following commands PHYSICAL EXAMINATION: HEAD AND NECK: Positive for intubation, limited source of evaluation. Vent settings were reviewed. Atraumatic and normocephalic. CHEST: Diffuse bronchial breathing sounds. Positive for diffuse crackles.HEART: S1 and S2. Tachyarrhythmia. ABDOMEN: Soft. No organomegaly.MUSCULOSKELETAL: Atrophied musculature, limited evaluation. The patient is not following compounds, sedated. Imaging: CT of the Head reviewed, non diagnostic ASSESSMENT AND PLAN: 1. Vent-dependent respiratory failure. 2. Septic shock: Staph Aureus 3. Healthcare-associated pneumonia. 3. Non-ST myocardial infarction. Abnormal Trop 4. Metastatic lung CA. 5. Left sided small PNTX 5. GI and DVT prophylaxes. PLAN OF CARE: 1. Improvement of leukocytosis 3. Grave prognosis. 4. Infectious Disease, Pulmonary, and Cardiology Notes are reviewed 6. Left sided small PNTX , will monitor , if worsen will proceed with Chest-T Vent management per Pulmonary service Recheck CXR Subjective Allergies: Coded Allergies: No Known Allergies (Unverified , 12/17/18) Objective Last 24 Hour Vital Signs Date Time Temp Pulse Resp B/P (MAP) Pulse Ox O2 Delivery O2 Flow Rate FiO2 12/23/18 14:00 78 0 70/53 (59) 100 12/23/18 13:36 81 24 100 Mechanical Ventilator 40 12/23/18 13:24 100 24 100 Mechanical Ventilator 40 12/23/18 13:02 93 26 40 12/23/18 13:00 89 22 95/65 (75) 99 12/23/18 12:44 25 Mechanical Ventilator 12/23/18 12:30 85 22 133/86 (102) 99 12/23/18 12:00 97.8 84 22 117/65 (82) 100 12/23/18 12:00 Mechanical Ventilator Mechanical Ventilator 12/23/18 12:00 40 12/23/18 11:55 86 23 94/62 (73) 99 12/23/18 11:19 94 25 40 12/23/18 11:00 88 22 80/48 (59) 100 12/23/18 10:30 84 22 67/49 (55) 100 12/23/18 10:00 85 23 81/43 (56) 99 12/23/18 09:00 86 22 89/50 (63) 100 12/23/18 08:49 93 25 40 12/23/18 08:00 40 12/23/18 08:00 84 12/23/18 08:00 Mechanical Ventilator Mechanical Ventilator 12/23/18 08:00 98.0 90 23 88/49 (62) 100 12/23/18 07:30 93 19 108/54 (72) 99 12/23/18 07:11 91 24 97 Mechanical Ventilator 40 12/23/18 07:05 107 32 40 12/23/18 07:05 99 27 98 Mechanical Ventilator 40 12/23/18 07:00 94 21 83/56 (65) 98 12/23/18 06:30 90 22 88/59 (69) 99 12/23/18 06:00 95 21 100/60 (73) 97 12/23/18 06:00 23 Mechanical Ventilator 40 12/23/18 05:30 94 22 110/64 (79) 97 12/23/18 05:03 91 24 40 12/23/18 05:00 23 Mechanical Ventilator 40 12/23/18 05:00 95 23 108/64 (79) 97 12/23/18 04:30 98 23 120/58 (78) 97 12/23/18 04:30 99 25 40 12/23/18 04:00 98 12/23/18 04:00 98.5 98 21 80/41 (54) 97 12/23/18 04:00 22 Mechanical Ventilator 40 12/23/18 04:00 40 12/23/18 04:00 Mechanical Ventilator Mechanical Ventilator 12/23/18 03:30 98 21 90/50 (63) 97 12/23/18 03:00 99 21 89/53 (65) 97 12/23/18 03:00 23 Mechanical Ventilator 40 12/23/18 02:41 27 40 12/23/18 02:30 98 21 100/60 (73) 97 12/23/18 02:00 96 21 102/61 (75) 97 12/23/18 02:00 18 Mechanical Ventilator 40 12/23/18 01:51 103 24 100 Mechanical Ventilator 40 12/23/18 01:42 107 24 98 Mechanical Ventilator 40 12/23/18 01:41 107 26 40 12/23/18 01:30 101 23 90/66 (74) 98 12/23/18 01:00 23 Mechanical Ventilator 40 12/23/18 01:00 101 23 87/66 (73) 98 12/23/18 00:30 100 24 94/58 (70) 98 12/23/18 00:00 40 12/23/18 00:00 40 12/23/18 00:00 Mechanical Ventilator Mechanical Ventilator 12/23/18 00:00 98.4 95 24 101/63 (76) 98 12/23/18 00:00 23 Mechanical Ventilator 40 12/23/18 00:00 101 12/22/18 23:30 102 24 94/58 (70) 98 12/22/18 23:24 100 25 40 12/22/18 23:00 23 Mechanical Ventilator 40 12/22/18 23:00 101 24 94/58 (70) 98 12/22/18 22:30 100 22 93/63 (73) 98 12/22/18 22:00 95 24 94/58 (70) 98 12/22/18 22:00 23 Mechanical Ventilator 40 12/22/18 21:31 101 24 40 12/22/18 21:30 91 23 95/66 (76) 96 12/22/18 21:05 23 Mechanical Ventilator 40 12/22/18 21:00 91 23 95/66 (76) 96 12/22/18 20:55 116/71 12/22/18 20:30 90 23 95/66 (76) 96 12/22/18 20:00 98.4 101 23 95/66 (76) 96 12/22/18 20:00 95 12/22/18 20:00 40 12/22/18 20:00 23 Mechanical Ventilator 40 12/22/18 20:00 Mechanical Ventilator Mechanical Ventilator 12/22/18 19:31 99 24 98 Mechanical Ventilator 40 12/22/18 19:22 106 24 98 Mechanical Ventilator 40 12/22/18 19:16 90 24 40 12/22/18 19:00 95 19 96/70 (79) 96 12/22/18 18:00 92 24 101/45 (63) 95 12/22/18 17:00 97 23 107/76 (86) 96 12/22/18 16:59 103 12/22/18 16:58 94 24 40 12/22/18 16:48 100 26 Mechanical Ventilator 40 12/22/18 16:00 40 12/22/18 16:00 Mechanical Ventilator 12/22/18 16:00 98.0 105 24 121/75 (90) 96 12/22/18 15:00 97 18 92/50 (64) 96 Intake and Output 12/22/18 12/23/18 19:00 07:00 Intake Total 1397.0 ml 1225 ml Output Total 480 ml 580 ml Balance 917.0 ml 645 ml Intake Oral 0 ml 0 ml IV Total 1397.0 ml 1225 ml Output Urine Total 480 ml 580 ml Height (Feet): 5 Height (Inches): 9.00 Weight (Pounds): 123 Bruno Enamorado MD Dec 23, 2018 14:58
--- NOTE | 2018-12-23 15:04 | NUR ---
NURSE NOTES: Started OGTF Vital 1.2 at 10cc/hr. Goal is 55 cc/hr. No acute distress. Will continue to monitor.
[2018-12-23] MEDS ORDERED: NS 275ml ONE (15:22)
--- NOTE | 2018-12-23 15:41 | Pulmonolgy Critical Care Note ---
Critical Care - Asmt/Plan Assessment/Plan: Pulmonary Progress Note Critical Care - Asmt/Plan Problems: (1) Gram positive sepsis Assessment & Plan: S aureus (2) Severe sepsis (3) Acute respiratory failure (4) NSTEMI (non-ST elevated myocardial infarction) (5) CONSTANCE (acute kidney injury) (6) Acute aspiration pneumonia (7) Lung cancer metastatic to brain (8) CHF (congestive heart failure) (9) Consult surgery for Left Apical Pneumothorax Respiratory: adjust tidal volume - as needed, monitor respiratory rate, adjust FIO2 - Titrate down to keep SaO2 > 92%, continue PEEP 5, ABG, weaning trial - once O2 needs down and off hemodynamically stable Cardiac: continue pressors - titrate NE for MAP > 60 , continue to monitor HR/ BP Renal: keep IV fluid, check electrolytes Infectious Disease: check cultures, continue antibiotics - per ID Gastrointestinal: start feedings Endocrine: monitor blood sugar Hematologic: monitor H/H Neurologic: keep patient comfortable Prophylaxis: Protonix, other - Eliquis Disposition: keep in ICU Time Spent (Minutes): 40 Notes Reviewed: [employer], cardio, ID Discussed with: nurses, consultants, other - DNAR Critical Care - Objective Vital Signs Noted Status: sedated Condition: critical HEENT: other - intubted, OGT Lungs: clear Heart: HR/BP unstable Abdomen: soft, non-tender, active bowel sounds Extremities: no C/C/E Micro: Microbiology Date/Time Source Procedure Growth Status 12/17/18 15:40 Blood Blood Culture - Preliminary Staphylococcus Aureus Resulted 12/17/18 15:25 Blood Blood Culture - Preliminary Staphylococcus Aureus Resulted 12/17/18 17:30 Nasal Nares Influenza Types A,B Antigen (JAYCOB) - Final Complete 12/17/18 17:02 Urine,Clean Catch Urine Culture - Preliminary NO GROWTH AFTER 24 HOURS Resulted Blood Sugars: BS controlled Critical Care - Subjective ROS Limited/Unobtainable: Yes ICU Day: 3 Intubation Day: 3 Interval Events: NE 2 Sedated WCt better S/P PICC Condition: stable IV Access: PICC EKG Rhythm: Sinus Rhythm FI02: 70 Vent Support Breath Rate: 24 Vent Support Mode: AC Vent Tidal Volume: 600 Sputum Amount: Small PEEP: 5.0 PIP: 23 Fluids: D51/2NS@75 Drips: NE2 I&O: Subjective: HAWA ET-Tube: 7.5 ET Position: 21 Labs: Laboratory Tests Test 12/18/18 14:48 12/18/18 15:20 12/18/18 18:50 12/19/18 05:55 Arterial Blood pH 7.280 (7.350-7.450) Arterial Blood Partial Pressure CO2 46.7 mmHg (35.0-45.0) H Arterial Blood Partial Pressure O2 95.4 mmHg (75.0-100.0) Arterial Blood HCO3 21.5 mmol/L (22.0-26.0) L Arterial Blood Oxygen Saturation 95.6 % (95-100) Arterial Blood Base Excess -5.3 (-2-2) L Damion Test Positive Lactic Acid Level 2.70 mmol/L (0.4-2.0) H 3.30 mmol/L (0.66-2.22) H Troponin I 0.087 ng/mL (0.000-0.056) Free Thyroxine 0.93 NG/DL (0.76-1.46) Triiodothyonine (T3) 47 ng/dL (71-180) L Free Triiodothyronine < 0.5 pg/mL (2.3-4.2) L Triiodothyronine (T3) Uptake 35 % (24-39) White Blood Count 10.0 K/UL (4.8-10.8) # Red Blood Count 3.68 M/UL (4.70-6.10) L Hemoglobin 11.6 G/DL (14.2-18.0) L Hematocrit 36.0 % (42.0-52.0) L Mean Corpuscular Volume 98 FL (80-99) Mean Corpuscular Hemoglobin 31.5 PG (27.0-31.0) H Mean Corpuscular Hemoglobin Concent 32.3 G/DL (32.0-36.0) Red Cell Distribution Width 12.0 % (11.6-14.8) Platelet Count 172 K/UL (150-450) Mean Platelet Volume 8.6 FL (6.5-10.1) Neutrophils (%) (Auto) % (45.0-75.0) Lymphocytes (%) (Auto) % (20.0-45.0) Monocytes (%) (Auto) % (1.0-10.0) Eosinophils (%) (Auto) % (0.0-3.0) Basophils (%) (Auto) % (0.0-2.0) Neutrophils % (Manual) Pending Lymphocytes % (Manual) Pending Platelet Estimate Pending Platelet Morphology Pending Sodium Level 144 MMOL/L (136-145) Potassium Level 3.9 MMOL/L (3.5-5.1) Chloride Level 111 MMOL/L (98-107) H Carbon Dioxide Level 21 MMOL/L (21-32) Anion Gap 13 mmol/L (5-15) Blood Urea Nitrogen 52 mg/dL (7-18) H Creatinine 1.5 MG/DL (0.55-1.30) H Estimat Glomerular Filtration Rate mL/min (>60) Glucose Level 150 MG/DL (74-106) H Calcium Level 8.5 MG/DL (8.5-10.1) Critical Care - Objective Last 24 Hour Vital Signs Date Time Temp Pulse Resp B/P (MAP) Pulse Ox O2 Delivery O2 Flow Rate FiO2 12/23/18 15:21 85 24 40 12/23/18 15:00 77 24 83/50 (61) 100 12/23/18 14:00 78 0 70/53 (59) 100 12/23/18 13:36 81 24 100 Mechanical Ventilator 40 12/23/18 13:24 100 24 100 Mechanical Ventilator 40 12/23/18 13:02 93 26 40 12/23/18 13:00 89 22 95/65 (75) 99 12/23/18 12:44 25 Mechanical Ventilator 12/23/18 12:30 85 22 133/86 (102) 99 12/23/18 12:00 97.8 84 22 117/65 (82) 100 12/23/18 12:00 Mechanical Ventilator Mechanical Ventilator 12/23/18 12:00 40 12/23/18 11:55 86 23 94/62 (73) 99 12/23/18 11:19 94 25 40 12/23/18 11:00 88 22 80/48 (59) 100 12/23/18 10:30 84 22 67/49 (55) 100 12/23/18 10:00 85 23 81/43 (56) 99 12/23/18 09:00 86 22 89/50 (63) 100 12/23/18 08:49 93 25 40 12/23/18 08:00 40 12/23/18 08:00 84 12/23/18 08:00 Mechanical Ventilator Mechanical Ventilator 12/23/18 08:00 98.0 90 23 88/49 (62) 100 12/23/18 07:30 93 19 108/54 (72) 99 12/23/18 07:11 91 24 97 Mechanical Ventilator 40 12/23/18 07:05 107 32 40 12/23/18 07:05 99 27 98 Mechanical Ventilator 40 12/23/18 07:00 94 21 83/56 (65) 98 12/23/18 06:30 90 22 88/59 (69) 99 12/23/18 06:00 95 21 100/60 (73) 97 12/23/18 06:00 23 Mechanical Ventilator 40 12/23/18 05:30 94 22 110/64 (79) 97 12/23/18 05:03 91 24 40 12/23/18 05:00 23 Mechanical Ventilator 40 12/23/18 05:00 95 23 108/64 (79) 97 12/23/18 04:30 98 23 120/58 (78) 97 12/23/18 04:30 99 25 40 12/23/18 04:00 98 12/23/18 04:00 98.5 98 21 80/41 (54) 97 12/23/18 04:00 22 Mechanical Ventilator 40 12/23/18 04:00 40 12/23/18 04:00 Mechanical Ventilator Mechanical Ventilator 12/23/18 03:30 98 21 90/50 (63) 97 12/23/18 03:00 99 21 89/53 (65) 97 12/23/18 03:00 23 Mechanical Ventilator 40 12/23/18 02:41 27 40 12/23/18 02:30 98 21 100/60 (73) 97 12/23/18 02:00 96 21 102/61 (75) 97 12/23/18 02:00 18 Mechanical Ventilator 40 12/23/18 01:51 103 24 100 Mechanical Ventilator 40 12/23/18 01:42 107 24 98 Mechanical Ventilator 40 12/23/18 01:41 107 26 40 12/23/18 01:30 101 23 90/66 (74) 98 12/23/18 01:00 23 Mechanical Ventilator 40 12/23/18 01:00 101 23 87/66 (73) 98 12/23/18 00:30 100 24 94/58 (70) 98 12/23/18 00:00 40 12/23/18 00:00 40 12/23/18 00:00 Mechanical Ventilator Mechanical Ventilator 12/23/18 00:00 98.4 95 24 101/63 (76) 98 12/23/18 00:00 23 Mechanical Ventilator 40 12/23/18 00:00 101 12/22/18 23:30 102 24 94/58 (70) 98 12/22/18 23:24 100 25 40 12/22/18 23:00 23 Mechanical Ventilator 40 12/22/18 23:00 101 24 94/58 (70) 98 12/22/18 22:30 100 22 93/63 (73) 98 12/22/18 22:00 95 24 94/58 (70) 98 12/22/18 22:00 23 Mechanical Ventilator 40 12/22/18 21:31 101 24 40 12/22/18 21:30 91 23 95/66 (76) 96 12/22/18 21:05 23 Mechanical Ventilator 40 12/22/18 21:00 91 23 95/66 (76) 96 12/22/18 20:55 116/71 12/22/18 20:30 90 23 95/66 (76) 96 12/22/18 20:00 98.4 101 23 95/66 (76) 96 12/22/18 20:00 95 12/22/18 20:00 40 12/22/18 20:00 23 Mechanical Ventilator 40 12/22/18 20:00 Mechanical Ventilator Mechanical Ventilator 12/22/18 19:31 99 24 98 Mechanical Ventilator 40 12/22/18 19:22 106 24 98 Mechanical Ventilator 40 12/22/18 19:16 90 24 40 12/22/18 19:00 95 19 96/70 (79) 96 12/22/18 18:00 92 24 101/45 (63) 95 12/22/18 17:00 97 23 107/76 (86) 96 12/22/18 16:59 103 12/22/18 16:58 94 24 40 12/22/18 16:48 100 26 Mechanical Ventilator 40 12/22/18 16:00 40 12/22/18 16:00 Mechanical Ventilator 12/22/18 16:00 98.0 105 24 121/75 (90) 96 Micro: Microbiology Date/Time Source Procedure Growth Status 12/20/18 17:30 Blood Blood Culture - Final Staphylococcus Aureus Complete 12/20/18 17:15 Blood Blood Culture - Final Staphylococcus Aureus Complete 12/22/18 04:40 Catheter Site Catheter Tip Culture - Preliminary Resulted Critical Care - Subjective ROS Limited/Unobtainable: No FI02: 40 Vent Support Breath Rate: 24 Vent Support Mode: AC Vent Tidal Volume: 600 Sputum Amount: Small PEEP: 5.0 PIP: 31 I&O: Intake and Output 12/22/18 12/23/18 19:00 07:00 Intake Total 1397.0 ml 1225 ml Output Total 480 ml 580 ml Balance 917.0 ml 645 ml Intake Oral 0 ml 0 ml IV Total 1397.0 ml 1225 ml Output Urine Total 480 ml 580 ml ET-Tube: 7.5 ET Position: 30 Real Landa MD Dec 23, 2018 15:41
[2018-12-23 15:47] LABS: HEMATOCRIT 33.4 % (42.0-52.0); HEMOGLOBIN 11.5 G/DL (14.2-18.0); MEAN CORPUSCULAR VOLUME 94 FL (80-99); PLATELET COUNT 116 K/UL (150-450); RED BLOOD COUNT 3.54 M/UL (4.70-6.10); RED CELL DISTRIBUTION WIDTH 12.1 % (11.6-14.8); WHITE BLOOD COUNT 15.6 K/UL (4.8-10.8)
[2018-12-23 16:01] LABS: ALANINE AMINOTRANSFERASE 23 U/L (12-78); ALBUMIN 0.7 G/DL (3.4-5.0); ALBUMIN/GLOBULIN RATIO 0.2 (1.0-2.7); ALKALINE PHOSPHATASE 77 U/L (46-116); ANION GAP 13 mmol/L (5-15); ASPARTATE AMINO TRANSFERASE 27 U/L (15-37); BILIRUBIN,TOTAL 0.4 MG/DL (0.2-1.0); BLOOD UREA NITROGEN 42 mg/dL (7-18); CALCIUM 7.6 MG/DL (8.5-10.1); CARBON DIOXIDE 18 MMOL/L (21-32); CHLORIDE 110 MMOL/L (98-107); CREATININE 1.4 MG/DL (0.55-1.30); POTASSIUM 3.5 MMOL/L (3.5-5.1); SODIUM 141 MMOL/L (136-145)
--- NOTE | 2018-12-23 16:34 | NUR ---
NURSE NOTES: Dr Landa here to see pt. ordered to start weaning tomorrow. Will continue to monitor.
--- NOTE | 2018-12-23 17:02 | Infectious Diseases Prog Note ---
Assessment/Plan Problems: (1) Acute aspiration pneumonia Assessment & Plan: will switch zosyn empirically to doxycycline to finish his course for 10 -14 days pending sputum culture . aspiration precaution, keep HOB > 30 degree. monitor CXR (2) Sepsis Assessment & Plan: with shock , due to methicillin sensitive staph aureus , continue oxacillin IV for minimum of four weeks . trans thoracic echo done on admission ruled out valve vegetations , repeated blood culture is still positive, most likely due to the presence of PICC line which was placed while he was bacteremic and steroids with being immunocompromised with metastatic lung cancer, S/P PICC line removal . will repeat blood culture x2 today to confirm (3) CONSTANCE (acute kidney injury) Assessment & Plan: due to the above , continue hydration with renally dosed antibiotics , continue pressure support, renal follow up (4) Acute respiratory failure Assessment & Plan: due to the above , intubated on mechanical ventilation, pulmonary is following , monitor ABG, and CXR (5) Lung cancer metastatic to brain Assessment & Plan: S/P radiation and chemo therapy at [place] , now with poor prognosis, recommend palliative care . (6) Leukocytosis Assessment & Plan: suspect due to steroids , recommend to taper, monitor WBC (7) Pneumothorax, left Assessment & Plan: monitor CXR , surgery is following Subjective ROS Limited/Unobtainable: Yes Allergies: Coded Allergies: No Known Allergies (Unverified , 12/17/18) Subjective he was still intubated on mechanical ventilation in ICU, sedated, unresponsive to verbal commands, not on pressor , afebrile , no secretions Objective Vital Signs Last 24 Hour Vital Signs Date Time Temp Pulse Resp B/P (MAP) Pulse Ox O2 Delivery O2 Flow Rate FiO2 12/23/18 16:00 Mechanical Ventilator Mechanical Ventilator 12/23/18 16:00 98.0 77 24 106/43 (64) 100 12/23/18 16:00 40 12/23/18 15:30 73 24 80/47 (58) 100 12/23/18 15:21 85 24 40 12/23/18 15:00 77 24 83/50 (61) 100 12/23/18 14:00 78 0 70/53 (59) 100 12/23/18 13:36 81 24 100 Mechanical Ventilator 40 12/23/18 13:24 100 24 100 Mechanical Ventilator 40 12/23/18 13:02 93 26 40 1/22/19 13:00 89 22 95/65 (75) 99 12/23/18 12:44 25 Mechanical Ventilator 12/23/18 12:30 85 22 133/86 (102) 99 12/23/18 12:00 97.8 84 22 117/65 (82) 100 12/23/18 12:00 Mechanical Ventilator Mechanical Ventilator 12/23/18 12:00 40 12/23/18 12:00 83 12/23/18 11:55 86 23 94/62 (73) 99 12/23/18 11:19 94 25 40 12/23/18 11:00 88 22 80/48 (59) 100 12/23/18 10:30 84 22 67/49 (55) 100 12/23/18 10:00 85 23 81/43 (56) 99 12/23/18 09:00 86 22 89/50 (63) 100 12/23/18 08:49 93 25 40 12/23/18 08:00 40 12/23/18 08:00 84 12/23/18 08:00 Mechanical Ventilator Mechanical Ventilator 12/23/18 08:00 98.0 90 23 88/49 (62) 100 12/23/18 07:30 93 19 108/54 (72) 99 12/23/18 07:11 91 24 97 Mechanical Ventilator 40 12/23/18 07:05 107 32 40 12/23/18 07:05 99 27 98 Mechanical Ventilator 40 12/23/18 07:00 94 21 83/56 (65) 98 12/23/18 06:30 90 22 88/59 (69) 99 12/23/18 06:00 95 21 100/60 (73) 97 12/23/18 06:00 23 Mechanical Ventilator 40 12/23/18 05:30 94 22 110/64 (79) 97 12/23/18 05:03 91 24 40 12/23/18 05:00 23 Mechanical Ventilator 40 12/23/18 05:00 95 23 108/64 (79) 97 12/23/18 04:30 98 23 120/58 (78) 97 12/23/18 04:30 99 25 40 12/23/18 04:00 98 12/23/18 04:00 98.5 98 21 80/41 (54) 97 12/23/18 04:00 22 Mechanical Ventilator 40 12/23/18 04:00 40 12/23/18 04:00 Mechanical Ventilator Mechanical Ventilator 12/23/18 03:30 98 21 90/50 (63) 97 12/23/18 03:00 99 21 89/53 (65) 97 12/23/18 03:00 23 Mechanical Ventilator 40 12/23/18 02:41 27 40 12/23/18 02:30 98 21 100/60 (73) 97 12/23/18 02:00 96 21 102/61 (75) 97 12/23/18 02:00 18 Mechanical Ventilator 40 12/23/18 01:51 103 24 100 Mechanical Ventilator 40 12/23/18 01:42 107 24 98 Mechanical Ventilator 40 12/23/18 01:41 107 26 40 12/23/18 01:30 101 23 90/66 (74) 98 12/23/18 01:00 23 Mechanical Ventilator 40 12/23/18 01:00 101 23 87/66 (73) 98 12/23/18 00:30 100 24 94/58 (70) 98 12/23/18 00:00 40 12/23/18 00:00 40 12/23/18 00:00 Mechanical Ventilator Mechanical Ventilator 12/23/18 00:00 98.4 95 24 101/63 (76) 98 12/23/18 00:00 23 Mechanical Ventilator 40 12/23/18 00:00 101 12/22/18 23:30 102 24 94/58 (70) 98 12/22/18 23:24 100 25 40 12/22/18 23:00 23 Mechanical Ventilator 40 12/22/18 23:00 101 24 94/58 (70) 98 12/22/18 22:30 100 22 93/63 (73) 98 12/22/18 22:00 95 24 94/58 (70) 98 12/22/18 22:00 23 Mechanical Ventilator 40 12/22/18 21:31 101 24 40 12/22/18 21:30 91 23 95/66 (76) 96 12/22/18 21:05 23 Mechanical Ventilator 40 12/22/18 21:00 91 23 95/66 (76) 96 12/22/18 20:55 116/71 12/22/18 20:30 90 23 95/66 (76) 96 12/22/18 20:00 98.4 101 23 95/66 (76) 96 12/22/18 20:00 95 12/22/18 20:00 40 12/22/18 20:00 23 Mechanical Ventilator 40 12/22/18 20:00 Mechanical Ventilator Mechanical Ventilator 12/22/18 19:31 99 24 98 Mechanical Ventilator 40 12/22/18 19:22 106 24 98 Mechanical Ventilator 40 12/22/18 19:16 90 24 40 12/22/18 19:00 95 19 96/70 (79) 96 12/22/18 18:00 92 24 101/45 (63) 95 12/22/18 17:00 97 23 107/76 (86) 96 Height (Feet): 5 Height (Inches): 9.00 Weight (Pounds): 123 General Appearance: no acute distress, cachetic HEENT: normocephalic, atraumatic, anicteric, mucous membranes moist, PERRL, supple, no JVD Respiratory/Chest: chest wall non-tender, no respiratory distress, no accessory muscle use, decreased breath sounds, crackles/rales Cardiovascular: normal peripheral pulses, normal rate, regular rhythm, no gallop/murmur, no JVD Abdomen: normal bowel sounds, soft, non tender, no organomegaly, non distended , no mass, no scars Extremities: no cyanosis, no clubbing Skin: no rash, no lesions, no ulcers Neurologic/Psychiatric: unresponsiveness Lymphatic: no neck adenopathy, no groin adenopathy Musculoskeletal: normal muscle bulk, no effusion Microbiology Date/Time Source Procedure Growth Status 12/20/18 17:30 Blood Blood Culture - Final Staphylococcus Aureus Complete 12/20/18 17:15 Blood Blood Culture - Final Staphylococcus Aureus Complete 12/22/18 04:40 Catheter Site Catheter Tip Culture - Preliminary Resulted Laboratory Tests Test 12/23/18 15:00 White Blood Count 15.6 K/UL (4.8-10.8) H Red Blood Count 3.54 M/UL (4.70-6.10) L Hemoglobin 11.5 G/DL (14.2-18.0) L Hematocrit 33.4 % (42.0-52.0) L Mean Corpuscular Volume 94 FL (80-99) Mean Corpuscular Hemoglobin 32.3 PG (27.0-31.0) H Mean Corpuscular Hemoglobin Concent 34.3 G/DL (32.0-36.0) Red Cell Distribution Width 12.1 % (11.6-14.8) Platelet Count 116 K/UL (150-450) L Mean Platelet Volume 10.5 FL (6.5-10.1) H Neutrophils (%) (Auto) % (45.0-75.0) Lymphocytes (%) (Auto) % (20.0-45.0) Monocytes (%) (Auto) % (1.0-10.0) Eosinophils (%) (Auto) % (0.0-3.0) Basophils (%) (Auto) % (0.0-2.0) Neutrophils % (Manual) Pending Lymphocytes % (Manual) Pending Platelet Estimate Pending Platelet Morphology Pending Sodium Level 141 MMOL/L (136-145) Potassium Level 3.5 MMOL/L (3.5-5.1) Chloride Level 110 MMOL/L (98-107) H Carbon Dioxide Level 18 MMOL/L (21-32) L Anion Gap 13 mmol/L (5-15) Blood Urea Nitrogen 42 mg/dL (7-18) H Creatinine 1.4 MG/DL (0.55-1.30) H Estimat Glomerular Filtration Rate mL/min (>60) Glucose Level 142 MG/DL (74-106) H Calcium Level 7.6 MG/DL (8.5-10.1) L Total Bilirubin 0.4 MG/DL (0.2-1.0) Aspartate Amino Transf (AST/SGOT) 27 U/L (15-37) Alanine Aminotransferase (ALT/SGPT) 23 U/L (12-78) Alkaline Phosphatase 77 U/L (46-116) Total Protein 4.6 G/DL (6.4-8.2) L Albumin 0.7 G/DL (3.4-5.0) L Globulin 3.9 g/dL Albumin/Globulin Ratio 0.2 (1.0-2.7) L Current Medications Medications (Trade) Dose Ordered Sig/Earlene Route PRN Reason Start Time Stop Time Status Last Admin Dose Admin Chlorhexidine Gluconate ([place]indy-Hex 2%) 1 applic DAILY@1999 TOPIC 12/18/18 20:00 01/17/19 19:59 12/22/18 20:24 Dexamethasone Sodium Phosphate (Decadron 4mg/ml vial) 4 mg BID IVP 12/18/18 09:00 01/17/19 08:59 12/23/18 08:12 Dextrose/Sodium Chloride 1,000 ml @ 75 mls/hr [id number] IV 12/17/18 20:00 01/16/19 19:59 12/23/18 08:13 Dopamine HCl/ Dextrose 250 ml @ 0 mls/hr Q24H IV 12/17/18 20:55 01/16/19 20:54 12/17/18 20:55 Fentanyl Citrate 1000 mcg/Sodium Chloride 100 ml @ 0 mls/hr Q24H IV 12/19/18 20:00 12/26/18 19:59 12/23/18 12:44 Ipratropium [place] (Atrovent) 500 mcg Q6HRT HHN 12/18/18 19:00 12/23/18 18:59 12/23/18 14:01 Norepinephrine Bitartrate 4 mg/ Dextrose 250 ml @ 0 mls/hr Q24H IV 12/18/18 15:00 01/17/19 14:59 12/18/18 21:34 Oxacillin Sodium 2 gm/Sodium Chloride 110 ml @ 220 mls/hr Q4HR IVPB 12/21/18 17:00 12/28/18 16:59 12/23/18 13:17 Pantoprazole (Protonix) 40 mg EVERY 12 HOURS IVP 12/18/18 21:00 01/17/19 20:59 12/23/18 08:12 Piperacillin Sod/ Tazobactam Sod 3.375 gm/Dextrose 110 ml @ 27.5 mls/hr EVERY 8 HOURS IVPB 12/17/18 22:00 12/28/18 21:59 12/23/18 14:18 Sodium Chloride 500 ml @ 999 mls/hr Q31M PRN IV For hypotension 12/20/18 11:45 01/19/19 11:44 12/23/18 16:56 Tammy Rob M.D. Dec 23, 2018 17:02
--- NOTE | 2018-12-23 17:39 | NUR ---
NURSE NOTES: Family at bedside visiting with pt. Will continue to monitor.
--- NOTE | 2018-12-23 19:16 | NUR ---
HAND-OFF: Report given to Ange OLSON.
--- NOTE | 2018-12-23 19:30 | NUR ---
NURSE NOTES: Received pt orally intubated on ac mode , Sedated with Fentanyl drip at 100mcghr, ST in low 100s with occ. PACs and PVCs. Bp stable , upper extremities edematous, elevated with pillows, pt tend to lay on his RT side.Pt easily arousable to tactile stimulation. Bilateral soft wrist restraints on for safety to avoid self extubation. Stoddard to gravity with moderate amt of sheryl yellow urine. Tolerated OGt fdg at this time, at 30ml/hr, Vitalm AF at 20ml when received. Will continue to monitor.
[2018-12-23] MEDS: DOPamine 400mg/250ml 250 ML IV SCH (20:55)
[2018-12-23] MEDS: Doxycycline Hyclate 100 MG in D5W 110 ML IV SCH (21:05)
--- NOTE | 2018-12-23 21:30 | NUR ---
NURSE NOTES:Suctioned tk whitish secretions moderate in amt. Oral care done. 02 sat 100%. HOB kept elevated. watch for any resp. distress.
--- NOTE | 2018-12-23 23:00 | NUR ---
NURSE NOTES:Increase fdg at 30ml /hr. HOB kept at 45 degree. On aspiration precaution.
--- NOTE | 2018-12-23 23:10 | Cardiology Progress Note ---
Assessment/Plan Assessment/Plan 1. Sinus tachycardia, resolved, most likely secondary to hypoxemia/lung CA. 2. History of coronary artery disease, status post coronary artery bypass graft surgery. 12-lead electrocardiogram does not show any ischemic changes despite the fact that the troponin I levels are elevated. The patient is not a candidate for ischemic workup given metastatic lung cancer conservative management. I do not believe that the patient would benefit from anticoagulation therapy, which may put the patient in increased risk of bleeding. 3. Acute respiratory failure, hypoxic hypercarbic respiratory failure due to possible acute exacerbation of COPD. 4. Non-sustained ventricular tachycardia, keep Mg level and keep >2.5, keep K > 4.0 5. 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 6. History of CVA. 7. History of COPD. 8. CONSTANCE, creat up to 1.4. Subjective Subjective Sinus rhythm at rate of 65. Intubated with FiO2 of 40%. Objective Last 24 Hour Vital Signs Date Time Temp Pulse Resp B/P (MAP) Pulse Ox O2 Delivery O2 Flow Rate FiO2 12/23/18 22:30 65 25 100/44 (62) 100 12/23/18 22:00 69 25 90/44 (59) 100 12/23/18 21:30 70 25 88/50 (63) 100 12/23/18 21:09 65 24 40 12/23/18 21:00 73 26 120/64 (82) 98 12/23/18 20:30 73 24 93/64 (74) 98 12/23/18 20:00 98.6 75 26 142/82 (102) 99 12/23/18 20:00 75 12/23/18 20:00 40 12/23/18 20:00 Mechanical Ventilator Mechanical Ventilator 12/23/18 19:30 85 24 40 12/23/18 19:00 75 24 125/58 (80) 99 12/23/18 18:00 82 20 143/76 (98) 97 12/23/18 17:30 79 4 136/98 (111) 12/23/18 17:28 71 24 40 12/23/18 17:00 71 24 115/81 (92) 100 12/23/18 16:00 Mechanical Ventilator Mechanical Ventilator 12/23/18 16:00 98.0 77 24 106/43 (64) 100 12/23/18 16:00 40 12/23/18 16:00 70 12/23/18 15:30 73 24 80/47 (58) 100 12/23/18 15:21 85 24 40 12/23/18 15:00 77 24 83/50 (61) 100 12/23/18 14:00 78 0 70/53 (59) 100 12/23/18 13:36 81 24 100 Mechanical Ventilator 40 12/23/18 13:24 100 24 100 Mechanical Ventilator 40 12/23/18 13:02 93 26 40 12/23/18 13:00 89 22 95/65 (75) 99 12/23/18 12:44 25 Mechanical Ventilator 12/23/18 12:30 85 22 133/86 (102) 99 12/23/18 12:00 97.8 84 22 117/65 (82) 100 12/23/18 12:00 Mechanical Ventilator Mechanical Ventilator 12/23/18 12:00 40 12/23/18 12:00 83 12/23/18 11:55 86 23 94/62 (73) 99 12/23/18 11:19 94 25 40 12/23/18 11:00 88 22 80/48 (59) 100 12/23/18 10:30 84 22 67/49 (55) 100 12/23/18 10:00 85 23 81/43 (56) 99 12/23/18 09:00 86 22 89/50 (63) 100 12/23/18 08:49 93 25 40 12/23/18 08:00 40 12/23/18 08:00 84 12/23/18 08:00 Mechanical Ventilator Mechanical Ventilator 12/23/18 08:00 98.0 90 23 88/49 (62) 100 12/23/18 07:30 93 19 108/54 (72) 99 12/23/18 07:11 91 24 97 Mechanical Ventilator 40 12/23/18 07:05 107 32 40 12/23/18 07:05 99 27 98 Mechanical Ventilator 40 12/23/18 07:00 94 21 83/56 (65) 98 12/23/18 06:30 90 22 88/59 (69) 99 12/23/18 06:00 95 21 100/60 (73) 97 12/23/18 06:00 23 Mechanical Ventilator 40 12/23/18 05:30 94 22 110/64 (79) 97 12/23/18 05:03 91 24 40 12/23/18 05:00 23 Mechanical Ventilator 40 12/23/18 05:00 95 23 108/64 (79) 97 12/23/18 04:30 98 23 120/58 (78) 97 12/23/18 04:30 99 25 40 12/23/18 04:00 98 12/23/18 04:00 98.5 98 21 80/41 (54) 97 12/23/18 04:00 22 Mechanical Ventilator 40 12/23/18 04:00 40 12/23/18 04:00 Mechanical Ventilator Mechanical Ventilator 12/23/18 03:30 98 21 90/50 (63) 97 12/23/18 03:00 99 21 89/53 (65) 97 12/23/18 03:00 23 Mechanical Ventilator 40 12/23/18 02:41 27 40 12/23/18 02:30 98 21 100/60 (73) 97 12/23/18 02:00 96 21 102/61 (75) 97 12/23/18 02:00 18 Mechanical Ventilator 40 12/23/18 01:51 103 24 100 Mechanical Ventilator 40 12/23/18 01:42 107 24 98 Mechanical Ventilator 40 12/23/18 01:41 107 26 40 12/23/18 01:30 101 23 90/66 (74) 98 12/23/18 01:00 23 Mechanical Ventilator 40 12/23/18 01:00 101 23 87/66 (73) 98 12/23/18 00:30 100 24 94/58 (70) 98 12/23/18 00:00 40 12/23/18 00:00 40 12/23/18 00:00 Mechanical Ventilator Mechanical Ventilator 12/23/18 00:00 98.4 95 24 101/63 (76) 98 12/23/18 00:00 23 Mechanical Ventilator 40 12/23/18 00:00 101 12/22/18 23:30 102 24 94/58 (70) 98 12/22/18 23:24 100 25 40 Intake and Output 12/22/18 12/23/18 18:59 06:59 Intake Total 1433.5 ml 1300 ml Output Total 480 ml 580 ml Balance 953.5 ml 720 ml Intake Oral 0 ml 0 ml IV Total 1433.5 ml 1300 ml Output Urine Total 480 ml 580 ml 2D Echo: Global LV HK with LVEF 25%, Mild LAE, RVSP 14 mmHg, Grade I LVDD Laboratory Tests Test 12/23/18 15:00 White Blood Count 15.6 K/UL (4.8-10.8) H Red Blood Count 3.54 M/UL (4.70-6.10) L Hemoglobin 11.5 G/DL (14.2-18.0) L Hematocrit 33.4 % (42.0-52.0) L Mean Corpuscular Volume 94 FL (80-99) Mean Corpuscular Hemoglobin 32.3 PG (27.0-31.0) H Mean Corpuscular Hemoglobin Concent 34.3 G/DL (32.0-36.0) Red Cell Distribution Width 12.1 % (11.6-14.8) Platelet Count 116 K/UL (150-450) L Mean Platelet Volume 10.5 FL (6.5-10.1) H Neutrophils (%) (Auto) % (45.0-75.0) Lymphocytes (%) (Auto) % (20.0-45.0) Monocytes (%) (Auto) % (1.0-10.0) Eosinophils (%) (Auto) % (0.0-3.0) Basophils (%) (Auto) % (0.0-2.0) Differential Total Cells Counted 100 Neutrophils % (Manual) 86 % (45-75) H Lymphocytes % (Manual) 3 % (20-45) L Monocytes % (Manual) 2 % (1-10) Eosinophils % (Manual) 0 % (0-3) Basophils % (Manual) 0 % (0-2) Band Neutrophils 9 % (0-8) H Platelet Estimate Decreased L Platelet Morphology Normal Hypochromasia 1+ Anisocytosis 1+ Sodium Level 141 MMOL/L (136-145) Potassium Level 3.5 MMOL/L (3.5-5.1) Chloride Level 110 MMOL/L (98-107) H Carbon Dioxide Level 18 MMOL/L (21-32) L Anion Gap 13 mmol/L (5-15) Blood Urea Nitrogen 42 mg/dL (7-18) H Creatinine 1.4 MG/DL (0.55-1.30) H Estimat Glomerular Filtration Rate mL/min (>60) Glucose Level 142 MG/DL (74-106) H Calcium Level 7.6 MG/DL (8.5-10.1) L Total Bilirubin 0.4 MG/DL (0.2-1.0) Aspartate Amino Transf (AST/SGOT) 27 U/L (15-37) Alanine Aminotransferase (ALT/SGPT) 23 U/L (12-78) Alkaline Phosphatase 77 U/L (46-116) Total Protein 4.6 G/DL (6.4-8.2) L Albumin 0.7 G/DL (3.4-5.0) L Globulin 3.9 g/dL Albumin/Globulin Ratio 0.2 (1.0-2.7) L Microbiology Date/Time Source Procedure Growth Status 12/22/18 04:40 Catheter Site Catheter Tip Culture - Preliminary Resulted Objective HEENT: Atraumatic and normocephalic. Anicteric. Pupils are equal, round, and reactive to light and accommodation. Conjunctival pallor. NECK: JVP cannot be assessed due to positive inspiratory pressure of the ventilator. No carotid bruit. Carotid upstroke is 2+ bilaterally. CARDIOVASCULAR: Normal S1, S2. Regular rate and rhythm. I do not hear murmurs, gallops, or rubs. LUNGS: Diminished breath sounds in both lungs. ABDOMEN: Soft, nontender, and nondistended. No hepatosplenomegaly. Positive bowel sounds. EXTREMITIES: No evidence of edema, clubbing, or cyanosis. There is onychomycosis. Fred Holman MD Dec 23, 2018 23:10
[2018-12-24] VITALS (34 sets, daily range): BP systolic 91–164; BP diastolic 44–90
[2018-12-24] MEDS: Oxacillin 2 GM in NS 110 ML IVPB SCH ×6 (00:44→20:59)
--- NOTE | 2018-12-24 01:00 | NUR ---
NURSE NOTES:Resting well at thios time with vss. Bilateral soft wrist restraints maintained for safety.
--- NOTE | 2018-12-24 03:00 | NUR ---
NURSE NOTES:Complete bath with bed changed done. VSS. afebrile.
--- NOTE | 2018-12-24 04:21 | NUR ---
NURSE NOTES:Tolerated OGt fdg. Increase to 40ml/ hr at this time.
[2018-12-24] MEDS: D5 1/2NS 1,000 ML IV SCH ×2 (05:48→19:52)
--- NOTE | 2018-12-24 06:00 | NUR ---
NURSE NOTES: More awake at this time in spite of Fentanyl 100mcg/hr.VSS
--- NOTE | 2018-12-24 07:09 | NUR ---
RESPIRATORY NOTE: Patient received mechanically ventilated on PB 840 with current ordered vent settings. Patient is orally intubated with ETT size 7.5 with 30cm at the lip line and the ETT tube secured with tape. Patient has redness and skin breakdown on bilateral facial cheeks RN is aware. Patient presented with bilateral coarse breath sounds upon auscultation. There is an ambu bag available at the bedside and the vent is connected to a red outlet. Vent alarms are audible and functional. Will continue to monitor.
--- NOTE | 2018-12-24 07:32 | NUR ---
HAND-OFF: Report given to Arpan HDEZ R.n using sbar.
--- NOTE | 2018-12-24 08:00 | NUR ---
NURSE NOTES: Received patient from WESLEY Cassidy. Patient easily arousable, opens eyes spontaneously, unable to follow commands. Orally intubated, ETT size 7.5, 28cm lipline, AC24, TV 600, Fio2 40%, PEEP 5. OGT intact and patent. Noted with 350ml yellow residual. Stopped tube feeding. Stoddard cath intact and patent, draining yellow urine by gravity. Left forearm 20G and right forearm 20G intact and patent, running D51/2NS at 78ml/hr, and Fentanyl drip at 100mcg/hr. Pt on bilateral wrist soft restraints, pulses present. BUE edema noted. Patient spr mattress. Bed in lowest position. Side rails upx3, brakes are engaged, bed alarm on. Call light within reach. Will continue to monitor.
--- NOTE | 2018-12-24 08:30 | NUR ---
NURSE NOTES: Left a message to Dr. Quan regarding weaning trial, awaiting for call back.
--- NOTE | 2018-12-24 08:50 | NUR ---
NURSE NOTES: pt to be off fentanyl drip before weaning trial, per Dr. Quan.
[2018-12-24 09:15] LABS: HEMATOCRIT 37.1 % (42.0-52.0); HEMOGLOBIN 12.6 G/DL (14.2-18.0); MEAN CORPUSCULAR VOLUME 95 FL (80-99); PLATELET COUNT 123 K/UL (150-450); RED BLOOD COUNT 3.91 M/UL (4.70-6.10); RED CELL DISTRIBUTION WIDTH 12.3 % (11.6-14.8); WHITE BLOOD COUNT 18.4 K/UL (4.8-10.8)
[2018-12-24 09:40] LABS: ANION GAP 13 mmol/L (5-15); BLOOD UREA NITROGEN 41 mg/dL (7-18); CALCIUM 7.8 MG/DL (8.5-10.1); CARBON DIOXIDE 18 MMOL/L (21-32); CHLORIDE 110 MMOL/L (98-107); CREATININE 1.4 MG/DL (0.55-1.30); SODIUM 141 MMOL/L (136-145)
--- NOTE | 2018-12-24 09:40 | NUR ---
NURSE NOTES: Dr. Quan made aware that pt is awake, agitated, labored breathing. BP 136/95, HR 118, RR 29, O2 sat 96%. ABG ordered per MD.
[2018-12-24] MEDS: Dexamethasone 4mg/ml vial IVP SCH ×2 (09:54→17:28)
[2018-12-24] MEDS: Pantoprazole Inj IVP SCH ×2 (09:54→21:00)
[2018-12-24] MEDS: Doxycycline Hyclate 100 MG in D5W 110 ML IV SCH ×2 (09:55→20:59)
--- NOTE | 2018-12-24 11:10 | NUR ---
NURSE NOTES: ABG result reported to Dr. Quan. pt is awake and alert, slightly agitated. MD to place him CPAP 8 and repeat ABG in 1 hour. RT made aware.
[2018-12-24] MEDS ORDERED: Tubing IV Secondary IV ONE (11:19)
[2018-12-24] MEDS ORDERED: NS 500ML ONE (11:19)
[2018-12-24] MEDS ORDERED: D5 1/2NS 1000ml IV ONE (11:19)
--- NOTE | 2018-12-24 12:05 | NUR ---
NURSE NOTES: Patient on CPAP 8, Fio2 40% per Dr. Quan. pt saturating at 95%.
--- NOTE | 2018-12-24 12:10 | NUR ---
NURSE NOTES: Dr. Quan at bedside, updated on pt's status, pt on CPAP 8. per MD, cancel ABG, extubate. Called RT.
[2018-12-24] MEDS ORDERED: Albuterol/Ipratropium 3ml neb HHN PRN (12:15)
--- NOTE | 2018-12-24 12:19 | Pulmonolgy Critical Care Note ---
Critical Care - Asmt/Plan Problems: (1) Gram positive sepsis Assessment & Plan: S aureus (2) Severe sepsis (3) Acute respiratory failure (4) NSTEMI (non-ST elevated myocardial infarction) (5) CONSTANCE (acute kidney injury) (6) Acute aspiration pneumonia (7) Lung cancer metastatic to brain (8) CHF (congestive heart failure) Respiratory: monitor respiratory rate - oliver SBT RSBI 60 --> extubate, continue HHN's, other Cardiac: continue to monitor HR/BP, other - per cards AC held Renal: F/U I&O, keep IV fluid, check electrolytes Infectious Disease: check cultures, continue antibiotics - Oxacillin per ID Gastrointestinal: hold feedings - for extubation, COMMUNICATIONS LEAD eval afterwards Endocrine: monitor blood sugar Hematologic: monitor H/H Neurologic: keep patient comfortable Prophylaxis: Heparin - SQ Disposition: keep in ICU Notes Reviewed: project reservoir engineer, cardio, ID, other - DNAR Discussed with: nurses, consultants Critical Care - Objective Last 24 Hour Vital Signs Date Time Temp Pulse Resp B/P (MAP) Pulse Ox O2 Delivery O2 Flow Rate FiO2 12/24/18 11:00 102 24 91/49 (63) 96 12/24/18 10:43 102 30 40 12/24/18 10:30 101 25 102/54 (70) 95 12/24/18 10:00 105 26 139/71 (93) 93 12/24/18 09:45 29 Mechanical Ventilator 40 12/24/18 09:40 28 Mechanical Ventilator 40 12/24/18 09:35 29 Mechanical Ventilator 40 12/24/18 09:30 112 25 131/90 (104) 95 12/24/18 09:30 25 Mechanical Ventilator 40 12/24/18 09:25 26 Mechanical Ventilator 40 12/24/18 09:20 26 Mechanical Ventilator 40 12/24/18 09:15 30 Mechanical Ventilator 40 12/24/18 09:10 28 Mechanical Ventilator 40 12/24/18 09:05 27 Mechanical Ventilator 40 12/24/18 09:00 98.1 98 25 131/74 (93) 98 12/24/18 09:00 24 Mechanical Ventilator 40 12/24/18 08:53 110 29 40 12/24/18 08:30 92 18 123/64 (83) 97 12/24/18 08:00 92 12/24/18 08:00 40 12/24/18 08:00 92 18 108/53 (71) 97 12/24/18 08:00 24 Mechanical Ventilator 40 12/24/18 08:00 Mechanical Ventilator 12/24/18 07:30 87 17 97/63 (74) 98 12/24/18 07:05 98 29 40 12/24/18 07:00 86 18 141/61 (87) 98 12/24/18 07:00 24 Mechanical Ventilator 40 12/24/18 06:00 21 Mechanical Ventilator 40 12/24/18 06:00 85 19 128/50 (76) 97 12/24/18 05:30 89 19 124/50 (74) 97 12/24/18 05:00 85 19 163/87 (112) 99 12/24/18 05:00 21 Mechanical Ventilator 40 12/24/18 04:56 82 24 40 12/24/18 04:30 89 19 117/78 (91) 99 12/24/18 04:00 81 12/24/18 04:00 20 Mechanical Ventilator 40 12/24/18 04:00 Mechanical Ventilator Mechanical Ventilator 12/24/18 04:00 98.4 89 20 164/67 (99) 99 12/24/18 04:00 40 12/24/18 03:08 88 24 40 12/24/18 03:00 21 Mechanical Ventilator 40 12/24/18 03:00 82 20 132/61 (84) 100 12/24/18 02:30 83 18 106/66 (79) 100 12/24/18 02:00 20 Mechanical Ventilator 40 12/24/18 02:00 80 18 130/80 (97) 100 12/24/18 01:30 83 18 129/80 (96) 100 12/24/18 01:13 68 24 40 12/24/18 01:00 84 18 147/44 (78) 100 12/24/18 01:00 18 Mechanical Ventilator 40 12/24/18 00:30 84 17 130/74 (92) 100 12/24/18 00:00 92 12/24/18 00:00 40 12/24/18 00:00 Mechanical Ventilator Mechanical Ventilator 12/24/18 00:00 98.6 84 23 115/80 (92) 100 12/23/18 23:48 24 Mechanical Ventilator 40 12/23/18 23:30 70 23 113/88 (96) 100 12/23/18 23:10 68 24 40 12/23/18 23:00 20 Mechanical Ventilator 40 12/23/18 23:00 70 23 98/58 (71) 100 12/23/18 22:30 65 25 100/44 (62) 100 12/23/18 22:00 18 Mechanical Ventilator 40 12/23/18 22:00 69 25 90/44 (59) 100 12/23/18 21:30 70 25 88/50 (63) 100 12/23/18 21:09 65 24 40 12/23/18 21:00 73 26 120/64 (82) 98 12/23/18 21:00 21 Mechanical Ventilator 40 12/23/18 20:55 150/78 12/23/18 20:30 73 24 93/64 (74) 98 12/23/18 20:00 98.6 75 26 142/82 (102) 99 12/23/18 20:00 75 12/23/18 20:00 40 12/23/18 20:00 21 Mechanical Ventilator 40 12/23/18 20:00 Mechanical Ventilator Mechanical Ventilator 12/23/18 19:30 85 24 40 12/23/18 19:00 75 24 125/58 (80) 99 12/23/18 18:00 82 20 143/76 (98) 97 12/23/18 17:30 79 4 136/98 (111) 12/23/18 17:28 71 24 40 12/23/18 17:00 71 24 115/81 (92) 100 12/23/18 16:00 Mechanical Ventilator Mechanical Ventilator 12/23/18 16:00 98.0 77 24 106/43 (64) 100 12/23/18 16:00 40 12/23/18 16:00 70 12/23/18 15:30 73 24 80/47 (58) 100 12/23/18 15:21 85 24 40 12/23/18 15:00 77 24 83/50 (61) 100 12/23/18 14:00 78 0 70/53 (59) 100 12/23/18 13:36 81 24 100 Mechanical Ventilator 40 12/23/18 13:24 100 24 100 Mechanical Ventilator 40 12/23/18 13:02 93 26 40 12/23/18 13:00 89 22 95/65 (75) 99 12/23/18 12:44 25 Mechanical Ventilator 12/23/18 12:30 85 22 133/86 (102) 99 Status: awake Condition: critical HEENT: atraumatic, normocephalic Lungs: rhonchi Heart: HR/BP stable Abdomen: soft, non-tender, active bowel sounds Extremities: no C/C/E Decubiti: location Micro: Microbiology Date/Time Source Procedure Growth Status 12/22/18 04:40 Catheter Site Catheter Tip Culture - Preliminary NO GROWTH AFTER 48 HOURS Resulted Blood Sugars: BS controlled Critical Care - Subjective ROS Limited/Unobtainable: Yes ICU Day: 8 Intubation Day: 8 Interval Events: Oliver SBT No sig secretions Fent held Awake BCx's still + Condition: improving IV Access: peripheral EKG Rhythm: Sinus Rhythm FI02: 40 Vent Support Breath Rate: 24 Vent Support Mode: AC Vent Tidal Volume: 600 Sputum Amount: Small PEEP: 5.0 PIP: 28 Fluids: D51/2NS@75 Drips: Fent held, off pressors Tube Feeding Amount: 15 I&O: Intake and Output 12/23/18 12/24/18 19:00 07:00 Intake Total 1625.0 ml 1665 ml Output Total 400 ml 670 ml Balance 1225.0 ml 995 ml Intake Oral 0 ml 0 ml Free Water 30 ml IV Total 1625.0 ml 1265 ml Tube Feeding 370 ml Output Urine Total 400 ml 670 ml Subjective: HAWA ET-Tube: 7.5 ET Position: 30 Labs: Laboratory Tests Test 12/23/18 15:00 12/24/18 08:45 12/24/18 10:27 White Blood Count 15.6 K/UL (4.8-10.8) H 18.4 K/UL (4.8-10.8) H Red Blood Count 3.54 M/UL (4.70-6.10) L 3.91 M/UL (4.70-6.10) L Hemoglobin 11.5 G/DL (14.2-18.0) L 12.6 G/DL (14.2-18.0) L Hematocrit 33.4 % (42.0-52.0) L 37.1 % (42.0-52.0) L Mean Corpuscular Volume 94 FL (80-99) 95 FL (80-99) Mean Corpuscular Hemoglobin 32.3 PG (27.0-31.0) H 32.2 PG (27.0-31.0) H Mean Corpuscular Hemoglobin Concent 34.3 G/DL (32.0-36.0) 33.9 G/DL (32.0-36.0) Red Cell Distribution Width 12.1 % (11.6-14.8) 12.3 % (11.6-14.8) Platelet Count 116 K/UL (150-450) L 123 K/UL (150-450) L Mean Platelet Volume 10.5 FL (6.5-10.1) H 10.5 FL (6.5-10.1) H Neutrophils (%) (Auto) % (45.0-75.0) % (45.0-75.0) Lymphocytes (%) (Auto) % (20.0-45.0) % (20.0-45.0) Monocytes (%) (Auto) % (1.0-10.0) % (1.0-10.0) Eosinophils (%) (Auto) % (0.0-3.0) % (0.0-3.0) Basophils (%) (Auto) % (0.0-2.0) % (0.0-2.0) Differential Total Cells Counted 100 100 Neutrophils % (Manual) 86 % (45-75) H 97 % (45-75) H Lymphocytes % (Manual) 3 % (20-45) L 2 % (20-45) L Monocytes % (Manual) 2 % (1-10) 1 % (1-10) Eosinophils % (Manual) 0 % (0-3) 0 % (0-3) Basophils % (Manual) 0 % (0-2) 0 % (0-2) Band Neutrophils 9 % (0-8) H 0 % (0-8) Platelet Estimate Decreased L Decreased L Platelet Morphology Normal Normal Hypochromasia 1+ Anisocytosis 1+ Sodium Level 141 MMOL/L (136-145) 141 MMOL/L (136-145) Potassium Level 3.5 MMOL/L (3.5-5.1) 3.0 MMOL/L (3.5-5.1) L Chloride Level 110 MMOL/L (98-107) H 110 MMOL/L (98-107) H Carbon Dioxide Level 18 MMOL/L (21-32) L 18 MMOL/L (21-32) L Anion Gap 13 mmol/L (5-15) 13 mmol/L (5-15) Blood Urea Nitrogen 42 mg/dL (7-18) H 41 mg/dL (7-18) H Creatinine 1.4 MG/DL (0.55-1.30) H 1.4 MG/DL (0.55-1.30) H Estimat Glomerular Filtration Rate mL/min (>60) mL/min (>60) Glucose Level 142 MG/DL (74-106) H 114 MG/DL (74-106) H Calcium Level 7.6 MG/DL (8.5-10.1) L 7.8 MG/DL (8.5-10.1) L Total Bilirubin 0.4 MG/DL (0.2-1.0) Aspartate Amino Transf (AST/SGOT) 27 U/L (15-37) Alanine Aminotransferase (ALT/SGPT) 23 U/L (12-78) Alkaline Phosphatase 77 U/L (46-116) Total Protein 4.6 G/DL (6.4-8.2) L Albumin 0.7 G/DL (3.4-5.0) L Globulin 3.9 g/dL Albumin/Globulin Ratio 0.2 (1.0-2.7) L Red Blood Cell Morphology Normal Arterial Blood pH 7.348 (7.350-7.450) Arterial Blood Partial Pressure CO2 29.7 mmHg (35.0-45.0) L Arterial Blood Partial Pressure O2 71.7 mmHg (75.0-100.0) L Arterial Blood HCO3 16.0 mmol/L (22.0-26.0) *L Arterial Blood Oxygen Saturation 92.4 % (95-100) L Arterial Blood Base Excess -8.3 (-2-2) L Damion Test Positive Solomon Quan MD Dec 24, 2018 12:19
--- NOTE | 2018-12-24 12:25 | NUR ---
NURSE NOTES: Patient was extubated by RT. moderate thick secretion noted. No respiratory distress noted. pt tolerated well, currently on venturi mask Fio2 45%, saturating at 96%.
--- NOTE | 2018-12-24 12:25 | NUR ---
RESPIRATORY NOTE: Per Dr. Quan to extubated patient. Placed on Venti mask 45% at 10L. Sats are maintained at 94%. Suctioned moderated amount of thick brown secretions without incident. There is no audible strider noted. No respiratory distress noted at this time. RN at the bedside. Will continue to monitor patient.
[2018-12-24] MEDS ORDERED: Milk of Magnesia 30ml Ud ORAL PRN (12:45)
[2018-12-24] MEDS: Albuterol/Ipratropium 3ml neb HHN SCH ×2 (12:45→19:36)
--- NOTE | 2018-12-24 14:00 | NUR ---
NURSE NOTES: Suction provided, moderate secretion with some blood noted. no respiratory distress noted at this time.
--- NOTE | 2018-12-24 15:20 | NUR ---
NURSE NOTES: patient resting in bed comfortably, easily arousable, response to name.
--- NOTE | 2018-12-24 15:25 | Surgery Progress Note ---
Surgery Progress Note Subjective Additional Comments no acute events. unchanged. leukocytosis Objective Last 24 Hour Vital Signs Date Time Temp Pulse Resp B/P (MAP) Pulse Ox O2 Delivery O2 Flow Rate FiO2 12/24/18 14:00 103 19 137/49 (78) 97 12/24/18 13:00 105 26 110/75 (87) 95 12/24/18 12:55 107 30 97 Venturi Mask 10.0 45 12/24/18 12:45 105 28 93 Venturi Mask 10.0 45 12/24/18 12:30 Venturi Mask 10.0 45 12/24/18 12:30 94 Venturi Mask 10.0 45 12/24/18 12:26 Venturi Mask 10.0 45 12/24/18 12:00 110 12/24/18 12:00 Mechanical Ventilator 12/24/18 12:00 40 12/24/18 12:00 98.3 101 26 122/81 (95) 98 12/24/18 11:00 102 24 91/49 (63) 96 12/24/18 10:43 102 30 40 12/24/18 10:30 101 25 102/54 (70) 95 12/24/18 10:00 105 26 139/71 (93) 93 12/24/18 09:45 29 Mechanical Ventilator 40 12/24/18 09:40 28 Mechanical Ventilator 40 12/24/18 09:35 29 Mechanical Ventilator 40 12/24/18 09:30 112 25 131/90 (104) 95 12/24/18 09:30 25 Mechanical Ventilator 40 12/24/18 09:25 26 Mechanical Ventilator 40 12/24/18 09:20 26 Mechanical Ventilator 40 12/24/18 09:15 30 Mechanical Ventilator 40 12/24/18 09:10 28 Mechanical Ventilator 40 12/24/18 09:05 27 Mechanical Ventilator 40 12/24/18 09:00 98.1 98 25 131/74 (93) 98 12/24/18 09:00 24 Mechanical Ventilator 40 12/24/18 08:53 110 29 40 12/24/18 08:30 92 18 123/64 (83) 97 12/24/18 08:00 92 12/24/18 08:00 40 12/24/18 08:00 92 18 108/53 (71) 97 12/24/18 08:00 24 Mechanical Ventilator 40 12/24/18 08:00 Mechanical Ventilator 12/24/18 07:30 87 17 97/63 (74) 98 12/24/18 07:05 98 29 40 12/24/18 07:00 86 18 141/61 (87) 98 12/24/18 07:00 24 Mechanical Ventilator 40 12/24/18 06:00 21 Mechanical Ventilator 40 12/24/18 06:00 85 19 128/50 (76) 97 12/24/18 05:30 89 19 124/50 (74) 97 12/24/18 05:00 85 19 163/87 (112) 99 12/24/18 05:00 21 Mechanical Ventilator 40 12/24/18 04:56 82 24 40 12/24/18 04:30 89 19 117/78 (91) 99 12/24/18 04:00 81 12/24/18 04:00 20 Mechanical Ventilator 40 12/24/18 04:00 Mechanical Ventilator Mechanical Ventilator 12/24/18 04:00 98.4 89 20 164/67 (99) 99 12/24/18 04:00 40 12/24/18 03:08 88 24 40 12/24/18 03:00 21 Mechanical Ventilator 40 12/24/18 03:00 82 20 132/61 (84) 100 12/24/18 02:30 83 18 106/66 (79) 100 12/24/18 02:00 20 Mechanical Ventilator 40 12/24/18 02:00 80 18 130/80 (97) 100 12/24/18 01:30 83 18 129/80 (96) 100 12/24/18 01:13 68 24 40 12/24/18 01:00 84 18 147/44 (78) 100 12/24/18 01:00 18 Mechanical Ventilator 40 12/24/18 00:30 84 17 130/74 (92) 100 12/24/18 00:00 92 12/24/18 00:00 40 12/24/18 00:00 Mechanical Ventilator Mechanical Ventilator 12/24/18 00:00 98.6 84 23 115/80 (92) 100 12/23/18 23:48 24 Mechanical Ventilator 40 12/23/18 23:30 70 23 113/88 (96) 100 12/23/18 23:10 68 24 40 12/23/18 23:00 20 Mechanical Ventilator 40 12/23/18 23:00 70 23 98/58 (71) 100 12/23/18 22:30 65 25 100/44 (62) 100 12/23/18 22:00 18 Mechanical Ventilator 40 12/23/18 22:00 69 25 90/44 (59) 100 12/23/18 21:30 70 25 88/50 (63) 100 12/23/18 21:09 65 24 40 12/23/18 21:00 73 26 120/64 (82) 98 12/23/18 21:00 21 Mechanical Ventilator 40 12/23/18 20:55 150/78 12/23/18 20:30 73 24 93/64 (74) 98 12/23/18 20:00 98.6 75 26 142/82 (102) 99 12/23/18 20:00 75 12/23/18 20:00 40 12/23/18 20:00 21 Mechanical Ventilator 40 12/23/18 20:00 Mechanical Ventilator Mechanical Ventilator 12/23/18 19:30 85 24 40 12/23/18 19:00 75 24 125/58 (80) 99 12/23/18 18:00 82 20 143/76 (98) 97 12/23/18 17:30 79 4 136/98 (111) 12/23/18 17:28 71 24 40 12/23/18 17:00 71 24 115/81 (92) 100 12/23/18 16:00 Mechanical Ventilator Mechanical Ventilator 12/23/18 16:00 98.0 77 24 106/43 (64) 100 12/23/18 16:00 40 12/23/18 16:00 70 12/23/18 15:30 73 24 80/47 (58) 100 I&O Intake and Output 12/23/18 12/24/18 19:00 07:00 Intake Total 1625.0 ml 1665 ml Output Total 400 ml 670 ml Balance 1225.0 ml 995 ml Intake Oral 0 ml 0 ml Free Water 30 ml IV Total 1625.0 ml 1265 ml Tube Feeding 370 ml Output Urine Total 400 ml 670 ml Dressing: other Wound: other Drains: other Cardiovascular: RSR Respiratory: decreased breath sounds Abdomen: soft, present bowel sounds, non-distended Extremities: other Laboratory Tests Test 12/24/18 08:45 12/24/18 10:27 White Blood Count 18.4 K/UL (4.8-10.8) H Red Blood Count 3.91 M/UL (4.70-6.10) L Hemoglobin 12.6 G/DL (14.2-18.0) L Hematocrit 37.1 % (42.0-52.0) L Mean Corpuscular Volume 95 FL (80-99) Mean Corpuscular Hemoglobin 32.2 PG (27.0-31.0) H Mean Corpuscular Hemoglobin Concent 33.9 G/DL (32.0-36.0) Red Cell Distribution Width 12.3 % (11.6-14.8) Platelet Count 123 K/UL (150-450) L Mean Platelet Volume 10.5 FL (6.5-10.1) H Neutrophils (%) (Auto) % (45.0-75.0) Lymphocytes (%) (Auto) % (20.0-45.0) Monocytes (%) (Auto) % (1.0-10.0) Eosinophils (%) (Auto) % (0.0-3.0) Basophils (%) (Auto) % (0.0-2.0) Differential Total Cells Counted 100 Neutrophils % (Manual) 97 % (45-75) H Lymphocytes % (Manual) 2 % (20-45) L Monocytes % (Manual) 1 % (1-10) Eosinophils % (Manual) 0 % (0-3) Basophils % (Manual) 0 % (0-2) Band Neutrophils 0 % (0-8) Platelet Estimate Decreased L Platelet Morphology Normal Red Blood Cell Morphology Normal Sodium Level 141 MMOL/L (136-145) Potassium Level 3.0 MMOL/L (3.5-5.1) L Chloride Level 110 MMOL/L (98-107) H Carbon Dioxide Level 18 MMOL/L (21-32) L Anion Gap 13 mmol/L (5-15) Blood Urea Nitrogen 41 mg/dL (7-18) H Creatinine 1.4 MG/DL (0.55-1.30) H Estimat Glomerular Filtration Rate mL/min (>60) Glucose Level 114 MG/DL (74-106) H Calcium Level 7.8 MG/DL (8.5-10.1) L Arterial Blood pH 7.348 (7.350-7.450) Arterial Blood Partial Pressure CO2 29.7 mmHg (35.0-45.0) L Arterial Blood Partial Pressure O2 71.7 mmHg (75.0-100.0) L Arterial Blood HCO3 16.0 mmol/L (22.0-26.0) *L Arterial Blood Oxygen Saturation 92.4 % (95-100) L Arterial Blood Base Excess -8.3 (-2-2) L Damion Test Positive Plan Problems: (1) Pneumothorax, left Assessment & Plan: left small pneumothorax seen on CXR today patient on vent support with positive pressure currently saturating well and stable Repeat CXR stable will monitor for now if worsening will need left chest tube placement STAT CXR and call me if desaturates thank you will follow with recs. (2) Severe sepsis Chris Messer Dec 24, 2018 15:24
[2018-12-24] MEDS ORDERED: Milk of Magnesia 30ml Ud NG PRN (15:30)
--- NOTE | 2018-12-24 15:40 | NUR ---
NURSE NOTES: Resumed tube feeding, Vital 1.2 at 15ml/hr, no residual noted. HOB kept elevated.
--- NOTE | 2018-12-24 16:43 | Infectious Diseases Prog Note ---
Assessment/Plan Problems: (1) Acute aspiration pneumonia Assessment & Plan: continue doxycycline to finish his course for 10 -14 days pending sputum culture . aspiration precaution, keep HOB > 30 degree. monitor CXR (2) Sepsis Assessment & Plan: with shock , due to methicillin sensitive staph aureus , continue oxacillin IV for minimum of four weeks . trans thoracic echo done on admission ruled out valve vegetations , repeated blood culture is still positive, most likely due to the presence of PICC line which was placed while he was bacteremic and steroids with being immunocompromised with metastatic lung cancer, S/P PICC line removal . await repeated blood culture x2 to confirm on 12/23/18 (3) CONSTANCE (acute kidney injury) Assessment & Plan: due to the above , continue hydration with renally dosed antibiotics , renal follow up, monitor UOP (4) Acute respiratory failure Assessment & Plan: due to the above , intubated on mechanical ventilation, pulmonary is following , monitor ABG, and CXR (5) Lung cancer metastatic to brain Assessment & Plan: S/P radiation and chemo therapy at [facility] , now with poor prognosis, recommend palliative care . (6) Leukocytosis Assessment & Plan: suspect due to steroids , recommend to taper, monitor WBC (7) Pneumothorax, left Assessment & Plan: monitor CXR , surgery is following Subjective Constitutional: Reports: fatigue HEENT: Reports: congestion Respiratory: Reports: productive cough Breasts: Reports: no symptoms Cardiovascular: Reports: no symptoms Gastrointestinal/Abdominal: Reports: no symptoms Genitourinary: Reports: no symptoms Neurologic: Reports: weakness, confusion Psychiatric: Reports: anxiety Skin: Reports: no symptoms Endocrine: Reports: no symptoms Hematologic: Reports: no symptoms Musculoskeletal: Reports: no symptoms Allergies: Coded Allergies: No Known Allergies (Unverified , 12/17/18) Subjective he was extubated today still in ICU, responsive to verbal commands, coughing and congested , not on pressor , afebrile. Objective Vital Signs Last 24 Hour Vital Signs Date Time Temp Pulse Resp B/P (MAP) Pulse Ox O2 Delivery O2 Flow Rate FiO2 12/24/18 16:00 10.0 45 12/24/18 16:00 98.3 96 26 100/65 (77) 99 12/24/18 16:00 Venturi Mask 10.0 12/24/18 15:00 90 18 111/46 (67) 96 12/24/18 14:00 103 19 137/49 (78) 97 12/24/18 13:00 105 26 110/75 (87) 95 12/24/18 12:55 107 30 97 Venturi Mask 10.0 45 12/24/18 12:45 105 28 93 Venturi Mask 10.0 45 12/24/18 12:30 Venturi Mask 10.0 45 12/24/18 12:30 94 Venturi Mask 10.0 45 12/24/18 12:26 Venturi Mask 10.0 45 12/24/18 12:00 110 12/24/18 12:00 Mechanical Ventilator 12/24/18 12:00 40 12/24/18 12:00 98.3 101 26 122/81 (95) 98 12/24/18 11:00 102 24 91/49 (63) 96 12/24/18 10:43 102 30 40 12/24/18 10:30 101 25 102/54 (70) 95 12/24/18 10:00 105 26 139/71 (93) 93 12/24/18 09:45 29 Mechanical Ventilator 40 12/24/18 09:40 28 Mechanical Ventilator 40 12/24/18 09:35 29 Mechanical Ventilator 40 12/24/18 09:30 112 25 131/90 (104) 95 12/24/18 09:30 25 Mechanical Ventilator 40 12/24/18 09:25 26 Mechanical Ventilator 40 12/24/18 09:20 26 Mechanical Ventilator 40 12/24/18 09:15 30 Mechanical Ventilator 40 12/24/18 09:10 28 Mechanical Ventilator 40 12/24/18 09:05 27 Mechanical Ventilator 40 12/24/18 09:00 98.1 98 25 131/74 (93) 98 12/24/18 09:00 24 Mechanical Ventilator 40 12/24/18 08:53 110 29 40 12/24/18 08:30 92 18 123/64 (83) 97 12/24/18 08:00 92 12/24/18 08:00 40 12/24/18 08:00 92 18 108/53 (71) 97 12/24/18 08:00 24 Mechanical Ventilator 40 12/24/18 08:00 Mechanical Ventilator 12/24/18 07:30 87 17 97/63 (74) 98 12/24/18 07:05 98 29 40 12/24/18 07:00 86 18 141/61 (87) 98 12/24/18 07:00 24 Mechanical Ventilator 40 12/24/18 06:00 21 Mechanical Ventilator 40 12/24/18 06:00 85 19 128/50 (76) 97 12/24/18 05:30 89 19 124/50 (74) 97 12/24/18 05:00 85 19 163/87 (112) 99 12/24/18 05:00 21 Mechanical Ventilator 40 12/24/18 04:56 82 24 40 12/24/18 04:30 89 19 117/78 (91) 99 12/24/18 04:00 81 12/24/18 04:00 20 Mechanical Ventilator 40 12/24/18 04:00 Mechanical Ventilator Mechanical Ventilator 12/24/18 04:00 98.4 89 20 164/67 (99) 99 12/24/18 04:00 40 12/24/18 03:08 88 24 40 12/24/18 03:00 21 Mechanical Ventilator 40 12/24/18 03:00 82 20 132/61 (84) 100 12/24/18 02:30 83 18 106/66 (79) 100 12/24/18 02:00 20 Mechanical Ventilator 40 12/24/18 02:00 80 18 130/80 (97) 100 12/24/18 01:30 83 18 129/80 (96) 100 12/24/18 01:13 68 24 40 12/24/18 01:00 84 18 147/44 (78) 100 12/24/18 01:00 18 Mechanical Ventilator 40 12/24/18 00:30 84 17 130/74 (92) 100 12/24/18 00:00 92 12/24/18 00:00 40 12/24/18 00:00 Mechanical Ventilator Mechanical Ventilator 12/24/18 00:00 98.6 84 23 115/80 (92) 100 12/23/18 23:48 24 Mechanical Ventilator 40 12/23/18 23:30 70 23 113/88 (96) 100 12/23/18 23:10 68 24 40 12/23/18 23:00 20 Mechanical Ventilator 40 12/23/18 23:00 70 23 98/58 (71) 100 12/23/18 22:30 65 25 100/44 (62) 100 12/23/18 22:00 18 Mechanical Ventilator 40 12/23/18 22:00 69 25 90/44 (59) 100 12/23/18 21:30 70 25 88/50 (63) 100 12/23/18 21:09 65 24 40 12/23/18 21:00 73 26 120/64 (82) 98 12/23/18 21:00 21 Mechanical Ventilator 40 12/23/18 20:55 150/78 12/23/18 20:30 73 24 93/64 (74) 98 12/23/18 20:00 98.6 75 26 142/82 (102) 99 12/23/18 20:00 75 12/23/18 20:00 40 12/23/18 20:00 21 Mechanical Ventilator 40 12/23/18 20:00 Mechanical Ventilator Mechanical Ventilator 12/23/18 19:30 85 24 40 12/23/18 19:00 75 24 125/58 (80) 99 12/23/18 18:00 82 20 143/76 (98) 97 12/23/18 17:30 79 4 136/98 (111) 12/23/18 17:28 71 24 40 12/23/18 17:00 71 24 115/81 (92) 100 Height (Feet): 5 Height (Inches): 9.00 Weight (Pounds): 125 General Appearance: no acute distress, cachetic HEENT: normocephalic, atraumatic, anicteric, mucous membranes moist, PERRL, pharynx normal, supple, no JVD Respiratory/Chest: chest wall non-tender, no respiratory distress, no accessory muscle use, decreased breath sounds, crackles/rales, expiratory wheezing Cardiovascular: normal peripheral pulses, normal rate, regular rhythm, no gallop/murmur, no JVD Abdomen: normal bowel sounds, soft, non tender, no organomegaly, non distended , no mass, no scars Extremities: no cyanosis, no clubbing Skin: no rash, no lesions, no ulcers Neurologic/Psychiatric: alert, responsive Lymphatic: no neck adenopathy, no groin adenopathy Musculoskeletal: normal muscle bulk, no effusion Microbiology Date/Time Source Procedure Growth Status 12/22/18 04:40 Catheter Site Catheter Tip Culture - Preliminary NO GROWTH AFTER 48 HOURS Resulted Laboratory Tests Test 12/24/18 08:45 12/24/18 10:27 White Blood Count 18.4 K/UL (4.8-10.8) H Red Blood Count 3.91 M/UL (4.70-6.10) L Hemoglobin 12.6 G/DL (14.2-18.0) L Hematocrit 37.1 % (42.0-52.0) L Mean Corpuscular Volume 95 FL (80-99) Mean Corpuscular Hemoglobin 32.2 PG (27.0-31.0) H Mean Corpuscular Hemoglobin Concent 33.9 G/DL (32.0-36.0) Red Cell Distribution Width 12.3 % (11.6-14.8) Platelet Count 123 K/UL (150-450) L Mean Platelet Volume 10.5 FL (6.5-10.1) H Neutrophils (%) (Auto) % (45.0-75.0) Lymphocytes (%) (Auto) % (20.0-45.0) Monocytes (%) (Auto) % (1.0-10.0) Eosinophils (%) (Auto) % (0.0-3.0) Basophils (%) (Auto) % (0.0-2.0) Differential Total Cells Counted 100 Neutrophils % (Manual) 97 % (45-75) H Lymphocytes % (Manual) 2 % (20-45) L Monocytes % (Manual) 1 % (1-10) Eosinophils % (Manual) 0 % (0-3) Basophils % (Manual) 0 % (0-2) Band Neutrophils 0 % (0-8) Platelet Estimate Decreased L Platelet Morphology Normal Red Blood Cell Morphology Normal Sodium Level 141 MMOL/L (136-145) Potassium Level 3.0 MMOL/L (3.5-5.1) L Chloride Level 110 MMOL/L (98-107) H Carbon Dioxide Level 18 MMOL/L (21-32) L Anion Gap 13 mmol/L (5-15) Blood Urea Nitrogen 41 mg/dL (7-18) H Creatinine 1.4 MG/DL (0.55-1.30) H Estimat Glomerular Filtration Rate mL/min (>60) Glucose Level 114 MG/DL (74-106) H Calcium Level 7.8 MG/DL (8.5-10.1) L Arterial Blood pH 7.348 (7.350-7.450) Arterial Blood Partial Pressure CO2 29.7 mmHg (35.0-45.0) L Arterial Blood Partial Pressure O2 71.7 mmHg (75.0-100.0) L Arterial Blood HCO3 16.0 mmol/L (22.0-26.0) *L Arterial Blood Oxygen Saturation 92.4 % (95-100) L Arterial Blood Base Excess -8.3 (-2-2) L Damion Test Positive Current Medications Medications (Trade) Dose Ordered Sig/Earlene Route PRN Reason Start Time Stop Time Status Last Admin Dose Admin Albuterol/ Ipratropium (Albuterol/ Ipratropium) 3 ml Q4H PRN HHN Shortness of Breath 12/24/18 12:15 12/29/18 12:14 Albuterol/ Ipratropium (Albuterol/ Ipratropium) 3 ml Q6HRT HHN 12/24/18 13:00 12/29/18 12:59 12/24/18 12:45 Dexamethasone Sodium Phosphate (Decadron 4mg/ml vial) 4 mg BID IVP 12/18/18 09:00 01/17/19 08:59 12/24/18 09:54 Dextrose/Sodium Chloride 1,000 ml @ 75 mls/hr [id number] IV 12/17/18 20:00 01/16/19 19:59 12/24/18 05:48 Dopamine HCl/ Dextrose 250 ml @ 0 mls/hr Q24H IV 12/17/18 20:55 01/16/19 20:54 12/17/18 20:55 Doxycycline Hyclate 100 mg/ Dextrose 110 ml @ 110 mls/hr Q12HR IV 12/23/18 21:00 12/30/18 20:59 12/24/18 09:55 Fentanyl Citrate 1000 mcg/Sodium Chloride 100 ml @ 0 mls/hr Q24H IV 12/19/18 20:00 12/26/18 19:59 12/23/18 23:48 Heparin Sodium (Porcine) (Heparin 5000 units/ml) 5,000 units EVERY 12 HOURS SUBQ 12/24/18 21:00 01/23/19 20:59 Magnesium Hydroxide (Mom) 30 ml DAILYPRN PRN NG Constipation 12/24/18 15:30 01/23/19 12:44 12/24/18 16:31 Morphine Sulfate (Morphine Sulfate) 1 mg Q4H PRN IVP Shortness of breath 12/24/18 13:15 12/31/18 13:14 Norepinephrine Bitartrate 4 mg/ Dextrose 250 ml @ 0 mls/hr Q24H IV 12/18/18 15:00 01/17/19 14:59 12/18/18 21:34 Oxacillin Sodium 2 gm/Sodium Chloride 110 ml @ 220 mls/hr Q4HR IVPB 12/21/18 17:00 12/28/18 16:59 12/24/18 16:32 Pantoprazole (Protonix) 40 mg EVERY 12 HOURS IVP 12/18/18 21:00 01/17/19 20:59 12/24/18 09:54 Potassium Chloride 100 ml @ 100 mls/hr Q1HR IVPB 12/24/18 16:00 12/24/18 19:59 12/24/18 16:32 Sodium Chloride 500 ml @ 999 mls/hr Q31M PRN IV For hypotension 12/20/18 11:45 01/19/19 11:44 12/23/18 16:56 Tammy Rob M.D. Dec 24, 2018 16:43
--- NOTE | 2018-12-24 17:10 | NUR ---
NURSE NOTES: No respiratory distress noted. pt resting comfortably. at bedside.
--- NOTE | 2018-12-24 19:20 | NUR ---
HAND-OFF: Report given to WESLEY Galarza.
--- NOTE | 2018-12-24 19:30 | NUR ---
NURSE NOTES: Received patient from WESLEY Collado. Pt's in bed, family at bedside. Patient easily arousable, opens eyes spontaneously, unable to follow commands, no acute distress. VS stable. On Venturi Mask 45% , O2 sat 100%. OGT intact and patent, no residual noted. Feeding Vital 1.2@ 15ml/hr, with goal at 55mh/hr. Stoddard cath intact and patent, draining yellow urine by gravity. Left forearm 20G and right forearm 20G intact and patent, running D51/2NS at 75ml/hr. BUE edema noted. Patient spr mattress. Bed in lowest position. Side rails upx3, brakes are engaged, bed alarm on. Call light within reach. Will continue to monitor.
[2018-12-24] MEDS: DOPamine 400mg/250ml 250 ML IV SCH (19:52)
[2018-12-24] MEDS: Heparin 5000 units/ml inj SUBQ SCH (21:01)
--- NOTE | 2018-12-24 22:00 | NUR ---
NURSE NOTES: Pt's resting in bed, in no acute distress. VS stable. Will continue to monitor.
--- NOTE | 2018-12-24 23:36 | Cardiology Progress Note ---
Assessment/Plan Assessment/Plan 1. Sinus tachycardia, resolved, most likely secondary to hypoxemia/lung CA. 2. History of coronary artery disease, status post coronary artery bypass graft surgery. 12-lead electrocardiogram does not show any ischemic changes despite the fact that the troponin I levels are elevated. The patient is not a candidate for ischemic workup given metastatic lung cancer conservative management. I do not believe that the patient would benefit from anticoagulation therapy, which may put the patient in increased risk of bleeding. 3. Hypoxic hypercarbic respiratory failure, resolved, due to possible acute exacerbation of COPD. 4. Non-sustained ventricular tachycardia, keep Mg level and keep >2.5, keep K > 4.0 5. 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 6. History of CVA. 7. History of COPD. 8. CONSTANCE, creat up to 1.4. Subjective Subjective Sinus rhythm at rate of 90. Extubated, FiO2 at 45%. Objective Last 24 Hour Vital Signs Date Time Temp Pulse Resp B/P (MAP) Pulse Ox O2 Delivery O2 Flow Rate FiO2 12/24/18 22:00 90 30 122/78 (93) 12/24/18 21:00 95 32 111/51 (71) 12/24/18 20:00 10.0 45 12/24/18 20:00 Venturi Mask 10.0 12/24/18 20:00 98.4 96 32 126/67 (86) 91 12/24/18 20:00 90 12/24/18 19:45 92 29 100 Venturi Mask 10.0 45 12/24/18 19:35 92 27 99 Venturi Mask 10.0 45 12/24/18 19:34 Venturi Mask 10.0 45 12/24/18 19:34 98 Venturi Mask 10.0 45 12/24/18 19:00 98 18 124/71 (88) 100 12/24/18 18:00 97 24 145/79 (101) 99 12/24/18 17:00 96 23 108/53 (71) 98 12/24/18 16:00 96 12/24/18 16:00 10.0 45 12/24/18 16:00 98.3 96 26 100/65 (77) 99 12/24/18 16:00 Venturi Mask 10.0 12/24/18 15:00 90 18 111/46 (67) 96 12/24/18 14:00 103 19 137/49 (78) 97 12/24/18 13:00 105 26 110/75 (87) 95 12/24/18 12:55 107 30 97 Venturi Mask 10.0 45 12/24/18 12:45 105 28 93 Venturi Mask 10.0 45 12/24/18 12:30 Venturi Mask 10.0 45 12/24/18 12:30 94 Venturi Mask 10.0 45 12/24/18 12:26 Venturi Mask 10.0 45 12/24/18 12:00 110 12/24/18 12:00 Mechanical Ventilator 12/24/18 12:00 40 12/24/18 12:00 98.3 101 26 122/81 (95) 98 12/24/18 11:00 102 24 91/49 (63) 96 12/24/18 10:43 102 30 40 12/24/18 10:30 101 25 102/54 (70) 95 12/24/18 10:00 105 26 139/71 (93) 93 12/24/18 09:45 29 Mechanical Ventilator 40 12/24/18 09:40 28 Mechanical Ventilator 40 12/24/18 09:35 29 Mechanical Ventilator 40 12/24/18 09:30 112 25 131/90 (104) 95 12/24/18 09:30 25 Mechanical Ventilator 40 12/24/18 09:25 26 Mechanical Ventilator 40 12/24/18 09:20 26 Mechanical Ventilator 40 12/24/18 09:15 30 Mechanical Ventilator 40 12/24/18 09:10 28 Mechanical Ventilator 40 12/24/18 09:05 27 Mechanical Ventilator 40 12/24/18 09:00 98.1 98 25 131/74 (93) 98 12/24/18 09:00 24 Mechanical Ventilator 40 12/24/18 08:53 110 29 40 12/24/18 08:30 92 18 123/64 (83) 97 12/24/18 08:00 92 12/24/18 08:00 40 12/24/18 08:00 92 18 108/53 (71) 97 12/24/18 08:00 24 Mechanical Ventilator 40 12/24/18 08:00 Mechanical Ventilator 12/24/18 07:30 87 17 97/63 (74) 98 12/24/18 07:05 98 29 40 1/23/19 07:00 86 18 141/61 (87) 98 12/24/18 07:00 24 Mechanical Ventilator 40 12/24/18 06:00 21 Mechanical Ventilator 40 12/24/18 06:00 85 19 128/50 (76) 97 12/24/18 05:30 89 19 124/50 (74) 97 12/24/18 05:00 85 19 163/87 (112) 99 12/24/18 05:00 21 Mechanical Ventilator 40 12/24/18 04:56 82 24 40 12/24/18 04:30 89 19 117/78 (91) 99 12/24/18 04:00 81 12/24/18 04:00 20 Mechanical Ventilator 40 12/24/18 04:00 Mechanical Ventilator Mechanical Ventilator 12/24/18 04:00 98.4 89 20 164/67 (99) 99 12/24/18 04:00 40 12/24/18 03:08 88 24 40 12/24/18 03:00 21 Mechanical Ventilator 40 12/24/18 03:00 82 20 132/61 (84) 100 12/24/18 02:30 83 18 106/66 (79) 100 12/24/18 02:00 20 Mechanical Ventilator 40 12/24/18 02:00 80 18 130/80 (97) 100 12/24/18 01:30 83 18 129/80 (96) 100 12/24/18 01:13 68 24 40 12/24/18 01:00 84 18 147/44 (78) 100 12/24/18 01:00 18 Mechanical Ventilator 40 12/24/18 00:30 84 17 130/74 (92) 100 12/24/18 00:00 92 12/24/18 00:00 40 12/24/18 00:00 Mechanical Ventilator Mechanical Ventilator 12/24/18 00:00 98.6 84 23 115/80 (92) 100 12/23/18 23:48 24 Mechanical Ventilator 40 12/23/18 23:30 70 23 113/88 (96) 100 Intake and Output 12/23/18 12/24/18 19:00 07:00 Intake Total 1625.0 ml 1665 ml Output Total 400 ml 670 ml Balance 1225.0 ml 995 ml Intake Oral 0 ml 0 ml Free Water 30 ml IV Total 1625.0 ml 1265 ml Tube Feeding 370 ml Output Urine Total 400 ml 670 ml 2D Echo: Global LV HK with LVEF 25%, Mild LAE, RVSP 14 mmHg, Grade I LVDD Laboratory Tests Test 12/24/18 08:45 12/24/18 10:27 White Blood Count 18.4 K/UL (4.8-10.8) H Red Blood Count 3.91 M/UL (4.70-6.10) L Hemoglobin 12.6 G/DL (14.2-18.0) L Hematocrit 37.1 % (42.0-52.0) L Mean Corpuscular Volume 95 FL (80-99) Mean Corpuscular Hemoglobin 32.2 PG (27.0-31.0) H Mean Corpuscular Hemoglobin Concent 33.9 G/DL (32.0-36.0) Red Cell Distribution Width 12.3 % (11.6-14.8) Platelet Count 123 K/UL (150-450) L Mean Platelet Volume 10.5 FL (6.5-10.1) H Neutrophils (%) (Auto) % (45.0-75.0) Lymphocytes (%) (Auto) % (20.0-45.0) Monocytes (%) (Auto) % (1.0-10.0) Eosinophils (%) (Auto) % (0.0-3.0) Basophils (%) (Auto) % (0.0-2.0) Differential Total Cells Counted 100 Neutrophils % (Manual) 97 % (45-75) H Lymphocytes % (Manual) 2 % (20-45) L Monocytes % (Manual) 1 % (1-10) Eosinophils % (Manual) 0 % (0-3) Basophils % (Manual) 0 % (0-2) Band Neutrophils 0 % (0-8) Platelet Estimate Decreased L Platelet Morphology Normal Red Blood Cell Morphology Normal Sodium Level 141 MMOL/L (136-145) Potassium Level 3.0 MMOL/L (3.5-5.1) L Chloride Level 110 MMOL/L (98-107) H Carbon Dioxide Level 18 MMOL/L (21-32) L Anion Gap 13 mmol/L (5-15) Blood Urea Nitrogen 41 mg/dL (7-18) H Creatinine 1.4 MG/DL (0.55-1.30) H Estimat Glomerular Filtration Rate mL/min (>60) Glucose Level 114 MG/DL (74-106) H Calcium Level 7.8 MG/DL (8.5-10.1) L Arterial Blood pH 7.348 (7.350-7.450) Arterial Blood Partial Pressure CO2 29.7 mmHg (35.0-45.0) L Arterial Blood Partial Pressure O2 71.7 mmHg (75.0-100.0) L Arterial Blood HCO3 16.0 mmol/L (22.0-26.0) *L Arterial Blood Oxygen Saturation 92.4 % (95-100) L Arterial Blood Base Excess -8.3 (-2-2) L Damion Test Positive Microbiology Date/Time Source Procedure Growth Status 12/22/18 04:40 Catheter Site Catheter Tip Culture - Preliminary NO GROWTH AFTER 48 HOURS Resulted Objective HEENT: Atraumatic and normocephalic. Anicteric. Pupils are equal, round, and reactive to light and accommodation. Conjunctival pallor. NECK: JVP <5 cm, No carotid bruit. Carotid upstroke is 2+ bilaterally. CARDIOVASCULAR: Normal S1, S2. Regular rate and rhythm. I do not hear murmurs, gallops, or rubs. LUNGS: Diminished breath sounds in both lungs. ABDOMEN: Soft, nontender, and nondistended. No hepatosplenomegaly. Positive bowel sounds. EXTREMITIES: No evidence of edema, clubbing, or cyanosis. There is onychomycosis. Fred Holman MD Dec 24, 2018 23:36
[2018-12-25] VITALS (24 sets, daily range): BP systolic 95–154; BP diastolic 35–79
--- NOTE | 2018-12-25 | NUR ---
NURSE NOTES: Pt's resting in bed, in no acute distress. VS stable. Will continue to monitor.
[2018-12-25] MEDS: Albuterol/Ipratropium 3ml neb HHN SCH ×4 (01:24→19:34)
[2018-12-25] MEDS: Oxacillin 2 GM in NS 110 ML IVPB SCH ×6 (01:37→20:47)
--- NOTE | 2018-12-25 02:00 | NUR ---
NURSE NOTES: Pt's resting in bed, in no acute distress. VS stable. Will continue to monitor.
--- NOTE | 2018-12-25 04:00 | NUR ---
NURSE NOTES: Pt's resting in bed, asleep, with eyes closed. VS stable, in no acute distress. Will continue to monitor.
--- NOTE | 2018-12-25 06:00 | NUR ---
NURSE NOTES: Pt's resting in bed, asleep, with eyes closed. VS stable, in no acute distress. Will continue to monitor.
--- NOTE | 2018-12-25 07:30 | NUR ---
HAND-OFF: Report given to WESLEY Hand.
--- NOTE | 2018-12-25 07:35 | NUR ---
NURSE NOTES: Received patient from WESLEY Galarza. Patient drowsy, opens eyes spontaneously. sluggish pupils. pt extubated yesterday. Pt on venturi mask 45%. 02sat reading off and on on hospital monitor. OGT patent. No residual. abdomen nontender. bowel sounds present. Stoddard cath intact and patent, draining yellow urine. LFA 20G, swelling noted and RFA 20G intact and patent, running D51/2NS at 75ml/hr. BUE edema and scrotal edema noted. Patient on SPR mattress. Bed in lowest position. Side rails upx3,locked and in low position. bed alarm on. Call light within reach. Will continue to monitor.
--- NOTE | 2018-12-25 08:06 | NUR ---
NURSE NOTES: RADIOLOGY HERE TO DO CXR
[2018-12-25 08:10] LABS: HEMATOCRIT 34.8 % (42.0-52.0); HEMOGLOBIN 12.1 G/DL (14.2-18.0); MEAN CORPUSCULAR VOLUME 92 FL (80-99); PLATELET COUNT 135 K/UL (150-450); RED BLOOD COUNT 3.77 M/UL (4.70-6.10); RED CELL DISTRIBUTION WIDTH 11.9 % (11.6-14.8); WHITE BLOOD COUNT 16.5 K/UL (4.8-10.8)
[2018-12-25 08:22] LABS: ALANINE AMINOTRANSFERASE 23 U/L (12-78); ALBUMIN 0.9 G/DL (3.4-5.0); ALBUMIN/GLOBULIN RATIO 0.2 (1.0-2.7); ALKALINE PHOSPHATASE 103 U/L (46-116); ANION GAP 12 mmol/L (5-15); ASPARTATE AMINO TRANSFERASE 35 U/L (15-37); BILIRUBIN,TOTAL 0.3 MG/DL (0.2-1.0); BLOOD UREA NITROGEN 38 mg/dL (7-18); CALCIUM 7.6 MG/DL (8.5-10.1); CARBON DIOXIDE 18 MMOL/L (21-32); CHLORIDE 112 MMOL/L (98-107); CREATININE 1.3 MG/DL (0.55-1.30); POTASSIUM 3.3 MMOL/L (3.5-5.1); SODIUM 142 MMOL/L (136-145)
--- NOTE | 2018-12-25 09:35 | NUR ---
RADIOLOGY DEPT CHEST X-RAY DONE.-P.DYE
[2018-12-25] MEDS: Doxycycline Hyclate 100 MG in D5W 110 ML IV SCH ×2 (10:19→20:47)
[2018-12-25] MEDS: Dexamethasone 4mg/ml vial IVP SCH ×2 (10:19→17:52)
[2018-12-25] MEDS: Heparin 5000 units/ml inj SUBQ SCH ×2 (10:24→20:47)
[2018-12-25] MEDS: D5 1/2NS 1,000 ML IV SCH (10:43)
--- NOTE | 2018-12-25 11:00 | NUR ---
NURSE NOTES: CALLED MD. WAGNER REGARDING K 3.3. RECOMMENDED 40MEQ KCL IV. RECEIVED ORDER TO PLACE.
[2018-12-25] MEDS: Pantoprazole Inj IVP SCH ×2 (11:02→20:47)
--- NOTE | 2018-12-25 11:34 | Diagnostic Imaging Report ---
Indication: Shortness of breath Technique: One view of the chest Comparison: 12/22/2018 Findings: Interim removal of previously demonstrated endotracheal tube. Nasogastric tube remains. 6 cm right upper lobe mass is again demonstrated. Interstitial and airspace opacities in the right mid and lower lung and at the left lung base persists. Upper lobe hyperinflation persists. The left hemidiaphragm is now obscured. The heart size is normal. There is evidence of prior median sternotomy Impression: Interim extubation Unchanged bilateral basilar pulmonary parenchymal disease Obscured left hemidiaphragm. Developing left pleural effusion possible.
--- NOTE | 2018-12-25 11:35 | NUR ---
NURSE NOTES: called [employer] for 02sat monitor reading not maintaining connection. will be up to check monitor john.
--- NOTE | 2018-12-25 12:45 | NUR ---
NURSE NOTES: MD Enamorado here to see pt. Called Cristy to discuss treatment.
--- NOTE | 2018-12-25 13:00 | NUR ---
NURSE NOTES: Dr Enamorado assessed patient bedside. Spoke to family to clarify code status orders. Patient will remain DNR however if it becomes necessary to intubate, patient should be intubated, use BIPAP, etc. Patient currently appears to be slightly tachypneic with RR 22. SPO2 is 92-94% confirmed by RT. A hospice referral was sent by Dr Enamorado. Will await information from the MD to consult. Will continue to monitor closely.
--- NOTE | 2018-12-25 13:02 | Pulmonolgy Critical Care Note ---
Critical Care - Asmt/Plan Problems: (1) Gram positive sepsis Assessment & Plan: S aureus (2) Severe sepsis (3) Acute respiratory failure (4) NSTEMI (non-ST elevated myocardial infarction) (5) CONSTANCE (acute kidney injury) (6) Acute aspiration pneumonia (7) Lung cancer metastatic to brain (8) CHF (congestive heart failure) Respiratory: monitor respiratory rate, adjust FIO2 - tirate to keep SaO2 > 90% , ABG, other - HHN's Cardiac: continue to monitor HR/BP Renal: check electrolytes, other - D/C IVF Infectious Disease: continue antibiotics - Oxacillin/Doxy per ID Gastrointestinal: continue feedings/current rate Endocrine: monitor blood sugar, other - continue Dex Neurologic: keep patient comfortable Prophylaxis: Protonix, Heparin Disposition: keep in ICU Time Spent (Minutes): 60 Notes Reviewed: energy trading analyst, cardio, ID, other - DNAR, ok to intubate/BiPAP if needed - family to arrive saturday and likely transition to palliative measures at that time Critical Care - Objective Last 24 Hour Vital Signs Date Time Temp Pulse Resp B/P (MAP) Pulse Ox O2 Delivery O2 Flow Rate FiO2 12/25/18 12:41 105 24 99 Venturi Mask 10.0 45 12/25/18 11:00 99 25 118/76 (90) 98 12/25/18 10:00 94 26 106/69 (81) 12/25/18 09:00 98.7 92 24 124/60 (81) 12/25/18 08:00 90 12/25/18 08:00 Venturi Mask 15.0 12/25/18 08:00 55 12/25/18 08:00 96 30 109/70 (83) 95 12/25/18 07:18 102 25 100 Venturi Mask 10.0 45 12/25/18 07:08 88 23 100 Venturi Mask 10.0 45 12/25/18 07:06 Venturi Mask 10.0 45 12/25/18 07:05 100 Venturi Mask 10.0 45 12/25/18 07:00 93 26 120/70 (87) 100 12/25/18 06:00 100 26 98/46 (63) 100 12/25/18 05:00 98.0 100 22 131/73 (92) 100 12/25/18 04:00 91 26 126/57 (80) 100 12/25/18 04:00 10.0 45 12/25/18 04:00 96 12/25/18 04:00 Venturi Mask 10.0 12/25/18 03:00 90 27 128/66 (86) 100 12/25/18 02:00 93 27 97/55 (69) 100 12/25/18 01:32 99 31 100 Venturi Mask 10.0 45 12/25/18 01:24 93 27 100 Venturi Mask 10.0 45 12/25/18 01:00 89 25 119/79 (92) 100 12/25/18 00:00 98.4 94 27 109/72 (84) 100 12/25/18 00:00 Venturi Mask 10.0 12/25/18 00:00 10.0 45 12/25/18 00:00 94 12/24/18 23:30 98 27 112/58 (76) 100 12/24/18 23:00 93 28 120/70 (87) 100 12/24/18 22:00 90 30 122/78 (93) 12/24/18 21:00 95 32 111/51 (71) 12/24/18 20:00 10.0 45 12/24/18 20:00 Venturi Mask 10.0 12/24/18 20:00 98.4 96 32 126/67 (86) 91 12/24/18 20:00 90 12/24/18 19:45 92 29 100 Venturi Mask 10.0 45 12/24/18 19:35 92 27 99 Venturi Mask 10.0 45 12/24/18 19:34 Venturi Mask 10.0 45 12/24/18 19:34 98 Venturi Mask 10.0 45 12/24/18 19:00 98 18 124/71 (88) 100 12/24/18 18:00 97 24 145/79 (101) 99 12/24/18 17:00 96 23 108/53 (71) 98 12/24/18 16:00 96 12/24/18 16:00 10.0 45 12/24/18 16:00 98.3 96 26 100/65 (77) 99 12/24/18 16:00 Venturi Mask 10.0 12/24/18 15:00 90 18 111/46 (67) 96 12/24/18 14:00 103 19 137/49 (78) 97 12/24/18 13:00 105 26 110/75 (87) 95 Status: obtunded Condition: critical, grave Lungs: rhonchi Heart: HR/BP stable Abdomen: soft, non-tender, active bowel sounds Extremities: no C/C/E Micro: Microbiology Date/Time Source Procedure Growth Status 12/23/18 15:08 Blood Blood Culture - Preliminary NO GROWTH AFTER 24 HOURS Resulted 12/23/18 15:00 Blood Blood Culture - Preliminary NO GROWTH AFTER 24 HOURS Resulted 12/24/18 12:50 Sputum Gram Stain Pending Resulted 12/24/18 12:50 Sputum Sputum Culture - Preliminary Resulted Blood Sugars: BS controlled Critical Care - Subjective ROS Limited/Unobtainable: Yes ICU Day: 9 Interval Events: Extubated has been on VM RR 20's Lethargic but arousable weak cough no wheezing akhil TF's Condition: critical IV Access: peripheral EKG Rhythm: Sinus Rhythm FI02: 45 Vent Support Breath Rate: 24 Vent Support Mode: CPAP Vent Tidal Volume: 600 Sputum Amount: Small PEEP: 5.0 PIP: 28 Fluids: d51/2NS@75 Tube Feeding Amount: 55 I&O: Intake and Output 12/24/18 12/25/18 19:00 07:00 Intake Total 1853.75 ml 1805 ml Output Total 845 ml 600 ml Balance 1008.75 ml 1205 ml Free Water 130 ml IV Total 1663.75 ml 1340 ml Tube Feeding 60 ml 465 ml Output Urine Total 845 ml 600 ml Subjective: HAWA ET-Tube: 7.5 ET Position: 21 Labs: Laboratory Tests Test 12/25/18 08:00 White Blood Count 16.5 K/UL (4.8-10.8) H Red Blood Count 3.77 M/UL (4.70-6.10) L Hemoglobin 12.1 G/DL (14.2-18.0) L Hematocrit 34.8 % (42.0-52.0) L Mean Corpuscular Volume 92 FL (80-99) Mean Corpuscular Hemoglobin 32.0 PG (27.0-31.0) H Mean Corpuscular Hemoglobin Concent 34.7 G/DL (32.0-36.0) Red Cell Distribution Width 11.9 % (11.6-14.8) Platelet Count 135 K/UL (150-450) L Mean Platelet Volume 10.9 FL (6.5-10.1) H Neutrophils (%) (Auto) % (45.0-75.0) Lymphocytes (%) (Auto) % (20.0-45.0) Monocytes (%) (Auto) % (1.0-10.0) Eosinophils (%) (Auto) % (0.0-3.0) Basophils (%) (Auto) % (0.0-2.0) Differential Total Cells Counted 100 Neutrophils % (Manual) 97 % (45-75) H Lymphocytes % (Manual) 2 % (20-45) L Monocytes % (Manual) 1 % (1-10) Eosinophils % (Manual) 0 % (0-3) Basophils % (Manual) 0 % (0-2) Band Neutrophils 0 % (0-8) Platelet Estimate Decreased L Platelet Morphology Normal Anisocytosis 1+ Sodium Level 142 MMOL/L (136-145) Potassium Level 3.3 MMOL/L (3.5-5.1) L Chloride Level 112 MMOL/L (98-107) H Carbon Dioxide Level 18 MMOL/L (21-32) L Anion Gap 12 mmol/L (5-15) Blood Urea Nitrogen 38 mg/dL (7-18) H Creatinine 1.3 MG/DL (0.55-1.30) Estimat Glomerular Filtration Rate mL/min (>60) Glucose Level 162 MG/DL (74-106) H Calcium Level 7.6 MG/DL (8.5-10.1) L Total Bilirubin 0.3 MG/DL (0.2-1.0) Aspartate Amino Transf (AST/SGOT) 35 U/L (15-37) Alanine Aminotransferase (ALT/SGPT) 23 U/L (12-78) Alkaline Phosphatase 103 U/L (46-116) Total Protein 5.0 G/DL (6.4-8.2) L Albumin 0.9 G/DL (3.4-5.0) L Globulin 4.1 g/dL Albumin/Globulin Ratio 0.2 (1.0-2.7) L Solomon Quan MD Dec 25, 2018 13:02
--- NOTE | 2018-12-25 13:09 | NUR ---
NURSE NOTES: MD JOHNSON HERE TO SEE PT. RECEIVED ORDER TO D/C D51/2NS @75ML/HR, ORDER ABG, TITRATE TO 02SAT >90%.
--- NOTE | 2018-12-25 14:20 | NUR ---
NURSE NOTES: MD MA HERE TO SEE PT. INQUIRED ABOUT TIMELINE FOR NEXT PICC PLACEMENT. REPLIED WAIT ANOTHER 24HR AND NEGATIVE RESULT OF NEXT BLOOD CULTURE.
--- NOTE | 2018-12-25 14:36 | General Progress Note ---
Assessment/Plan Assessment/Plan S, O: limited eval. Patient extubated. however in respiratory disress. Stoddard inserted. patient is awake but delirious. not following commands PHYSICAL EXAMINATION: HEAD AND NECK: P limited source of evaluation. Off the Vent. Atraumatic and normocephalic. CHEST: Diffuse bronchial breathing sounds. Positive for diffuse crackles.HEART: S1 and S2. Tachyarrhythmia. ABDOMEN: Soft. No organomegaly.MUSCULOSKELETAL: Atrophied musculature, limited evaluation. The patient is not following compounds, sedated. Imaging: CXR post extubation reviewed ASSESSMENT AND PLAN: 1. Vent-dependent respiratory failure. 2. Septic shock: Staph Aureus 3. Healthcare-associated pneumonia. 3. Non-ST myocardial infarction. Abnormal Trop 4. Metastatic lung CA. 5. Left sided small PNTX 5. GI and DVT prophylaxes. PLAN OF CARE: 1. Improvement of leukocytosis 3. Grave prognosis. 4. Infectious Disease, Pulmonary, and Cardiology Notes are reviewed 6. Left sided small PNTX , will monitor , if worsen will proceed with Chest-T PLan: Ok to consult Hospice Ok to Re-intubate if needed Per my conversation with the , today, [place] are [id number] with patient on Saturday. Proceed with Palliative extubation/care on Saturday with the goal of transitioning to home on Saturday/Saturday Subjective Allergies: Coded Allergies: No Known Allergies (Unverified , 12/17/18) Objective Last 24 Hour Vital Signs Date Time Temp Pulse Resp B/P (MAP) Pulse Ox O2 Delivery O2 Flow Rate FiO2 12/25/18 14:00 117 31 145/61 (89) 86 12/25/18 13:00 103 27 98/56 (70) 12/25/18 12:51 103 26 Venturi Mask 10.0 45 12/25/18 12:41 105 24 99 Venturi Mask 10.0 45 12/25/18 12:00 98.9 100 26 154/55 (88) 98 12/25/18 12:00 15.0 55 12/25/18 12:00 106 12/25/18 12:00 Venturi Mask 15.0 12/25/18 11:00 99 25 118/76 (90) 98 12/25/18 10:00 94 26 106/69 (81) 12/25/18 09:00 98.7 92 24 124/60 (81) 12/25/18 08:00 90 12/25/18 08:00 Venturi Mask 15.0 12/25/18 08:00 55 12/25/18 08:00 96 30 109/70 (83) 95 12/25/18 07:18 102 25 100 Venturi Mask 10.0 45 12/25/18 07:08 88 23 100 Venturi Mask 10.0 45 12/25/18 07:06 Venturi Mask 10.0 45 12/25/18 07:05 100 Venturi Mask 10.0 45 12/25/18 07:00 93 26 120/70 (87) 100 12/25/18 06:00 100 26 98/46 (63) 100 12/25/18 05:00 98.0 100 22 131/73 (92) 100 12/25/18 04:00 91 26 126/57 (80) 100 12/25/18 04:00 10.0 45 12/25/18 04:00 96 12/25/18 04:00 Venturi Mask 10.0 12/25/18 03:00 90 27 128/66 (86) 100 12/25/18 02:00 93 27 97/55 (69) 100 12/25/18 01:32 99 31 100 Venturi Mask 10.0 45 12/25/18 01:24 93 27 100 Venturi Mask 10.0 45 12/25/18 01:00 89 25 119/79 (92) 100 12/25/18 00:00 98.4 94 27 109/72 (84) 100 12/25/18 00:00 Venturi Mask 10.0 12/25/18 00:00 10.0 45 12/25/18 00:00 94 12/24/18 23:30 98 27 112/58 (76) 100 12/24/18 23:00 93 28 120/70 (87) 100 12/24/18 22:00 90 30 122/78 (93) 12/24/18 21:00 95 32 111/51 (71) 12/24/18 20:00 10.0 45 12/24/18 20:00 Venturi Mask 10.0 12/24/18 20:00 98.4 96 32 126/67 (86) 91 12/24/18 20:00 90 12/24/18 19:45 92 29 100 Venturi Mask 10.0 45 12/24/18 19:35 92 27 99 Venturi Mask 10.0 45 12/24/18 19:34 Venturi Mask 10.0 45 12/24/18 19:34 98 Venturi Mask 10.0 45 12/24/18 19:00 98 18 124/71 (88) 100 12/24/18 18:00 97 24 145/79 (101) 99 12/24/18 17:00 96 23 108/53 (71) 98 12/24/18 16:00 96 12/24/18 16:00 10.0 45 12/24/18 16:00 98.3 96 26 100/65 (77) 99 12/24/18 16:00 Venturi Mask 10.0 12/24/18 15:00 90 18 111/46 (67) 96 Intake and Output 12/24/18 12/25/18 19:00 07:00 Intake Total 1853.75 ml 1805 ml Output Total 845 ml 600 ml Balance 1008.75 ml 1205 ml Free Water 130 ml IV Total 1663.75 ml 1340 ml Tube Feeding 60 ml 465 ml Output Urine Total 845 ml 600 ml Laboratory Tests 12/25/18 08:00: White Blood Count 16.5H, Red Blood Count 3.77L, Hemoglobin 12.1L, Hematocrit 34.8L, Mean Corpuscular Volume 92, Mean Corpuscular Hemoglobin 32.0H, Mean Corpuscular Hemoglobin Concent 34.7, Red Cell Distribution Width 11.9, Platelet Count 135L, Mean Platelet Volume 10.9H, Neutrophils (%) (Auto) , Lymphocytes (% ) (Auto) , Monocytes (%) (Auto) , Eosinophils (%) (Auto) , Basophils (%) (Auto) , Differential Total Cells Counted 100, Neutrophils % (Manual) 97H, Lymphocytes % (Manual) 2L, Monocytes % (Manual) 1, Eosinophils % (Manual) 0, Basophils % ( Manual) 0, Band Neutrophils 0, Platelet Estimate DecreasedL, Platelet Morphology Normal, Anisocytosis 1+, Sodium Level 142, Potassium Level 3.3L, Chloride Level 112H, Carbon Dioxide Level 18L, Anion Gap 12, Blood Urea Nitrogen 38H, Creatinine 1.3, Estimat Glomerular Filtration Rate , Glucose Level 162H, Calcium Level 7.6L, Total Bilirubin 0.3, Aspartate Amino Transf (AST /SGOT) 35, Alanine Aminotransferase (ALT/SGPT) 23, Alkaline Phosphatase 103, Total Protein 5.0L, Albumin 0.9L, Globulin 4.1, Albumin/Globulin Ratio 0.2L Height (Feet): 5 Height (Inches): 9.00 Weight (Pounds): 125 Bruno Enamorado MD Dec 25, 2018 14:36
--- NOTE | 2018-12-25 14:40 | NUR ---
NURSE NOTES: HERE TO SE PT. NO NEW ORDERS.
--- NOTE | 2018-12-25 14:44 | NUR ---
RD ASSESSMENT & RECOMMENDATIONS SEE CARE ACTIVITY FOR COMPLETE ASSESSMENT DAILY ESTIMATED NEEDS: Needs based on Cancer, underweight 56.8kg 30-35 kcals/kg 8808-8177 total kcals 1-1.5 g protein/kg 57-86 g total protein 25-30 mL/kg 7995-3442 total fluid mLs NUTRITION DIAGNOSIS: Swallowing difficulty r/t respiratory status as evidenced by pt now extubated, remains on OGT feeding. CURRENT TF:Vital AF 1.2 @ 55ml/hr x 24 hrs PO DIET RECOMMENDATIONS: AWNING ERECTOR EVAL PRIOR TO DIET INITIATION-> Liberalized REGULAR/ texture per AWNING ERECTOR ENTERAL NUTRITION RECOMMENDATIONS: Glucerna 1.2 @ 60ml/hr x 24 hrs to provide 1440ml, 1728kcal, 86g prot, 1159ml free water - Rec TF change to Glucerna 1.2- Vital AF no longer indicated, s/p extubation - Rec carb controlled TF for hyperglycemia - Initiate Glucerna 1.2 @ 20ml/hr x 6 hrs, advance 10ml q 4-6 hrs as tolerated to goal rate. - Flush per MD/ HOB over 30 degrees ADDITIONAL RECOMMENDATIONS: 1) Monitor lytes daily on TF/ replete as needed 2) SSI as needed for glycemic control 3) Weekly weights on calibrated bed scale 4) AWNING ERECTOR EVAL PRIOR TO DIET INITIATION .
--- NOTE | 2018-12-25 15:45 | NUR ---
NURSE NOTES: A fax was sent to Dr Gomez, Hospice MD for patient per Dr Enamorado's request. Currently the plan is to keep the FIO2 in the 40s per Dr Quan and continue care until Sun per family request until they can all arrive. Will endorse to PM RN
--- NOTE | 2018-12-25 16:00 | NUR ---
NURSE NOTES: pt cleaned, repositioned. venturi mask to 40%sating 92-96%. pt in no acute distress.
--- NOTE | 2018-12-25 16:19 | Surgery Progress Note ---
Surgery Progress Note Subjective Additional Comments no acute events. unchanged. cxr noted Objective Last 24 Hour Vital Signs Date Time Temp Pulse Resp B/P (MAP) Pulse Ox O2 Delivery O2 Flow Rate FiO2 12/25/18 14:00 117 31 145/61 (89) 86 12/25/18 13:00 103 27 98/56 (70) 12/25/18 12:51 103 26 Venturi Mask 10.0 45 12/25/18 12:41 105 24 99 Venturi Mask 10.0 45 12/25/18 12:00 98.9 100 26 154/55 (88) 98 12/25/18 12:00 15.0 55 12/25/18 12:00 106 12/25/18 12:00 Venturi Mask 15.0 12/25/18 11:00 99 25 118/76 (90) 98 12/25/18 10:00 94 26 106/69 (81) 12/25/18 09:00 98.7 92 24 124/60 (81) 12/25/18 08:00 90 12/25/18 08:00 Venturi Mask 15.0 12/25/18 08:00 55 12/25/18 08:00 96 30 109/70 (83) 95 12/25/18 07:18 102 25 100 Venturi Mask 10.0 45 12/25/18 07:08 88 23 100 Venturi Mask 10.0 45 12/25/18 07:06 Venturi Mask 10.0 45 12/25/18 07:05 100 Venturi Mask 10.0 45 12/25/18 07:00 93 26 120/70 (87) 100 12/25/18 06:00 100 26 98/46 (63) 100 12/25/18 05:00 98.0 100 22 131/73 (92) 100 12/25/18 04:00 91 26 126/57 (80) 100 12/25/18 04:00 10.0 45 12/25/18 04:00 96 12/25/18 04:00 Venturi Mask 10.0 12/25/18 03:00 90 27 128/66 (86) 100 12/25/18 02:00 93 27 97/55 (69) 100 12/25/18 01:32 99 31 100 Venturi Mask 10.0 45 12/25/18 01:24 93 27 100 Venturi Mask 10.0 45 12/25/18 01:00 89 25 119/79 (92) 100 12/25/18 00:00 98.4 94 27 109/72 (84) 100 12/25/18 00:00 Venturi Mask 10.0 12/25/18 00:00 10.0 45 12/25/18 00:00 94 12/24/18 23:30 98 27 112/58 (76) 100 12/24/18 23:00 93 28 120/70 (87) 100 12/24/18 22:00 90 30 122/78 (93) 12/24/18 21:00 95 32 111/51 (71) 12/24/18 20:00 10.0 45 12/24/18 20:00 Venturi Mask 10.0 12/24/18 20:00 98.4 96 32 126/67 (86) 91 12/24/18 20:00 90 12/24/18 19:45 92 29 100 Venturi Mask 10.0 45 12/24/18 19:35 92 27 99 Venturi Mask 10.0 45 12/24/18 19:34 Venturi Mask 10.0 45 12/24/18 19:34 98 Venturi Mask 10.0 45 12/24/18 19:00 98 18 124/71 (88) 100 12/24/18 18:00 97 24 145/79 (101) 99 12/24/18 17:00 96 23 108/53 (71) 98 I&O Intake and Output 12/24/18 12/25/18 19:00 07:00 Intake Total 1853.75 ml 1805 ml Output Total 845 ml 600 ml Balance 1008.75 ml 1205 ml Free Water 130 ml IV Total 1663.75 ml 1340 ml Tube Feeding 60 ml 465 ml Output Urine Total 845 ml 600 ml Dressing: other Wound: other Drains: other Cardiovascular: RSR Respiratory: decreased breath sounds Abdomen: soft, present bowel sounds, non-distended Extremities: no cyanosis Laboratory Tests Test 12/25/18 08:00 12/25/18 15:00 White Blood Count 16.5 K/UL (4.8-10.8) H Red Blood Count 3.77 M/UL (4.70-6.10) L Hemoglobin 12.1 G/DL (14.2-18.0) L Hematocrit 34.8 % (42.0-52.0) L Mean Corpuscular Volume 92 FL (80-99) Mean Corpuscular Hemoglobin 32.0 PG (27.0-31.0) H Mean Corpuscular Hemoglobin Concent 34.7 G/DL (32.0-36.0) Red Cell Distribution Width 11.9 % (11.6-14.8) Platelet Count 135 K/UL (150-450) L Mean Platelet Volume 10.9 FL (6.5-10.1) H Neutrophils (%) (Auto) % (45.0-75.0) Lymphocytes (%) (Auto) % (20.0-45.0) Monocytes (%) (Auto) % (1.0-10.0) Eosinophils (%) (Auto) % (0.0-3.0) Basophils (%) (Auto) % (0.0-2.0) Differential Total Cells Counted 100 Neutrophils % (Manual) 97 % (45-75) H Lymphocytes % (Manual) 2 % (20-45) L Monocytes % (Manual) 1 % (1-10) Eosinophils % (Manual) 0 % (0-3) Basophils % (Manual) 0 % (0-2) Band Neutrophils 0 % (0-8) Platelet Estimate Decreased L Platelet Morphology Normal Anisocytosis 1+ Sodium Level 142 MMOL/L (136-145) Potassium Level 3.3 MMOL/L (3.5-5.1) L Chloride Level 112 MMOL/L (98-107) H Carbon Dioxide Level 18 MMOL/L (21-32) L Anion Gap 12 mmol/L (5-15) Blood Urea Nitrogen 38 mg/dL (7-18) H Creatinine 1.3 MG/DL (0.55-1.30) Estimat Glomerular Filtration Rate mL/min (>60) Glucose Level 162 MG/DL (74-106) H Calcium Level 7.6 MG/DL (8.5-10.1) L Total Bilirubin 0.3 MG/DL (0.2-1.0) Aspartate Amino Transf (AST/SGOT) 35 U/L (15-37) Alanine Aminotransferase (ALT/SGPT) 23 U/L (12-78) Alkaline Phosphatase 103 U/L (46-116) Total Protein 5.0 G/DL (6.4-8.2) L Albumin 0.9 G/DL (3.4-5.0) L Globulin 4.1 g/dL Albumin/Globulin Ratio 0.2 (1.0-2.7) L Arterial Blood pH 7.471 (7.350-7.450) Arterial Blood Partial Pressure CO2 23.0 mmHg (35.0-45.0) *L Arterial Blood Partial Pressure O2 86.0 mmHg (75.0-100.0) Arterial Blood HCO3 16.4 mmol/L (22.0-26.0) *L Arterial Blood Oxygen Saturation 96.4 % (95-100) Arterial Blood Base Excess -5.3 (-2-2) L Damion Test Positive Plan Problems: (1) Pneumothorax, left Assessment & Plan: left small pneumothorax seen on CXR today patient on vent support with positive pressure currently saturating well and stable Repeat CXR stable - possible effusion now? will monitor for now if worsening will need left chest tube placement STAT CXR and call me if desaturates thank you will follow with recs. (2) Severe sepsis Chris Messer Dec 25, 2018 16:19
--- NOTE | 2018-12-25 16:47 | Infectious Diseases Prog Note ---
Assessment/Plan Problems: (1) Acute aspiration pneumonia Assessment & Plan: continue doxycycline to finish his course for 10 -14 days pending sputum culture . aspiration precaution, keep HOB > 30 degree. monitor CXR . EOT 12/31/18 (2) Sepsis Assessment & Plan: with shock , due to methicillin sensitive staph aureus , continue oxacillin IV for minimum of four weeks . trans thoracic echo done on admission ruled out valve vegetations , repeated blood culture is still positive, most likely due to the presence of PICC line which was placed while he was bacteremic and steroids with being immunocompromised with metastatic lung cancer, S/P PICC line removal . await repeated blood culture x2 to confirm on 12/23/18 (3) CONSTANCE (acute kidney injury) Assessment & Plan: due to the above , continue hydration with renally dosed antibiotics , renal follow up, monitor UOP (4) Acute respiratory failure Assessment & Plan: due to the above , extubated on high flow oxygen , pulmonary is following , monitor ABG, and CXR , encourage coughing, CPT. (5) Lung cancer metastatic to brain Assessment & Plan: S/P radiation and chemo therapy at [facility] , now with poor prognosis, recommend palliative care . (6) Leukocytosis Assessment & Plan: suspect due to steroids , recommend to taper, monitor WBC (7) Pneumothorax, left Assessment & Plan: monitor CXR , surgery is following Subjective Constitutional: Reports: fatigue HEENT: Reports: congestion Respiratory: Reports: productive cough Breasts: Reports: no symptoms Cardiovascular: Reports: no symptoms Gastrointestinal/Abdominal: Reports: no symptoms Genitourinary: Reports: no symptoms Neurologic: Reports: weakness, confusion Psychiatric: Reports: depression Skin: Reports: no symptoms Endocrine: Reports: no symptoms Hematologic: Reports: no symptoms Musculoskeletal: Reports: no symptoms Allergies: Coded Allergies: No Known Allergies (Unverified , 12/17/18) Subjective he was lethargic on high flow oxygen, still in ICU, responsive to verbal commands, coughing and congested , not on pressor , afebrile. Objective Vital Signs Last 24 Hour Vital Signs Date Time Temp Pulse Resp B/P (MAP) Pulse Ox O2 Delivery O2 Flow Rate FiO2 12/25/18 14:00 117 31 145/61 (89) 86 12/25/18 13:00 103 27 98/56 (70) 12/25/18 12:51 103 26 Venturi Mask 10.0 45 1/24/19 12:41 105 24 99 Venturi Mask 10.0 45 12/25/18 12:00 98.9 100 26 154/55 (88) 98 12/25/18 12:00 15.0 55 12/25/18 12:00 106 12/25/18 12:00 Venturi Mask 15.0 12/25/18 11:00 99 25 118/76 (90) 98 12/25/18 10:00 94 26 106/69 (81) 12/25/18 09:00 98.7 92 24 124/60 (81) 12/25/18 08:00 90 12/25/18 08:00 Venturi Mask 15.0 12/25/18 08:00 55 12/25/18 08:00 96 30 109/70 (83) 95 12/25/18 07:18 102 25 100 Venturi Mask 10.0 45 12/25/18 07:08 88 23 100 Venturi Mask 10.0 45 12/25/18 07:06 Venturi Mask 10.0 45 12/25/18 07:05 100 Venturi Mask 10.0 45 12/25/18 07:00 93 26 120/70 (87) 100 12/25/18 06:00 100 26 98/46 (63) 100 12/25/18 05:00 98.0 100 22 131/73 (92) 100 12/25/18 04:00 91 26 126/57 (80) 100 12/25/18 04:00 10.0 45 12/25/18 04:00 96 12/25/18 04:00 Venturi Mask 10.0 12/25/18 03:00 90 27 128/66 (86) 100 12/25/18 02:00 93 27 97/55 (69) 100 12/25/18 01:32 99 31 100 Venturi Mask 10.0 45 12/25/18 01:24 93 27 100 Venturi Mask 10.0 45 12/25/18 01:00 89 25 119/79 (92) 100 12/25/18 00:00 98.4 94 27 109/72 (84) 100 12/25/18 00:00 Venturi Mask 10.0 12/25/18 00:00 10.0 45 12/25/18 00:00 94 12/24/18 23:30 98 27 112/58 (76) 100 12/24/18 23:00 93 28 120/70 (87) 100 12/24/18 22:00 90 30 122/78 (93) 12/24/18 21:00 95 32 111/51 (71) 12/24/18 20:00 10.0 45 12/24/18 20:00 Venturi Mask 10.0 12/24/18 20:00 98.4 96 32 126/67 (86) 91 12/24/18 20:00 90 12/24/18 19:45 92 29 100 Venturi Mask 10.0 45 12/24/18 19:35 92 27 99 Venturi Mask 10.0 45 12/24/18 19:34 Venturi Mask 10.0 45 12/24/18 19:34 98 Venturi Mask 10.0 45 12/24/18 19:00 98 18 124/71 (88) 100 12/24/18 18:00 97 24 145/79 (101) 99 12/24/18 17:00 96 23 108/53 (71) 98 Height (Feet): 5 Height (Inches): 9.00 Weight (Pounds): 125 General Appearance: WD/WN, no acute distress, cachetic, other - lethargic HEENT: normocephalic, atraumatic, anicteric, mucous membranes moist, PERRL Respiratory/Chest: chest wall non-tender, no respiratory distress, no accessory muscle use, decreased breath sounds, crackles/rales Cardiovascular: normal peripheral pulses, normal rate, regular rhythm, no gallop/murmur, no JVD Abdomen: normal bowel sounds, soft, non tender, no organomegaly, non distended , no mass, no scars Genitourinary: normal external genitalia Extremities: no cyanosis, no clubbing Skin: no rash, no lesions, no ulcers Neurologic/Psychiatric: chalker soles II-XII grossly normal, alert, responsive Lymphatic: no neck adenopathy, no groin adenopathy Musculoskeletal: normal muscle bulk, no effusion Microbiology Date/Time Source Procedure Growth Status 12/23/18 15:08 Blood Blood Culture - Preliminary NO GROWTH AFTER 24 HOURS Resulted 12/23/18 15:00 Blood Blood Culture - Preliminary NO GROWTH AFTER 24 HOURS Resulted 12/24/18 12:50 Sputum Gram Stain - Final Resulted 12/24/18 12:50 Sputum Sputum Culture - Preliminary Resulted Laboratory Tests Test 12/25/18 08:00 12/25/18 15:00 White Blood Count 16.5 K/UL (4.8-10.8) H Red Blood Count 3.77 M/UL (4.70-6.10) L Hemoglobin 12.1 G/DL (14.2-18.0) L Hematocrit 34.8 % (42.0-52.0) L Mean Corpuscular Volume 92 FL (80-99) Mean Corpuscular Hemoglobin 32.0 PG (27.0-31.0) H Mean Corpuscular Hemoglobin Concent 34.7 G/DL (32.0-36.0) Red Cell Distribution Width 11.9 % (11.6-14.8) Platelet Count 135 K/UL (150-450) L Mean Platelet Volume 10.9 FL (6.5-10.1) H Neutrophils (%) (Auto) % (45.0-75.0) Lymphocytes (%) (Auto) % (20.0-45.0) Monocytes (%) (Auto) % (1.0-10.0) Eosinophils (%) (Auto) % (0.0-3.0) Basophils (%) (Auto) % (0.0-2.0) Differential Total Cells Counted 100 Neutrophils % (Manual) 97 % (45-75) H Lymphocytes % (Manual) 2 % (20-45) L Monocytes % (Manual) 1 % (1-10) Eosinophils % (Manual) 0 % (0-3) Basophils % (Manual) 0 % (0-2) Band Neutrophils 0 % (0-8) Platelet Estimate Decreased L Platelet Morphology Normal Anisocytosis 1+ Sodium Level 142 MMOL/L (136-145) Potassium Level 3.3 MMOL/L (3.5-5.1) L Chloride Level 112 MMOL/L (98-107) H Carbon Dioxide Level 18 MMOL/L (21-32) L Anion Gap 12 mmol/L (5-15) Blood Urea Nitrogen 38 mg/dL (7-18) H Creatinine 1.3 MG/DL (0.55-1.30) Estimat Glomerular Filtration Rate mL/min (>60) Glucose Level 162 MG/DL (74-106) H Calcium Level 7.6 MG/DL (8.5-10.1) L Total Bilirubin 0.3 MG/DL (0.2-1.0) Aspartate Amino Transf (AST/SGOT) 35 U/L (15-37) Alanine Aminotransferase (ALT/SGPT) 23 U/L (12-78) Alkaline Phosphatase 103 U/L (46-116) Total Protein 5.0 G/DL (6.4-8.2) L Albumin 0.9 G/DL (3.4-5.0) L Globulin 4.1 g/dL Albumin/Globulin Ratio 0.2 (1.0-2.7) L Arterial Blood pH 7.471 (7.350-7.450) Arterial Blood Partial Pressure CO2 23.0 mmHg (35.0-45.0) *L Arterial Blood Partial Pressure O2 86.0 mmHg (75.0-100.0) Arterial Blood HCO3 16.4 mmol/L (22.0-26.0) *L Arterial Blood Oxygen Saturation 96.4 % (95-100) Arterial Blood Base Excess -5.3 (-2-2) L Damion Test Positive Current Medications Medications (Trade) Dose Ordered Sig/Earlene Route PRN Reason Start Time Stop Time Status Last Admin Dose Admin Albuterol/ Ipratropium (Albuterol/ Ipratropium) 3 ml Q4H PRN HHN Shortness of Breath 12/24/18 12:15 12/29/18 12:14 Albuterol/ Ipratropium (Albuterol/ Ipratropium) 3 ml Q6HRT HHN 12/24/18 13:00 12/29/18 12:59 12/25/18 12:41 Dexamethasone Sodium Phosphate (Decadron 4mg/ml vial) 4 mg BID IVP 12/18/18 09:00 01/17/19 08:59 12/25/18 10:19 Dopamine HCl/ Dextrose 250 ml @ 0 mls/hr Q24H IV 12/17/18 20:55 01/16/19 20:54 12/17/18 20:55 Doxycycline Hyclate 100 mg/ Dextrose 110 ml @ 110 mls/hr Q12HR IV 12/23/18 21:00 12/30/18 20:59 12/25/18 10:19 Heparin Sodium (Porcine) (Heparin 5000 units/ml) 5,000 units EVERY 12 HOURS SUBQ 12/24/18 21:00 01/23/19 20:59 12/25/18 10:24 Magnesium Hydroxide (Mom) 30 ml DAILYPRN PRN NG Constipation 12/24/18 15:30 01/23/19 12:44 12/24/18 16:31 Morphine Sulfate (Morphine Sulfate) 1 mg Q4H PRN IVP Shortness of breath 12/24/18 13:15 12/31/18 13:14 Norepinephrine Bitartrate 4 mg/ Dextrose 250 ml @ 0 mls/hr Q24H IV 12/18/18 15:00 01/17/19 14:59 12/18/18 21:34 Oxacillin Sodium 2 gm/Sodium Chloride 110 ml @ 220 mls/hr Q4HR IVPB 12/21/18 17:00 12/28/18 16:59 12/25/18 13:38 Pantoprazole (Protonix) 40 mg EVERY 12 HOURS IVP 12/18/18 21:00 01/17/19 20:59 12/25/18 11:02 Sodium Chloride 500 ml @ 999 mls/hr Q31M PRN IV For hypotension 12/20/18 11:45 01/19/19 11:44 12/23/18 16:56 Tammy Rob M.D. Dec 25, 2018 16:47
--- NOTE | 2018-12-25 18:00 | NUR ---
NURSE NOTES: Pt at bedside, was updated on the days events. No questions at this time. Awaiting family arrival from out of town
--- NOTE | 2018-12-25 19:51 | NUR ---
HAND-OFF: Report given to BRIGIDO. PT IN NO ACUTE DISTRESS.
--- NOTE | 2018-12-25 19:52 | NUR ---
NURSE NOTES: Endorsement received from WESLEY Hand. Patient with eyes closed, withdraws to pain, no verbal. On venti mask 40%. OGT patent and intact, placement rechecked per auscultation. Ongoing Vital AF 1.2 at 55ml/hr. Stoddard catheter present, draining to urimeter. With left forearm g20 and right forearm g20.
[2018-12-25] MEDS: DOPamine 400mg/250ml 250 ML IV SCH (20:46)
--- NOTE | 2018-12-25 21:00 | NUR ---
NURSE NOTES: Heparin SQ not given due to low platelet.
--- NOTE | 2018-12-25 23:00 | NUR ---
NURSE NOTES: No shortness of breath. 100% saturation on the monitor
--- NOTE | 2018-12-25 23:21 | Cardiology Progress Note ---
Assessment/Plan Assessment/Plan 1. Sinus tachycardia, most likely secondary to hypoxemia/lung CA. 2. History of coronary artery disease, status post coronary artery bypass graft surgery. 12-lead electrocardiogram does not show any ischemic changes despite the fact that the troponin I levels are elevated. The patient is not a candidate for ischemic workup given metastatic lung cancer conservative management. I do not believe that the patient would benefit from anticoagulation therapy, which may put the patient in increased risk of bleeding. 3. Hypoxic hypercarbic respiratory failure, resolved, due to possible acute exacerbation of COPD. 4. Non-sustained ventricular tachycardia, keep Mg level and keep >2.5, keep K > 4.0 5. 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 6. History of CVA. 7. History of COPD. 8. CONSTANCE, creat at 1.3. Subjective Subjective Sinus tachycardia at rate of 109. Venturi mask, FiO2 at 40%. Objective Last 24 Hour Vital Signs Date Time Temp Pulse Resp B/P (MAP) Pulse Ox O2 Delivery O2 Flow Rate FiO2 12/25/18 23:00 101 31 103/69 (80) 97 12/25/18 22:00 105 33 98/70 (79) 97 12/25/18 21:00 107 32 95/35 (55) 95 12/25/18 20:46 107/65 12/25/18 20:00 98.9 109 26 127/49 (75) 12/25/18 20:00 Venturi Mask 8.0 12/25/18 19:51 Venturi Mask 8.0 40 12/25/18 19:50 96 Venturi Mask 8.0 40 12/25/18 19:45 112 26 99 Venturi Mask 8.0 40 12/25/18 19:35 98 26 96 Venturi Mask 8.0 40 12/25/18 19:00 103 27 99/69 (79) 99 12/25/18 18:00 100 24 123/47 (72) 99 12/25/18 17:00 102 27 122/46 (71) 12/25/18 16:00 Venturi Mask 8.0 12/25/18 16:00 8.0 40 12/25/18 16:00 99.0 105 29 124/46 (72) 99 12/25/18 16:00 103 12/25/18 15:00 104 26 120/49 (72) 12/25/18 15:00 8.0 40 12/25/18 14:00 117 31 145/61 (89) 86 12/25/18 13:00 103 27 98/56 (70) 12/25/18 12:51 103 26 Venturi Mask 10.0 45 12/25/18 12:41 105 24 99 Venturi Mask 10.0 45 12/25/18 12:00 98.9 100 26 154/55 (88) 98 12/25/18 12:00 15.0 55 12/25/18 12:00 106 12/25/18 12:00 Venturi Mask 15.0 12/25/18 11:00 99 25 118/76 (90) 98 12/25/18 10:00 94 26 106/69 (81) 12/25/18 09:00 98.7 92 24 124/60 (81) 12/25/18 08:00 90 12/25/18 08:00 Venturi Mask 15.0 12/25/18 08:00 55 12/25/18 08:00 96 30 109/70 (83) 95 12/25/18 07:18 102 25 100 Venturi Mask 10.0 45 12/25/18 07:08 88 23 100 Venturi Mask 10.0 45 12/25/18 07:06 Venturi Mask 10.0 45 12/25/18 07:05 100 Venturi Mask 10.0 45 12/25/18 07:00 93 26 120/70 (87) 100 12/25/18 06:00 100 26 98/46 (63) 100 12/25/18 05:00 98.0 100 22 131/73 (92) 100 12/25/18 04:00 91 26 126/57 (80) 100 12/25/18 04:00 10.0 45 12/25/18 04:00 96 12/25/18 04:00 Venturi Mask 10.0 12/25/18 03:00 90 27 128/66 (86) 100 12/25/18 02:00 93 27 97/55 (69) 100 12/25/18 01:32 99 31 100 Venturi Mask 10.0 45 12/25/18 01:24 93 27 100 Venturi Mask 10.0 45 12/25/18 01:00 89 25 119/79 (92) 100 12/25/18 00:00 98.4 94 27 109/72 (84) 100 12/25/18 00:00 Venturi Mask 10.0 12/25/18 00:00 10.0 45 12/25/18 00:00 94 12/24/18 23:30 98 27 112/58 (76) 100 Intake and Output 12/24/18 12/25/18 19:00 07:00 Intake Total 1853.75 ml 1805 ml Output Total 845 ml 600 ml Balance 1008.75 ml 1205 ml Free Water 130 ml IV Total 1663.75 ml 1340 ml Tube Feeding 60 ml 465 ml Output Urine Total 845 ml 600 ml 2D Echo: Global LV HK with LVEF 25%, Mild LAE, RVSP 14 mmHg, Grade I LVDD Laboratory Tests Test 12/25/18 08:00 12/25/18 15:00 White Blood Count 16.5 K/UL (4.8-10.8) H Red Blood Count 3.77 M/UL (4.70-6.10) L Hemoglobin 12.1 G/DL (14.2-18.0) L Hematocrit 34.8 % (42.0-52.0) L Mean Corpuscular Volume 92 FL (80-99) Mean Corpuscular Hemoglobin 32.0 PG (27.0-31.0) H Mean Corpuscular Hemoglobin Concent 34.7 G/DL (32.0-36.0) Red Cell Distribution Width 11.9 % (11.6-14.8) Platelet Count 135 K/UL (150-450) L Mean Platelet Volume 10.9 FL (6.5-10.1) H Neutrophils (%) (Auto) % (45.0-75.0) Lymphocytes (%) (Auto) % (20.0-45.0) Monocytes (%) (Auto) % (1.0-10.0) Eosinophils (%) (Auto) % (0.0-3.0) Basophils (%) (Auto) % (0.0-2.0) Differential Total Cells Counted 100 Neutrophils % (Manual) 97 % (45-75) H Lymphocytes % (Manual) 2 % (20-45) L Monocytes % (Manual) 1 % (1-10) Eosinophils % (Manual) 0 % (0-3) Basophils % (Manual) 0 % (0-2) Band Neutrophils 0 % (0-8) Platelet Estimate Decreased L Platelet Morphology Normal Anisocytosis 1+ Sodium Level 142 MMOL/L (136-145) Potassium Level 3.3 MMOL/L (3.5-5.1) L Chloride Level 112 MMOL/L (98-107) H Carbon Dioxide Level 18 MMOL/L (21-32) L Anion Gap 12 mmol/L (5-15) Blood Urea Nitrogen 38 mg/dL (7-18) H Creatinine 1.3 MG/DL (0.55-1.30) Estimat Glomerular Filtration Rate mL/min (>60) Glucose Level 162 MG/DL (74-106) H Calcium Level 7.6 MG/DL (8.5-10.1) L Total Bilirubin 0.3 MG/DL (0.2-1.0) Aspartate Amino Transf (AST/SGOT) 35 U/L (15-37) Alanine Aminotransferase (ALT/SGPT) 23 U/L (12-78) Alkaline Phosphatase 103 U/L (46-116) Total Protein 5.0 G/DL (6.4-8.2) L Albumin 0.9 G/DL (3.4-5.0) L Globulin 4.1 g/dL Albumin/Globulin Ratio 0.2 (1.0-2.7) L Arterial Blood pH 7.471 (7.350-7.450) Arterial Blood Partial Pressure CO2 23.0 mmHg (35.0-45.0) *L Arterial Blood Partial Pressure O2 86.0 mmHg (75.0-100.0) Arterial Blood HCO3 16.4 mmol/L (22.0-26.0) *L Arterial Blood Oxygen Saturation 96.4 % (95-100) Arterial Blood Base Excess -5.3 (-2-2) L Damion Test Positive Microbiology Date/Time Source Procedure Growth Status 12/23/18 15:08 Blood Blood Culture - Preliminary NO GROWTH AFTER 24 HOURS Resulted 12/23/18 15:00 Blood Blood Culture - Preliminary NO GROWTH AFTER 24 HOURS Resulted 12/24/18 12:50 Sputum Gram Stain - Final Resulted 12/24/18 12:50 Sputum Sputum Culture - Preliminary Resulted Objective HEENT: Atraumatic and normocephalic. Anicteric. Pupils are equal, round, and reactive to light and accommodation. Conjunctival pallor. NECK: JVP <5 cm, No carotid bruit. Carotid upstroke is 2+ bilaterally. CARDIOVASCULAR: Normal S1, S2. Regular rate and rhythm. Tachycardic. No murmurs, gallops, or rubs. LUNGS: Diminished breath sounds in both lungs. ABDOMEN: Soft, nontender, and nondistended. No hepatosplenomegaly. Positive bowel sounds. EXTREMITIES: No evidence of edema, clubbing, or cyanosis. There is onychomycosis. Fred Holman MD Dec 25, 2018 23:21
[2018-12-26] VITALS (25 sets, daily range): BP systolic 96–162; BP diastolic 35–86
--- NOTE | 2018-12-26 01:00 | NUR ---
NURSE NOTES: Patient condition remains same. Tolerating feeding. Secretions suctioned.
[2018-12-26] MEDS: Albuterol/Ipratropium 3ml neb HHN SCH ×4 (01:15→19:33)
[2018-12-26] MEDS: Oxacillin 2 GM in NS 110 ML IVPB SCH ×6 (01:33→21:09)
--- NOTE | 2018-12-26 03:00 | NUR ---
NURSE NOTES: Oral care, bed bath done.
--- NOTE | 2018-12-26 05:00 | NUR ---
NURSE NOTES: 97% saturation, still on 40% Venti mask.
--- NOTE | 2018-12-26 07:22 | NUR ---
HAND-OFF: Report given to WESLEY Mcclure.
[2018-12-26] MEDS: Dexamethasone 4mg/ml vial IVP SCH ×2 (08:14→18:06)
[2018-12-26] MEDS: Pantoprazole Inj IVP SCH ×2 (08:14→21:09)
[2018-12-26] MEDS: Doxycycline Hyclate 100 MG in D5W 110 ML IV SCH ×2 (08:15→21:53)
[2018-12-26] MEDS: Heparin 5000 units/ml inj SUBQ SCH ×2 (08:15→21:00)
--- NOTE | 2018-12-26 08:21 | NUR ---
NURSE NOTES: Report received from WESLEY Turner. On Venti mask at 40% with no s/s acute distress. Afebrile at this time and bilateral dimished lungs sounds noted. OGT in place running Vital AF 1.2 .Placement cheack and intact, residual 10cc. Keep HOB elevated at 35 degree to prevent aspiration. MARLIN AC/20 and L hand AC/20 patent with no apparent s/s infiltration.Mouth care done, turned and repositioned.Will continue to monitor.
--- NOTE | 2018-12-26 10:05 | NUR ---
NURSE NOTES: Pt turned and repositioned.Kept clean and dry. Will continue to monitor.
--- NOTE | 2018-12-26 12:20 | NUR ---
NURSE NOTES: Turned and repositioned for skin management. HOB elevated to prevent aspiration. Kept clean and dry.Will continue to monitor.
--- NOTE | 2018-12-26 12:49 | NUR ---
NURSE NOTES: Seen by Dr Enamorado, and update given, will follow up with new orders.
--- NOTE | 2018-12-26 14:06 | Surgery Progress Note ---
Surgery Progress Note Subjective Additional Comments no acute events. Objective Last 24 Hour Vital Signs Date Time Temp Pulse Resp B/P (MAP) Pulse Ox O2 Delivery O2 Flow Rate FiO2 12/26/18 13:59 102 28 97 Venturi Mask 8.0 40 12/26/18 13:17 94 30 98 Venturi Mask 8.0 40 12/26/18 13:00 92 27 105/41 (62) 100 12/26/18 12:00 98.6 85 28 112/41 (64) 98 12/26/18 12:00 Venturi Mask 8.0 12/26/18 12:00 98 12/26/18 11:00 98 33 104/56 (72) 98 12/26/18 10:00 89 36 96/81 (86) 97 12/26/18 09:00 95 36 96/81 (86) 97 12/26/18 08:00 Venturi Mask 8.0 12/26/18 08:00 98.2 110 32 98/48 (65) 97 12/26/18 08:00 96 12/26/18 07:51 96 27 97 Venturi Mask 8.0 40 12/26/18 07:36 97 Venturi Mask 8.0 40 12/26/18 07:36 Venturi Mask 8.0 40 12/26/18 07:35 117 30 96 Venturi Mask 8.0 40 12/26/18 07:00 98 31 117/81 (93) 95 12/26/18 06:00 98 31 104/37 (59) 95 12/26/18 05:00 97 31 109/41 (63) 95 12/26/18 04:00 Venturi Mask 8.0 12/26/18 04:00 99 12/26/18 04:00 98.2 101 28 118/59 (78) 95 12/26/18 03:00 98 28 109/78 (88) 83 12/26/18 02:00 110 32 102/35 (57) 95 12/26/18 01:27 100 31 100 Venturi Mask 8.0 40 12/26/18 01:16 108 32 96 Venturi Mask 8.0 40 12/26/18 01:00 103 33 98/66 (77) 99 12/26/18 00:00 101 12/26/18 00:00 Venturi Mask 8.0 12/26/18 00:00 98.5 101 31 103/67 (79) 99 12/25/18 23:00 101 31 103/69 (80) 97 12/25/18 22:00 105 33 98/70 (79) 97 12/25/18 21:00 107 32 95/35 (55) 95 12/25/18 20:46 107/65 12/25/18 20:00 98.9 109 26 127/49 (75) 12/25/18 20:00 Venturi Mask 8.0 12/25/18 20:00 105 12/25/18 19:51 Venturi Mask 8.0 40 12/25/18 19:50 96 Venturi Mask 8.0 40 12/25/18 19:45 112 26 99 Venturi Mask 8.0 40 12/25/18 19:35 98 26 96 Venturi Mask 8.0 40 12/25/18 19:00 103 27 99/69 (79) 99 12/25/18 18:00 100 24 123/47 (72) 99 12/25/18 17:00 102 27 122/46 (71) 12/25/18 16:00 Venturi Mask 8.0 12/25/18 16:00 8.0 40 12/25/18 16:00 99.0 105 29 124/46 (72) 99 12/25/18 16:00 103 12/25/18 15:00 104 26 120/49 (72) 12/25/18 15:00 8.0 40 I&O Intake and Output 12/25/18 12/26/18 19:00 07:00 Intake Total 1755 ml 1040 ml Output Total 800 ml 650 ml Balance 955 ml 390 ml Free Water 50 ml IV Total 1095 ml 330 ml Tube Feeding 660 ml 660 ml Output Urine Total 800 ml 650 ml # Bowel Movements 2 Dressing: other Wound: other Drains: other Cardiovascular: RSR Respiratory: decreased breath sounds Abdomen: soft, present bowel sounds, non-distended Extremities: other Laboratory Tests Test 12/25/18 15:00 Arterial Blood pH 7.471 (7.350-7.450) Arterial Blood Partial Pressure CO2 23.0 mmHg (35.0-45.0) *L Arterial Blood Partial Pressure O2 86.0 mmHg (75.0-100.0) Arterial Blood HCO3 16.4 mmol/L (22.0-26.0) *L Arterial Blood Oxygen Saturation 96.4 % (95-100) Arterial Blood Base Excess -5.3 (-2-2) L Damion Test Positive Plan Problems: (1) Pneumothorax, left Assessment & Plan: left small pneumothorax seen on CXR today patient on vent support with positive pressure currently saturating well and stable Repeat CXR stable - possible effusion now? will monitor for now if worsening will need left chest tube placement STAT CXR and call me if desaturates thank you will follow with recs. (2) Severe sepsis Chris Mseser Dec 26, 2018 14:06
--- NOTE | 2018-12-26 14:48 | NUR ---
NURSE NOTES: Pt turned and repositioned. Seen by Dr Rob, will follow up new orders
--- NOTE | 2018-12-26 15:47 | General Progress Note ---
Assessment/Plan Assessment/Plan S, O: limited eval. Patient extubated. however is on Venti Mask, Stoddard inserted. patient is awake but delirious. not following commands PHYSICAL EXAMINATION: HEAD AND NECK: P limited source of evaluation. Off the Vent. Atraumatic and normocephalic. CHEST: Diffuse bronchial breathing sounds. Positive for diffuse crackles.HEART: S1 and S2. Tachyarrhythmia. ABDOMEN: Soft. No organomegaly.MUSCULOSKELETAL: Atrophied musculature, limited evaluation. The patient is not following compounds, sedated. Imaging: CXR post extubation reviewed Med: reviewed , including Zosyn ASSESSMENT AND PLAN: 1. Vent-dependent respiratory failure. Resolved, currently on Venti Mask 2. Septic shock: Staph Aureus 3. Healthcare-associated pneumonia. 3. Non-ST myocardial infarction. Abnormal Trop 4. Metastatic lung CA. 5. Left sided small PNTX 5. GI and DVT prophylaxes. PLAN OF CARE: 1. Improvement of leukocytosis 3. Grave prognosis. 4. Infectious Disease, Pulmonary, and Cardiology Notes are reviewed 6. Left sided small PNTX , will monitor , if worsen will proceed with Chest-T PLan: Ok to consult Hospice Ok to Re-intubate if needed Per my conversation with the , again today, Family are flying from out-of- state to be with patient on Saturday. Proceed with Palliative extubation/care on Saturday/Saturday with the goal of transitioning to home Subjective Allergies: Coded Allergies: No Known Allergies (Unverified , 12/17/18) Objective Last 24 Hour Vital Signs Date Time Temp Pulse Resp B/P (MAP) Pulse Ox O2 Delivery O2 Flow Rate FiO2 12/26/18 15:00 86 29 162/86 (111) 100 12/26/18 15:00 123/39 12/26/18 14:00 96 27 119/49 (72) 100 12/26/18 13:59 102 28 97 Venturi Mask 8.0 40 12/26/18 13:17 94 30 98 Venturi Mask 8.0 40 12/26/18 13:00 92 27 105/41 (62) 100 12/26/18 12:00 98.6 85 28 112/41 (64) 98 12/26/18 12:00 Venturi Mask 8.0 12/26/18 12:00 98 12/26/18 11:00 98 33 104/56 (72) 98 12/26/18 10:00 89 36 96/81 (86) 97 12/26/18 09:00 95 36 96/81 (86) 97 12/26/18 08:00 Venturi Mask 8.0 12/26/18 08:00 98.2 110 32 98/48 (65) 97 12/26/18 08:00 96 12/26/18 07:51 96 27 97 Venturi Mask 8.0 40 12/26/18 07:36 97 Venturi Mask 8.0 40 12/26/18 07:36 Venturi Mask 8.0 40 12/26/18 07:35 117 30 96 Venturi Mask 8.0 40 12/26/18 07:00 98 31 117/81 (93) 95 12/26/18 06:00 98 31 104/37 (59) 95 12/26/18 05:00 97 31 109/41 (63) 95 12/26/18 04:00 Venturi Mask 8.0 12/26/18 04:00 99 12/26/18 04:00 98.2 101 28 118/59 (78) 95 12/26/18 03:00 98 28 109/78 (88) 83 12/26/18 02:00 110 32 102/35 (57) 95 12/26/18 01:27 100 31 100 Venturi Mask 8.0 40 12/26/18 01:16 108 32 96 Venturi Mask 8.0 40 12/26/18 01:00 103 33 98/66 (77) 99 12/26/18 00:00 101 12/26/18 00:00 Venturi Mask 8.0 12/26/18 00:00 98.5 101 31 103/67 (79) 99 12/25/18 23:00 101 31 103/69 (80) 97 12/25/18 22:00 105 33 98/70 (79) 97 12/25/18 21:00 107 32 95/35 (55) 95 12/25/18 20:46 107/65 12/25/18 20:00 98.9 109 26 127/49 (75) 12/25/18 20:00 Venturi Mask 8.0 12/25/18 20:00 105 12/25/18 19:51 Venturi Mask 8.0 40 12/25/18 19:50 96 Venturi Mask 8.0 40 12/25/18 19:45 112 26 99 Venturi Mask 8.0 40 12/25/18 19:35 98 26 96 Venturi Mask 8.0 40 12/25/18 19:00 103 27 99/69 (79) 99 12/25/18 18:00 100 24 123/47 (72) 99 12/25/18 17:00 102 27 122/46 (71) 12/25/18 16:00 Venturi Mask 8.0 12/25/18 16:00 8.0 40 12/25/18 16:00 99.0 105 29 124/46 (72) 99 12/25/18 16:00 103 Intake and Output 12/25/18 12/26/18 19:00 07:00 Intake Total 1755 ml 1040 ml Output Total 800 ml 650 ml Balance 955 ml 390 ml Free Water 50 ml IV Total 1095 ml 330 ml Tube Feeding 660 ml 660 ml Output Urine Total 800 ml 650 ml # Bowel Movements 2 Height (Feet): 5 Height (Inches): 9.00 Weight (Pounds): 120 Bruno Enamorado MD Dec 26, 2018 15:47
--- NOTE | 2018-12-26 16:10 | NUR ---
NURSE NOTES: Pt asleep, no s/s acute distress. Remains on venti mask and saturating at 100 %. Turned and repositioned for skin management. Kept clean and dry. Will continue to monitor.
--- NOTE | 2018-12-26 16:14 | Pulmonolgy Critical Care Note ---
Critical Care - Asmt/Plan Problems: (1) Gram positive sepsis Assessment & Plan: S aureus (2) Severe sepsis (3) Acute respiratory failure (4) NSTEMI (non-ST elevated myocardial infarction) (5) CONSTANCE (acute kidney injury) (6) Acute aspiration pneumonia (7) Lung cancer metastatic to brain (8) CHF (congestive heart failure) Respiratory: monitor respiratory rate, adjust FIO2 Cardiac: continue to monitor HR/BP Renal: other - SLIV Infectious Disease: continue antibiotics Gastrointestinal: continue feedings/current rate Endocrine: monitor blood sugar Hematologic: monitor H/H Prophylaxis: Protonix, Heparin Disposition: keep in ICU Time Spent (Minutes): 30 Notes Reviewed: senior accounting analyst, cardio, renal, ID, other - DNAR, intubation ok --> 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 when additional family arrives Discussed with: nurses, consultants Critical Care - Objective Last 24 Hour Vital Signs Date Time Temp Pulse Resp B/P (MAP) Pulse Ox O2 Delivery O2 Flow Rate FiO2 12/26/18 15:00 86 29 162/86 (111) 100 12/26/18 15:00 123/39 12/26/18 14:00 96 27 119/49 (72) 100 12/26/18 13:59 102 28 97 Venturi Mask 8.0 40 12/26/18 13:17 94 30 98 Venturi Mask 8.0 40 12/26/18 13:00 92 27 105/41 (62) 100 12/26/18 12:00 98.6 85 28 112/41 (64) 98 12/26/18 12:00 Venturi Mask 8.0 12/26/18 12:00 98 12/26/18 11:00 98 33 104/56 (72) 98 12/26/18 10:00 89 36 96/81 (86) 97 12/26/18 09:00 95 36 96/81 (86) 97 12/26/18 08:00 Venturi Mask 8.0 12/26/18 08:00 98.2 110 32 98/48 (65) 97 12/26/18 08:00 96 12/26/18 07:51 96 27 97 Venturi Mask 8.0 40 12/26/18 07:36 97 Venturi Mask 8.0 40 12/26/18 07:36 Venturi Mask 8.0 40 1/25/19 07:35 117 30 96 Venturi Mask 8.0 40 12/26/18 07:00 98 31 117/81 (93) 95 12/26/18 06:00 98 31 104/37 (59) 95 12/26/18 05:00 97 31 109/41 (63) 95 12/26/18 04:00 Venturi Mask 8.0 12/26/18 04:00 99 12/26/18 04:00 98.2 101 28 118/59 (78) 95 12/26/18 03:00 98 28 109/78 (88) 83 12/26/18 02:00 110 32 102/35 (57) 95 12/26/18 01:27 100 31 100 Venturi Mask 8.0 40 12/26/18 01:16 108 32 96 Venturi Mask 8.0 40 12/26/18 01:00 103 33 98/66 (77) 99 12/26/18 00:00 101 12/26/18 00:00 Venturi Mask 8.0 12/26/18 00:00 98.5 101 31 103/67 (79) 99 12/25/18 23:00 101 31 103/69 (80) 97 12/25/18 22:00 105 33 98/70 (79) 97 12/25/18 21:00 107 32 95/35 (55) 95 12/25/18 20:46 107/65 12/25/18 20:00 98.9 109 26 127/49 (75) 12/25/18 20:00 Venturi Mask 8.0 12/25/18 20:00 105 12/25/18 19:51 Venturi Mask 8.0 40 12/25/18 19:50 96 Venturi Mask 8.0 40 12/25/18 19:45 112 26 99 Venturi Mask 8.0 40 12/25/18 19:35 98 26 96 Venturi Mask 8.0 40 12/25/18 19:00 103 27 99/69 (79) 99 12/25/18 18:00 100 24 123/47 (72) 99 12/25/18 17:00 102 27 122/46 (71) Status: obtunded Condition: critical HEENT: atraumatic, normocephalic Lungs: rhonchi Heart: HR/BP stable Abdomen: soft, non-tender, active bowel sounds Extremities: no C/C/E Micro: Microbiology Date/Time Source Procedure Growth Status 12/24/18 12:50 Sputum Gram Stain - Final Complete 12/24/18 12:50 Sputum Culture - Final Loly Albicans Complete Critical Care - Subjective ROS Limited/Unobtainable: Yes ICU Day: 10 Intubation Day: N/A Interval Events: MICHAEL Stable on VM Hemodynamically stable Oliver TF's Condition: stable IV Access: peripheral EKG Rhythm: Sinus Rhythm FI02: 40 Vent Support Breath Rate: 24 Vent Support Mode: CPAP Vent Tidal Volume: 600 Sputum Amount: Moderate PEEP: 5.0 PIP: 28 Fluids: SLIV Tube Feeding Amount: 55 I&O: Intake and Output 12/25/18 12/26/18 19:00 07:00 Intake Total 1755 ml 1040 ml Output Total 800 ml 650 ml Balance 955 ml 390 ml Free Water 50 ml IV Total 1095 ml 330 ml Tube Feeding 660 ml 660 ml Output Urine Total 800 ml 650 ml # Bowel Movements 2 Subjective: HAWA ET-Tube: 7.5 ET Position: 21 Solomon Quan MD Dec 26, 2018 16:14
[2018-12-26 16:31] LABS: HEMATOCRIT 30.9 % (42.0-52.0); HEMOGLOBIN 10.8 G/DL (14.2-18.0); MEAN CORPUSCULAR VOLUME 92 FL (80-99); PLATELET COUNT 130 K/UL (150-450); RED BLOOD COUNT 3.37 M/UL (4.70-6.10); RED CELL DISTRIBUTION WIDTH 12.3 % (11.6-14.8); WHITE BLOOD COUNT 19.4 K/UL (4.8-10.8)
[2018-12-26 16:45] LABS: ALANINE AMINOTRANSFERASE 12 U/L (12-78); ALBUMIN 0.9 G/DL (3.4-5.0); ALBUMIN/GLOBULIN RATIO 0.3 (1.0-2.7); ALKALINE PHOSPHATASE 111 U/L (46-116); ANION GAP 15 mmol/L (5-15); ASPARTATE AMINO TRANSFERASE 35 U/L (15-37); BILIRUBIN,TOTAL 0.3 MG/DL (0.2-1.0); BLOOD UREA NITROGEN 39 mg/dL (7-18); CALCIUM 7.4 MG/DL (8.5-10.1); CARBON DIOXIDE 19 MMOL/L (21-32); CHLORIDE 115 MMOL/L (98-107); CREATININE 1.2 MG/DL (0.55-1.30); POTASSIUM 3.2 MMOL/L (3.5-5.1); SODIUM 149 MMOL/L (136-145)
--- NOTE | 2018-12-26 16:46 | Infectious Diseases Prog Note ---
Assessment/Plan Problems: (1) Acute aspiration pneumonia Assessment & Plan: continue doxycycline to finish his course for 10 -14 days pending sputum culture . aspiration precaution, keep HOB > 30 degree. monitor CXR . EOT 12/31/18 (2) Sepsis Assessment & Plan: due to methicillin sensitive staph aureus , continue oxacillin IV for minimum of four weeks . trans thoracic echo done on admission ruled out valve vegetations , repeated blood culture is finally negative on . will need 4 weeks course of treatment with iv antibiotics for his MSSA bacteremia .EOT 01/20/19 (3) CONSTANCE (acute kidney injury) Assessment & Plan: due to the above , continue hydration with renally dosed antibiotics , renal follow up, monitor UOP (4) Acute respiratory failure Assessment & Plan: due to the above , extubated on high flow oxygen , pulmonary is following , monitor ABG, and CXR , encourage coughing, CPT. (5) Lung cancer metastatic to brain Assessment & Plan: S/P radiation and chemo therapy at [place] , now with poor prognosis, recommend palliative care . (6) Leukocytosis Assessment & Plan: suspect due to steroids , recommend to taper, monitor WBC (7) Pneumothorax, left Assessment & Plan: monitor CXR , surgery is following (8) Poor prognosis Assessment & Plan: with metastatic cancer, recommend palliative care and hospice Subjective Constitutional: Reports: fatigue HEENT: Reports: congestion Respiratory: Reports: shortness of breath, productive cough Cardiovascular: Reports: no symptoms Gastrointestinal/Abdominal: Reports: no symptoms Genitourinary: Reports: no symptoms Neurologic: Reports: weakness, confusion Psychiatric: Reports: depression Skin: Reports: no symptoms Endocrine: Reports: no symptoms Hematologic: Reports: no symptoms Musculoskeletal: Reports: no symptoms Allergies: Coded Allergies: No Known Allergies (Unverified , 12/17/18) Subjective he was lethargic on high flow oxygen, still in ICU, responsive to verbal commands, coughing and congested , not on pressor , afebrile. Objective Vital Signs Last 24 Hour Vital Signs Date Time Temp Pulse Resp B/P (MAP) Pulse Ox O2 Delivery O2 Flow Rate FiO2 12/26/18 16:00 97.2 103 31 124/47 (72) 100 12/26/18 16:00 Venturi Mask 8.0 12/26/18 16:00 112 12/26/18 15:00 86 29 162/86 (111) 100 12/26/18 15:00 123/39 12/26/18 14:00 96 27 119/49 (72) 100 12/26/18 13:59 102 28 97 Venturi Mask 8.0 40 12/26/18 13:17 94 30 98 Venturi Mask 8.0 40 12/26/18 13:00 92 27 105/41 (62) 100 12/26/18 12:00 98.6 85 28 112/41 (64) 98 12/26/18 12:00 Venturi Mask 8.0 12/26/18 12:00 98 12/26/18 11:00 98 33 104/56 (72) 98 12/26/18 10:00 89 36 96/81 (86) 97 12/26/18 09:00 95 36 96/81 (86) 97 12/26/18 08:00 Venturi Mask 8.0 12/26/18 08:00 98.2 110 32 98/48 (65) 97 12/26/18 08:00 96 12/26/18 07:51 96 27 97 Venturi Mask 8.0 40 12/26/18 07:36 97 Venturi Mask 8.0 40 12/26/18 07:36 Venturi Mask 8.0 40 12/26/18 07:35 117 30 96 Venturi Mask 8.0 40 12/26/18 07:00 98 31 117/81 (93) 95 12/26/18 06:00 98 31 104/37 (59) 95 12/26/18 05:00 97 31 109/41 (63) 95 12/26/18 04:00 Venturi Mask 8.0 12/26/18 04:00 99 12/26/18 04:00 98.2 101 28 118/59 (78) 95 12/26/18 03:00 98 28 109/78 (88) 83 12/26/18 02:00 110 32 102/35 (57) 95 12/26/18 01:27 100 31 100 Venturi Mask 8.0 40 12/26/18 01:16 108 32 96 Venturi Mask 8.0 40 12/26/18 01:00 103 33 98/66 (77) 99 12/26/18 00:00 101 12/26/18 00:00 Venturi Mask 8.0 12/26/18 00:00 98.5 101 31 103/67 (79) 99 12/25/18 23:00 101 31 103/69 (80) 97 12/25/18 22:00 105 33 98/70 (79) 97 12/25/18 21:00 107 32 95/35 (55) 95 12/25/18 20:46 107/65 12/25/18 20:00 98.9 109 26 127/49 (75) 12/25/18 20:00 Venturi Mask 8.0 12/25/18 20:00 105 12/25/18 19:51 Venturi Mask 8.0 40 12/25/18 19:50 96 Venturi Mask 8.0 40 12/25/18 19:45 112 26 99 Venturi Mask 8.0 40 12/25/18 19:35 98 26 96 Venturi Mask 8.0 40 12/25/18 19:00 103 27 99/69 (79) 99 12/25/18 18:00 100 24 123/47 (72) 99 12/25/18 17:00 102 27 122/46 (71) Height (Feet): 5 Height (Inches): 9.00 Weight (Pounds): 120 General Appearance: no acute distress, cachetic, other - on high flow oxygen HEENT: normocephalic, atraumatic, anicteric, mucous membranes moist, PERRL, pharynx normal, supple, no JVD Respiratory/Chest: chest wall non-tender, lungs clear, no accessory muscle use , decreased breath sounds, crackles/rales Cardiovascular: normal peripheral pulses, normal rate, regular rhythm, no gallop/murmur, no JVD Abdomen: normal bowel sounds, soft, non tender, no organomegaly, non distended , no mass, no scars Extremities: no cyanosis, no clubbing Skin: no rash, no lesions, no ulcers Neurologic/Psychiatric: alert, responsive Lymphatic: no neck adenopathy, no groin adenopathy Musculoskeletal: normal muscle bulk, no effusion Microbiology Date/Time Source Procedure Growth Status 12/24/18 12:50 Sputum Gram Stain - Final Complete 12/24/18 12:50 Sputum Culture - Final Loly Albicans Complete Laboratory Tests Test 12/26/18 15:50 White Blood Count 19.4 K/UL (4.8-10.8) H Red Blood Count 3.37 M/UL (4.70-6.10) L Hemoglobin 10.8 G/DL (14.2-18.0) L Hematocrit 30.9 % (42.0-52.0) L Mean Corpuscular Volume 92 FL (80-99) Mean Corpuscular Hemoglobin 32.1 PG (27.0-31.0) H Mean Corpuscular Hemoglobin Concent 34.9 G/DL (32.0-36.0) Red Cell Distribution Width 12.3 % (11.6-14.8) Platelet Count 130 K/UL (150-450) L Mean Platelet Volume 11.4 FL (6.5-10.1) H Neutrophils (%) (Auto) % (45.0-75.0) Lymphocytes (%) (Auto) % (20.0-45.0) Monocytes (%) (Auto) % (1.0-10.0) Eosinophils (%) (Auto) % (0.0-3.0) Basophils (%) (Auto) % (0.0-2.0) Neutrophils % (Manual) Pending Lymphocytes % (Manual) Pending Platelet Estimate Pending Platelet Morphology Pending Sodium Level Pending Potassium Level Pending Chloride Level Pending Carbon Dioxide Level Pending Blood Urea Nitrogen Pending Creatinine Pending Estimat Glomerular Filtration Rate Pending Glucose Level Pending Calcium Level Pending Total Bilirubin Pending Aspartate Amino Transf (AST/SGOT) Pending Alanine Aminotransferase (ALT/SGPT) Pending Alkaline Phosphatase Pending Total Protein Pending Albumin Pending Globulin Pending Current Medications Medications (Trade) Dose Ordered Sig/Earlene Route PRN Reason Start Time Stop Time Status Last Admin Dose Admin Albuterol/ Ipratropium (Albuterol/ Ipratropium) 3 ml Q4H PRN HHN Shortness of Breath 12/24/18 12:15 12/29/18 12:14 Albuterol/ Ipratropium (Albuterol/ Ipratropium) 3 ml Q6HRT HHN 12/24/18 13:00 12/29/18 12:59 12/26/18 13:17 Dexamethasone Sodium Phosphate (Decadron 4mg/ml vial) 4 mg BID IVP 12/18/18 09:00 01/17/19 08:59 12/26/18 08:14 Dopamine HCl/ Dextrose 250 ml @ 0 mls/hr Q24H IV 12/17/18 20:55 01/16/19 20:54 12/17/18 20:55 Doxycycline Hyclate 100 mg/ Dextrose 110 ml @ 110 mls/hr Q12HR IV 12/23/18 21:00 12/31/18 23:59 12/26/18 08:15 Heparin Sodium (Porcine) (Heparin 5000 units/ml) 5,000 units EVERY 12 HOURS SUBQ 12/24/18 21:00 01/23/19 20:59 12/25/18 10:24 Magnesium Hydroxide (Mom) 30 ml DAILYPRN PRN NG Constipation 12/24/18 15:30 01/23/19 12:44 12/24/18 16:31 Morphine Sulfate (Morphine Sulfate) 1 mg Q4H PRN IVP Shortness of breath 12/24/18 13:15 12/31/18 13:14 Norepinephrine Bitartrate 4 mg/ Dextrose 250 ml @ 0 mls/hr Q24H IV 12/18/18 15:00 01/17/19 14:59 12/18/18 21:34 Oxacillin Sodium 2 gm/Sodium Chloride 110 ml @ 220 mls/hr Q4HR IVPB 12/21/18 17:00 01/02/19 16:59 12/26/18 12:56 Pantoprazole (Protonix) 40 mg EVERY 12 HOURS IVP 12/18/18 21:00 01/17/19 20:59 12/26/18 08:14 Sodium Chloride 500 ml @ 999 mls/hr Q31M PRN IV For hypotension 12/20/18 11:45 01/19/19 11:44 12/23/18 16:56 Tammy Rob M.D. Dec 26, 2018 16:45
--- NOTE | 2018-12-26 17:45 | Cardiology Progress Note ---
Assessment/Plan Assessment/Plan 1. Sinus tachycardia, most likely secondary to hypoxemia/lung CA. 2. History of coronary artery disease, status post coronary artery bypass graft surgery. 12-lead electrocardiogram does not show any ischemic changes despite the fact that the troponin I levels are elevated. The patient is not a candidate for ischemic workup given metastatic lung cancer conservative management. I do not believe that the patient would benefit from anticoagulation therapy, which may put the patient in increased risk of bleeding. 3. Hypoxic hypercarbic respiratory failure, resolved, due to possible acute exacerbation of COPD. 4. Non-sustained ventricular tachycardia, keep Mg level and keep >2.5, keep K > 4.0 5. 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 6. History of CVA. 7. History of COPD. 8. CONSTANCE, creat at 1.2. Subjective Subjective Sinus tachycardia at rate of 103. Venturi mask. Objective Last 24 Hour Vital Signs Date Time Temp Pulse Resp B/P (MAP) Pulse Ox O2 Delivery O2 Flow Rate FiO2 12/26/18 17:00 99 22 136/55 (82) 95 12/26/18 16:00 97.2 103 31 124/47 (72) 100 12/26/18 16:00 Venturi Mask 8.0 12/26/18 16:00 112 12/26/18 15:00 86 29 162/86 (111) 100 12/26/18 15:00 123/39 12/26/18 14:00 96 27 119/49 (72) 100 12/26/18 13:59 102 28 97 Venturi Mask 8.0 40 12/26/18 13:17 94 30 98 Venturi Mask 8.0 40 12/26/18 13:00 92 27 105/41 (62) 100 12/26/18 12:00 98.6 85 28 112/41 (64) 98 12/26/18 12:00 Venturi Mask 8.0 12/26/18 12:00 98 12/26/18 11:00 98 33 104/56 (72) 98 12/26/18 10:00 89 36 96/81 (86) 97 12/26/18 09:00 95 36 96/81 (86) 97 12/26/18 08:00 Venturi Mask 8.0 12/26/18 08:00 98.2 110 32 98/48 (65) 97 12/26/18 08:00 96 12/26/18 07:51 96 27 97 Venturi Mask 8.0 40 12/26/18 07:36 97 Venturi Mask 8.0 40 12/26/18 07:36 Venturi Mask 8.0 40 12/26/18 07:35 117 30 96 Venturi Mask 8.0 40 12/26/18 07:00 98 31 117/81 (93) 95 12/26/18 06:00 98 31 104/37 (59) 95 12/26/18 05:00 97 31 109/41 (63) 95 12/26/18 04:00 Venturi Mask 8.0 12/26/18 04:00 99 12/26/18 04:00 98.2 101 28 118/59 (78) 95 12/26/18 03:00 98 28 109/78 (88) 83 12/26/18 02:00 110 32 102/35 (57) 95 12/26/18 01:27 100 31 100 Venturi Mask 8.0 40 12/26/18 01:16 108 32 96 Venturi Mask 8.0 40 12/26/18 01:00 103 33 98/66 (77) 99 12/26/18 00:00 101 12/26/18 00:00 Venturi Mask 8.0 12/26/18 00:00 98.5 101 31 103/67 (79) 99 12/25/18 23:00 101 31 103/69 (80) 97 12/25/18 22:00 105 33 98/70 (79) 97 12/25/18 21:00 107 32 95/35 (55) 95 12/25/18 20:46 107/65 12/25/18 20:00 98.9 109 26 127/49 (75) 12/25/18 20:00 Venturi Mask 8.0 12/25/18 20:00 105 12/25/18 19:51 Venturi Mask 8.0 40 12/25/18 19:50 96 Venturi Mask 8.0 40 12/25/18 19:45 112 26 99 Venturi Mask 8.0 40 12/25/18 19:35 98 26 96 Venturi Mask 8.0 40 12/25/18 19:00 103 27 99/69 (79) 99 12/25/18 18:00 100 24 123/47 (72) 99 Intake and Output 12/25/18 12/26/18 19:00 07:00 Intake Total 1755 ml 1040 ml Output Total 800 ml 650 ml Balance 955 ml 390 ml Free Water 50 ml IV Total 1095 ml 330 ml Tube Feeding 660 ml 660 ml Output Urine Total 800 ml 650 ml # Bowel Movements 2 2D Echo: Global LV HK with LVEF 25%, Mild LAE, RVSP 14 mmHg, Grade I LVDD Laboratory Tests Test 12/26/18 15:50 White Blood Count 19.4 K/UL (4.8-10.8) H Red Blood Count 3.37 M/UL (4.70-6.10) L Hemoglobin 10.8 G/DL (14.2-18.0) L Hematocrit 30.9 % (42.0-52.0) L Mean Corpuscular Volume 92 FL (80-99) Mean Corpuscular Hemoglobin 32.1 PG (27.0-31.0) H Mean Corpuscular Hemoglobin Concent 34.9 G/DL (32.0-36.0) Red Cell Distribution Width 12.3 % (11.6-14.8) Platelet Count 130 K/UL (150-450) L Mean Platelet Volume 11.4 FL (6.5-10.1) H Neutrophils (%) (Auto) % (45.0-75.0) Lymphocytes (%) (Auto) % (20.0-45.0) Monocytes (%) (Auto) % (1.0-10.0) Eosinophils (%) (Auto) % (0.0-3.0) Basophils (%) (Auto) % (0.0-2.0) Differential Total Cells Counted 100 Neutrophils % (Manual) 92 % (45-75) H Lymphocytes % (Manual) 2 % (20-45) L Monocytes % (Manual) 0 % (1-10) L Eosinophils % (Manual) 0 % (0-3) Basophils % (Manual) 0 % (0-2) Band Neutrophils 6 % (0-8) Toxic Granulation 2+ Platelet Estimate Decreased L Platelet Morphology Normal Polychromasia 1+ Sodium Level 149 MMOL/L (136-145) H Potassium Level 3.2 MMOL/L (3.5-5.1) L Chloride Level 115 MMOL/L (98-107) H Carbon Dioxide Level 19 MMOL/L (21-32) L Anion Gap 15 mmol/L (5-15) Blood Urea Nitrogen 39 mg/dL (7-18) H Creatinine 1.2 MG/DL (0.55-1.30) Estimat Glomerular Filtration Rate mL/min (>60) Glucose Level 141 MG/DL (74-106) H Calcium Level 7.4 MG/DL (8.5-10.1) L Total Bilirubin 0.3 MG/DL (0.2-1.0) Aspartate Amino Transf (AST/SGOT) 35 U/L (15-37) Alanine Aminotransferase (ALT/SGPT) 12 U/L (12-78) Alkaline Phosphatase 111 U/L (46-116) Total Protein 4.3 G/DL (6.4-8.2) L Albumin 0.9 G/DL (3.4-5.0) L Globulin 3.4 g/dL Albumin/Globulin Ratio 0.3 (1.0-2.7) L Microbiology Date/Time Source Procedure Growth Status 12/24/18 12:50 Sputum Gram Stain - Final Complete 12/24/18 12:50 Sputum Culture - Final Loly Albicans Complete Objective HEENT: Atraumatic and normocephalic. Anicteric. Pupils are equal, round, and reactive to light and accommodation. Conjunctival pallor. NECK: JVP <5 cm, No carotid bruit. Carotid upstroke is 2+ bilaterally. CARDIOVASCULAR: Normal S1, S2. Regular rate and rhythm. Tachycardic. No murmurs, gallops, or rubs. LUNGS: Diminished breath sounds in both lungs. ABDOMEN: Soft, nontender, and nondistended. No hepatosplenomegaly. Positive bowel sounds. EXTREMITIES: No evidence of edema, clubbing, or cyanosis. There is onychomycosis. Fred Holman MD Dec 26, 2018 17:45
--- NOTE | 2018-12-26 18:00 | NUR ---
NURSE NOTES: Turned and repositioned, kept clean ,dry and comfortable.Family at bedside.Will continue close monitoring.
[2018-12-26] MEDS: Morphine Sulfate 4mg/ml Inj (IV/IM USE ONLY) IVP PRN (18:38)
--- NOTE | 2018-12-26 19:28 | NUR ---
NURSE NOTES: Report given to WESLEY Turner
--- NOTE | 2018-12-26 19:41 | NUR ---
NURSE NOTES: Potassium 3.[address] Quan with new order to give Potassium 40 MEQ IVPB ,endorsed to next shift.Order noted and carried out.
--- NOTE | 2018-12-26 19:42 | NUR ---
NURSE NOTES: Endorsement received from WESLEY Hand. Patient with eyes closed, withdraws to pain, no verbal. On venti mask 40%. OGT patent and intact, placement rechecked per auscultation. Ongoing Vital AF 1.2 at 55ml/hr. Stoddard catheter present, draining to urimeter. With left forearm g20 noted to be leaking, removed. G 24 at lef hand patent ans intact.
[2018-12-26] MEDS: DOPamine 400mg/250ml 250 ML IV SCH (20:55)
--- NOTE | 2018-12-26 21:00 | NUR ---
NURSE NOTES: Inserted g 22 at right antecubital.
--- NOTE | 2018-12-26 23:00 | NUR ---
NURSE NOTES: Patient tolerating feeding. Head of bed kept elevated.
[2018-12-27] VITALS (24 sets, daily range): BP systolic 113–151; BP diastolic 46–91
--- NOTE | 2018-12-27 01:00 | NUR ---
NURSE NOTES: Patient asleep. Repositioned.
[2018-12-27] MEDS: Oxacillin 2 GM in NS 110 ML IVPB SCH ×6 (01:23→20:47)
[2018-12-27] MEDS: Albuterol/Ipratropium 3ml neb HHN SCH ×4 (01:48→19:00)
--- NOTE | 2018-12-27 03:00 | NUR ---
NURSE NOTES: Bed bath, oral care done.
--- NOTE | 2018-12-27 05:00 | NUR ---
NURSE NOTES: Patient asleep. Vital signs stable
[2018-12-27 05:49] LABS: HEMATOCRIT 37.6 % (42.0-52.0); HEMOGLOBIN 12.8 G/DL (14.2-18.0); MEAN CORPUSCULAR VOLUME 95 FL (80-99); PLATELET COUNT 126 K/UL (150-450); RED BLOOD COUNT 3.97 M/UL (4.70-6.10); RED CELL DISTRIBUTION WIDTH 13.1 % (11.6-14.8); WHITE BLOOD COUNT 20.6 K/UL (4.8-10.8)
[2018-12-27 05:57] LABS: ALANINE AMINOTRANSFERASE 27 U/L (12-78); ALBUMIN/GLOBULIN RATIO 0.2 (1.0-2.7); ALKALINE PHOSPHATASE 136 U/L (46-116); ANION GAP 15 mmol/L (5-15); ASPARTATE AMINO TRANSFERASE 44 U/L (15-37); BILIRUBIN,TOTAL 0.3 MG/DL (0.2-1.0); BLOOD UREA NITROGEN 41 mg/dL (7-18); CALCIUM 8.3 MG/DL (8.5-10.1); CARBON DIOXIDE 19 MMOL/L (21-32); CHLORIDE 114 MMOL/L (98-107); CREATININE 1.4 MG/DL (0.55-1.30); POTASSIUM 3.7 MMOL/L (3.5-5.1); SODIUM 148 MMOL/L (136-145)
--- NOTE | 2018-12-27 07:20 | NUR ---
HAND-OFF: Report given to WESLEY Mcclure.
--- NOTE | 2018-12-27 07:21 | NUR ---
NURSE NOTES: Report received from WESLEY Turner
[2018-12-27] MEDS: Doxycycline Hyclate 100 MG in D5W 110 ML IV SCH (08:10)
[2018-12-27] MEDS: Pantoprazole Inj IVP SCH ×2 (08:11→20:47)
[2018-12-27] MEDS: Dexamethasone 4mg/ml vial IVP SCH ×2 (08:11→17:06)
[2018-12-27] MEDS: Heparin 5000 units/ml inj SUBQ SCH ×2 (08:13→20:48)
--- NOTE | 2018-12-27 08:15 | NUR ---
NURSE NOTES: Awake when received , non verbal but responsive to tactile stimuli . Remains on Venti mask at 40% with no s/s acute distress. Saturation at 99%at this time.Afebrile and OGT in place running Vital AF 1.2 at 55cc/hr.Placement check and intact with zero residual. Keep HOB elevated at 35 degree to prevent aspiration. Peripheral line L hand AC/20 and right upper arm /22 patent with no apparent s/s infiltration.Mouth care done, turned and repositioned.Will continue to monitor.
--- NOTE | 2018-12-27 10:10 | NUR ---
NURSE NOTES: Pt asleep at this time.Remains afebrile.Turned and repositioned.HOB elevated at 35 degree to prevent aspiration.Will continue to monitor.
--- NOTE | 2018-12-27 12:15 | NUR ---
NURSE NOTES: Pt turned and repositioned.Mouth care done.HOB elevated at 35 degree to prevent aspiration.Will continue to monitor.
--- NOTE | 2018-12-27 13:20 | Pulmonolgy Critical Care Note ---
Critical Care - Asmt/Plan Problems: (1) Gram positive sepsis Assessment & Plan: S aureus (2) Severe sepsis (3) Acute respiratory failure (4) NSTEMI (non-ST elevated myocardial infarction) (5) CONSTANCE (acute kidney injury) (6) Acute aspiration pneumonia (7) Lung cancer metastatic to brain (8) CHF (congestive heart failure) Respiratory: monitor respiratory rate, adjust FIO2 - Titrate down to Keep SaO2 > 90%, CXR, other - HHN's, suctioning, pulm hygiene Cardiac: continue to monitor HR/BP Renal: check electrolytes, other - SLIV Infectious Disease: check cultures, continue antibiotics - per ID Gastrointestinal: continue feedings/current rate Endocrine: monitor blood sugar, other - Continue Dex Hematologic: monitor H/H Neurologic: keep patient comfortable Prophylaxis: Protonix, Heparin Disposition: keep in ICU Time Spent (Minutes): 30 Notes Reviewed: personal assistant, cardio, renal, ID Discussed with: nurses, consultants, other - Awaiting family to arrive tommorrow, DNAR Critical Care - Objective Last 24 Hour Vital Signs Date Time Temp Pulse Resp B/P (MAP) Pulse Ox O2 Delivery O2 Flow Rate FiO2 12/27/18 12:45 102 26 100 Venturi Mask 8.0 40 12/27/18 12:00 97.8 102 28 121/80 (94) 100 12/27/18 12:00 108 12/27/18 12:00 Venturi Mask 6.0 12/27/18 11:00 105 21 130/58 (82) 98 12/27/18 10:00 86 21 113/91 (98) 98 12/27/18 09:00 81 21 116/86 (96) 98 12/27/18 08:00 98.3 120 30 119/86 (97) 97 12/27/18 08:00 Venturi Mask 6.0 12/27/18 08:00 106 12/27/18 07:00 85 26 125/70 (88) 99 12/27/18 07:00 105 32 97 Venturi Mask 8.0 40 12/27/18 06:49 Venturi Mask 8.0 40 12/27/18 06:49 106 32 96 Venturi Mask 8.0 40 12/27/18 06:49 96 Venturi Mask 8.0 40 12/27/18 06:00 87 26 130/53 (78) 99 12/27/18 05:00 86 27 150/83 (105) 99 12/27/18 04:00 110 12/27/18 04:00 97.7 107 28 118/47 (70) 100 12/27/18 04:00 Venturi Mask 6.0 12/27/18 03:00 105 27 137/68 (91) 99 12/27/18 02:00 108 31 114/64 (81) 98 12/27/18 01:55 104 25 98 Venturi Mask 6.0 35 12/27/18 01:48 108 26 99 Venturi Mask 8.0 40 12/27/18 01:00 93 25 133/78 (96) 99 12/27/18 00:00 Venturi Mask 8.0 12/27/18 00:00 97.5 92 23 125/70 (88) 99 12/27/18 00:00 89 12/26/18 23:00 98 24 135/82 (99) 100 12/26/18 22:30 95 24 109/57 (74) 100 12/26/18 22:00 107 28 118/67 (84) 99 12/26/18 21:00 104 27 135/76 (95) 97 12/26/18 20:55 110/70 12/26/18 20:00 Venturi Mask 8.0 12/26/18 20:00 97 12/26/18 20:00 98.0 111 29 138/50 (79) 96 12/26/18 19:45 105 26 98 Venturi Mask 8.0 40 12/26/18 19:34 96 Venturi Mask 8.0 40 12/26/18 19:34 Venturi Mask 8.0 40 12/26/18 19:34 104 28 96 Venturi Mask 8.0 40 12/26/18 19:08 97.8 12/26/18 19:00 106 28 106/61 (76) 97 12/26/18 18:00 103 34 139/50 (79) 95 12/26/18 17:00 99 22 136/55 (82) 95 12/26/18 16:00 97.2 103 31 124/47 (72) 100 12/26/18 16:00 Venturi Mask 8.0 12/26/18 16:00 112 12/26/18 15:00 86 29 162/86 (111) 100 12/26/18 15:00 123/39 12/26/18 14:00 96 27 119/49 (72) 100 12/26/18 13:59 102 28 97 Venturi Mask 8.0 40 Status: somnolent Condition: critical HEENT: atraumatic, normocephalic Neck: full ROM Lungs: rhonchi Heart: HR/BP stable Abdomen: soft, non-tender, active bowel sounds Extremities: no C/C/E Blood Sugars: BS controlled Critical Care - Subjective ROS Limited/Unobtainable: Yes ICU Day: 11 Intubation Day: N/A Interval Events: Stable on VM 40% Suctioned thick yellow secretions Oliver OGTF's WCT 20 CXR pending Awake and confused Condition: critical IV Access: peripheral EKG Rhythm: Sinus Rhythm FI02: 40 Vent Support Breath Rate: 24 Vent Support Mode: CPAP Vent Tidal Volume: 600 Sputum Amount: None PEEP: 5.0 PIP: 28 Secretions: yellow Fluids: SLIV Drips: N/A Tube Feeding Amount: 55 I&O: Intake and Output 12/26/18 12/27/18 18:59 06:59 Intake Total 990 ml 1200 ml Output Total 630 ml 570 ml Balance 360 ml 630 ml Free Water 100 ml IV Total 330 ml 440 ml Tube Feeding 660 ml 660 ml Output Urine Total 630 ml 570 ml # Bowel Movements 2 Subjective: HAWA ET-Tube: 7.5 ET Position: 21 Labs: Laboratory Tests Test 12/26/18 15:50 12/27/18 04:40 White Blood Count 19.4 K/UL (4.8-10.8) H 20.6 K/UL (4.8-10.8) H Red Blood Count 3.37 M/UL (4.70-6.10) L 3.97 M/UL (4.70-6.10) L Hemoglobin 10.8 G/DL (14.2-18.0) L 12.8 G/DL (14.2-18.0) L Hematocrit 30.9 % (42.0-52.0) L 37.6 % (42.0-52.0) L Mean Corpuscular Volume 92 FL (80-99) 95 FL (80-99) Mean Corpuscular Hemoglobin 32.1 PG (27.0-31.0) H 32.3 PG (27.0-31.0) H Mean Corpuscular Hemoglobin Concent 34.9 G/DL (32.0-36.0) 34.1 G/DL (32.0-36.0) Red Cell Distribution Width 12.3 % (11.6-14.8) 13.1 % (11.6-14.8) Platelet Count 130 K/UL (150-450) L 126 K/UL (150-450) L Mean Platelet Volume 11.4 FL (6.5-10.1) H 12.4 FL (6.5-10.1) H Neutrophils (%) (Auto) % (45.0-75.0) % (45.0-75.0) Lymphocytes (%) (Auto) % (20.0-45.0) % (20.0-45.0) Monocytes (%) (Auto) % (1.0-10.0) % (1.0-10.0) Eosinophils (%) (Auto) % (0.0-3.0) % (0.0-3.0) Basophils (%) (Auto) % (0.0-2.0) % (0.0-2.0) Differential Total Cells Counted 100 100 Neutrophils % (Manual) 92 % (45-75) H 92 % (45-75) H Lymphocytes % (Manual) 2 % (20-45) L 1 % (20-45) L Monocytes % (Manual) 0 % (1-10) L 0 % (1-10) L Eosinophils % (Manual) 0 % (0-3) 0 % (0-3) Basophils % (Manual) 0 % (0-2) 0 % (0-2) Band Neutrophils 6 % (0-8) 7 % (0-8) Toxic Granulation 2+ Platelet Estimate Decreased L Decreased L Platelet Morphology Normal Normal Polychromasia 1+ Sodium Level 149 MMOL/L (136-145) H 148 MMOL/L (136-145) H Potassium Level 3.2 MMOL/L (3.5-5.1) L 3.7 MMOL/L (3.5-5.1) Chloride Level 115 MMOL/L (98-107) H 114 MMOL/L (98-107) H Carbon Dioxide Level 19 MMOL/L (21-32) L 19 MMOL/L (21-32) L Anion Gap 15 mmol/L (5-15) 15 mmol/L (5-15) Blood Urea Nitrogen 39 mg/dL (7-18) H 41 mg/dL (7-18) H Creatinine 1.2 MG/DL (0.55-1.30) 1.4 MG/DL (0.55-1.30) H Estimat Glomerular Filtration Rate mL/min (>60) mL/min (>60) Glucose Level 141 MG/DL (74-106) H 102 MG/DL (74-106) Calcium Level 7.4 MG/DL (8.5-10.1) L 8.3 MG/DL (8.5-10.1) L Total Bilirubin 0.3 MG/DL (0.2-1.0) 0.3 MG/DL (0.2-1.0) Aspartate Amino Transf (AST/SGOT) 35 U/L (15-37) 44 U/L (15-37) H Alanine Aminotransferase (ALT/SGPT) 12 U/L (12-78) 27 U/L (12-78) Alkaline Phosphatase 111 U/L (46-116) 136 U/L (46-116) H Total Protein 4.3 G/DL (6.4-8.2) L 5.6 G/DL (6.4-8.2) #L Albumin 0.9 G/DL (3.4-5.0) L 1.0 G/DL (3.4-5.0) L Globulin 3.4 g/dL 4.6 g/dL Albumin/Globulin Ratio 0.3 (1.0-2.7) L 0.2 (1.0-2.7) L Red Blood Cell Morphology Normal Solomon Quan MD Dec 27, 2018 13:20
--- NOTE | 2018-12-27 13:34 | NUR ---
NURSE NOTES: Seen by Dr Rob, made aware WBC 20.9, will follow up with new orders
--- NOTE | 2018-12-27 14:05 | NUR ---
NURSE NOTES: Patient turned and repositioned.Kept clean and dry. Small bowel movement. Good pericare done.HOB elevated to prevent aspiration. Kept on close monitoring
--- NOTE | 2018-12-27 14:48 | Diagnostic Imaging Report ---
EXAM: XR Chest, 1 View CLINICAL HISTORY: COUGH TECHNIQUE: Frontal view of the chest. COMPARISON: No relevant prior studies available. FINDINGS: Lungs: Patchy bilateral pulmonary opacities. Retrocardiac atelectasis/consolidation. 7 cm opacity/mass lesion in the right upper hemithorax. Pleural space: Can't exclude left pleural effusion. No pneumothorax. Heart: Cardiomegaly and surgical changes. Mediastinum: Unremarkable. Bones/joints: Sternotomy. Tubes, lines and devices: Enteric tube directed below the diaphragm. IMPRESSION: 1. Patchy bilateral pulmonary opacities. Could be from pneumonia and/or edema. There is a broader differential. 2. 7 cm opacity/mass lesion in the right upper hemithorax.
--- NOTE | 2018-12-27 15:04 | Infectious Diseases Prog Note ---
Assessment/Plan Problems: (1) Acute aspiration pneumonia Assessment & Plan: recurrent with new patchy infiltrates on his CXR , will switch doxycycline to ertapenem , sputum culture grew yeast most likely colonization . aspiration precaution, keep HOB > 30 degree. monitor CXR . (2) Sepsis Assessment & Plan: due to methicillin sensitive staph aureus , continue oxacillin IV for minimum of four weeks . trans thoracic echo done on admission ruled out valve vegetations , repeated blood culture is finally negative on . will need 4 weeks course of treatment with iv antibiotics for his MSSA bacteremia .EOT 01/20/19 (3) CONSTANCE (acute kidney injury) Assessment & Plan: due to the above , continue hydration with renally dosed antibiotics , renal follow up, monitor UOP (4) Acute respiratory failure Assessment & Plan: due to the above , extubated on high flow oxygen , pulmonary is following , monitor ABG, and CXR , encourage coughing, CPT. (5) Lung cancer metastatic to brain Assessment & Plan: S/P radiation and chemo therapy at [place] , now with poor prognosis, recommend palliative care . (6) Leukocytosis Assessment & Plan: suspect due to steroids , recommend to taper, monitor WBC (7) Pneumothorax, left Assessment & Plan: monitor CXR , surgery is following (8) Poor prognosis Assessment & Plan: with metastatic cancer, recommend palliative care and hospice Subjective Constitutional: Reports: fatigue, anorexia HEENT: Reports: no symptoms Respiratory: Reports: productive cough Breasts: Reports: no symptoms Cardiovascular: Reports: no symptoms Gastrointestinal/Abdominal: Reports: no symptoms Genitourinary: Reports: no symptoms Neurologic: Reports: weakness, confusion Psychiatric: Reports: depression Skin: Reports: no symptoms Endocrine: Reports: no symptoms Hematologic: Reports: no symptoms Musculoskeletal: Reports: pain Allergies: Coded Allergies: No Known Allergies (Unverified , 12/17/18) Subjective he was lethargic on high flow oxygen, still in ICU, responsive to verbal commands, coughing and congested , not on pressor , afebrile. Objective Vital Signs Last 24 Hour Vital Signs Date Time Temp Pulse Resp B/P (MAP) Pulse Ox O2 Delivery O2 Flow Rate FiO2 12/27/18 14:00 107 24 132/46 (74) 98 12/27/18 13:00 112 27 151/67 (95) 98 12/27/18 12:56 107 26 99 Nasal Cannula 3.0 32 1/26/19 12:45 102 26 100 Venturi Mask 8.0 40 12/27/18 12:00 97.8 102 28 121/80 (94) 100 12/27/18 12:00 108 12/27/18 12:00 Venturi Mask 6.0 12/27/18 11:00 105 21 130/58 (82) 98 12/27/18 10:00 86 21 113/91 (98) 98 12/27/18 09:00 81 21 116/86 (96) 98 12/27/18 08:00 98.3 120 30 119/86 (97) 97 12/27/18 08:00 Venturi Mask 6.0 12/27/18 08:00 106 12/27/18 07:00 85 26 125/70 (88) 99 12/27/18 07:00 105 32 97 Venturi Mask 8.0 40 12/27/18 06:49 Venturi Mask 8.0 40 12/27/18 06:49 106 32 96 Venturi Mask 8.0 40 12/27/18 06:49 96 Venturi Mask 8.0 40 12/27/18 06:00 87 26 130/53 (78) 99 12/27/18 05:00 86 27 150/83 (105) 99 12/27/18 04:00 110 12/27/18 04:00 97.7 107 28 118/47 (70) 100 12/27/18 04:00 Venturi Mask 6.0 12/27/18 03:00 105 27 137/68 (91) 99 12/27/18 02:00 108 31 114/64 (81) 98 12/27/18 01:55 104 25 98 Venturi Mask 6.0 35 12/27/18 01:48 108 26 99 Venturi Mask 8.0 40 12/27/18 01:00 93 25 133/78 (96) 99 12/27/18 00:00 Venturi Mask 8.0 12/27/18 00:00 97.5 92 23 125/70 (88) 99 12/27/18 00:00 89 12/26/18 23:00 98 24 135/82 (99) 100 12/26/18 22:30 95 24 109/57 (74) 100 12/26/18 22:00 107 28 118/67 (84) 99 12/26/18 21:00 104 27 135/76 (95) 97 12/26/18 20:55 110/70 12/26/18 20:00 Venturi Mask 8.0 12/26/18 20:00 97 12/26/18 20:00 98.0 111 29 138/50 (79) 96 12/26/18 19:45 105 26 98 Venturi Mask 8.0 40 12/26/18 19:34 96 Venturi Mask 8.0 40 12/26/18 19:34 Venturi Mask 8.0 40 12/26/18 19:34 104 28 96 Venturi Mask 8.0 40 12/26/18 19:08 97.8 12/26/18 19:00 106 28 106/61 (76) 97 12/26/18 18:00 103 34 139/50 (79) 95 12/26/18 17:00 99 22 136/55 (82) 95 12/26/18 16:00 97.2 103 31 124/47 (72) 100 12/26/18 16:00 Venturi Mask 8.0 12/26/18 16:00 112 Height (Feet): 5 Height (Inches): 9.00 Weight (Pounds): 120 General Appearance: no acute distress, cachetic HEENT: normocephalic, atraumatic, anicteric, mucous membranes moist, PERRL Respiratory/Chest: chest wall non-tender, no respiratory distress, no accessory muscle use, decreased breath sounds, crackles/rales Cardiovascular: normal peripheral pulses, normal rate, regular rhythm, no gallop/murmur, no JVD Abdomen: normal bowel sounds, soft, non tender, no organomegaly, non distended , no mass, no scars Extremities: no cyanosis, no clubbing Skin: no rash, no lesions, no ulcers Neurologic/Psychiatric: alert, responsive Lymphatic: no neck adenopathy, no groin adenopathy Musculoskeletal: no effusion, atrophy Laboratory Tests Test 12/26/18 15:50 12/27/18 04:40 White Blood Count 19.4 K/UL (4.8-10.8) H 20.6 K/UL (4.8-10.8) H Red Blood Count 3.37 M/UL (4.70-6.10) L 3.97 M/UL (4.70-6.10) L Hemoglobin 10.8 G/DL (14.2-18.0) L 12.8 G/DL (14.2-18.0) L Hematocrit 30.9 % (42.0-52.0) L 37.6 % (42.0-52.0) L Mean Corpuscular Volume 92 FL (80-99) 95 FL (80-99) Mean Corpuscular Hemoglobin 32.1 PG (27.0-31.0) H 32.3 PG (27.0-31.0) H Mean Corpuscular Hemoglobin Concent 34.9 G/DL (32.0-36.0) 34.1 G/DL (32.0-36.0) Red Cell Distribution Width 12.3 % (11.6-14.8) 13.1 % (11.6-14.8) Platelet Count 130 K/UL (150-450) L 126 K/UL (150-450) L Mean Platelet Volume 11.4 FL (6.5-10.1) H 12.4 FL (6.5-10.1) H Neutrophils (%) (Auto) % (45.0-75.0) % (45.0-75.0) Lymphocytes (%) (Auto) % (20.0-45.0) % (20.0-45.0) Monocytes (%) (Auto) % (1.0-10.0) % (1.0-10.0) Eosinophils (%) (Auto) % (0.0-3.0) % (0.0-3.0) Basophils (%) (Auto) % (0.0-2.0) % (0.0-2.0) Differential Total Cells Counted 100 100 Neutrophils % (Manual) 92 % (45-75) H 92 % (45-75) H Lymphocytes % (Manual) 2 % (20-45) L 1 % (20-45) L Monocytes % (Manual) 0 % (1-10) L 0 % (1-10) L Eosinophils % (Manual) 0 % (0-3) 0 % (0-3) Basophils % (Manual) 0 % (0-2) 0 % (0-2) Band Neutrophils 6 % (0-8) 7 % (0-8) Toxic Granulation 2+ Platelet Estimate Decreased L Decreased L Platelet Morphology Normal Normal Polychromasia 1+ Sodium Level 149 MMOL/L (136-145) H 148 MMOL/L (136-145) H Potassium Level 3.2 MMOL/L (3.5-5.1) L 3.7 MMOL/L (3.5-5.1) Chloride Level 115 MMOL/L (98-107) H 114 MMOL/L (98-107) H Carbon Dioxide Level 19 MMOL/L (21-32) L 19 MMOL/L (21-32) L Anion Gap 15 mmol/L (5-15) 15 mmol/L (5-15) Blood Urea Nitrogen 39 mg/dL (7-18) H 41 mg/dL (7-18) H Creatinine 1.2 MG/DL (0.55-1.30) 1.4 MG/DL (0.55-1.30) H Estimat Glomerular Filtration Rate mL/min (>60) mL/min (>60) Glucose Level 141 MG/DL (74-106) H 102 MG/DL (74-106) Calcium Level 7.4 MG/DL (8.5-10.1) L 8.3 MG/DL (8.5-10.1) L Total Bilirubin 0.3 MG/DL (0.2-1.0) 0.3 MG/DL (0.2-1.0) Aspartate Amino Transf (AST/SGOT) 35 U/L (15-37) 44 U/L (15-37) H Alanine Aminotransferase (ALT/SGPT) 12 U/L (12-78) 27 U/L (12-78) Alkaline Phosphatase 111 U/L (46-116) 136 U/L (46-116) H Total Protein 4.3 G/DL (6.4-8.2) L 5.6 G/DL (6.4-8.2) #L Albumin 0.9 G/DL (3.4-5.0) L 1.0 G/DL (3.4-5.0) L Globulin 3.4 g/dL 4.6 g/dL Albumin/Globulin Ratio 0.3 (1.0-2.7) L 0.2 (1.0-2.7) L Red Blood Cell Morphology Normal Current Medications Medications (Trade) Dose Ordered Sig/Earlene Route PRN Reason Start Time Stop Time Status Last Admin Dose Admin Albuterol/ Ipratropium (Albuterol/ Ipratropium) 3 ml Q4H PRN HHN Shortness of Breath 12/24/18 12:15 12/29/18 12:14 Albuterol/ Ipratropium (Albuterol/ Ipratropium) 3 ml Q6HRT HHN 12/24/18 13:00 12/29/18 12:59 12/27/18 12:45 Dexamethasone Sodium Phosphate (Decadron 4mg/ml vial) 4 mg BID IVP 12/18/18 09:00 01/17/19 08:59 12/27/18 08:11 Dopamine HCl/ Dextrose 250 ml @ 0 mls/hr Q24H IV 12/17/18 20:55 01/16/19 20:54 12/17/18 20:55 Doxycycline Hyclate 100 mg/ Dextrose 110 ml @ 110 mls/hr Q12HR IV 12/23/18 21:00 12/31/18 23:59 12/27/18 08:10 Heparin Sodium (Porcine) (Heparin 5000 units/ml) 5,000 units EVERY 12 HOURS SUBQ 12/24/18 21:00 01/23/19 20:59 12/27/18 08:13 Magnesium Hydroxide (Mom) 30 ml DAILYPRN PRN NG Constipation 12/24/18 15:30 01/23/19 12:44 12/24/18 16:31 Morphine Sulfate (Morphine Sulfate) 1 mg Q4H PRN IVP Shortness of breath 12/24/18 13:15 12/31/18 13:14 12/26/18 18:38 Norepinephrine Bitartrate 4 mg/ Dextrose 250 ml @ 0 mls/hr Q24H IV 12/18/18 15:00 01/17/19 14:59 12/18/18 21:34 Oxacillin Sodium 2 gm/Sodium Chloride 110 ml @ 220 mls/hr Q4HR IVPB 12/21/18 17:00 01/02/19 16:59 12/27/18 13:26 Pantoprazole (Protonix) 40 mg EVERY 12 HOURS IVP 12/18/18 21:00 01/17/19 20:59 12/27/18 08:11 Sodium Chloride 500 ml @ 999 mls/hr Q31M PRN IV For hypotension 12/20/18 11:45 01/19/19 11:44 12/23/18 16:56 Tammy Rob M.D. Dec 27, 2018 15:04
--- NOTE | 2018-12-27 15:25 | General Progress Note ---
Assessment/Plan Assessment/Plan S, O: limited eval. Patient extubated. however is on Venti Mask, St[place]ard inserted. patient is awake but delirious. not following commands PHYSICAL EXAMINATION: HEAD AND NECK: P limited source of evaluation. Off the Vent. Atraumatic and normocephalic. CHEST: Diffuse bronchial breathing sounds. Positive for diffuse crackles.HEART: S1 and S2. Tachyarrhythmia. ABDOMEN: Soft. No organomegaly.MUSCULOSKELETAL: Atrophied musculature, limited evaluation. The patient is not following compounds, sedated. Imaging: CXR dated Dec 26 reviewed Med: reviewed , including Ertapenem ASSESSMENT AND PLAN: 1. Vent-dependent respiratory failure. Resolved, currently on Venti Mask 2. Septic shock: Staph Aureus 3. Healthcare-associated pneumonia. 3. Non-ST myocardial infarction. Abnormal Trop 4. Metastatic lung CA. 5. Left sided small PNTX 5. GI and DVT prophylaxes. PLAN OF CARE: 1. Worsening of leukocytosis 3. Grave prognosis. 4. Infectious Disease, Pulmonary, and Cardiology Notes are reviewed 6. Left sided small PNTX , will monitor , if worsen will proceed with Chest-T PLan: Ok Hospice to coordinate care to transition to home on Saturday Ok to Re-intubate if needed Per my conversation with the , Family are flying from [id number] to be with patient on Saturday. Proceed with Palliative extubation/care on Saturday/Saturday with the goal of transitioning to home Subjective Allergies: Coded Allergies: No Known Allergies (Unverified , 12/17/18) Objective Last 24 Hour Vital Signs Date Time Temp Pulse Resp B/P (MAP) Pulse Ox O2 Delivery O2 Flow Rate FiO2 12/27/18 15:00 104 27 119/75 (90) 94 12/27/18 14:00 107 24 132/46 (74) 98 12/27/18 13:00 112 27 151/67 (95) 98 12/27/18 12:56 107 26 99 Nasal Cannula 3.0 32 12/27/18 12:45 102 26 100 Venturi Mask 8.0 40 12/27/18 12:00 97.8 102 28 121/80 (94) 100 12/27/18 12:00 108 12/27/18 12:00 Venturi Mask 6.0 12/27/18 11:00 105 21 130/58 (82) 98 12/27/18 10:00 86 21 113/91 (98) 98 12/27/18 09:00 81 21 116/86 (96) 98 12/27/18 08:00 98.3 120 30 119/86 (97) 97 12/27/18 08:00 Venturi Mask 6.0 12/27/18 08:00 106 12/27/18 07:00 85 26 125/70 (88) 99 12/27/18 07:00 105 32 97 Venturi Mask 8.0 40 12/27/18 06:49 Venturi Mask 8.0 40 12/27/18 06:49 106 32 96 Venturi Mask 8.0 40 12/27/18 06:49 96 Venturi Mask 8.0 40 12/27/18 06:00 87 26 130/53 (78) 99 12/27/18 05:00 86 27 150/83 (105) 99 12/27/18 04:00 110 12/27/18 04:00 97.7 107 28 118/47 (70) 100 12/27/18 04:00 Venturi Mask 6.0 12/27/18 03:00 105 27 137/68 (91) 99 12/27/18 02:00 108 31 114/64 (81) 98 12/27/18 01:55 104 25 98 Venturi Mask 6.0 35 12/27/18 01:48 108 26 99 Venturi Mask 8.0 40 12/27/18 01:00 93 25 133/78 (96) 99 12/27/18 00:00 Venturi Mask 8.0 12/27/18 00:00 97.5 92 23 125/70 (88) 99 12/27/18 00:00 89 12/26/18 23:00 98 24 135/82 (99) 100 12/26/18 22:30 95 24 109/57 (74) 100 12/26/18 22:00 107 28 118/67 (84) 99 12/26/18 21:00 104 27 135/76 (95) 97 12/26/18 20:55 110/70 12/26/18 20:00 Venturi Mask 8.0 12/26/18 20:00 97 12/26/18 20:00 98.0 111 29 138/50 (79) 96 12/26/18 19:45 105 26 98 Venturi Mask 8.0 40 12/26/18 19:34 96 Venturi Mask 8.0 40 12/26/18 19:34 Venturi Mask 8.0 40 12/26/18 19:34 104 28 96 Venturi Mask 8.0 40 12/26/18 19:08 97.8 12/26/18 19:00 106 28 106/61 (76) 97 12/26/18 18:00 103 34 139/50 (79) 95 12/26/18 17:00 99 22 136/55 (82) 95 12/26/18 16:00 97.2 103 31 124/47 (72) 100 12/26/18 16:00 Venturi Mask 8.0 12/26/18 16:00 112 Intake and Output 12/26/18 12/27/18 18:59 06:59 Intake Total 990 ml 1200 ml Output Total 630 ml 570 ml Balance 360 ml 630 ml Free Water 100 ml IV Total 330 ml 440 ml Tube Feeding 660 ml 660 ml Output Urine Total 630 ml 570 ml # Bowel Movements 2 Laboratory Tests 12/26/18 15:50: White Blood Count 19.4H, Red Blood Count 3.37L, Hemoglobin 10.8L, Hematocrit 30.9L, Mean Corpuscular Volume 92, Mean Corpuscular Hemoglobin 32.1H, Mean Corpuscular Hemoglobin Concent 34.9, Red Cell Distribution Width 12.3, Platelet Count 130L, Mean Platelet Volume 11.4H, Neutrophils (%) (Auto) , Lymphocytes (% ) (Auto) , Monocytes (%) (Auto) , Eosinophils (%) (Auto) , Basophils (%) (Auto) , Differential Total Cells Counted 100, Neutrophils % (Manual) 92H, Lymphocytes % (Manual) 2L, Monocytes % (Manual) 0L, Eosinophils % (Manual) 0, Basophils % ( Manual) 0, Band Neutrophils 6, Toxic Granulation 2+, Platelet Estimate DecreasedL, Platelet Morphology Normal, Polychromasia 1+, Sodium Level 149H, Potassium Level 3.2L, Chloride Level 115H, Carbon Dioxide Level 19L, Anion Gap 15, Blood Urea Nitrogen 39H, Creatinine 1.2, Estimat Glomerular Filtration Rate , Glucose Level 141H, Calcium Level 7.4L, Total Bilirubin 0.3, Aspartate Amino Transf (AST/SGOT) 35, Alanine Aminotransferase (ALT/SGPT) 12, Alkaline Phosphatase 111, Total Protein 4.3L, Albumin 0.9L, Globulin 3.4, Albumin/ Globulin Ratio 0.3L 12/27/18 04:40: White Blood Count 20.6H, Red Blood Count 3.97L, Hemoglobin 12.8L, Hematocrit 37.6L, Mean Corpuscular Volume 95, Mean Corpuscular Hemoglobin 32.3H, Mean Corpuscular Hemoglobin Concent 34.1, Red Cell Distribution Width 13.1, Platelet Count 126L, Mean Platelet Volume 12.4H, Neutrophils (%) (Auto) , Lymphocytes (% ) (Auto) , Monocytes (%) (Auto) , Eosinophils (%) (Auto) , Basophils (%) (Auto) , Differential Total Cells Counted 100, Neutrophils % (Manual) 92H, Lymphocytes % (Manual) 1L, Monocytes % (Manual) 0L, Eosinophils % (Manual) 0, Basophils % ( Manual) 0, Band Neutrophils 7, Platelet Estimate DecreasedL, Platelet Morphology Normal, Sodium Level 148H, Potassium Level 3.7, Chloride Level 114H, Carbon Dioxide Level 19L, Anion Gap 15, Blood Urea Nitrogen 41H, Creatinine 1.4H , Estimat Glomerular Filtration Rate , Glucose Level 102, Calcium Level 8.3L, Total Bilirubin 0.3, Aspartate Amino Transf (AST/SGOT) 44H, Alanine Aminotransferase (ALT/SGPT) 27, Alkaline Phosphatase 136H, Total Protein 5.6#L, Albumin 1.0L, Globulin 4.6, Albumin/Globulin Ratio 0.2L, Red Blood Cell Morphology Normal Height (Feet): 5 Height (Inches): 9.00 Weight (Pounds): 120 Bruno Enamorado MD Dec 27, 2018 15:25
--- NOTE | 2018-12-27 16:25 | NUR ---
NURSE NOTES: Adls done, mouth care done.Kept clean and dry.Will continue to monitor.
--- NOTE | 2018-12-27 16:41 | NUR ---
NURSE NOTES: Left message to dietary for Vital AF, refill.Awaiting call back
[2018-12-27] MEDS: Ertapenem 1 GM in NS 55 ML IVPB SCH (17:06)
[2018-12-27] MEDS ORDERED: Tubing IV Secondary IV ONE ×2 (17:09→17:14)
[2018-12-27] MEDS ORDERED: D5 1/2NS 1000ml IV ONE (17:09)
[2018-12-27] MEDS ORDERED: NS 275ml ONE ×2 (17:09→17:14)
--- NOTE | 2018-12-27 18:19 | NUR ---
NURSE NOTES: Pt turned and repositioned.ADls done, kept clean and dry. HOB elevated to prevent aspiration. No residual at this time and GT placement intact.Will continue to monitor.
--- NOTE | 2018-12-27 18:39 | Surgery Progress Note ---
Surgery Progress Note Subjective Additional Comments leukocytosis worsening. cxr noted. may consider CT scan. will discuss with team Objective Last 24 Hour Vital Signs Date Time Temp Pulse Resp B/P (MAP) Pulse Ox O2 Delivery O2 Flow Rate FiO2 12/27/18 18:00 106 29 121/75 (90) 99 12/27/18 17:00 104 29 122/85 (97) 94 12/27/18 16:00 100 26 Nasal Cannula 3.0 32 12/27/18 16:00 97.8 106 27 114/50 (71) 98 12/27/18 16:00 Venturi Mask 6.0 12/27/18 16:00 107 12/27/18 15:00 131/81 12/27/18 15:00 104 27 119/75 (90) 94 12/27/18 14:00 107 24 132/46 (74) 98 12/27/18 13:00 112 27 151/67 (95) 98 12/27/18 12:56 107 26 99 Nasal Cannula 3.0 32 12/27/18 12:45 102 26 100 Venturi Mask 8.0 40 12/27/18 12:00 97.8 102 28 121/80 (94) 100 12/27/18 12:00 108 12/27/18 12:00 Venturi Mask 6.0 12/27/18 11:00 105 21 130/58 (82) 98 12/27/18 10:00 86 21 113/91 (98) 98 12/27/18 09:00 81 21 116/86 (96) 98 12/27/18 08:00 98.3 120 30 119/86 (97) 97 12/27/18 08:00 Venturi Mask 6.0 12/27/18 08:00 106 12/27/18 07:00 85 26 125/70 (88) 99 12/27/18 07:00 105 32 97 Venturi Mask 8.0 40 12/27/18 06:49 Venturi Mask 8.0 40 12/27/18 06:49 106 32 96 Venturi Mask 8.0 40 12/27/18 06:49 96 Venturi Mask 8.0 40 12/27/18 06:00 87 26 130/53 (78) 99 12/27/18 05:00 86 27 150/83 (105) 99 12/27/18 04:00 110 12/27/18 04:00 97.7 107 28 118/47 (70) 100 12/27/18 04:00 Venturi Mask 6.0 12/27/18 03:00 105 27 137/68 (91) 99 12/27/18 02:00 108 31 114/64 (81) 98 12/27/18 01:55 104 25 98 Venturi Mask 6.0 35 12/27/18 01:48 108 26 99 Venturi Mask 8.0 40 12/27/18 01:00 93 25 133/78 (96) 99 12/27/18 00:00 Venturi Mask 8.0 12/27/18 00:00 97.5 92 23 125/70 (88) 99 12/27/18 00:00 89 12/26/18 23:00 98 24 135/82 (99) 100 12/26/18 22:30 95 24 109/57 (74) 100 12/26/18 22:00 107 28 118/67 (84) 99 12/26/18 21:00 104 27 135/76 (95) 97 12/26/18 20:55 110/70 12/26/18 20:00 Venturi Mask 8.0 12/26/18 20:00 97 12/26/18 20:00 98.0 111 29 138/50 (79) 96 12/26/18 19:45 105 26 98 Venturi Mask 8.0 40 12/26/18 19:34 96 Venturi Mask 8.0 40 12/26/18 19:34 Venturi Mask 8.0 40 12/26/18 19:34 104 28 96 Venturi Mask 8.0 40 12/26/18 19:08 97.8 12/26/18 19:00 106 28 106/61 (76) 97 I&O Intake and Output 12/26/18 12/27/18 19:00 07:00 Intake Total 990 ml 1200 ml Output Total 610 ml 590 ml Balance 380 ml 610 ml Free Water 100 ml IV Total 330 ml 440 ml Tube Feeding 660 ml 660 ml Output Urine Total 610 ml 590 ml # Bowel Movements 1 1 Dressing: other Wound: other Drains: other Cardiovascular: RSR Respiratory: decreased breath sounds Abdomen: soft, non-distended Extremities: other Laboratory Tests Test 12/27/18 04:40 White Blood Count 20.6 K/UL (4.8-10.8) H Red Blood Count 3.97 M/UL (4.70-6.10) L Hemoglobin 12.8 G/DL (14.2-18.0) L Hematocrit 37.6 % (42.0-52.0) L Mean Corpuscular Volume 95 FL (80-99) Mean Corpuscular Hemoglobin 32.3 PG (27.0-31.0) H Mean Corpuscular Hemoglobin Concent 34.1 G/DL (32.0-36.0) Red Cell Distribution Width 13.1 % (11.6-14.8) Platelet Count 126 K/UL (150-450) L Mean Platelet Volume 12.4 FL (6.5-10.1) H Neutrophils (%) (Auto) % (45.0-75.0) Lymphocytes (%) (Auto) % (20.0-45.0) Monocytes (%) (Auto) % (1.0-10.0) Eosinophils (%) (Auto) % (0.0-3.0) Basophils (%) (Auto) % (0.0-2.0) Differential Total Cells Counted 100 Neutrophils % (Manual) 92 % (45-75) H Lymphocytes % (Manual) 1 % (20-45) L Monocytes % (Manual) 0 % (1-10) L Eosinophils % (Manual) 0 % (0-3) Basophils % (Manual) 0 % (0-2) Band Neutrophils 7 % (0-8) Platelet Estimate Decreased L Platelet Morphology Normal Red Blood Cell Morphology Normal Sodium Level 148 MMOL/L (136-145) H Potassium Level 3.7 MMOL/L (3.5-5.1) Chloride Level 114 MMOL/L (98-107) H Carbon Dioxide Level 19 MMOL/L (21-32) L Anion Gap 15 mmol/L (5-15) Blood Urea Nitrogen 41 mg/dL (7-18) H Creatinine 1.4 MG/DL (0.55-1.30) H Estimat Glomerular Filtration Rate mL/min (>60) Glucose Level 102 MG/DL (74-106) Calcium Level 8.3 MG/DL (8.5-10.1) L Total Bilirubin 0.3 MG/DL (0.2-1.0) Aspartate Amino Transf (AST/SGOT) 44 U/L (15-37) H Alanine Aminotransferase (ALT/SGPT) 27 U/L (12-78) Alkaline Phosphatase 136 U/L (46-116) H Total Protein 5.6 G/DL (6.4-8.2) #L Albumin 1.0 G/DL (3.4-5.0) L Globulin 4.6 g/dL Albumin/Globulin Ratio 0.2 (1.0-2.7) L Plan Problems: (1) Pneumothorax, left Assessment & Plan: left small pneumothorax seen on CXR today patient on vent support with positive pressure currently saturating well and stable Repeat CXR stable - possible effusion now? will monitor for now if worsening will need left chest tube placement STAT CXR and call me if desaturates leukocytosis worsening may consider CT scan. will discuss with team thank you will follow with recs. (2) Severe sepsis Chris Messer Dec 27, 2018 18:39
--- NOTE | 2018-12-27 19:15 | NUR ---
HAND-OFF: Report given to WESLEY Mcleod.
--- NOTE | 2018-12-27 19:55 | NUR ---
NURSE NOTES: Patient open eyes, non verbal response to questions, able to eye contact, respiration regular, on O2 3lpm via NC, tachypnea noted and o2 saturation 94-97% noted, kept hob over 30 degree, OGT intact and patent, ongoing Vital AF 1.2 at 55ml/hr, residue 30ml noted, no n/v noted, hypoactive bowel sound x4, no bowel movement status, F/C intact and patent, dark yellow urine out, both Upper arm weeping status from [place] site, peripheral line to left arm and right ac, intact and patent, on SPR bed, made lower bed position, provided call light within reach, will continue to monitor.
[2018-12-27] MEDS: DOPamine 400mg/250ml 250 ML IV SCH (20:55)
--- NOTE | 2018-12-27 21:50 | NUR ---
NURSE NOTES: Repositioned, oral care was done, no distress noted at this time.
--- NOTE | 2018-12-27 23:53 | Cardiology Progress Note ---
Assessment/Plan Assessment/Plan 1. Sinus tachycardia, most likely secondary to hypoxemia/lung CA. 2. History of coronary artery disease, status post coronary artery bypass graft surgery. 12-lead electrocardiogram does not show any ischemic changes despite the fact that the troponin I levels are elevated, not a candidate for ischemic workup given metastatic lung cancer, continue conservative management. 3. Hypoxic hypercarbic respiratory failure, resolved, due to possible acute exacerbation of COPD. 4. Non-sustained ventricular tachycardia, keep Mg level and keep >2.5, keep K > 4.0 5. 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 6. History of CVA. 7. History of COPD. 8. CONSTANCE, creat at 1.4. Subjective Subjective Sinus tachycardia at rate of 105. On NC oxygen. Objective Last 24 Hour Vital Signs Date Time Temp Pulse Resp B/P (MAP) Pulse Ox O2 Delivery O2 Flow Rate FiO2 12/27/18 23:00 105 26 134/78 (96) 96 12/27/18 22:00 105 28 127/73 (91) 100 12/27/18 21:00 109 31 139/79 (99) 97 12/27/18 20:55 134/83 12/27/18 20:00 98.1 106 26 134/83 (100) 94 12/27/18 20:00 Nasal Cannula 3.0 12/27/18 19:33 106 12/27/18 19:09 101 24 99 Nasal Cannula 3.0 32 12/27/18 19:08 Nasal Cannula 3.0 32 12/27/18 19:08 99 Nasal Cannula 3.0 32 12/27/18 19:00 94 27 151/52 (85) 99 12/27/18 18:59 101 26 99 Nasal Cannula 3.0 32 12/27/18 18:00 106 29 121/75 (90) 99 12/27/18 17:00 104 29 122/85 (97) 94 12/27/18 16:00 100 26 Nasal Cannula 3.0 32 12/27/18 16:00 97.8 106 27 114/50 (71) 98 12/27/18 16:00 Venturi Mask 6.0 12/27/18 16:00 107 12/27/18 15:00 131/81 12/27/18 15:00 104 27 119/75 (90) 94 12/27/18 14:00 107 24 132/46 (74) 98 12/27/18 13:00 112 27 151/67 (95) 98 12/27/18 12:56 107 26 99 Nasal Cannula 3.0 32 12/27/18 12:45 102 26 100 Venturi Mask 8.0 40 12/27/18 12:00 97.8 102 28 121/80 (94) 100 12/27/18 12:00 108 12/27/18 12:00 Venturi Mask 6.0 12/27/18 11:00 105 21 130/58 (82) 98 12/27/18 10:00 86 21 113/91 (98) 98 12/27/18 09:00 81 21 116/86 (96) 98 12/27/18 08:00 98.3 120 30 119/86 (97) 97 12/27/18 08:00 Venturi Mask 6.0 12/27/18 08:00 106 12/27/18 07:00 85 26 125/70 (88) 99 12/27/18 07:00 105 32 97 Venturi Mask 8.0 40 12/27/18 06:49 Venturi Mask 8.0 40 12/27/18 06:49 106 32 96 Venturi Mask 8.0 40 12/27/18 06:49 96 Venturi Mask 8.0 40 12/27/18 06:00 87 26 130/53 (78) 99 12/27/18 05:00 86 27 150/83 (105) 99 12/27/18 04:00 110 12/27/18 04:00 97.7 107 28 118/47 (70) 100 12/27/18 04:00 Venturi Mask 6.0 12/27/18 03:00 105 27 137/68 (91) 99 12/27/18 02:00 108 31 114/64 (81) 98 12/27/18 01:55 104 25 98 Venturi Mask 6.0 35 12/27/18 01:48 108 26 99 Venturi Mask 8.0 40 12/27/18 01:00 93 25 133/78 (96) 99 12/27/18 00:00 Venturi Mask 8.0 12/27/18 00:00 97.5 92 23 125/70 (88) 99 12/27/18 00:00 89 Intake and Output 12/26/18 12/27/18 19:00 07:00 Intake Total 990 ml 1200 ml Output Total 610 ml 590 ml Balance 380 ml 610 ml Free Water 100 ml IV Total 330 ml 440 ml Tube Feeding 660 ml 660 ml Output Urine Total 610 ml 590 ml # Bowel Movements 1 1 2D Echo: Global LV HK with LVEF 25%, Mild LAE, RVSP 14 mmHg, Grade I LVDD Laboratory Tests Test 12/27/18 04:40 White Blood Count 20.6 K/UL (4.8-10.8) H Red Blood Count 3.97 M/UL (4.70-6.10) L Hemoglobin 12.8 G/DL (14.2-18.0) L Hematocrit 37.6 % (42.0-52.0) L Mean Corpuscular Volume 95 FL (80-99) Mean Corpuscular Hemoglobin 32.3 PG (27.0-31.0) H Mean Corpuscular Hemoglobin Concent 34.1 G/DL (32.0-36.0) Red Cell Distribution Width 13.1 % (11.6-14.8) Platelet Count 126 K/UL (150-450) L Mean Platelet Volume 12.4 FL (6.5-10.1) H Neutrophils (%) (Auto) % (45.0-75.0) Lymphocytes (%) (Auto) % (20.0-45.0) Monocytes (%) (Auto) % (1.0-10.0) Eosinophils (%) (Auto) % (0.0-3.0) Basophils (%) (Auto) % (0.0-2.0) Differential Total Cells Counted 100 Neutrophils % (Manual) 92 % (45-75) H Lymphocytes % (Manual) 1 % (20-45) L Monocytes % (Manual) 0 % (1-10) L Eosinophils % (Manual) 0 % (0-3) Basophils % (Manual) 0 % (0-2) Band Neutrophils 7 % (0-8) Platelet Estimate Decreased L Platelet Morphology Normal Red Blood Cell Morphology Normal Sodium Level 148 MMOL/L (136-145) H Potassium Level 3.7 MMOL/L (3.5-5.1) Chloride Level 114 MMOL/L (98-107) H Carbon Dioxide Level 19 MMOL/L (21-32) L Anion Gap 15 mmol/L (5-15) Blood Urea Nitrogen 41 mg/dL (7-18) H Creatinine 1.4 MG/DL (0.55-1.30) H Estimat Glomerular Filtration Rate mL/min (>60) Glucose Level 102 MG/DL (74-106) Calcium Level 8.3 MG/DL (8.5-10.1) L Total Bilirubin 0.3 MG/DL (0.2-1.0) Aspartate Amino Transf (AST/SGOT) 44 U/L (15-37) H Alanine Aminotransferase (ALT/SGPT) 27 U/L (12-78) Alkaline Phosphatase 136 U/L (46-116) H Total Protein 5.6 G/DL (6.4-8.2) #L Albumin 1.0 G/DL (3.4-5.0) L Globulin 4.6 g/dL Albumin/Globulin Ratio 0.2 (1.0-2.7) L Objective HEENT: Atraumatic and normocephalic. Anicteric. Pupils are equal, round, and reactive to light and accommodation. Conjunctival pallor. NECK: JVP <5 cm, No carotid bruit. Carotid upstroke is 2+ bilaterally. CARDIOVASCULAR: Normal S1, S2. Regular rate and rhythm. Tachycardic. No murmurs, gallops, or rubs. LUNGS: Diminished breath sounds in both lungs. ABDOMEN: Soft, nontender, and nondistended. No hepatosplenomegaly. Positive bowel sounds. EXTREMITIES: No evidence of edema, clubbing, or cyanosis. There is onychomycosis. Fred Holman MD Dec 27, 2018 23:53
[2018-12-28] VITALS (19 sets, daily range): BP systolic 105–157; BP diastolic 39–87
[2018-12-28] MEDS: Oxacillin 2 GM in NS 110 ML IVPB SCH ×6 (00:36→21:36)
[2018-12-28] MEDS: Morphine Sulfate 4mg/ml Inj (IV/IM USE ONLY) IVP PRN (00:37)
--- NOTE | 2018-12-28 00:37 | NUR ---
NURSE NOTES: Given Morphine 1mg by ivp slowly as prn for sob, will continue to monitor.
--- NOTE | 2018-12-28 01:22 | NUR ---
NURSE NOTES: Patient asleep status, on o2 3lpm via nc, respiration regular and tachypnea 23/min noted at this time, will continue plan of care.
[2018-12-28] MEDS: Albuterol/Ipratropium 3ml neb HHN SCH ×5 (01:44→23:26)
--- NOTE | 2018-12-28 03:40 | NUR ---
NURSE NOTES: Oral care was done, no pain noted at this time.
--- NOTE | 2018-12-28 06:00 | NUR ---
NURSE NOTES: No acute distress noted at this shift.
[2018-12-28 07:11] LABS: HEMATOCRIT 38.9 % (42.0-52.0); HEMOGLOBIN 13.1 G/DL (14.2-18.0); MEAN CORPUSCULAR VOLUME 94 FL (80-99); PLATELET COUNT 135 K/UL (150-450); RED BLOOD COUNT 4.13 M/UL (4.70-6.10); RED CELL DISTRIBUTION WIDTH 13.3 % (11.6-14.8); WHITE BLOOD COUNT 18.7 K/UL (4.8-10.8)
--- NOTE | 2018-12-28 07:23 | NUR ---
HAND-OFF: Report given to Paula MARCELINO/WESLEY.
--- NOTE | 2018-12-28 07:24 | NUR ---
NURSE NOTES: Received patient from WESLEY Crespo. Patient observed lying in bed. patient showing no sign of acute distress at this time. Patient VS stable at this time. Patient will focus with his eyes and follow but he does not respond verbally to questions. Patient was recently extubated on the . Patient showing sinus tachycardia on the monitor at this time. Patient is on NC 3L at this time with oxygen saturation of 98%. Patient has an OGT that is patent and asymptomatic at this time and running Vital AF 1.2 at 50mL/hr at this time. Patient tolerating feeding with no residual at this time. Patient has a dawson for urine retention at this time. Patient's skin was weeping last night but appears asymptomatic at this time. Patient has a eft forearm 20G PIV that is patent and asymptomatic at this time. Patient has a right AC 22G that is patent and asymptomatic at this time. Patient has a family meeting planned for today to discuss the patient's status. Patient bed in low position with bed alarm on and call light in reach at this time.
[2018-12-28 07:36] LABS: ALANINE AMINOTRANSFERASE 38 U/L (12-78); ALBUMIN/GLOBULIN RATIO 0.2 (1.0-2.7); ALKALINE PHOSPHATASE 133 U/L (46-116); ANION GAP 14 mmol/L (5-15); ASPARTATE AMINO TRANSFERASE 58 U/L (15-37); BILIRUBIN,TOTAL 0.3 MG/DL (0.2-1.0); BLOOD UREA NITROGEN 44 mg/dL (7-18); CALCIUM 8.4 MG/DL (8.5-10.1); CARBON DIOXIDE 20 MMOL/L (21-32); CHLORIDE 115 MMOL/L (98-107); CREATININE 1.3 MG/DL (0.55-1.30); POTASSIUM 3.7 MMOL/L (3.5-5.1); SODIUM 149 MMOL/L (136-145)
[2018-12-28] MEDS: Heparin 5000 units/ml inj SUBQ SCH ×3 (09:00→21:37)
--- NOTE | 2018-12-28 09:00 | NUR ---
NURSE NOTES: Patient VS Stable at this time. Patient is tachypneic and coughing. Will deep suction at this time and continue to monitor. Patient bed in low position. Patient tolerating feeding.
[2018-12-28] MEDS: Pantoprazole Inj IVP SCH ×2 (09:47→21:35)
[2018-12-28] MEDS: Dexamethasone 4mg/ml vial IVP SCH ×2 (09:47→17:59)
--- NOTE | 2018-12-28 12:00 | NUR ---
NURSE NOTES: Patient VS stable at this time. Patient nasal deep suctioned with a moderate amount of thick yellow secretions. Patient family is at the bedside at this time. Patient tolerating feeding with no residual at this time. Patient awake but nonverbal and does not track at this time.
--- NOTE | 2018-12-28 12:02 | Pulmonolgy Critical Care Note ---
Critical Care - Asmt/Plan Problems: (1) Gram positive sepsis Assessment & Plan: S aureus (2) Severe sepsis (3) Acute respiratory failure (4) NSTEMI (non-ST elevated myocardial infarction) (5) CONSTANCE (acute kidney injury) (6) Acute aspiration pneumonia (7) Lung cancer metastatic to brain (8) CHF (congestive heart failure) Respiratory: adjust FIO2 - Titrate down to keep SaO2 > 92%, other - RTC and PRN DUOnebs, add MUCOMYST, PRN suctioning Cardiac: continue to monitor HR/BP Renal: other - SLIV Infectious Disease: continue antibiotics - ERTA/OXAC per ID Gastrointestinal: continue feedings/current rate, other - FAILURE ANALYSIS ENGINEER eval, consider PO for pleasurs Endocrine: other - Dex BID Affect: other - minimize sedatives Prophylaxis: Protonix, Heparin Disposition: transfer to - NIA Time Spent (Minutes): 30 Notes Reviewed: 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, cardio, ID Discussed with: nurses, consultants, other - DNAR, ok to intubated until family arrives, then plan to transition to hospice Critical Care - Objective Last 24 Hour Vital Signs Date Time Temp Pulse Resp B/P (MAP) Pulse Ox O2 Delivery O2 Flow Rate FiO2 12/28/18 11:00 115 27 125/60 (81) 97 12/28/18 10:00 117 28 127/45 (72) 97 12/28/18 09:00 113 27 133/55 (81) 98 12/28/18 08:00 111 12/28/18 08:00 99.1 114 27 112/39 (63) 97 12/28/18 08:00 Nasal Cannula 3.0 12/28/18 07:35 107 24 97 Nasal Cannula 3.0 32 12/28/18 07:35 Nasal Cannula 3.0 32 12/28/18 07:34 98 Nasal Cannula 3.0 32 12/28/18 07:00 105 25 126/73 (90) 95 12/28/18 06:00 103 23 105/58 (74) 99 12/28/18 05:00 109 27 135/68 (90) 97 12/28/18 04:00 Nasal Cannula 3.0 12/28/18 04:00 98.6 110 25 143/81 (101) 100 12/28/18 03:44 113 12/28/18 03:00 111 28 143/68 (93) 100 12/28/18 02:00 113 27 131/47 (75) 100 12/28/18 01:59 112 26 99 Nasal Cannula 3.0 32 12/28/18 01:43 105 29 99 Nasal Cannula 3.0 32 12/28/18 01:00 104 27 140/52 (81) 99 12/28/18 00:00 98.4 108 27 148/87 (107) 95 12/28/18 00:00 Nasal Cannula 3.0 12/27/18 23:18 104 12/27/18 23:00 105 26 134/78 (96) 96 12/27/18 22:00 105 28 127/73 (91) 100 12/27/18 21:00 109 31 139/79 (99) 97 12/27/18 20:55 134/83 12/27/18 20:00 98.1 106 26 134/83 (100) 94 12/27/18 20:00 Nasal Cannula 3.0 12/27/18 19:33 106 12/27/18 19:09 101 24 99 Nasal Cannula 3.0 32 12/27/18 19:08 Nasal Cannula 3.0 32 12/27/18 19:08 99 Nasal Cannula 3.0 32 12/27/18 19:00 94 27 151/52 (85) 99 12/27/18 18:59 101 26 99 Nasal Cannula 3.0 32 12/27/18 18:00 106 29 121/75 (90) 99 12/27/18 17:00 104 29 122/85 (97) 94 12/27/18 16:00 100 26 Nasal Cannula 3.0 32 12/27/18 16:00 97.8 106 27 114/50 (71) 98 12/27/18 16:00 Venturi Mask 6.0 12/27/18 16:00 107 12/27/18 15:00 131/81 12/27/18 15:00 104 27 119/75 (90) 94 12/27/18 14:00 107 24 132/46 (74) 98 12/27/18 13:00 112 27 151/67 (95) 98 12/27/18 12:56 107 26 99 Nasal Cannula 3.0 32 12/27/18 12:45 102 26 100 Venturi Mask 8.0 40 12/27/18 12:00 97.8 102 28 121/80 (94) 100 12/27/18 12:00 108 12/27/18 12:00 Venturi Mask 6.0 Status: awake, other - confused Condition: grave HEENT: atraumatic, normocephalic Lungs: rhonchi Heart: HR/BP stable Abdomen: soft, non-tender, active bowel sounds Extremities: edema - trace, cyanosis - no, clubbing - no Blood Sugars: BS controlled Critical Care - Subjective ROS Limited/Unobtainable: Yes ICU Day: 12 Intubation Day: N/A Interval Events: Now on 3L NC Awake and confused Thick yellow secretions Oliver OGTF's WCT 18 CXR stable Awake and confused Condition: stable IV Access: peripheral EKG Rhythm: Sinus Tachycardia FI02: 32 Vent Support Breath Rate: 24 Vent Support Mode: CPAP Vent Tidal Volume: 600 Sputum Amount: None PEEP: 5.0 PIP: 28 Secretions: Thick yellow Fluids: SLIV Drips: N/A Tube Feeding Amount: 55 Residuals: 0 I&O: Intake and Output 12/27/18 12/28/18 19:00 07:00 Intake Total 1455 ml 990 ml Output Total 575 ml 1175 ml Balance 880 ml -185 ml Free Water 300 ml IV Total 495 ml 330 ml Tube Feeding 660 ml 660 ml Output Urine Total 575 ml 1175 ml # Bowel Movements 4 1 Subjective: HAWA CXR: Patchy b infiltrates, RUL mass ET-Tube: 7.5 ET Position: 21 Labs: Laboratory Tests Test 12/28/18 05:25 White Blood Count 18.7 K/UL (4.8-10.8) H Red Blood Count 4.13 M/UL (4.70-6.10) L Hemoglobin 13.1 G/DL (14.2-18.0) L Hematocrit 38.9 % (42.0-52.0) L Mean Corpuscular Volume 94 FL (80-99) Mean Corpuscular Hemoglobin 31.6 PG (27.0-31.0) H Mean Corpuscular Hemoglobin Concent 33.6 G/DL (32.0-36.0) Red Cell Distribution Width 13.3 % (11.6-14.8) Platelet Count 135 K/UL (150-450) L Mean Platelet Volume 11.0 FL (6.5-10.1) H Neutrophils (%) (Auto) % (45.0-75.0) Lymphocytes (%) (Auto) % (20.0-45.0) Monocytes (%) (Auto) % (1.0-10.0) Eosinophils (%) (Auto) % (0.0-3.0) Basophils (%) (Auto) % (0.0-2.0) Differential Total Cells Counted 100 Neutrophils % (Manual) 79 % (45-75) H Lymphocytes % (Manual) 2 % (20-45) L Monocytes % (Manual) 2 % (1-10) Eosinophils % (Manual) 1 % (0-3) Basophils % (Manual) 0 % (0-2) Band Neutrophils 16 % (0-8) H Platelet Estimate Decreased L Platelet Morphology Normal Red Blood Cell Morphology Normal Sodium Level 149 MMOL/L (136-145) H Potassium Level 3.7 MMOL/L (3.5-5.1) Chloride Level 115 MMOL/L (98-107) H Carbon Dioxide Level 20 MMOL/L (21-32) L Anion Gap 14 mmol/L (5-15) Blood Urea Nitrogen 44 mg/dL (7-18) H Creatinine 1.3 MG/DL (0.55-1.30) Estimat Glomerular Filtration Rate mL/min (>60) Glucose Level 96 MG/DL (74-106) Calcium Level 8.4 MG/DL (8.5-10.1) L Total Bilirubin 0.3 MG/DL (0.2-1.0) Aspartate Amino Transf (AST/SGOT) 58 U/L (15-37) H Alanine Aminotransferase (ALT/SGPT) 38 U/L (12-78) Alkaline Phosphatase 133 U/L (46-116) H Total Protein 5.7 G/DL (6.4-8.2) L Albumin 1.0 G/DL (3.4-5.0) L Globulin 4.7 g/dL Albumin/Globulin Ratio 0.2 (1.0-2.7) L Solomon Quan MD Dec 28, 2018 12:02
[2018-12-28] MEDS ORDERED: Acetylcysteine 20% Soln 4ml HHN SCH (13:00)
--- NOTE | 2018-12-28 14:00 | NUR ---
NURSE NOTES: Patient's family has left at this time. Dr Enamorado has been made aware. Patient is to be transferred to SDU when bed available. Patient VS Stable at this time with no sign of acute distress. Patient no longer coughing at this time. Patient desaturated to 89-90% earlier and he has been placed on Venturi mask.
--- NOTE | 2018-12-28 14:58 | NUR ---
NURSE NOTES: Vital AF 1.2 was hung. Residual was checked and only 10 ml was pulled. A 50 ml flush was given. A new Vital AF 1.2 was hung at 55 ml/hr. Tubing was changed.
--- NOTE | 2018-12-28 16:16 | NUR ---
NURSE NOTES: Spoke to regarding code status, per , Code Status is confirmed to be changed to DNR/DNI. spoke to Dr Enamorado on 12/25/18, and per , wanted family to arrive on Saturday, today 12/28/18 to change status to DNR/DNI. confirmed that patient is NOT TO BE INTUBATED. Patient will transition to Hospice Care with Saturday or Saturday. Dr Quan and Dr Enamorado have been notified.
--- NOTE | 2018-12-28 16:32 | NUR ---
NURSE NOTES: Cleaned patient at this time. Patient did not tolerate being turned. Patient oxygen saturation decreased to 88% and he became tachypneic. Patient recovered after a few minutes of inactivity post bed-bath.
--- NOTE | 2018-12-28 16:40 | Surgery Progress Note ---
Surgery Progress Note Subjective Additional Comments extubated. on face mask. b/l breath sounds Objective Last 24 Hour Vital Signs Date Time Temp Pulse Resp B/P (MAP) Pulse Ox O2 Delivery O2 Flow Rate FiO2 12/28/18 15:00 112/91 12/28/18 15:00 115 37 148/64 (92) 92 12/28/18 14:00 114 35 148/75 (99) 94 12/28/18 13:00 117 34 153/68 (96) 95 12/28/18 12:52 112 30 94 Nasal Cannula 3.0 32 12/28/18 12:02 118 26 94 Venturi Mask 4.0 31 12/28/18 12:00 Venturi Mask 4.0 12/28/18 12:00 98.3 116 35 123/76 (92) 92 12/28/18 12:00 118 12/28/18 11:00 115 27 125/60 (81) 97 12/28/18 10:00 117 28 127/45 (72) 97 12/28/18 09:00 113 27 133/55 (81) 98 12/28/18 08:00 111 12/28/18 08:00 99.1 114 27 112/39 (63) 97 12/28/18 08:00 Nasal Cannula 3.0 12/28/18 07:45 110 24 98 Nasal Cannula 2.0 32 12/28/18 07:35 107 24 97 Nasal Cannula 3.0 32 12/28/18 07:35 Nasal Cannula 3.0 32 12/28/18 07:34 98 Nasal Cannula 3.0 32 12/28/18 07:00 105 25 126/73 (90) 95 12/28/18 06:00 103 23 105/58 (74) 99 12/28/18 05:00 109 27 135/68 (90) 97 12/28/18 04:00 Nasal Cannula 3.0 12/28/18 04:00 98.6 110 25 143/81 (101) 100 12/28/18 03:44 113 12/28/18 03:00 111 28 143/68 (93) 100 12/28/18 02:00 113 27 131/47 (75) 100 12/28/18 01:59 112 26 99 Nasal Cannula 3.0 32 12/28/18 01:43 105 29 99 Nasal Cannula 3.0 32 12/28/18 01:00 104 27 140/52 (81) 99 12/28/18 00:00 98.4 108 27 148/87 (107) 95 12/28/18 00:00 Nasal Cannula 3.0 12/27/18 23:18 104 12/27/18 23:00 105 26 134/78 (96) 96 12/27/18 22:00 105 28 127/73 (91) 100 12/27/18 21:00 109 31 139/79 (99) 97 12/27/18 20:55 134/83 12/27/18 20:00 98.1 106 26 134/83 (100) 94 12/27/18 20:00 Nasal Cannula 3.0 12/27/18 19:33 106 12/27/18 19:09 101 24 99 Nasal Cannula 3.0 32 12/27/18 19:08 Nasal Cannula 3.0 32 12/27/18 19:08 99 Nasal Cannula 3.0 32 12/27/18 19:00 94 27 151/52 (85) 99 12/27/18 18:59 101 26 99 Nasal Cannula 3.0 32 12/27/18 18:00 106 29 121/75 (90) 99 12/27/18 17:00 104 29 122/85 (97) 94 I&O Intake and Output 12/27/18 12/28/18 18:59 06:59 Intake Total 1155 ml 1290 ml Output Total 595 ml 1125 ml Balance 560 ml 165 ml Free Water 300 ml IV Total 495 ml 330 ml Tube Feeding 660 ml 660 ml Output Urine Total 595 ml 1125 ml # Bowel Movements 4 1 Dressing: other Wound: other Drains: other Cardiovascular: RSR Respiratory: clear Abdomen: soft, present bowel sounds, non-distended Extremities: no cyanosis Laboratory Tests Test 12/28/18 05:25 White Blood Count 18.7 K/UL (4.8-10.8) H Red Blood Count 4.13 M/UL (4.70-6.10) L Hemoglobin 13.1 G/DL (14.2-18.0) L Hematocrit 38.9 % (42.0-52.0) L Mean Corpuscular Volume 94 FL (80-99) Mean Corpuscular Hemoglobin 31.6 PG (27.0-31.0) H Mean Corpuscular Hemoglobin Concent 33.6 G/DL (32.0-36.0) Red Cell Distribution Width 13.3 % (11.6-14.8) Platelet Count 135 K/UL (150-450) L Mean Platelet Volume 11.0 FL (6.5-10.1) H Neutrophils (%) (Auto) % (45.0-75.0) Lymphocytes (%) (Auto) % (20.0-45.0) Monocytes (%) (Auto) % (1.0-10.0) Eosinophils (%) (Auto) % (0.0-3.0) Basophils (%) (Auto) % (0.0-2.0) Differential Total Cells Counted 100 Neutrophils % (Manual) 79 % (45-75) H Lymphocytes % (Manual) 2 % (20-45) L Monocytes % (Manual) 2 % (1-10) Eosinophils % (Manual) 1 % (0-3) Basophils % (Manual) 0 % (0-2) Band Neutrophils 16 % (0-8) H Platelet Estimate Decreased L Platelet Morphology Normal Red Blood Cell Morphology Normal Sodium Level 149 MMOL/L (136-145) H Potassium Level 3.7 MMOL/L (3.5-5.1) Chloride Level 115 MMOL/L (98-107) H Carbon Dioxide Level 20 MMOL/L (21-32) L Anion Gap 14 mmol/L (5-15) Blood Urea Nitrogen 44 mg/dL (7-18) H Creatinine 1.3 MG/DL (0.55-1.30) Estimat Glomerular Filtration Rate mL/min (>60) Glucose Level 96 MG/DL (74-106) Calcium Level 8.4 MG/DL (8.5-10.1) L Total Bilirubin 0.3 MG/DL (0.2-1.0) Aspartate Amino Transf (AST/SGOT) 58 U/L (15-37) H Alanine Aminotransferase (ALT/SGPT) 38 U/L (12-78) Alkaline Phosphatase 133 U/L (46-116) H Total Protein 5.7 G/DL (6.4-8.2) L Albumin 1.0 G/DL (3.4-5.0) L Globulin 4.7 g/dL Albumin/Globulin Ratio 0.2 (1.0-2.7) L Plan Problems: (1) Pneumothorax, left Assessment & Plan: left small pneumothorax seen on CXR today patient on vent support with positive pressure currently saturating well and stable Repeat CXR stable - possible effusion now? will monitor for now if worsening will need left chest tube placement STAT CXR and call me if desaturates leukocytosis worsening may consider CT scan. will discuss with team extubated and tolerating so far thank you will follow with recs. (2) Severe sepsis Chris Messer Dec 28, 2018 16:40
--- NOTE | 2018-12-28 16:54 | NUR ---
NURSE NOTES: Patient's oxygen saturation dropped to 87-88% at this time. Patient is tachypneic and having a hard time getting a full breath. Patient has his head to his chest and is unable to relax his neck. Patient was repositioned at this time but the patient is still unable to relax his neck. Patient oxygen saturation is slightly improved at 91% at this time.
[2018-12-28] MEDS ORDERED: Tubing IV Secondary IV ONE (17:20)
[2018-12-28] MEDS ORDERED: D5W 550ml IV ONE (17:20)
[2018-12-28] MEDS ORDERED: NS 275ml ONE (17:20)
--- NOTE | 2018-12-28 17:39 | Infectious Diseases Prog Note ---
Assessment/Plan Problems: (1) Acute aspiration pneumonia Assessment & Plan: recurrent with new patchy infiltrates on his CXR , continue ertapenem , sputum culture grew yeast most likely colonization . aspiration precaution, keep HOB > 30 degree. monitor CXR . (2) Sepsis Assessment & Plan: due to methicillin sensitive staph aureus , continue oxacillin IV for minimum of four weeks . trans thoracic echo done on admission ruled out valve vegetations , repeated blood culture is finally negative on . will need 4 weeks course of treatment with iv antibiotics for his MSSA bacteremia .EOT 01/20/19 (3) CONSTANCE (acute kidney injury) Assessment & Plan: due to the above , continue hydration with renally dosed antibiotics , renal follow up, monitor UOP (4) Acute respiratory failure Assessment & Plan: due to the above , extubated on high flow oxygen , pulmonary is following , monitor ABG, and CXR , encourage coughing, CPT. (5) Lung cancer metastatic to brain Assessment & Plan: S/P radiation and chemo therapy at [facility] , now with poor prognosis, recommend palliative care . (6) Leukocytosis Assessment & Plan: suspect due to steroids , recommend to taper, monitor WBC (7) Pneumothorax, left Assessment & Plan: monitor CXR , surgery is following (8) Poor prognosis Assessment & Plan: with metastatic cancer, recommend palliative care and hospice Subjective Constitutional: Reports: no symptoms HEENT: Reports: congestion Respiratory: Reports: shortness of breath, productive cough Breasts: Reports: no symptoms Cardiovascular: Reports: no symptoms Gastrointestinal/Abdominal: Reports: no symptoms Genitourinary: Reports: no symptoms Neurologic: Reports: no symptoms Psychiatric: Reports: no symptoms Skin: Reports: no symptoms Endocrine: Reports: no symptoms Hematologic: Reports: no symptoms Musculoskeletal: Reports: no symptoms Allergies: Coded Allergies: No Known Allergies (Unverified , 12/17/18) Subjective he was lethargic on high flow oxygen, still in ICU, responsive to verbal commands, coughing and congested , not on pressor , afebrile. Objective Vital Signs Last 24 Hour Vital Signs Date Time Temp Pulse Resp B/P (MAP) Pulse Ox O2 Delivery O2 Flow Rate FiO2 12/28/18 15:00 112/91 12/28/18 15:00 115 37 148/64 (92) 92 12/28/18 14:00 114 35 148/75 (99) 94 12/28/18 13:00 117 34 153/68 (96) 95 12/28/18 12:52 112 30 94 Nasal Cannula 3.0 32 12/28/18 12:02 118 26 94 Venturi Mask 4.0 31 12/28/18 12:00 Venturi Mask 4.0 12/28/18 12:00 98.3 116 35 123/76 (92) 92 12/28/18 12:00 118 12/28/18 11:00 115 27 125/60 (81) 97 12/28/18 10:00 117 28 127/45 (72) 97 12/28/18 09:00 113 27 133/55 (81) 98 12/28/18 08:00 111 12/28/18 08:00 99.1 114 27 112/39 (63) 97 12/28/18 08:00 Nasal Cannula 3.0 12/28/18 07:45 110 24 98 Nasal Cannula 2.0 32 12/28/18 07:35 107 24 97 Nasal Cannula 3.0 32 12/28/18 07:35 Nasal Cannula 3.0 32 12/28/18 07:34 98 Nasal Cannula 3.0 32 12/28/18 07:00 105 25 126/73 (90) 95 12/28/18 06:00 103 23 105/58 (74) 99 12/28/18 05:00 109 27 135/68 (90) 97 12/28/18 04:00 Nasal Cannula 3.0 12/28/18 04:00 98.6 110 25 143/81 (101) 100 12/28/18 03:44 113 12/28/18 03:00 111 28 143/68 (93) 100 12/28/18 02:00 113 27 131/47 (75) 100 12/28/18 01:59 112 26 99 Nasal Cannula 3.0 32 12/28/18 01:43 105 29 99 Nasal Cannula 3.0 32 12/28/18 01:00 104 27 140/52 (81) 99 12/28/18 00:00 98.4 108 27 148/87 (107) 95 12/28/18 00:00 Nasal Cannula 3.0 12/27/18 23:18 104 12/27/18 23:00 105 26 134/78 (96) 96 12/27/18 22:00 105 28 127/73 (91) 100 1/26/19 21:00 109 31 139/79 (99) 97 12/27/18 20:55 134/83 12/27/18 20:00 98.1 106 26 134/83 (100) 94 12/27/18 20:00 Nasal Cannula 3.0 12/27/18 19:33 106 12/27/18 19:09 101 24 99 Nasal Cannula 3.0 32 12/27/18 19:08 Nasal Cannula 3.0 32 12/27/18 19:08 99 Nasal Cannula 3.0 32 12/27/18 19:00 94 27 151/52 (85) 99 12/27/18 18:59 101 26 99 Nasal Cannula 3.0 32 12/27/18 18:00 106 29 121/75 (90) 99 Height (Feet): 5 Height (Inches): 9.00 Weight (Pounds): 123 General Appearance: no acute distress, cachetic HEENT: normocephalic, atraumatic, anicteric, mucous membranes moist, PERRL, pharynx normal, supple, no JVD Respiratory/Chest: chest wall non-tender, no respiratory distress, no accessory muscle use, decreased breath sounds, crackles/rales, expiratory wheezing Cardiovascular: normal peripheral pulses, normal rate, regular rhythm, no gallop/murmur, no JVD Abdomen: normal bowel sounds, soft, non tender, no organomegaly, non distended , no mass, no scars Genitourinary: normal external genitalia Extremities: no cyanosis, no clubbing Skin: no rash, no lesions, no ulcers Neurologic/Psychiatric: alert, responsive Lymphatic: no neck adenopathy, no groin adenopathy Musculoskeletal: normal muscle bulk, no effusion Laboratory Tests Test 12/28/18 05:25 White Blood Count 18.7 K/UL (4.8-10.8) H Red Blood Count 4.13 M/UL (4.70-6.10) L Hemoglobin 13.1 G/DL (14.2-18.0) L Hematocrit 38.9 % (42.0-52.0) L Mean Corpuscular Volume 94 FL (80-99) Mean Corpuscular Hemoglobin 31.6 PG (27.0-31.0) H Mean Corpuscular Hemoglobin Concent 33.6 G/DL (32.0-36.0) Red Cell Distribution Width 13.3 % (11.6-14.8) Platelet Count 135 K/UL (150-450) L Mean Platelet Volume 11.0 FL (6.5-10.1) H Neutrophils (%) (Auto) % (45.0-75.0) Lymphocytes (%) (Auto) % (20.0-45.0) Monocytes (%) (Auto) % (1.0-10.0) Eosinophils (%) (Auto) % (0.0-3.0) Basophils (%) (Auto) % (0.0-2.0) Differential Total Cells Counted 100 Neutrophils % (Manual) 79 % (45-75) H Lymphocytes % (Manual) 2 % (20-45) L Monocytes % (Manual) 2 % (1-10) Eosinophils % (Manual) 1 % (0-3) Basophils % (Manual) 0 % (0-2) Band Neutrophils 16 % (0-8) H Platelet Estimate Decreased L Platelet Morphology Normal Red Blood Cell Morphology Normal Sodium Level 149 MMOL/L (136-145) H Potassium Level 3.7 MMOL/L (3.5-5.1) Chloride Level 115 MMOL/L (98-107) H Carbon Dioxide Level 20 MMOL/L (21-32) L Anion Gap 14 mmol/L (5-15) Blood Urea Nitrogen 44 mg/dL (7-18) H Creatinine 1.3 MG/DL (0.55-1.30) Estimat Glomerular Filtration Rate mL/min (>60) Glucose Level 96 MG/DL (74-106) Calcium Level 8.4 MG/DL (8.5-10.1) L Total Bilirubin 0.3 MG/DL (0.2-1.0) Aspartate Amino Transf (AST/SGOT) 58 U/L (15-37) H Alanine Aminotransferase (ALT/SGPT) 38 U/L (12-78) Alkaline Phosphatase 133 U/L (46-116) H Total Protein 5.7 G/DL (6.4-8.2) L Albumin 1.0 G/DL (3.4-5.0) L Globulin 4.7 g/dL Albumin/Globulin Ratio 0.2 (1.0-2.7) L Current Medications Medications (Trade) Dose Ordered Sig/Earlene Route PRN Reason Start Time Stop Time Status Last Admin Dose Admin Acetylcysteine (Mucomyst) 200 mg Q6HRT HHN 12/28/18 13:00 01/27/19 12:59 12/28/18 12:51 Albuterol/ Ipratropium (Albuterol/ Ipratropium) 3 ml Q4H PRN HHN Shortness of Breath 12/24/18 12:15 12/29/18 12:14 Albuterol/ Ipratropium (Albuterol/ Ipratropium) 3 ml Q6HRT HHN 12/24/18 13:00 12/29/18 12:59 12/28/18 12:51 Dexamethasone Sodium Phosphate (Decadron 4mg/ml vial) 4 mg BID IVP 12/18/18 09:00 01/17/19 08:59 12/28/18 09:47 Dopamine HCl/ Dextrose 250 ml @ 0 mls/hr Q24H IV 12/17/18 20:55 01/16/19 20:54 12/17/18 20:55 Ertapenem 1 gm/ Sodium Chloride 55 ml @ 110 mls/hr Q24H IVPB 12/27/18 17:00 01/01/19 16:59 12/27/18 17:06 Heparin Sodium (Porcine) (Heparin 5000 units/ml) 5,000 units EVERY 12 HOURS SUBQ 12/24/18 21:00 01/23/19 20:59 12/27/18 20:48 Magnesium Hydroxide (Mom) 30 ml DAILYPRN PRN NG Constipation 12/24/18 15:30 01/23/19 12:44 12/24/18 16:31 Morphine Sulfate (Morphine Sulfate) 1 mg Q4H PRN IVP Shortness of breath 12/24/18 13:15 12/31/18 13:14 12/28/18 00:37 Norepinephrine Bitartrate 4 mg/ Dextrose 250 ml @ 0 mls/hr Q24H IV 12/18/18 15:00 01/17/19 14:59 12/18/18 21:34 Oxacillin Sodium 2 gm/Sodium Chloride 110 ml @ 220 mls/hr Q4HR IVPB 12/21/18 17:00 01/02/19 16:59 12/28/18 12:54 Pantoprazole (Protonix) 40 mg EVERY 12 HOURS IVP 12/18/18 21:00 01/17/19 20:59 12/28/18 09:47 Sodium Chloride 500 ml @ 999 mls/hr Q31M PRN IV For hypotension 12/20/18 11:45 01/19/19 11:44 12/23/18 16:56 Tammy Rob M.D. Dec 28, 2018 17:39
[2018-12-28] MEDS: Ertapenem 1 GM in NS 55 ML IVPB SCH (17:55)
[2018-12-28] MEDS ORDERED: Morphine Sulfate 4mg/ml Inj (IV/IM USE ONLY) IVP PRN (18:30)
[2018-12-28] MEDS ORDERED: Milk of Magnesia 30ml Ud NG PRN (18:30)
--- NOTE | 2018-12-28 18:34 | NUR ---
HAND-OFF: Report given to WESLEY Montague. Patient transferred to NIA at this time. Patient BP stable. Patient showing sinus tachycardia on the monitor. Patient tachypneic at this time. Patint on venturi mask 30% with 93% FiO2. Patient is DNR/DNI. Patient running Oxacillin 2g Iv and Ertapenem IV at this time. Endorsed to follow up.
--- NOTE | 2018-12-28 18:35 | NUR ---
NURSE NOTES: Patient transferred to NIA per Dr. Quan. Received report from Laron Ferrera RN. Patient awake, nonverbal, unable to follow commands and make needs known. Receiving O2 via Venturi mask @ 4L/min, FiO2 31%, saturating at 92%. Patient's breathing is labored. ST 110s on cardiac rehab nurse. OGT feeding of Vital AF 1.2 running @ 55 cc/hr, no residuals noted. HoB elevated. Stoddard catheter patent and draining well. Right AC 22g saline lock patent and asymptomatic. Bed locked in lowest position with side rails up x 3. All needs attended to. Call light within reach. Will continue to monitor.
--- NOTE | 2018-12-28 19:23 | NUR ---
HAND-OFF: Report given to Mireya Pérez RN.
--- NOTE | 2018-12-28 19:24 | Cardiology Progress Note ---
Assessment/Plan Assessment/Plan 1. Sinus tachycardia, most likely secondary to hypoxemia/lung CA. 2. History of coronary artery disease, status post coronary artery bypass graft surgery. 12-lead electrocardiogram does not show any ischemic changes despite the fact that the troponin I levels are elevated, not a candidate for ischemic workup given metastatic lung cancer, continue conservative management. 3. Hypoxic hypercarbic respiratory failure, resolved, due to possible acute exacerbation of COPD. 4. Non-sustained ventricular tachycardia, keep Mg level and keep >2.5, keep K > 4.0 5. 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 6. History of CVA. 7. History of COPD. 8. CONSTANCE, creat down to 1.3. Subjective Subjective Sinus tachycardia at rate of 115. Transferred to the step-down unit. On NC oxygen. Objective Last 24 Hour Vital Signs Date Time Temp Pulse Resp B/P (MAP) Pulse Ox O2 Delivery O2 Flow Rate FiO2 12/28/18 15:00 112/91 12/28/18 15:00 115 37 148/64 (92) 92 12/28/18 14:00 114 35 148/75 (99) 94 12/28/18 13:00 117 34 153/68 (96) 95 12/28/18 12:52 112 30 94 Nasal Cannula 3.0 32 12/28/18 12:02 118 26 94 Venturi Mask 4.0 31 12/28/18 12:00 Venturi Mask 4.0 12/28/18 12:00 98.3 116 35 123/76 (92) 92 12/28/18 12:00 118 12/28/18 11:00 115 27 125/60 (81) 97 12/28/18 10:00 117 28 127/45 (72) 97 12/28/18 09:00 113 27 133/55 (81) 98 12/28/18 08:00 111 12/28/18 08:00 99.1 114 27 112/39 (63) 97 12/28/18 08:00 Nasal Cannula 3.0 12/28/18 07:45 110 24 98 Nasal Cannula 2.0 32 12/28/18 07:35 107 24 97 Nasal Cannula 3.0 32 12/28/18 07:35 Nasal Cannula 3.0 32 12/28/18 07:34 98 Nasal Cannula 3.0 32 12/28/18 07:00 105 25 126/73 (90) 95 12/28/18 06:00 103 23 105/58 (74) 99 12/28/18 05:00 109 27 135/68 (90) 97 12/28/18 04:00 Nasal Cannula 3.0 12/28/18 04:00 98.6 110 25 143/81 (101) 100 12/28/18 03:44 113 12/28/18 03:00 111 28 143/68 (93) 100 12/28/18 02:00 113 27 131/47 (75) 100 12/28/18 01:59 112 26 99 Nasal Cannula 3.0 32 12/28/18 01:43 105 29 99 Nasal Cannula 3.0 32 12/28/18 01:00 104 27 140/52 (81) 99 12/28/18 00:00 98.4 108 27 148/87 (107) 95 12/28/18 00:00 Nasal Cannula 3.0 12/27/18 23:18 104 12/27/18 23:00 105 26 134/78 (96) 96 12/27/18 22:00 105 28 127/73 (91) 100 12/27/18 21:00 109 31 139/79 (99) 97 12/27/18 20:55 134/83 12/27/18 20:00 98.1 106 26 134/83 (100) 94 12/27/18 20:00 Nasal Cannula 3.0 12/27/18 19:33 106 Intake and Output 12/27/18 12/28/18 18:59 06:59 Intake Total 1155 ml 1290 ml Output Total 595 ml 1125 ml Balance 560 ml 165 ml Free Water 300 ml IV Total 495 ml 330 ml Tube Feeding 660 ml 660 ml Output Urine Total 595 ml 1125 ml # Bowel Movements 4 1 2D Echo: Global LV HK with LVEF 25%, Mild LAE, RVSP 14 mmHg, Grade I LVDD Laboratory Tests Test 12/28/18 05:25 White Blood Count 18.7 K/UL (4.8-10.8) H Red Blood Count 4.13 M/UL (4.70-6.10) L Hemoglobin 13.1 G/DL (14.2-18.0) L Hematocrit 38.9 % (42.0-52.0) L Mean Corpuscular Volume 94 FL (80-99) Mean Corpuscular Hemoglobin 31.6 PG (27.0-31.0) H Mean Corpuscular Hemoglobin Concent 33.6 G/DL (32.0-36.0) Red Cell Distribution Width 13.3 % (11.6-14.8) Platelet Count 135 K/UL (150-450) L Mean Platelet Volume 11.0 FL (6.5-10.1) H Neutrophils (%) (Auto) % (45.0-75.0) Lymphocytes (%) (Auto) % (20.0-45.0) Monocytes (%) (Auto) % (1.0-10.0) Eosinophils (%) (Auto) % (0.0-3.0) Basophils (%) (Auto) % (0.0-2.0) Differential Total Cells Counted 100 Neutrophils % (Manual) 79 % (45-75) H Lymphocytes % (Manual) 2 % (20-45) L Monocytes % (Manual) 2 % (1-10) Eosinophils % (Manual) 1 % (0-3) Basophils % (Manual) 0 % (0-2) Band Neutrophils 16 % (0-8) H Platelet Estimate Decreased L Platelet Morphology Normal Red Blood Cell Morphology Normal Sodium Level 149 MMOL/L (136-145) H Potassium Level 3.7 MMOL/L (3.5-5.1) Chloride Level 115 MMOL/L (98-107) H Carbon Dioxide Level 20 MMOL/L (21-32) L Anion Gap 14 mmol/L (5-15) Blood Urea Nitrogen 44 mg/dL (7-18) H Creatinine 1.3 MG/DL (0.55-1.30) Estimat Glomerular Filtration Rate mL/min (>60) Glucose Level 96 MG/DL (74-106) Calcium Level 8.4 MG/DL (8.5-10.1) L Total Bilirubin 0.3 MG/DL (0.2-1.0) Aspartate Amino Transf (AST/SGOT) 58 U/L (15-37) H Alanine Aminotransferase (ALT/SGPT) 38 U/L (12-78) Alkaline Phosphatase 133 U/L (46-116) H Total Protein 5.7 G/DL (6.4-8.2) L Albumin 1.0 G/DL (3.4-5.0) L Globulin 4.7 g/dL Albumin/Globulin Ratio 0.2 (1.0-2.7) L Objective HEENT: Atraumatic and normocephalic. Anicteric. Pupils are equal, round, and reactive to light and accommodation. Conjunctival pallor. NECK: JVP <5 cm, No carotid bruit. Carotid upstroke is 2+ bilaterally. CARDIOVASCULAR: Normal S1, S2. Regular rate and rhythm. Tachycardic. No murmurs, gallops, or rubs. LUNGS: Diminished breath sounds in both lungs. ABDOMEN: Soft, nontender, and nondistended. No hepatosplenomegaly. Positive bowel sounds. EXTREMITIES: No evidence of edema, clubbing, or cyanosis. There is onychomycosis. Fred Holman MD Dec 28, 2018 19:24
--- NOTE | 2018-12-28 19:30 | NUR ---
NURSE NOTES:Received pt lethargic non verbal on 31% Ventimaskm RR 40s 02 sat 86%- Suctioned tn tk creamy secretions lg in amt. Pt with 3-4+ edema to upper extremities, Pt with OGT fdg Vital AF 1.2 at 55ml/hr. Check residuals 10ml were noted . HOB kept at 45 degree on aspiration precaution. Pt with arms wheeping with fluids as well as scrotal edema. Otherwise skin is intact. Turned q 2hrs PRN with good skin care done. Will continue to monitor.
[2018-12-28] MEDS: Acetylcysteine 20% Soln 4ml HHN SCH ×2 (19:58→23:26)
--- NOTE | 2018-12-28 20:00 | NUR ---
NURSE NOTES:02 sat went up to 95% afterr suctioning. Resting well at this time.
[2018-12-28] MEDS ORDERED: Albuterol/Ipratropium 3ml neb HHN PRN (20:15)
[2018-12-28] MEDS ORDERED: DOPamine 400mg/250ml 250 ML IV SCH (20:55)
--- NOTE | 2018-12-28 23:00 | NUR ---
NURSE NOTES: Received from Luisana. Pt is lethargic and non verbal. On FiO2 31% via Ventimask and SaO2 91-92%. Given suction and oral care. Noted edema to upper extremities and Pt with arms wheeping with fluids. Elevated both arm with pillow. On OGT feeding with Vital AF 1.2 at 55ml/hr and tolerated well. No residual noted. HOB kept at 45 degree on aspiration precaution. Noted swelling on scrotum area. Changed position. his code status is DNR/DNI. Placed fall precaution. Will continue to monitor and continue to care plan.
--- NOTE | 2018-12-28 23:00 | NUR ---
HAND-OFF: Report given to Ingrid Frey
[2018-12-29] VITALS (7 sets, daily range): BP systolic 117–153; BP diastolic 59–87
[2018-12-29] MEDS: Oxacillin 2 GM in NS 110 ML IVPB SCH ×6 (00:27→21:37)
[2018-12-29 04:21] LABS: HEMATOCRIT 33.9 % (42.0-52.0); HEMOGLOBIN 11.4 G/DL (14.2-18.0); MEAN CORPUSCULAR VOLUME 94 FL (80-99); PLATELET COUNT 139 K/UL (150-450); RED BLOOD COUNT 3.61 M/UL (4.70-6.10); RED CELL DISTRIBUTION WIDTH 14.8 % (11.6-14.8)
[2018-12-29 04:49] LABS: ALANINE AMINOTRANSFERASE 30 U/L (12-78); ALBUMIN/GLOBULIN RATIO 0.2 (1.0-2.7); ALKALINE PHOSPHATASE 120 U/L (46-116); ANION GAP 11 mmol/L (5-15); ASPARTATE AMINO TRANSFERASE 47 U/L (15-37); BILIRUBIN,TOTAL 0.2 MG/DL (0.2-1.0); BLOOD UREA NITROGEN 47 mg/dL (7-18); CALCIUM 8.2 MG/DL (8.5-10.1); CARBON DIOXIDE 22 MMOL/L (21-32); CHLORIDE 118 MMOL/L (98-107); CREATININE 1.3 MG/DL (0.55-1.30); POTASSIUM 3.7 MMOL/L (3.5-5.1); SODIUM 151 MMOL/L (136-145)
[2018-12-29] MEDS: Albuterol/Ipratropium 3ml neb HHN SCH (07:07)
[2018-12-29] MEDS: Acetylcysteine 20% Soln 4ml HHN SCH ×3 (07:08→20:27)
--- NOTE | 2018-12-29 07:30 | NUR ---
NURSE NOTES: Received patient from WESLEY Quintero. Patient in bed and lethargic. On venturi mask at 10L at 02 sat at 91%. On radiation monitor. OGT is in placed and has a feeding of Vital AF 1.2 at 55cc/hour. Stoddard catheter is in placed. IV site is asymptomatic. Bed in lowest position with side rails up. Will continue to follow plan of care.
[2018-12-29] MEDS: Pantoprazole Inj IVP SCH ×2 (08:22→21:37)
[2018-12-29] MEDS: Heparin 5000 units/ml inj SUBQ SCH ×2 (08:25→21:38)
[2018-12-29] MEDS ORDERED: Dexamethasone 4mg/ml vial IVP SCH (09:00)
--- NOTE | 2018-12-29 09:51 | NUR ---
INSTALL AND REPAIR TECHNICIANTIME PIECE REPAIRER SI: RESPIRATORY FAILURE,LEUKOCYTOSIS,HYPERNATREMIA T. 98.2 HR 110 RR 40 B/P 153/80 VM 30% WBC 14.0 NA 151 BUN 47 AST 47 IS: ERTEPENEM IV DECADRON IV OXACILLIN IV PROTONIX IV ALB HEPARIN SUBC STEP DOWN STATUS
--- NOTE | 2018-12-29 10:40 | NUR ---
ST NOTE: BEDSIDE SWALLOW EVAL/CONSULT RECEIVED BEDSIDE SWALLOW EVAL ORDER CHART REVIEWED PRIOR THE EVALUATION COMPLETED SWALLOW CONSULT PT IS A 73-YEAR-OLD MALE WHO WAS ADMITTED FOR RESP FAILURE. DYSPHAGIA RISK FACTORS: ACUTE ASPIRATION PNA, AND ACUTE RESP FAILURE, METASTATIC LUNG CA (BRAIN AND SPINE), H/O CVA, FTT, S/P SUBOCCIPITAL CRANIOTOMY, FREQUENT FALL, HTN. PLOF: PT RESIDES AT [facility], PER CHART, PT WAS ON REGULAR WITH THIN LIQUID DIET. PER PT'S POLST: DNR/DNI, COMFORT-FOCUSED TX AND TRIAL PERIOD OF ARTIFICIAL NUTRITION, INCLUDING FEEDING TUBES. CURRENT STATUS: PT SEEN AT BEDSIDE IN AM. LETHARGIC, SHORTNESS OF BREATH WAS NOTED. PT IS ON VENTURI MASK. PT LETHARGIC, AND DID NOT FOLLOW DIRECTIONS. PT HAS OGT. QUESTIONABLE DEGREE OF OROPHARYNGEAL DYSPHAGIA BUT HAS HIGH ASPIRATION RISK DUE TO PT HAS ACUTE ASPIRATION PNA. PER MD, LIKELY TRANSITION TO PALLIATIVE MEASURES. RECOMMENDATIONS: 1. CONTINUE STRICT NPO. 2. CONTINUE NONORAL FEEDING MEANS TO MEET NUTRITION AND HYDRATION NEEDS. 3. CONSIDER COMFORT MEASURES. NO FURTHER SKILLED ST SERVICE IS REQUIRED AT THIS TIME. D/C FROM ST SERVICE. PLEASE RE-ORDER ST EVAL IF NEEDED. RNJACKSON, NOTIFIED.
--- NOTE | 2018-12-29 11:02 | NUR ---
Social Service Note JAIME spoke with patient's Grisel La [phone] and confirmed plan for discharge. Patient will return home to [address] [place] [id number]. JAIME spoke with Elle at [facility] [phone] (p). Patient information faxed to [phone]. has a scheduled meeting with Elle this afternoon. Anticipated dc tomorrow. Will monitor and follow up.
--- NOTE | 2018-12-29 11:48 | General Progress Note ---
Assessment/Plan Assessment/Plan S, O: limited eval. Patient extubated. however is on Venti Mask, Stoddard inserted. patient is awake but delirious. not following commands PHYSICAL EXAMINATION: HEAD AND NECK: P limited source of evaluation. Off the Vent. Atraumatic and normocephalic. CHEST: Diffuse bronchial breathing sounds. Positive for diffuse crackles.HEART: S1 and S2. Tachyarrhythmia. ABDOMEN: Soft. No organomegaly.MUSCULOSKELETAL: Atrophied musculature, limited evaluation. The patient is not following compounds, sedated. Imaging: CXR dated Dec 26 reviewed Med: reviewed , including Ertapenem ASSESSMENT AND PLAN: 1. Vent-dependent respiratory failure. Resolved, currently on Venti Mask 2. Septic shock: Staph Aureus 3. Healthcare-associated pneumonia. 3. Non-ST myocardial infarction. Abnormal Trop 4. Metastatic lung CA. 5. Left sided small PNTX 5. GI and DVT prophylaxes. PLAN OF CARE: 1. Worsening of leukocytosis 3. Grave prognosis. 4. Infectious Disease, Pulmonary, and Cardiology Notes are reviewed 6. Left sided small PNTX , will monitor , if worsen will proceed with Chest-T PLan: Ok Hospice to coordinate care to transition to home on Saturday Ok to Re-intubate if needed Per my conversation with the , [id number] with patient on Saturday. Proceed with Palliative extubation/care on Saturday/Saturday with the goal of transitioning to home comment: patient seen and examined on - Timing of this note does not reflect actual time of the encounter Subjective Allergies: Coded Allergies: No Known Allergies (Unverified , 12/17/18) Objective Last 24 Hour Vital Signs Date Time Temp Pulse Resp B/P (MAP) Pulse Ox O2 Delivery O2 Flow Rate FiO2 12/29/18 08:00 Venturi Mask 4.0 12/29/18 08:00 98.2 104 28 131/87 (102) 91 12/29/18 07:34 100 12/29/18 07:18 87 18 95 Venturi Mask 4.0 31 12/29/18 07:08 100 20 92 Venturi Mask 4.0 31 12/29/18 07:05 92 Venturi Mask 4.0 31 12/29/18 07:05 Venturi Mask 4.0 31 12/29/18 04:00 Venturi Mask 4.0 12/29/18 04:00 98.3 110 40 149/59 (89) 91 12/29/18 04:00 114 12/29/18 00:00 97.9 110 40 153/80 (104) 91 12/29/18 00:00 104 12/29/18 00:00 Venturi Mask 4.0 12/29/18 00:00 105 12/28/18 23:58 104 18 93 Venturi Mask 4.0 31 12/28/18 23:36 94 18 100 Venturi Mask 4.0 31 12/28/18 23:26 96 20 93 Venturi Mask 4.0 31 12/28/18 20:15 102 18 99 Venturi Mask 4.0 31 12/28/18 20:04 Nasal Cannula 3.0 32 12/28/18 20:01 102 20 100 Venturi Mask 4.0 31 12/28/18 20:00 98.8 115 40 157/75 (102) 94 12/28/18 20:00 106 12/28/18 20:00 Venturi Mask 4.0 12/28/18 19:59 96 Venturi Mask 4.0 31 12/28/18 17:00 120 30 145/57 (86) 92 12/28/18 16:00 98.3 116 35 154/57 (89) 93 12/28/18 16:00 Venturi Mask 4.0 12/28/18 16:00 115 12/28/18 15:00 112/91 12/28/18 15:00 115 37 148/64 (92) 92 12/28/18 14:00 114 35 148/75 (99) 94 12/28/18 13:00 117 34 153/68 (96) 95 12/28/18 12:52 112 30 94 Nasal Cannula 3.0 32 12/28/18 12:02 118 26 94 Venturi Mask 4.0 31 12/28/18 12:00 Venturi Mask 4.0 12/28/18 12:00 98.3 116 35 123/76 (92) 92 12/28/18 12:00 118 Intake and Output 12/28/18 12/29/18 19:00 07:00 Intake Total 990 ml 525 ml Output Total 797 ml 1100 ml Balance 193 ml -575 ml Free Water 30 ml IV Total 385 ml 110 ml Tube Feeding 605 ml 385 ml Output Urine Total 797 ml 1100 ml # Bowel Movements 1 Laboratory Tests 12/29/18 03:10: White Blood Count 14.0H, Red Blood Count 3.61L, Hemoglobin 11.4L, Hematocrit 33.9L, Mean Corpuscular Volume 94, Mean Corpuscular Hemoglobin 31.6H, Mean Corpuscular Hemoglobin Concent 33.7, Red Cell Distribution Width 14.8, Platelet Count 139L, Mean Platelet Volume 10.9H, Neutrophils (%) (Auto) , Lymphocytes (% ) (Auto) , Monocytes (%) (Auto) , Eosinophils (%) (Auto) , Basophils (%) (Auto) , Sodium Level 151H, Potassium Level 3.7, Chloride Level 118H, Carbon Dioxide Level 22, Anion Gap 11, Blood Urea Nitrogen 47H, Creatinine 1.3, Estimat Glomerular Filtration Rate , Glucose Level 113H, Calcium Level 8.2L, Total Bilirubin 0.2, Aspartate Amino Transf (AST/SGOT) 47H, Alanine Aminotransferase ( ALT/SGPT) 30, Alkaline Phosphatase 120H, Total Protein 5.4L, Albumin 1.0L, Globulin 4.4, Albumin/Globulin Ratio 0.2L Height (Feet): 5 Height (Inches): 9.00 Weight (Pounds): 125 Bruno Enamorado MD Dec 29, 2018 11:48
--- NOTE | 2018-12-29 12:11 | Surgery Progress Note ---
Surgery Progress Note Subjective Additional Comments out of ICU. doing better. no complaints labs noted. Objective Last 24 Hour Vital Signs Date Time Temp Pulse Resp B/P (MAP) Pulse Ox O2 Delivery O2 Flow Rate FiO2 12/29/18 08:00 Venturi Mask 4.0 12/29/18 08:00 98.2 104 28 131/87 (102) 91 12/29/18 07:34 100 12/29/18 07:18 87 18 95 Venturi Mask 4.0 31 12/29/18 07:08 100 20 92 Venturi Mask 4.0 31 12/29/18 07:05 92 Venturi Mask 4.0 31 12/29/18 07:05 Venturi Mask 4.0 31 12/29/18 04:00 Venturi Mask 4.0 12/29/18 04:00 98.3 110 40 149/59 (89) 91 12/29/18 04:00 114 12/29/18 00:00 97.9 110 40 153/80 (104) 91 12/29/18 00:00 104 12/29/18 00:00 Venturi Mask 4.0 12/29/18 00:00 105 12/28/18 23:58 104 18 93 Venturi Mask 4.0 31 12/28/18 23:36 94 18 100 Venturi Mask 4.0 31 12/28/18 23:26 96 20 93 Venturi Mask 4.0 31 12/28/18 20:15 102 18 99 Venturi Mask 4.0 31 12/28/18 20:04 Nasal Cannula 3.0 32 12/28/18 20:01 102 20 100 Venturi Mask 4.0 31 12/28/18 20:00 98.8 115 40 157/75 (102) 94 12/28/18 20:00 106 12/28/18 20:00 Venturi Mask 4.0 12/28/18 19:59 96 Venturi Mask 4.0 31 12/28/18 17:00 120 30 145/57 (86) 92 12/28/18 16:00 98.3 116 35 154/57 (89) 93 12/28/18 16:00 Venturi Mask 4.0 12/28/18 16:00 115 12/28/18 15:00 112/91 12/28/18 15:00 115 37 148/64 (92) 92 12/28/18 14:00 114 35 148/75 (99) 94 12/28/18 13:00 117 34 153/68 (96) 95 12/28/18 12:52 112 30 94 Nasal Cannula 3.0 32 I&O Intake and Output 12/28/18 12/29/18 19:00 07:00 Intake Total 990 ml 525 ml Output Total 797 ml 1100 ml Balance 193 ml -575 ml Free Water 30 ml IV Total 385 ml 110 ml Tube Feeding 605 ml 385 ml Output Urine Total 797 ml 1100 ml # Bowel Movements 1 Dressing: other Wound: other Drains: other Cardiovascular: RSR Respiratory: decreased breath sounds Abdomen: soft, present bowel sounds, non-distended Extremities: no cyanosis Laboratory Tests Test 12/29/18 03:10 White Blood Count 14.0 K/UL (4.8-10.8) H Red Blood Count 3.61 M/UL (4.70-6.10) L Hemoglobin 11.4 G/DL (14.2-18.0) L Hematocrit 33.9 % (42.0-52.0) L Mean Corpuscular Volume 94 FL (80-99) Mean Corpuscular Hemoglobin 31.6 PG (27.0-31.0) H Mean Corpuscular Hemoglobin Concent 33.7 G/DL (32.0-36.0) Red Cell Distribution Width 14.8 % (11.6-14.8) Platelet Count 139 K/UL (150-450) L Mean Platelet Volume 10.9 FL (6.5-10.1) H Neutrophils (%) (Auto) % (45.0-75.0) Lymphocytes (%) (Auto) % (20.0-45.0) Monocytes (%) (Auto) % (1.0-10.0) Eosinophils (%) (Auto) % (0.0-3.0) Basophils (%) (Auto) % (0.0-2.0) Sodium Level 151 MMOL/L (136-145) H Potassium Level 3.7 MMOL/L (3.5-5.1) Chloride Level 118 MMOL/L (98-107) H Carbon Dioxide Level 22 MMOL/L (21-32) Anion Gap 11 mmol/L (5-15) Blood Urea Nitrogen 47 mg/dL (7-18) H Creatinine 1.3 MG/DL (0.55-1.30) Estimat Glomerular Filtration Rate mL/min (>60) Glucose Level 113 MG/DL (74-106) H Calcium Level 8.2 MG/DL (8.5-10.1) L Total Bilirubin 0.2 MG/DL (0.2-1.0) Aspartate Amino Transf (AST/SGOT) 47 U/L (15-37) H Alanine Aminotransferase (ALT/SGPT) 30 U/L (12-78) Alkaline Phosphatase 120 U/L (46-116) H Total Protein 5.4 G/DL (6.4-8.2) L Albumin 1.0 G/DL (3.4-5.0) L Globulin 4.4 g/dL Albumin/Globulin Ratio 0.2 (1.0-2.7) L Plan Problems: (1) Pneumothorax, left Assessment & Plan: left small pneumothorax seen on CXR today patient on vent support with positive pressure currently saturating well and stable Repeat CXR stable - possible effusion now? will monitor for now if worsening will need left chest tube placement STAT CXR and call me if desaturates leukocytosis worsening may consider CT scan. will discuss with team extubated and tolerating so far thank you will follow with recs. (2) Severe sepsis Chris Messer Dec 29, 2018 12:11
[2018-12-29] MEDS ORDERED: Ipratropium 0.02% Inh Soln 2.5ml UD HHN PRN ×2 (13:15→16:57)
--- NOTE | 2018-12-29 13:17 | Pulmonology Progress Note ---
Assessment/Plan Problems: (1) Severe sepsis (2) NSTEMI (non-ST elevated myocardial infarction) (3) Acute respiratory failure (4) Sepsis (5) CONSTANCE (acute kidney injury) (6) Acute aspiration pneumonia (7) Lung cancer metastatic to brain (8) Gram positive sepsis (9) CHF (congestive heart failure) (10) Leukocytosis (11) Respiratory failure (12) Pneumothorax, left (13) Poor prognosis Assessment/Plan Optimize pulmonary hygiene/mobilize as tolerated Titrate down FiO2 to keep SaO2 > 92% RTC and PRN ATROVENT only HHN's Mucomyst HHN's Monitor volumes and renal function, SLIV Abx per ID DVT Px: Hep SQ NPO, per SYSTEMS SOFTWARE DESIGNER unsafe/unable for PO, NGTF's CH2O through NGT DNAR/DNI --> plan for transition to hospice noted Subjective Allergies: Coded Allergies: No Known Allergies (Unverified , 12/17/18) Subjective TTF NIA AFVSS x ST on VM No distress no F/C, no cough no SOB SYSTEMS SOFTWARE DESIGNER eval noted Objective Last 24 Hour Vital Signs Date Time Temp Pulse Resp B/P (MAP) Pulse Ox O2 Delivery O2 Flow Rate FiO2 12/29/18 08:00 Venturi Mask 4.0 12/29/18 08:00 98.2 104 28 131/87 (102) 91 12/29/18 07:34 100 12/29/18 07:18 87 18 95 Venturi Mask 4.0 31 12/29/18 07:08 100 20 92 Venturi Mask 4.0 31 12/29/18 07:05 92 Venturi Mask 4.0 31 12/29/18 07:05 Venturi Mask 4.0 31 12/29/18 04:00 Venturi Mask 4.0 12/29/18 04:00 98.3 110 40 149/59 (89) 91 12/29/18 04:00 114 12/29/18 00:00 97.9 110 40 153/80 (104) 91 12/29/18 00:00 104 12/29/18 00:00 Venturi Mask 4.0 12/29/18 00:00 105 12/28/18 23:58 104 18 93 Venturi Mask 4.0 31 12/28/18 23:36 94 18 100 Venturi Mask 4.0 31 12/28/18 23:26 96 20 93 Venturi Mask 4.0 31 12/28/18 20:15 102 18 99 Venturi Mask 4.0 31 12/28/18 20:04 Nasal Cannula 3.0 32 12/28/18 20:01 102 20 100 Venturi Mask 4.0 31 12/28/18 20:00 98.8 115 40 157/75 (102) 94 12/28/18 20:00 106 12/28/18 20:00 Venturi Mask 4.0 12/28/18 19:59 96 Venturi Mask 4.0 31 12/28/18 17:00 120 30 145/57 (86) 92 12/28/18 16:00 98.3 116 35 154/57 (89) 93 12/28/18 16:00 Venturi Mask 4.0 12/28/18 16:00 115 12/28/18 15:00 112/91 12/28/18 15:00 115 37 148/64 (92) 92 12/28/18 14:00 114 35 148/75 (99) 94 Intake and Output 12/28/18 12/29/18 19:00 07:00 Intake Total 990 ml 525 ml Output Total 797 ml 1100 ml Balance 193 ml -575 ml Free Water 30 ml IV Total 385 ml 110 ml Tube Feeding 605 ml 385 ml Output Urine Total 797 ml 1100 ml # Bowel Movements 1 General Appearance: cachetic HEENT: normocephalic, atraumatic Respiratory/Chest: rhonchi Cardiovascular: tachycardia Abdomen: normal bowel sounds, soft, non tender, no organomegaly, non distended , no mass Extremities: no cyanosis, no clubbing, no edema Laboratory Tests 12/29/18 03:10: White Blood Count 14.0H, Red Blood Count 3.61L, Hemoglobin 11.4L, Hematocrit 33.9L, Mean Corpuscular Volume 94, Mean Corpuscular Hemoglobin 31.6H, Mean Corpuscular Hemoglobin Concent 33.7, Red Cell Distribution Width 14.8, Platelet Count 139L, Mean Platelet Volume 10.9H, Neutrophils (%) (Auto) , Lymphocytes (% ) (Auto) , Monocytes (%) (Auto) , Eosinophils (%) (Auto) , Basophils (%) (Auto) , Sodium Level 151H, Potassium Level 3.7, Chloride Level 118H, Carbon Dioxide Level 22, Anion Gap 11, Blood Urea Nitrogen 47H, Creatinine 1.3, Estimat Glomerular Filtration Rate , Glucose Level 113H, Calcium Level 8.2L, Total Bilirubin 0.2, Aspartate Amino Transf (AST/SGOT) 47H, Alanine Aminotransferase ( ALT/SGPT) 30, Alkaline Phosphatase 120H, Total Protein 5.4L, Albumin 1.0L, Globulin 4.4, Albumin/Globulin Ratio 0.2L Current Medications Medications (Trade) Dose Ordered Sig/Earlene Route PRN Reason Start Time Stop Time Status Last Admin Dose Admin Acetylcysteine (Mucomyst) 200 mg Q6HRT HHN 12/28/18 19:00 01/27/19 12:59 12/29/18 07:08 Dexamethasone Sodium Phosphate (Decadron 4mg/ml vial) 4 mg BID IVP 12/29/18 09:00 01/17/19 08:59 12/29/18 08:22 Ertapenem 1 gm/ Sodium Chloride 55 ml @ 110 mls/hr Q24H IVPB 12/29/18 17:00 01/01/19 16:59 Heparin Sodium (Porcine) (Heparin 5000 units/ml) 5,000 units EVERY 12 HOURS SUBQ 12/28/18 21:00 01/23/19 20:59 12/29/18 08:25 Magnesium Hydroxide (Mom) 30 ml DAILYPRN PRN NG Constipation 12/28/18 18:30 01/27/19 18:29 Morphine Sulfate (Morphine Sulfate) 1 mg Q4H PRN IVP Shortness of breath 12/28/18 18:30 12/31/18 18:29 Oxacillin Sodium 2 gm/Sodium Chloride 110 ml @ 220 mls/hr Q4HR IVPB 12/28/18 21:00 01/02/19 16:59 12/29/18 13:02 Pantoprazole (Protonix) 40 mg EVERY 12 HOURS IVP 12/28/18 21:00 01/17/19 20:59 12/29/18 08:22 Sodium Chloride 500 ml @ 999 mls/hr Q31M PRN IV For hypotension 12/28/18 18:15 01/19/19 11:44 Solomon Quan MD Dec 29, 2018 13:17
--- NOTE | 2018-12-29 13:34 | NUR ---
RD ASSESSMENT & RECOMMENDATIONS SEE CARE ACTIVITY FOR COMPLETE ASSESSMENT DAILY ESTIMATED NEEDS: Needs based on Cancer, underweight 56.8kg 30-35 kcals/kg 9238-1205 total kcals 1-1.5 g protein/kg 57-86 g total protein 25-30 mL/kg 0355-0633 total fluid mLs NUTRITION DIAGNOSIS: Swallowing difficulty r/t respiratory status as evidenced by pt now extubated, remains on OGT feeding, RN NEONATAL recommends strict NPO. CURRENT TF:Vital AF 1.2 @ 55ml/hr x 24 hrs ENTERAL NUTRITION RECOMMENDATIONS: Glucerna 1.2 @ 60ml/hr x 24 hrs to provide 1440ml, 1728kcal, 86g prot, 1159ml free water - Rec TF change to Jevity 1.2- Vital AF no longer indicated, s/p extubation - Initiate Jevity 1.2 @ 20ml/hr x 6 hrs, advance 10ml q 4-6 hrs as tolerated to goal rate. - HOB over 30 degrees/ Increase water flushes (BUN and Na trend up) ADDITIONAL RECOMMENDATIONS: 1) Monitor lytes daily on TF/ replete as needed 2) Monitor BGS closely, need for carb controlled TF/ SSI 3) Monitor POC- plan for DC w/ palliative care at this time 4) Monitor lytes, replete as needed . .
--- NOTE | 2018-12-29 14:51 | NUR ---
Social Service Note JAIME met with Elle from [facility]. Patient will dc tomorrow at 1230. JAIME informed Dr. Enamorado of dc of [facility] and [facility]. Ambulance arranged with [facility] [phone] pick out hand time 1230.
--- NOTE | 2018-12-29 15:22 | Infectious Diseases Prog Note ---
Assessment/Plan Problems: (1) Acute aspiration pneumonia Assessment & Plan: with new patchy infiltrates on his CXR , continue ertapenem , sputum culture grew yeast most likely colonization . aspiration precaution, keep HOB > 30 degree. monitor CXR . (2) Sepsis Assessment & Plan: due to methicillin sensitive staph aureus , continue oxacillin IV for minimum of four weeks . trans thoracic echo done on admission ruled out valve vegetations , repeated blood culture is finally negative on . will need 4 weeks course of treatment with iv antibiotics for his MSSA bacteremia .EOT 01/20/19 (3) CONSTANCE (acute kidney injury) Assessment & Plan: due to the above , continue hydration with renally dosed antibiotics , renal follow up, monitor UOP (4) Acute respiratory failure Assessment & Plan: due to the above , extubated on high flow oxygen , pulmonary is following , monitor ABG, and CXR , encourage coughing, CPT. (5) Lung cancer metastatic to brain Assessment & Plan: S/P radiation and chemo therapy at [place] , now with poor prognosis, recommend palliative care . (6) Leukocytosis Assessment & Plan: suspect due to steroids , recommend to taper, monitor WBC (7) Pneumothorax, left Assessment & Plan: monitor CXR , surgery is following (8) Poor prognosis Assessment & Plan: with metastatic cancer, recommend palliative care and hospice Subjective ROS Limited/Unobtainable: Yes Allergies: Coded Allergies: No Known Allergies (Unverified , 12/17/18) Subjective he was lethargic on high flow oxygen, responsive to verbal commands, coughing and congested , afebrile. Objective Vital Signs Last 24 Hour Vital Signs Date Time Temp Pulse Resp B/P (MAP) Pulse Ox O2 Delivery O2 Flow Rate FiO2 12/29/18 14:43 101 20 99 Venturi Mask 4.0 31 12/29/18 14:33 60 20 96 Venturi Mask 4.0 31 12/29/18 12:00 98.8 110 28 138/77 (97) 95 12/29/18 12:00 Venturi Mask 4.0 12/29/18 11:59 107 12/29/18 08:00 Venturi Mask 4.0 12/29/18 08:00 98.2 104 28 131/87 (102) 91 12/29/18 07:34 100 12/29/18 07:18 87 18 95 Venturi Mask 4.0 31 12/29/18 07:08 100 20 92 Venturi Mask 4.0 31 12/29/18 07:05 92 Venturi Mask 4.0 31 12/29/18 07:05 Venturi Mask 4.0 31 12/29/18 04:00 Venturi Mask 4.0 12/29/18 04:00 98.3 110 40 149/59 (89) 91 12/29/18 04:00 114 12/29/18 00:00 97.9 110 40 153/80 (104) 91 12/29/18 00:00 104 12/29/18 00:00 Venturi Mask 4.0 12/29/18 00:00 105 12/28/18 23:58 104 18 93 Venturi Mask 4.0 31 12/28/18 23:36 94 18 100 Venturi Mask 4.0 31 12/28/18 23:26 96 20 93 Venturi Mask 4.0 31 12/28/18 20:15 102 18 99 Venturi Mask 4.0 31 12/28/18 20:04 Nasal Cannula 3.0 32 12/28/18 20:01 102 20 100 Venturi Mask 4.0 31 12/28/18 20:00 98.8 115 40 157/75 (102) 94 12/28/18 20:00 106 12/28/18 20:00 Venturi Mask 4.0 12/28/18 19:59 96 Venturi Mask 4.0 31 12/28/18 17:00 120 30 145/57 (86) 92 12/28/18 16:00 98.3 116 35 154/57 (89) 93 12/28/18 16:00 Venturi Mask 4.0 12/28/18 16:00 115 Height (Feet): 5 Height (Inches): 9.00 Weight (Pounds): 125 General Appearance: no acute distress, cachetic HEENT: normocephalic, atraumatic, anicteric, mucous membranes moist, PERRL Respiratory/Chest: chest wall non-tender, no respiratory distress, no accessory muscle use, decreased breath sounds, crackles/rales, expiratory wheezing Cardiovascular: normal peripheral pulses, normal rate, regular rhythm, no gallop/murmur, no JVD Abdomen: normal bowel sounds, soft, non tender, no organomegaly, non distended , no mass, no scars Extremities: no cyanosis, no clubbing Skin: no rash, no lesions, no ulcers Neurologic/Psychiatric: alert, responsive Lymphatic: no neck adenopathy, no groin adenopathy Musculoskeletal: normal muscle bulk, no effusion Laboratory Tests Test 12/29/18 03:10 White Blood Count 14.0 K/UL (4.8-10.8) H Red Blood Count 3.61 M/UL (4.70-6.10) L Hemoglobin 11.4 G/DL (14.2-18.0) L Hematocrit 33.9 % (42.0-52.0) L Mean Corpuscular Volume 94 FL (80-99) Mean Corpuscular Hemoglobin 31.6 PG (27.0-31.0) H Mean Corpuscular Hemoglobin Concent 33.7 G/DL (32.0-36.0) Red Cell Distribution Width 14.8 % (11.6-14.8) Platelet Count 139 K/UL (150-450) L Mean Platelet Volume 10.9 FL (6.5-10.1) H Neutrophils (%) (Auto) % (45.0-75.0) Lymphocytes (%) (Auto) % (20.0-45.0) Monocytes (%) (Auto) % (1.0-10.0) Eosinophils (%) (Auto) % (0.0-3.0) Basophils (%) (Auto) % (0.0-2.0) Sodium Level 151 MMOL/L (136-145) H Potassium Level 3.7 MMOL/L (3.5-5.1) Chloride Level 118 MMOL/L (98-107) H Carbon Dioxide Level 22 MMOL/L (21-32) Anion Gap 11 mmol/L (5-15) Blood Urea Nitrogen 47 mg/dL (7-18) H Creatinine 1.3 MG/DL (0.55-1.30) Estimat Glomerular Filtration Rate mL/min (>60) Glucose Level 113 MG/DL (74-106) H Calcium Level 8.2 MG/DL (8.5-10.1) L Total Bilirubin 0.2 MG/DL (0.2-1.0) Aspartate Amino Transf (AST/SGOT) 47 U/L (15-37) H Alanine Aminotransferase (ALT/SGPT) 30 U/L (12-78) Alkaline Phosphatase 120 U/L (46-116) H Total Protein 5.4 G/DL (6.4-8.2) L Albumin 1.0 G/DL (3.4-5.0) L Globulin 4.4 g/dL Albumin/Globulin Ratio 0.2 (1.0-2.7) L Current Medications Medications (Trade) Dose Ordered Sig/Earlene Route PRN Reason Start Time Stop Time Status Last Admin Dose Admin Acetylcysteine (Mucomyst) 200 mg Q6HRT HHN 12/28/18 19:00 01/27/19 12:59 12/29/18 14:32 Dexamethasone Sodium Phosphate (Decadron 4mg/ml vial) 4 mg BID IVP 12/29/18 09:00 01/17/19 08:59 12/29/18 08:22 Ertapenem 1 gm/ Sodium Chloride 55 ml @ 110 mls/hr Q24H IVPB 12/29/18 17:00 01/01/19 16:59 Heparin Sodium (Porcine) (Heparin 5000 units/ml) 5,000 units EVERY 12 HOURS SUBQ 12/28/18 21:00 01/23/19 20:59 12/29/18 08:25 Ipratropium [place] (Atrovent) 500 mcg Q4H PRN HHN Shortness of Breath 12/29/18 13:15 01/03/19 13:14 12/29/18 14:37 Ipratropium [place] (Atrovent) 500 mcg Q6HRT HHN 12/29/18 19:00 01/03/19 18:59 Magnesium Hydroxide (Mom) 30 ml DAILYPRN PRN NG Constipation 12/28/18 18:30 01/27/19 18:29 Morphine Sulfate (Morphine Sulfate) 1 mg Q4H PRN IVP Shortness of breath 12/28/18 18:30 12/31/18 18:29 Oxacillin Sodium 2 gm/Sodium Chloride 110 ml @ 220 mls/hr Q4HR IVPB 12/28/18 21:00 01/02/19 16:59 12/29/18 13:02 Pantoprazole (Protonix) 40 mg EVERY 12 HOURS IVP 12/28/18 21:00 01/17/19 20:59 12/29/18 08:22 Sodium Chloride 500 ml @ 999 mls/hr Q31M PRN IV For hypotension 12/28/18 18:15 01/19/19 11:44 Tammy Rob M.D. Dec 29, 2018 15:22
--- NOTE | 2018-12-29 15:30 | General Progress Note ---
Assessment/Plan Assessment/Plan S, O: limited eval. Patient is on Venturi Mask, [place] inserted. patient is awake but delirious. not following commands. I met the at the bed side . PHYSICAL EXAMINATION: HEAD AND NECK: P limited source of evaluation. Off the Vent. Atraumatic and normocephalic. CHEST: Diffuse bronchial breathing sounds. Positive for diffuse crackles.HEART: S1 and S2. Tachyarrhythmia. ABDOMEN: Soft. No organomegaly.MUSCULOSKELETAL: Atrophied musculature, limited evaluation. The patient is not following compounds, sedated. Imaging: CXR dated Dec 26 reviewed Med: reviewed , including Ertapenem ASSESSMENT AND PLAN: 1. Vent-dependent respiratory failure. Resolved, currently on Venti Mask 2. Septic shock: Staph Aureus 3. Healthcare-associated pneumonia. 3. Non-ST myocardial infarction. Abnormal Trop 4. Metastatic lung CA. 5. Left sided small PNTX 5. GI and DVT prophylaxes. PLAN OF CARE: 1. Worsening of leukocytosis 3. Grave prognosis. 4. Infectious Disease, Pulmonary, and Cardiology Notes are reviewed 6. Left sided small PNTX , will monitor , if worsen will proceed with Chest-T PLan: Ok Hospice to coordinate care to transition to home on Saturday Comfort care Per my conversation with the , will proceed with Palliative care in home on Saturday Subjective Allergies: Coded Allergies: No Known Allergies (Unverified , 12/17/18) Objective Last 24 Hour Vital Signs Date Time Temp Pulse Resp B/P (MAP) Pulse Ox O2 Delivery O2 Flow Rate FiO2 12/29/18 14:43 101 20 99 Venturi Mask 4.0 31 12/29/18 14:33 60 20 96 Venturi Mask 4.0 31 12/29/18 12:00 98.8 110 28 138/77 (97) 95 12/29/18 12:00 Venturi Mask 4.0 12/29/18 11:59 107 12/29/18 08:00 Venturi Mask 4.0 12/29/18 08:00 98.2 104 28 131/87 (102) 91 12/29/18 07:34 100 12/29/18 07:18 87 18 95 Venturi Mask 4.0 31 12/29/18 07:08 100 20 92 Venturi Mask 4.0 31 12/29/18 07:05 92 Venturi Mask 4.0 31 12/29/18 07:05 Venturi Mask 4.0 31 12/29/18 04:00 Venturi Mask 4.0 12/29/18 04:00 98.3 110 40 149/59 (89) 91 12/29/18 04:00 114 12/29/18 00:00 97.9 110 40 153/80 (104) 91 12/29/18 00:00 104 12/29/18 00:00 Venturi Mask 4.0 12/29/18 00:00 105 12/28/18 23:58 104 18 93 Venturi Mask 4.0 31 12/28/18 23:36 94 18 100 Venturi Mask 4.0 31 12/28/18 23:26 96 20 93 Venturi Mask 4.0 31 12/28/18 20:15 102 18 99 Venturi Mask 4.0 31 12/28/18 20:04 Nasal Cannula 3.0 32 12/28/18 20:01 102 20 100 Venturi Mask 4.0 31 12/28/18 20:00 98.8 115 40 157/75 (102) 94 12/28/18 20:00 106 12/28/18 20:00 Venturi Mask 4.0 12/28/18 19:59 96 Venturi Mask 4.0 31 12/28/18 17:00 120 30 145/57 (86) 92 12/28/18 16:00 98.3 116 35 154/57 (89) 93 12/28/18 16:00 Venturi Mask 4.0 12/28/18 16:00 115 Intake and Output 12/28/18 12/29/18 19:00 07:00 Intake Total 990 ml 525 ml Output Total 797 ml 1100 ml Balance 193 ml -575 ml Free Water 30 ml IV Total 385 ml 110 ml Tube Feeding 605 ml 385 ml Output Urine Total 797 ml 1100 ml # Bowel Movements 1 Laboratory Tests 12/29/18 03:10: White Blood Count 14.0H, Red Blood Count 3.61L, Hemoglobin 11.4L, Hematocrit 33.9L, Mean Corpuscular Volume 94, Mean Corpuscular Hemoglobin 31.6H, Mean Corpuscular Hemoglobin Concent 33.7, Red Cell Distribution Width 14.8, Platelet Count 139L, Mean Platelet Volume 10.9H, Neutrophils (%) (Auto) , Lymphocytes (% ) (Auto) , Monocytes (%) (Auto) , Eosinophils (%) (Auto) , Basophils (%) (Auto) , Sodium Level 151H, Potassium Level 3.7, Chloride Level 118H, Carbon Dioxide Level 22, Anion Gap 11, Blood Urea Nitrogen 47H, Creatinine 1.3, Estimat Glomerular Filtration Rate , Glucose Level 113H, Calcium Level 8.2L, Total Bilirubin 0.2, Aspartate Amino Transf (AST/SGOT) 47H, Alanine Aminotransferase ( ALT/SGPT) 30, Alkaline Phosphatase 120H, Total Protein 5.4L, Albumin 1.0L, Globulin 4.4, Albumin/Globulin Ratio 0.2L Height (Feet): 5 Height (Inches): 9.00 Weight (Pounds): 125 Bruno Enamorado MD Dec 29, 2018 15:30
--- NOTE | 2018-12-29 16:45 | NUR ---
TRANSFER TO FLOOR: Patient transferred to [facility], per Dr. Enamorado. Report given to WESLEY Real. Belongings and medications given to WESLEY Real. Patient stable and in no apparent distress.
[2018-12-29] MEDS ORDERED: Milk of Magnesia 30ml Ud NG PRN (16:58)
[2018-12-29] MEDS ORDERED: Morphine Sulfate 4mg/ml Inj (IV/IM USE ONLY) IVP PRN (16:58)
[2018-12-29] MEDS ORDERED: Ertapenem 1 GM in NS 55 ML IVPB SCH ×2 (17:00→18:00)
[2018-12-29] MEDS: Dexamethasone 4mg/ml vial IVP SCH (17:55)
[2018-12-29] MEDS ORDERED: Ipratropium 0.02% Inh Soln 2.5ml UD HHN SCH (19:00)
--- NOTE | 2018-12-29 19:30 | NUR ---
NURSE NOTES: Received patient in bed on venturi mask at 5L O2Sat at 92%. No signs of distress noted. Breathing labored. No facial grimacing noted. On feeding at 55 cc/hr. No gastric residual noted. HOB elevated for aspiration precaution. Will continue to monitor.
--- NOTE | 2018-12-29 19:42 | NUR ---
HAND-OFF: Report given to Ashlyn OLSON.
[2018-12-29] MEDS: Ipratropium 0.02% Inh Soln 2.5ml UD HHN SCH (20:27)
--- NOTE | 2018-12-29 22:23 | NUR ---
HAND-OFF: Report given to WESLEY Ugalde. patient not in any form of distress.
--- NOTE | 2018-12-29 22:40 | NUR ---
NURSE NOTES: patient received. patient in no acute distress at this time. patient non verbal. patient IV intact and asymptomatic. Gtube running. will continue to monitor.
--- NOTE | 2018-12-29 23:52 | Cardiology Progress Note ---
Assessment/Plan Assessment/Plan 1. Sinus tachycardia, most likely secondary to hypoxemia/lung CA. 2. History of coronary artery disease, status post coronary artery bypass graft surgery. 12-lead electrocardiogram does not show any ischemic changes despite the fact that the troponin I levels are elevated, not a candidate for ischemic workup given metastatic lung cancer, continue conservative management. 3. Hypoxic hypercarbic respiratory failure, resolved, due to possible acute exacerbation of COPD. 4. Non-sustained ventricular tachycardia, keep Mg level and keep >2.5, keep K > 4.0 5. 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 6. History of CVA. 7. History of COPD. 8. CONSTANCE, creat down to 1.3. Subjective Subjective Sinus tachycardia at rate of 115. Transferred to the step-down unit. On NC oxygen. Objective Last 24 Hour Vital Signs Date Time Temp Pulse Resp B/P (MAP) Pulse Ox O2 Delivery O2 Flow Rate FiO2 12/29/18 20:45 94 Venturi Mask 4.0 31 12/29/18 20:45 Venturi Mask 4.0 31 12/29/18 20:44 54 22 98 Venturi Mask 4.0 31 12/29/18 20:28 65 22 94 Venturi Mask 4.0 31 12/29/18 20:00 97.3 99 24 131/68 (89) 98 12/29/18 20:00 Venturi Mask 4.0 12/29/18 16:00 Venturi Mask 4.0 12/29/18 16:00 99.1 106 26 117/77 (90) 94 12/29/18 14:43 101 20 99 Venturi Mask 4.0 31 12/29/18 14:33 60 20 96 Venturi Mask 4.0 31 12/29/18 12:00 98.8 110 28 138/77 (97) 95 12/29/18 12:00 Venturi Mask 4.0 12/29/18 11:59 107 12/29/18 08:00 Venturi Mask 4.0 12/29/18 08:00 98.2 104 28 131/87 (102) 91 12/29/18 07:34 100 12/29/18 07:18 87 18 95 Venturi Mask 4.0 31 12/29/18 07:08 100 20 92 Venturi Mask 4.0 31 12/29/18 07:05 92 Venturi Mask 4.0 31 12/29/18 07:05 Venturi Mask 4.0 31 12/29/18 04:00 Venturi Mask 4.0 12/29/18 04:00 98.3 110 40 149/59 (89) 91 12/29/18 04:00 114 12/29/18 00:00 97.9 110 40 153/80 (104) 91 12/29/18 00:00 104 12/29/18 00:00 Venturi Mask 4.0 12/29/18 00:00 105 12/28/18 23:58 104 18 93 Venturi Mask 4.0 31 Intake and Output 12/28/18 12/29/18 19:00 07:00 Intake Total 990 ml 580 ml Output Total 797 ml 1100 ml Balance 193 ml -520 ml Free Water 30 ml IV Total 385 ml 110 ml Tube Feeding 605 ml 440 ml Output Urine Total 797 ml 1100 ml # Bowel Movements 1 Laboratory Tests Test 12/29/18 03:10 White Blood Count 14.0 K/UL (4.8-10.8) H Red Blood Count 3.61 M/UL (4.70-6.10) L Hemoglobin 11.4 G/DL (14.2-18.0) L Hematocrit 33.9 % (42.0-52.0) L Mean Corpuscular Volume 94 FL (80-99) Mean Corpuscular Hemoglobin 31.6 PG (27.0-31.0) H Mean Corpuscular Hemoglobin Concent 33.7 G/DL (32.0-36.0) Red Cell Distribution Width 14.8 % (11.6-14.8) Platelet Count 139 K/UL (150-450) L Mean Platelet Volume 10.9 FL (6.5-10.1) H Neutrophils (%) (Auto) % (45.0-75.0) Lymphocytes (%) (Auto) % (20.0-45.0) Monocytes (%) (Auto) % (1.0-10.0) Eosinophils (%) (Auto) % (0.0-3.0) Basophils (%) (Auto) % (0.0-2.0) Sodium Level 151 MMOL/L (136-145) H Potassium Level 3.7 MMOL/L (3.5-5.1) Chloride Level 118 MMOL/L (98-107) H Carbon Dioxide Level 22 MMOL/L (21-32) Anion Gap 11 mmol/L (5-15) Blood Urea Nitrogen 47 mg/dL (7-18) H Creatinine 1.3 MG/DL (0.55-1.30) Estimat Glomerular Filtration Rate mL/min (>60) Glucose Level 113 MG/DL (74-106) H Calcium Level 8.2 MG/DL (8.5-10.1) L Total Bilirubin 0.2 MG/DL (0.2-1.0) Aspartate Amino Transf (AST/SGOT) 47 U/L (15-37) H Alanine Aminotransferase (ALT/SGPT) 30 U/L (12-78) Alkaline Phosphatase 120 U/L (46-116) H Total Protein 5.4 G/DL (6.4-8.2) L Albumin 1.0 G/DL (3.4-5.0) L Globulin 4.4 g/dL Albumin/Globulin Ratio 0.2 (1.0-2.7) L Objective HEENT: Atraumatic and normocephalic. Anicteric. Pupils are equal, round, and reactive to light and accommodation. Conjunctival pallor. NECK: JVP <5 cm, No carotid bruit. Carotid upstroke is 2+ bilaterally. CARDIOVASCULAR: Normal S1, S2. Regular rate and rhythm. Tachycardic. No murmurs, gallops, or rubs. LUNGS: Diminished breath sounds in both lungs. ABDOMEN: Soft, nontender, and nondistended. No hepatosplenomegaly. Positive bowel sounds. EXTREMITIES: No evidence of edema, clubbing, or cyanosis. There is onychomycosis. Fred Holman MD Dec 29, 2018 23:52
[2018-12-30] VITALS: BP 112/73
[2018-12-30] MEDS: Acetylcysteine 20% Soln 4ml HHN SCH ×2 (01:00→07:37)
[2018-12-30] MEDS: Ipratropium 0.02% Inh Soln 2.5ml UD HHN SCH ×2 (01:00→07:37)
[2018-12-30] MEDS: Oxacillin 2 GM in NS 110 ML IVPB SCH ×3 (01:31→08:20)
[2018-12-30 04:00] VITALS: BP 94/34
--- NOTE | 2018-12-30 05:26 | NUR ---
NURSE NOTES: patient was sating low in the 70's. we put him on 100% non rebreather mask. patient currently stable.
[2018-12-30 06:42] LABS: HEMATOCRIT 33.4 % (42.0-52.0); HEMOGLOBIN 11.2 G/DL (14.2-18.0); MEAN CORPUSCULAR VOLUME 98 FL (80-99); PLATELET COUNT 157 K/UL (150-450); RED BLOOD COUNT 3.43 M/UL (4.70-6.10); RED CELL DISTRIBUTION WIDTH 14.5 % (11.6-14.8); WHITE BLOOD COUNT 13.2 K/UL (4.8-10.8)
--- NOTE | 2018-12-30 07:15 | NUR ---
HAND-OFF: Report given to guy trevino.
[2018-12-30 07:28] LABS: ALANINE AMINOTRANSFERASE 31 U/L (12-78); ALBUMIN/GLOBULIN RATIO 0.3 (1.0-2.7); ALKALINE PHOSPHATASE 120 U/L (46-116); ANION GAP 13 mmol/L (5-15); ASPARTATE AMINO TRANSFERASE 52 U/L (15-37); BLOOD UREA NITROGEN 52 mg/dL (7-18); CALCIUM 8.1 MG/DL (8.5-10.1); CARBON DIOXIDE 22 MMOL/L (21-32); CHLORIDE 121 MMOL/L (98-107); CREATININE 1.4 MG/DL (0.55-1.30); POTASSIUM 4.2 MMOL/L (3.5-5.1); SODIUM 156 MMOL/L (136-145)
--- NOTE | 2018-12-30 07:46 | NUR ---
NURSE NOTES: Received pt in bed. pt is on ventri mask @5L. Noted with discharge planning today with hospice. no actual discharge order yet. will follow up accordingly. Bed in lowest position. Bed alarm on. will continue to monitor
[2018-12-30 07:49] LABS: BILIRUBIN,TOTAL 0.3 MG/DL (0.2-1.0)
[2018-12-30 08:00] VITALS: BP 70/39
[2018-12-30] MEDS: Dexamethasone 4mg/ml vial IVP SCH (08:20)
[2018-12-30] MEDS: Pantoprazole Inj IVP SCH (08:20)
[2018-12-30] MEDS: Heparin 5000 units/ml inj SUBQ SCH (08:25)
--- NOTE | 2018-12-30 09:45 | NUR ---
Social Service Note SW spoke with patient's DME was not delivered. SW will reschedule pick-up time. SW spoke with primary nurse, to discussed impending dc. Primary nurse informed SW that patient and will notify . SW contacted [facility] [phone] and [facility]. SW available to provide support to family as needed.
[2018-12-30] MEDS ORDERED: NS 275ml ONE (09:59)
--- NOTE | 2018-12-30 10:12 | NUR ---
PRONOUNCEMENT: No Code. Called to pronounce patient. Absence of spontaneous respirations, no cardiac or breath sounds on auscultation. Pupils fixed and dilated. No carotid pulse or chest movement. Patient at 0930 . MENDEL notified PER .TATIANNA Family was notified at .1005
--- NOTE | 2018-12-30 10:30 | NUR ---
NURSE NOTES: pt noted with no respiration nor breathing. RN assessed pt and noted with absent respiration and pulse. Charge nurse (Evelio) and supervisor pipe finishing (Shefali) notified of pt's condition to check confirmation of .
--- NOTE | 2018-12-30 10:45 | NUR ---
NURSE NOTES: Called [employer] and spoke with ananth (leasing representative) and received confirmation number [id number]. per Ananth, okay to release the body. pt's (balaji) notified of pt's and was told that she did not set up any mortuary as of now. Body was cleaned and wrapped in the body bag. Awaiting for the to come to the unit.
--- NOTE | 2018-12-30 11:39 | Surgery Progress Note ---
Surgery Progress Note Subjective Additional Comments leukocytosis improving. no acute events. stable. Objective Last 24 Hour Vital Signs Date Time Temp Pulse Resp B/P (MAP) Pulse Ox O2 Delivery O2 Flow Rate FiO2 12/30/18 09:01 Non-Rebreather 15.0 12/30/18 08:32 68 20 89 Non-Rebreather 15.0 100 12/30/18 08:20 72 22 88 Non-Rebreather 15.0 100 12/30/18 08:20 Non-Rebreather 15.0 100 12/30/18 08:20 89 Non-Rebreather 15.0 100 12/30/18 08:00 99.4 76 22 70/39 (49) 89 12/30/18 04:00 97.9 98 20 94/34 (54) 70 12/30/18 04:00 Venturi Mask 4.0 12/30/18 01:10 73 22 99 Venturi Mask 4.0 31 12/30/18 01:01 58 22 93 Venturi Mask 4.0 31 12/30/18 00:00 97.5 96 17 112/73 (86) 93 12/30/18 00:00 Venturi Mask 4.0 12/29/18 20:45 94 Venturi Mask 4.0 31 12/29/18 20:45 Venturi Mask 4.0 31 12/29/18 20:44 54 22 98 Venturi Mask 4.0 31 12/29/18 20:28 65 22 94 Venturi Mask 4.0 31 12/29/18 20:00 97.3 99 24 131/68 (89) 98 12/29/18 20:00 Venturi Mask 4.0 12/29/18 16:00 Venturi Mask 4.0 12/29/18 16:00 99.1 106 26 117/77 (90) 94 12/29/18 14:43 101 20 99 Venturi Mask 4.0 31 12/29/18 14:33 60 20 96 Venturi Mask 4.0 31 12/29/18 12:00 98.8 110 28 138/77 (97) 95 12/29/18 12:00 Venturi Mask 4.0 12/29/18 11:59 107 I&O Intake and Output 12/29/18 12/30/18 19:00 07:00 Intake Total 800 ml 280 ml Output Total 50 ml Balance 800 ml 230 ml Free Water 30 ml 60 ml IV Total 220 ml Tube Feeding 550 ml 220 ml Output Urine Total 50 ml # Voids 1 Dressing: other Wound: other Drains: other Cardiovascular: RSR Respiratory: clear, decreased breath sounds Abdomen: soft, non-tender, non-distended Extremities: other Laboratory Tests Test 12/30/18 05:45 White Blood Count 13.2 K/UL (4.8-10.8) H Red Blood Count 3.43 M/UL (4.70-6.10) L Hemoglobin 11.2 G/DL (14.2-18.0) L Hematocrit 33.4 % (42.0-52.0) L Mean Corpuscular Volume 98 FL (80-99) Mean Corpuscular Hemoglobin 32.7 PG (27.0-31.0) H Mean Corpuscular Hemoglobin Concent 33.5 G/DL (32.0-36.0) Red Cell Distribution Width 14.5 % (11.6-14.8) Platelet Count 157 K/UL (150-450) Mean Platelet Volume 9.2 FL (6.5-10.1) Neutrophils (%) (Auto) % (45.0-75.0) Lymphocytes (%) (Auto) % (20.0-45.0) Monocytes (%) (Auto) % (1.0-10.0) Eosinophils (%) (Auto) % (0.0-3.0) Basophils (%) (Auto) % (0.0-2.0) Differential Total Cells Counted 100 Neutrophils % (Manual) 87 % (45-75) H Lymphocytes % (Manual) 2 % (20-45) L Monocytes % (Manual) 2 % (1-10) Eosinophils % (Manual) 1 % (0-3) Basophils % (Manual) 0 % (0-2) Band Neutrophils 8 % (0-8) Platelet Estimate Adequate Platelet Morphology Normal Red Blood Cell Morphology Normal Sodium Level 156 MMOL/L (136-145) H Potassium Level 4.2 MMOL/L (3.5-5.1) Chloride Level 121 MMOL/L (98-107) H Carbon Dioxide Level 22 MMOL/L (21-32) Anion Gap 13 mmol/L (5-15) Blood Urea Nitrogen 52 mg/dL (7-18) H Creatinine 1.4 MG/DL (0.55-1.30) H Estimat Glomerular Filtration Rate mL/min (>60) Glucose Level 102 MG/DL (74-106) Calcium Level 8.1 MG/DL (8.5-10.1) L Total Bilirubin 0.3 MG/DL (0.2-1.0) Aspartate Amino Transf (AST/SGOT) 52 U/L (15-37) H Alanine Aminotransferase (ALT/SGPT) 31 U/L (12-78) Alkaline Phosphatase 120 U/L (46-116) H Total Protein 4.6 G/DL (6.4-8.2) L Albumin 1.0 G/DL (3.4-5.0) L Globulin 3.6 g/dL Albumin/Globulin Ratio 0.3 (1.0-2.7) L Plan Problems: (1) Pneumothorax, left Assessment & Plan: left small pneumothorax seen on CXR today patient on vent support with positive pressure currently saturating well and stable Repeat CXR stable - possible effusion now? will monitor for now if worsening will need left chest tube placement STAT CXR and call me if desaturates leukocytosis worsening may consider CT scan. will discuss with team extubated and tolerating so far thank you will follow with recs. (2) Severe sepsis Chris Messer Dec 30, 2018 11:39
--- NOTE | 2018-12-31 11:44 | Discharge Summary ---
Discharge Summary Discharge Summary _ SUMMARY: DATE OF ADMISSION: 12/17/2018 DATE OF EXPIRATION: 12/30/2018 REASON FOR ADMISSION: 73 years old male with past medical history of lung cancer, hypertension, history of stroke, status post recent hospitalization at [facility], was brought due to hypoxemia , generalized weakness and dyspnea. According to paramedics, initial oxygen saturation was 86%. EKG revealed sinus tachycardia with ehart rate of 137 , without any acute ischemic changes. Pulse oximetry improved with supplemental oxygen. Upon evaluation patient was found to be febrile with temperature 103.6, tachycardic with heart rate 137, tachypneic with respiratory rate 33 , and hypoxic, required nonrebreathing mask to reach appropriate pulse oximetry. Per POLST patient was DNR status, however it was not signed by his physician. Patient by himself was unable to provide any history. Laboratory workup revealed leukopenia with WBC 3.5, hemoglobin 16.5. INR 1.3. BUN 90 , creatinine 2.1. Lactic acid 4.5 . Troponin -0.142. Pro BNP 15298. Urinalysis revealed +3 protein ,+2 blood ,no pyuria and moderate bacteria. Chest x-ray revealed suspected basilar pneumonia. Large rounded opacity in the right upper lobe , possibly a pleural-based mass or tumor. To summarize , patient presented with fever, tachycardia ,tachypnea, hypoxia and dyspnea. Patient appeared to be septic. Patient started on the IV fluids and BiPAP. Septic workup was initiated. Aspirin was given. Patient 's condition was discussed with his , who requested intubation . Patient subsequently was orally intubated in emergency department. Patient was transferred to ICU for further management Patient required emergency oral intubation. ABG immediately after intubation revealed acidosis with pH of 7.295 and hypoxemia with PCO2 of 91%. CONSULTANTS: prop and effects designer Dr. Jha pulmonary ID specialist Dr. Rob surgery Dr. Messer [facility] COURSE: Patient was admitted to ICU. Ventilator support and pulmonary toilet provided. Patient was followed up with ABG and chest x-ray. Social Studies Teacher closely followed. Ventilator settings were titrated as needed. Patient started on empiric antibiotics. Infectious disease specialist followed. Antibiotic regimen optimized based on sensitivity. Blood culture revealed Staph aureus. Urine culture was negative , influenza screen test was negative. Troponin levels were trending. Levels were flat and minimally elevated. Last troponin level was negative. EKG revealed no acute ischemic changes. According to prop and effects designer , patient was not a candidate for ischemic workup, given metastatic lung cancer. Classification Inspector recommended continue with conservative management. Patient with underlying history of coronary artery disease, status post CABG. Echocardiogram revealed ejection fraction of 20%, no evidence of left ventricular hypertrophy. Global left ventricular hypokinesis with anteroseptal and apical akinesis. Patient showed nonsustained ventricular tachycardia. Magnesium land potassium levels were closely monitored : magnesium was kept above 2.5 and potassium at 4 as per prop and effects designer recommendations. Patient also has sinus tachycardia , most likely secondary to hypoxemia/lung cancer as per prop and effects designer. NG tube was inserted to provide means of nutritional support and for medications. Strict aspiration precautions were maintained. PICC line was placed for IV antibiotics. CT of the head revealed patchy areas of low-attenuation within portion of both parietal lobes , right occipital lobe and the left cerebellum, most probably representing metastasis to brain. Chest x-ray 12/21 demonstrated small left apical pneumothorax. Surgeon closely followed. Patient was followed-up with daily chest x-ray with plan to consider a left chest tube placement if worsened pneumothorax. Pneumothorax resolved Patient was able to be extubated 12/24 and was placed on Venturi mask with close titration of Fio2 to keep pulse oximetry above 92%. Atrovent only was provided [id number] and as needed. Mucomyst provided via N. Volumes and renal parameters were closely monitored. Electrolytes corrected as needed. Nephrotoxins were avoided. DVT prophylaxis with heparin provided. Electrolytes were closely monitored. Electrolytes corrected as needed. Nephrotoxins were avoided. Creatinine trending down from initial 2.1 down to 1.4. Microbiology showed persistent Staph aureus on blood culture , clari on 12/17 , and 12/20 . PICC line was discontinued ; culture tip revealed no evidence of growth. Blood culture on were negative. Sputum culture revealed Loly. Antibiotic continued as per ID recommendations. All consultants agree that overall prognosis was extremely poor given metastatic lung cancer along with respiratory failure , underlying cardiac and renal problems. Prognosis was discussed with the family. CODE STATUS changed to DNR/DNI on 12/28 with plan to transition patient to hospice services next week. Unfortunately. patient condition was rapidly deteriorating. Patient was pronounced at 9:30 AM on 12/30. 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 I was not involved in the patient's management. Aminta Galarza NP Dec 31, 2018 11:44
--- NOTE | 2018-12-31 15:44 | Cardiology Report ---
APPROVED REPORT EXAM: Two-dimensional and M-mode echocardiogram with Doppler and color Doppler. INDICATION Congestive Heart Failure M-Mode DIMENSIONS IVSd1.2 (0.7-1.1cm)Left Atrium (MM)3.7 (1.6-4.0cm) LVDd6.0 (3.5-5.6cm)Aortic Root2.7 (2.0-3.7cm) PWd1.0 (0.7-1.1cm)Aortic Cusp Exc.1.6 (1.5-2.0cm) IVSs1.1 cm LVDs5.6 (2.5-4.0cm) PWs1.1 cm Global left ventricular hypokinesis with anteroseptal and apical akinesis. Mild left ventricular enlargement . Left ventricular ejection fraction estimated to be 20%. No evidence of left ventricular hypertrophy by 2-D. No evidence of pericardial effusion. Mild left atrial enlargement . Right cardiac chamber sizes are within normal limits. Focal aortic valve sclerosis with normal cusp excursion. Mildly thickened mitral valve leaflets with normal excursion. Mildly mitral annulus and aortic root calcification. Normal pulmonic valve structure. Normal tricuspid valve structure. IVC at normal size with physiologic collapse. Apical views are not obtainable . A color flow and spectral Doppler study was performed and revealed: Trace aortic insufficiency . Trace mitral regurgitation. Mitral diastolic velocities suggest reduced left ventricular relaxation c/w mild LV diastolic dysfunction (Grade I ) Trace tricuspid regurgitation. Tricuspid systolic velocities suggests peak right ventricular systolic pressure of 14mmHg.
--- NOTE | 2019-01-01 14:35 | Cardiology Report ---
APPROVED REPORT EKG Measurement Heart [id number] Sinus tachycardia with occasional premature ventricular complexes Inferior infarct, age undetermined Cannot rule out Anterior infarct, age undetermined T wave abnormality, consider lateral ischemia Abnormal ECG
== END 2018-12-30 10:00 | disposition expired | DRG 870 ==
LOC: EDBD 15:23 → EMR 15:57 → ICU 16:20 → EDBEDREQ 16:34 → EDBEDREQSVC 16:34 → EDBEDREQ 17:31 → ICU 18:15 → 2W 12-28 18:09 → 4E 12-29 16:40
PROC: 5A1955Z Respiratory Ventilation, Greater than 96 Consecutive Hours (ICD-10-PCS; principal; 2018-12-17)
PROC: 0BH17EZ Insertion of Endotracheal Airway into Trachea, Via Natural or Artificial Opening (ICD-10-PCS; principal; 2018-12-17)
PROC: 02HV33Z Insertion of Infusion Device into Superior Vena Cava, Percutaneous Approach (ICD-10-PCS; 2018-12-18)
PROC: B548ZZA Ultrasonography of Superior Vena Cava, Guidance (ICD-10-PCS; 2018-12-18)
DX: A41.01 Sepsis due to Methicillin susceptible Staphylococcus aureus (principal); R65.21 Severe sepsis with septic shock; J69.0 Pneumonitis due to inhalation of food and vomit; I21.4 Non-ST elevation (NSTEMI) myocardial infarction; C79.31 Secondary malignant neoplasm of brain; N17.9 Acute kidney failure, unspecified; J44.1 Chronic obstructive pulmonary disease with (acute) exacerbation; I50.40 Unspecified combined systolic (congestive) and diastolic (congestive) heart failure; C34.11 Malignant neoplasm of upper lobe, right bronchus or lung; C79.51 Secondary malignant neoplasm of bone; Z99.11 Dependence on respirator [ventilator] status; N39.0 Urinary tract infection, site not specified; J93.9 Pneumothorax, unspecified; I47.2 Ventricular tachycardia; I25.10 Atherosclerotic heart disease of native coronary artery without angina pectoris; Z95.1 Presence of aortocoronary bypass graft; I11.0 Hypertensive heart disease with heart failure; Z86.73 Personal history of transient ischemic attack (TIA), and cerebral infarction without residual deficits; Z66 Do not resuscitate; E78.5 Hyperlipidemia, unspecified
CPT/HCPCS: 31500; 36415; 36569; 36600; 70450; 71045; 76937; 80048; 80053; 81003; 82533; 82550; 82803; 83605; 83880; 84439; 84443; 84480; 84481; 84484; 85007; 85025; 85610; 85730; 86710; 87040; 87070; 87081; 87086; 87181; 87205; 92610; 93005; 93306; 94002; 94003; 94640; 94664; 94760; 96365; 96367; 96375; 99291; J2250; J2700; J3490; J7620